=== PATIENT | male | born 1970 | race Caucasian/White ===

== ENCOUNTER 2023-01-31 08:29 | Outpatient (RCR) | payer MEDICARE, MEDICAID, SELFPAY | END 2023-02-05 11:39 | disposition home or self-care (01) | LOC: PT 08:29 | PROVIDERS: PCP Family Medicine; Visit Provider Family Medicine | DX: R26.89 Other abnormalities of gait and mobility (principal); I69.359 Hemiplegia and hemiparesis following cerebral infarction affecting unspecified side | CPT/HCPCS: 97110; 97112; 97124 ==

== ENCOUNTER 2023-03-22 07:56 | Outpatient (OUT) | payer MEDICARE, MEDICAID, SELFPAY ==
[2023-03-22 09:55] LABS: Thyroid Stimulating Hormone 0.462 uIU/mL (0.358-3.740)
[2023-03-26 00:06] LABS: Methylmalonic Acid, Serum 119 nmol/L (0-378)
== END 2023-03-22 07:57 | disposition home or self-care (01) ==
LOC: LAB 07:58
PROVIDERS: PCP Family Medicine
DX: R41.3 Other amnesia (principal)
CPT/HCPCS: 36415; 82607; 83921; 84443

== ENCOUNTER 2023-07-12 08:38 | Outpatient (OUT) | payer MEDICARE, MEDICAID, SELFPAY ==
[2023-07-12 09:43] LABS: Theophylline 18.2 ug/mL (10.0-20.0)
== END 2023-07-12 08:39 | disposition home or self-care (01) ==
PROVIDERS: PCP Family Medicine; Visit Provider Internal Medicine
DX: Z51.81 Encounter for therapeutic drug level monitoring (principal); Z79.899 Other long term (current) drug therapy; J44.9 Chronic obstructive pulmonary disease, unspecified
CPT/HCPCS: 36415; 80198

== ENCOUNTER 2023-07-18 08:14 | Outpatient (OUT) | payer MEDICARE, MEDICAID, SELFPAY ==
--- NOTE | 2023-07-18 08:18 | CT_ITS ---
[address] [address] Patient Name: MK ROSALES MRN: [id number] date: 1970 Sex: M Assigned Patient Location: CT Current Patient Location: Accession/Order Number: [id number] Exam Date: 07/18/2023 08:20 Report Date: 07/19/2023 00:29 At the request of: TREVOR LEONG Procedure: CT lung screening low-dose EXAMINATION: CT lung screening low-dose HISTORY: Screening For Malignant Neoplasm Of Respiratory Organs Z12.2 COMPARISON: CT LUNG CANCER SCREENING 07/13/2022 TECHNIQUE: Axial, Coronal, and Sagittal images were created without the administration of IV contrast material. Dose reduction techniques were achieved by using automated exposure control and/or adjustment of mA and/or kV according to patient size and/or use of iterative reconstruction technique. FINDINGS: LUNGS: Scattered calcified granulomas. No suspicious nodules or infiltrates. PLEURA: No mass, effusion, or pneumothorax. VASCULATURE: No abnormality. ULYSSES: Calcified lymph nodes compatible with chronic granulomatous disease. MEDIASTINUM: No mass or pathologic adenopathy. CARDIAC: Atherosclerotic coronary artery disease. No pericardial effusion. AORTA: No aneurysm or dissection. CHEST WALL: No mass or axillary adenopathy BONES: No bone lesion or fracture. LIMITED ABDOMEN: No suspicious findings. Limited images of the upper abdomen. OTHER: Negative. CT/CT lung screening low-dose IMPRESSION: 1. Lung-RADS 2- Benign Appearance or Behavior. Nodules with a very low likelihood of becoming a clinically active cancer due to size or lack of growth. Follow-up CT Chest in 1 year. Electronically authenticated by: ALEXUS MCCLAIN Date: 07/19/2023 00:29
== END 2023-07-18 08:15 | disposition home or self-care (01) ==
LOC: CT 08:14
PROVIDERS: PCP Family Medicine; Visit Provider Internal Medicine
DX: Z87.891 Personal history of nicotine dependence (principal); Z12.2 Encounter for screening for malignant neoplasm of respiratory organs
CPT/HCPCS: 71271

== ENCOUNTER 2023-10-12 08:47 | Outpatient (OUT) | payer MEDICARE, SELFPAY ==
--- OUTSIDE RECORDS SUMMARY | 2023-10-12 08:53 | XMS_ITS | CCD ---
Author Name Unknown Address [address] [place] [address] Organization [employer] Care Team Providers Care Roller Hand Name Role Phone SHANEL FERNANDEZ Referring Unavailable MK MIN Admitting Unavailable MK MIN Attending Unavailable MK MIN Surgeon Unavailable [place] Procedure Practitioner Unavailab le HOY, SHANEL Primary Care Unavailable PITRODCUBA MillerJAYSON Surgeon Unavailable [place] Procedure Practitioner Unavailab le Blades, Berenice Unavailable HOY, SHANEL Primary Care Unavailable Patricio Lutz Consulting Unavailable JI ., MR VAZQUEZ Attending Unavailable JI ., MR GEORGE Admitting Unavailable JI ., MR GEORGE Consulting Unavailable HOY, SHANEL Primary Care Unavailable STEPANIC, DR RUBI Consulting Unavailable STEPANIC, DR RUBI Attending Unavailable STEPANIC, DR RUBI Admitting Unavailable DR MK KOWALSKI V Consulting Unavailable FERMIN, HAL Attending Unavailable FERMIN, HAL Admitting Unavailable HOY, SHANEL Primary Care Unavailable FERMIN, HAL Consulting Unavailable HOY, SHANEL Consulting Unavailable HOY, SHANEL Attending Unavailable HOY, SHANEL Primary Care Unavailable HOY, SHANEL Admitting Unavailable BLADES, BERENICE Attending Unavailable BLADES, BERENICE Admitting Unavailable DR MK KOWALSKI V Consulting Unavailable HOY, SHANEL Primary Care Unavailable MK SÁNCHEZ Unavailable BLADES, BERENICE Consulting Unavailable SAMSA ., TREVOR Attending Unavailable SAMSA ., TREVOR Admitting Unavailable HOY, SHANEL Primary Care Unavailable HOY, SHANEL Consulting Unavailable HOY, SHANEL Attending Unavailable HOY, SHANEL Admitting Unavailable HOY, SHANEL Primary Care Unavailable HOY, SHANEL Admitting Unavailable HOY, SHANEL Consulting Unavailable HOY, SHANEL Primary Care Unavailable HOY, SHANEL Attending Unavailable Patricio Lutz Consulting Unavailable SAMSA ., TREVOR Attending Unavailable SAMSA ., TREVOR Admitting Unavailable SAMSA ., TREVOR Consulting Unavailable HOY, SHANEL Primary Care Unavailable SAMSA ., TREVOR Attending Unavailable SAMSA ., TREVOR Admitting Unavailable HOY, SHANEL Primary Care Unavailable SAMSA ., TREVOR Consulting Unavailable SAMSA ., TREVOR Attending Unavailable SAMSA ., TREVOR Admitting Unavailable HOY, SHANEL Primary Care Unavailable Patricio Lutz Consulting Unavailable SAMSA ., TREVOR Consulting Unavailable HOY, SHANEL Consulting Unavailable HOY, SHANEL Attending Unavailable HOY, SHANEL Admitting Unavailable HOY, SHANEL Primary Care Unavailable HOY, SHANEL Primary Care Unavailable AMARJIT, DR BABATUNDE Leigh Attending Unavailable DR BABATUNDE OCASIO Admitting Unavailable DR BABATUNDE OCASIO Consulting Unavailable BLU GASPAR Consulting Unavailable HOY, SHANEL Attending Unavailable HOY, SHANEL Primary Care Unavailable HOY, SHANEL Admitting Unavailable HOY, SHANEL Primary Care Unavailable HOY, SHANEL Attending Unavailable HOY, SHANEL Admitting Unavailable SAMSA ., TREVOR Admitting Unavailable HOY, SHANEL Primary Care Unavailable SAMSA ., TREVOR Attending Unavailable HOY, SHANEL Consulting Unavailable HOY, SHANEL Attending Unavailable HOY, SHANEL Primary Care Unavailable HOY, SHANEL Admitting Unavailable HAL CHRISTENSEN Attending Unavailable Allergies Allergy Classification Reported Allergen(s) Allergy Type Date of Onset Reaction(s) Facility (1 source) 88856,00; 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: [47756,00] Propensity to adverse reactions (disorder) 9 [facility] Medications Current Medications Medication Drug Class(es) Dates Sig (Normalized) Sig (Original) albuterol 0.83 mg/ml inhalation solution (2 sources) beta2-Adrenergic Agonist Start: 06-16-2020 take 2.5 mg by inhalation four times daily Albuterol Sulfate Active 2.5 MG INHALATION Four times daily June 16, 2020 10:12am Albuterol Sulfate (2.5 MG/ 3 ML) 2.5 MG/3ML 0.083% Nebulization Solution (2 sources) Aspir-81 (2 sources) Aspir-81 Active aspirin 81 mg delayed release oral tablet (2 sources) Platelet Aggregation Inhibitor, Nonsteroidal Anti-inflammatory Drug Start: 01-12-2019 take 81 mg by mouth once daily Aspirin Active 81 MG PO Daily January 12, 2019 9:32am atorvastatin 80 mg oral tablet (6 sources) HMG-CoA Reductase Inhibitor Start: 01-12-2019 take 80 mg by mouth once daily Atorvastatin Active 80 MG PO Daily January 12, 2019 9:27am cholecalciferol 0.05 mg oral tablet (2 sources) Vitamin D take 1 tablet by mouth every twenty-four hours Vitamin D 50 MCG (2000 UT) 1 tablet Orally Once a day Active clopidogrel 75 mg oral tablet (4 sources) P2Y12 Platelet Inhibitor Start: 01-12-2019 take 75 mg by mouth once daily Clopidogrel Active 75 MG PO Daily January 12, 2019 9:32am 24 hr desvenlafaxine 100 mg extended release oral tablet (4 sources) Serotonin and Norepinephrine Reuptake Inhibitor Start: 06-16-2020 take 100 mg by mouth once daily Desvenlafaxine Active 100 MG PO Daily June 16, 2020 10:12am diclofenac sodium 75 mg delayed release oral tablet (4 sources) Nonsteroidal Anti-inflammatory Drug Start: 06-16-2020 take 75 mg by mouth twice daily Diclofenac Sodium Active 75 MG PO Twice daily June 16, 2020 10:12am gabapentin 300 mg oral capsule (2 sources) Anti-epileptic Agent Gabapentin 300 MG 1 capsule Orally take 1 capsule twice daily for 15 days then 1 cap daily for 15 days then stop for 30 day(s) G89.29 Chronic Pain Active levETIRAcetam 500 mg oral tablet (8 sources) Start: 09-05-2020 take 1000 mg by mouth twice daily Levetiracetam Active 1000 MG PO Twice daily September 05, 2020 5:06pm Start: 01-14-2019 End: 09-05-2020 take 500 mg by mouth twice daily Levetiracetam Discontinued 500 MG PO Twice daily 60 January 14, 2019 9:06am September 05, 2020 5:06pm Start: 01-12-2019 End: 01-14-2019 take 500 mg by mouth once daily Levetiracetam Discontinued 500 MG PO Daily January 12, 2019 9:32am January 14, 2019 9:06am take 1 tablet by kathleen th every twelve hours Keppra 1000 MG 1 tablet Orally Twice a day Active lisinopril 2.5 mg oral tablet (4 sources) Angiotensin Converting Enzyme Inhibitor Start: 01-12-2019 take 2.5 mg by mouth once daily Lisinopril Active 2.5 MG PO Daily January 12, 2019 9:32am metFORMIN hydrochloride 500 mg oral tablet (4 sources) Biguanide Start: 01-12-2019 take 500 mg by mouth once daily Metformin Active 500 MG PO Daily January 12, 2019 9:32am metoprolol tartrate 25 mg oral tablet (4 sources) beta-Adrenergic Mariela Start: 01-12-2019 take 25 mg by mouth twice daily Metoprolol Tartrate Active 25 MG PO Twice daily January 12, 2019 9:32am Iktwkoky-Qer-Dfkuhvv Fumarate (Multi Vitamin) 9 mg iron/15 mL Liquid (2 sources) Start: 01-12-2019 take 1 tablet by mouth once daily Qstkeygg-Jqo-Etngg us Fumarate (Multi Vitamin) 9 mg iron/15 mL Liquid Active 1 TAB PO Daily January 12, 2019 9:32am nitroglycerin 0.4 mg sublingual tablet (2 sources) Nitrate Vasodilator Start: 01-12-2019 Nitroglycerin Active 0.4 MG SUBLINGUAL every 5 to 15 minutes January 12, 2019 9:44am Ozempic (2 sources) Ozempic Active SZSTANDARD1-Topical Cream Baclofen 2%, Cyclobenzaprine HCL 2%, Diclofenac Na 3%, Gabapentin 6%, Lidocaine HCL 2% Cream (2 sources) Start: 03-16-2020 tamsulosin hydrochloride 0.4 mg oral capsule (4 sources) alpha-Adrenergic Mariela Start: 01-12-2019 take 0.4 mg by mouth once daily Tamsulosin Active 0.4 MG PO Daily January 12, 2019 9:32am theophylline 400 mg extended release oral tablet (4 sources) Methylxanthine Start: 01-12-2019 take 1 tablet by mouth twice daily Theophylline Active 1 TAB PO Twice daily January 12, 2019 9:27am Theophylline Act renny Trelegy Ellipta 100-62.5-25 MCG/INH (2 sources) take 1 puff(s) by inhalation once daily Trelegy Ellipta 100-62.5-25 MCG/INH 1 puff Inhalation Once a day Active Completed/Discontinued Medications Medication Drug Class(es) Dates Sig (Normalized) Sig (Original) cyclobenzaprine hydrochloride 10 mg oral tablet (2 sources) Muscle Relaxant Start: 01-12-2019 End: 08-03-2020 take 10 mg by mouth three times daily Cyclobenzaprine Discontinued 10 MG PO Three times daily January 12, 2019 9:32am August 03, 2020 8:30am Fluticasone-Umeclidin -Vilanter (4 sources) Anticholinergic , Corticosteroid, beta2-Adrenergi c Agonist Start: 08-02-2020 End: 09-05-2020 Fluticasone-Umeclidi n-Vilanter (Trelegy Ellipta) 100-62.5-25 mcg blister with device Discontinued 2 INH INHALATION Twice daily August 02, 2020 9:56am September 05, 2020 5:06pm Start: 01-12-2019 take 1 puff(s) by inhalation once daily Dbahbmnuskt-Mpgvzjrbh-Kfflolgw Active 1 PUFF INHALATION Daily January 12, 2019 9:32am traZODone hydrochloride 50 mg oral tablet (2 sources) Serotonin Reuptake Inhibitor Start: 01-12-2019 End: 08-03-2020 take 50 mg by mouth once daily Trazodone Discontinued 50 MG PO Daily January 12, 2019 9:32am August 03, 2020 8:32am Problems Active Problems Problem Classification Problem Date Documented Date Episodic/Chronic Acute cerebrovascular disease (7 sources) Cerebral infarction; 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: [Cerebral infarction, unspecified] Onset: 12-19-2022 Chronic Chronic obstructive pulmonary disease and bronchiectasis (7 sources) Pulmonary emphysema; 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: [Emphysema, unspecified] Onset: 07-14-2022 01-12-2019 Chronic Congestive heart failure; nonhypertensive (1 source) Unspecified diastolic (congestive) heart failure; 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: [UNSPECIFIED DIASTOLIC HEART FAILURE] Onset: 10-22-2022 Chronic Coronary atherosclerosis and other heart disease (9 sources) 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; 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: [Atherosclerotic heart disease of [place] coronary artery without angina pectoris] Onset: 04-05-2022 01-12-2019 Chronic Deficiency and other anemia (1 source) Anemia, unspecified; 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: [ANEMIA UNSPECIFIED] Onset: 10-22-2022 Episodic Diabetes mellitus with complications (2 sources) Neuropathy due to type 2 diabetes mellitus; 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: [Type 2 diabetes mellitus with diabetic neuropathy, unspecified] 01-12-2019 Chronic Diabetes mellitus without complication (1 source) Other abnormal glucose; 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: [OTHER ABNORMAL GLUCOSE] Onset: 10-22-2022 Episodic Disorders of lipid metabolism (3 sources) Hyperlipidemia; 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: [Hyperlipidemia, unspecified] Onset: 10-22-2022 01-12-2019 Chronic Epilepsy; convulsions (2 sources) Seizure; 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: [Unspecified convulsions] 01-12-2019 Episodic Essential hypertension (3 sources) Hypertensive disorder; 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: [Essential (primary) hypertension] Onset: 03-26-2022 01-12-2019 Chronic Hypertension with complications and secondary hypertension (1 source) Hypertensive heart disease with heart failure; 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: [HTN HEART DISEASE W/HEART FAIL] Onset: 10-22-2022 Chronic Intracranial injury (2 sources) History of traumatic brain injury; 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: [Personal history of traumatic brain injury] 01-12-2019 Episodic Joint disorders and dislocations; trauma-related (6 sources) Internal derangement of left knee; 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: [Unspecified internal derangement of left knee] Onset: 05-30-2022 Chronic Malaise and fatigue (1 source) Weakness; 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: [WEAKNESS] Onset: 12-12-2022 Episodic Nutritional deficiencies (1 source) Vitamin D deficiency, unspecified; 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: [VITAMIN D DEFICIENCY UNSPECIFIED] Onset: 10-22-2022 Chronic Occlusion or stenosis of precerebral arteries (1 source) Occlusion and stenosis of bilateral carotid arteries; 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: [OCCLUSION AND STENOS JANIYA CAROTID ART] Onset: 11-05-2022 Chronic Osteoarthritis (2 sources) Osteoarthritis of left knee joint; 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: [Unilateral primary osteoarthritis, left knee] Chronic Other aftercare (4 sources) Encounter for therapeutic drug level monitoring; 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: [ENC THERAPEUTC DRUG LEVL MONITORING] Onset: 01-01-2023 Episodic Other circulatory disease (4 sources) Personal history of transient ischemic attack (TIA), and cerebral infarction without residual deficits; 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: [PERS HX TIA AND CI NO RESID DEFICIT] Onset: 12-12-2022 Episodic Other connective tissue disease (1 source) Pain in left leg Episodic Other connective tissue disease (1 source) Neuralgia and neuritis, unspecified; 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: [NEURALGIA AND NEURITIS UNSPECIFIED] Onset: 10-22-2022 Episodic Other lower respiratory disease (1 source) Dyspnea, unspecified; 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: [DYSPNEA UNSPECIFIED] Onset: 10-22-2022 Episodic Other nervous system disorders (4 sources) Chronic pain; 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: [Other chronic pain] Chronic Other nervous system disorders (2 sources) Encephalomalacia; 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: [Other specified disorders of brain] Chronic Other nervous system disorders (2 sources) Other specified disorders of brain; 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: [OTHER SPECIFIED DISORDERS OF BRAIN] Onset: 11-05-2022 Chronic Other nervous system disorders (1 source) Cognitive communication deficit; 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: [COGNITIVE COMMUNICATION DEFICIT] Onset: 01-09-2023 Chronic Other nutritional; endocrine; and metabolic disorders (2 sources) Morbid obesity; 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: [Morbid (severe) obesity due to excess calories] Chronic Other screening for suspected conditions (not mental disorders or infectious disease) (3 sources) Encounter for screening for malignant neoplasm of prostate; 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: [Encounter for screening for malignant neoplasm of rectum] Onset: 08-19-2022 Episodic Residual codes; unclassified (1 source) Other amnesia; 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: [OTHER AMNESIA] Onset: 01-09-2023 Episodic Residual codes; unclassified (4 sources) Edema, unspecified; 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: [EDEMA UNSPECIFIED] Onset: 10-17-2022 Episodic Residual codes; unclassified (2 sources) Tobacco use; 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: [Tobacco use] Onset: 02-26-2023 Episodic Spondylosis; intervertebral disc disorders; other back problems (8 sources) Solitary sacroiliitis; 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: [Sacroiliitis, not elsewhere classified] Chronic Substance-related disorders (1 source) Nicotine dependence, cigarettes, uncomplicated; 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: [NICOTINE DEPEND CIGARETTES UNCOMP] Onset: 03-26-2022 Chronic Past or Other Problems Problem Classification Problem Date Documented Da te Episodic/Chronic Abdominal pain (3 sources) Unspecified abdominal pain; 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: [UNSPECIFIED ABDOMINAL PAIN] Onset: 03-22-2022 Episodic E Codes: Natural/environment (1 source) Exposure to other specified factors, initial encounter; 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: [EXPOSURE OTHER SPEC FACTORS INITIAL] Onset: 03-26-2022 Episodic Nonspecific chest pain (4 sources) Chest pain, unspecified; 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: [CHEST PAIN UNSPECIFIED] Onset: 08-14-2022 Episodic Other aftercare (1 source) terminal press operator (current) use of aspirin; 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: [PENITENTIARY CURRENT USE OF ASPIRIN] Onset: 03-26-2022 Episodic Other aftercare (1 source) Other lobsterman (current) drug therapy; 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: [OTH MANAGER COMBINATION CURRENT DRUG THERAPY] Onset: 03-26-2022 Episodic Residual codes; unclassified (4 sources) Localized edema; 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: [LOCALIZED EDEMA] Onset: 01-23-2022 Episodic Screening and history of mental health and substance abuse codes (4 sources) Personal history of nicotine dependence; 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: [PERSONAL HISTORY OF NICOTINE DEPEND] Onset: 07-13-2022 Episodic Spondylosis; intervertebral disc disorders; other back problems (7 sources) Lumbar radiculopathy; 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: [Radiculopathy, lumbar region] Onset: 01-25-2022 Episodic Sprains and strains (1 source) Strain of muscle, fascia and tendon of lower back, initial encounter; 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: [STRAIN MUSC FASC TENDON LW BACK INT] Onset: 03-26-2022 Episodic Substance-related disorders (1 source) Cannabis use, unspecified, uncomplicated; 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: [CANNABIS USE UNS UNCOMPLICATED] Onset: 03-26-2022 Episodic Results Test Name Value Interpretation Reference Range Facility Office Visiton 02-26-2023 Follow-up visit [id number] Ankush Rosales 1970 M Date Provider Department Center 02/26/2023 HAL HOPK[facility] Family History Problem Relation Age of Onset Coronary artery disease Father Heart attack Father Family Status - Relation Status Age at Father Level of Service:[address] [place] OFFICE/OUTPATIENT ESTABLISHED LOW MDM 20-29 MIN Normal [facility] THEOPHYLLINEon 01-01-2023 THEOPHYLLINE 17.6 ug/mL Normal 10.0-20.0 [facility] Comment on above: Performed By: #### V ITAD, PSASC, IRON #### [facility] [address] [address] [address] Smitha Petersen MRI BRAIN WO CONon 3 MRI BRAIN WO CON EXAM: MRI BRAIN WO C ON HISTORY: Cerebral infarction chronic left-sided weakness and pain. COMPARISON: None. TECHNIQUE: Multiplanar multisequence MR imaging of the head was performed without intravenous contrast. FINDINGS: There is a large area of cystic encephalomalacia and gliosis within the right parietal lobe. There is a small area of cystic encephalomalacia and gliosis within the inferior paramedian left frontal lobe. There is encephalomalacia and gliosis within the anterior and left lateral temporal lobe and inferolateral left frontal region. There is mild diffuse cerebral atrophy with concordant prominence of the ventricles. Expected flow voids are noted within the intracranial internal carotid, vertebral and basilar arteries. Cerebellopontine angles and internal auditory canals are unremarkable. The pituitary gland and midline structures are unremarkable. Bone marrow signal is within normal limits. Orbits and globes are unremarkable. Expected signal voids are seen within the paranasal sinuses and mastoid air cells. IMPRESSION: 1. Areas of encephalomalacia and gliosis within the right parietal lobe, inferior left frontal lobe and left frontotemporal region, compatible with chronic infarcts. 2. Mild diffuse cerebral atrophy with concordant presence of ventricles. 3. No acute infarct, mass effect or hemorrhage. Electronically authenticated by: MK SÁNCHEZ Date: 2022-11-01 16:53 Normal [facility] US CAROTID ART BILon 023 US CAROTID ART JANIYA EXAMINATION: US CAROTID ART JANIYA HISTORY: Cerebral infarction COMPARISON: No relevant comparison available. TECHNIQUE: Duplex Doppler ultrasound analysis of carotid and vertebral arteries. . Bilateral carotid arterial duplex examination was performed using B-mode, color flow and spectral analysis. Carotid stenosis is reported according to validated velocity parameters, similar to NASCET criteria. FINDINGS: RIGHT CAROTID ARTERY Mild atherosclerotic plaque Subclavian: PSV: 126.0 cm/s cm/s EDV: 0.0 cm/s cm/s CCA: Prox: PSV: 129.8 cm/s cm/s EDV: 31.3 cm/s cm/s Mid: PSV: 80.5 cm/s cm/s EDV: 23.4 cm/s cm/s Distal: PSV: 78.5 cm/s cm/s EDV: 25.4 cm/s cm/s BULB: PSV: 70.7 cm/s cm/s EDV: 19.5 cm/s cm/s ICA: Prox: PSV: 48.3 cm/s cm/s EDV: 19.7 cm/s cm/s Mid: PSV: 69.1 cm/s cm/s EDV: 34.0 cm/s cm/s Distal: PSV: 68.0 cm/s cm/s EDV: 26.3 cm/s cm/s ECA: PSV: 66.9 cm/s cm/s EDV: 19.7 cm/s cm/s VERTEBRAL: PSV: 22.4 cm/s cm/s EDV: 8.7 cm/s cm/s ICA/CCA ratio: PSV: 0.5 EDV: 0.6 LEFT CAROTID ARTERY Mild atherosclerotic plaque Subclavian: PSV: 79.0 cm/s cm/s EDV: 3.1 cm/s CCA: Prox: PSV: 131.9 cm/s cm/s EDV: 21.5 cm/s Mid: PSV: 98.3 cm/s cm/s EDV: 25.4 cm/s Distal: PSV: 74.6 cm/s cm/s EDV: 25.4 cm/s BULB: PSV: 49.0 cm/s cm/s EDV: 15.5 cm/s ICA: Prox: PSV: 63.3 cm/s cm/s EDV: 23.2 cm/s Mid: PSV: 76.2 cm/s cm/s EDV: 34.8 cm/s Distal: PSV: 69.8 cm/s cm/s EDV: 24.5 cm/s ECA: PSV: 72.3 cm/s cm/s EDV: 18.0 cm/s VERTEBRAL: PSV: 36.2 cm/s cm/s EDV: 17.0 cm/s ICA/CCA ratio: PSV: 0.6 EDV: 1.6 IMPRESSION: 0-49% flow stenosis bilateral internal carotid arteries Spectral Doppler US Thresholds (Reference: Po EG, et al. Radiology 2000; 214:247-252) Stenosis (%) PSV (cm/sec) VICA/VCCA 0-49 <150 <2.5 50-69 150-225 2.5-4.0 >70 >225 >4.0 Electronically authenticated by: MK KOWALSKI Date: 2022-11-01 16:16 Normal [facility] BNPon 10-17-2022 Natriuretic peptide B (Bld) [Mass/Vol] 32.0 pg/mL Normal <=900.0 [facility] Comment on above: Performed By: #### C MP, BNP, TSH, URIC, T7, LIPID #### [facility] [address] [place] [address] Dr. Smitha Petersen CBC AUTO DIFFon 10-17-2022 BASO # 0.0 103/ul Normal 0.0-0.1 [facility] Comment on above: Performed By: #### V ITAD, PSASC, IRON #### [facility] [address] [address] [address] Smitha Petersen Basophils/100 WBC (Bld) 0.4 % Normal 0.2-2.0 [facility] Comment on above: Performed By: #### V ITAD, PSASC, IRON #### [facility] [address] [place] [address] Dr. Smitha Petersen EO # 0.2 103/ul Normal 0.0-0.7 [facility] Comment on above: Performed By: #### V ITAD, PSASC, IRON #### [facility] [address] [place] [address] Dr. Smitha Petersen Eosinophils/100 WBC (Bld) 2.4 % Normal 0.9-7.0 [facility] Comment on above: Performed By: #### V ITAD, PSASC, IRON #### [facility] [address] [place] [address] Dr. Smitha Petersen Erythrocyte distribution width (RBC) [Ratio] 13.8 % Normal 11.0-15.0 [facility] Comment on above: Performed By: #### V ITAD, PSASC, IRON #### [facility] [address] [place] [address] Dr. Smitha Petersen Hematocrit (Bld) [Volume fraction] 46.8 % Normal 42.0-54.0 [facility] Comment on above: Performed By: #### V ITAD, PSASC, IRON #### [facility] [address] [place] [address] Dr. Smitha Petersen Hemoglobin (Bld) [Mass/Vol] 15.7 g/dL Normal 14.0-18.0 [facility] Comment on above: Performed By: #### V ITAD, PSASC, IRON #### [facility] [address] [place] [address] Dr. Smitha Petersen IG # 0.04 10e3/ul Critically high 0.00-0.03 [facility] Comment on above: Performed By: #### V ITAD, PSASC, IRON #### [facility] [address] [address] [address] Smitha Petersen IG % 0.5 % Normal 0.0-0.5 [facility] Comment on above: Performed By: #### V ITAD, PSASC, IRON #### [facility] [address] [address] [address] Smitha Petersen LYMPH # 1.7 103/ul Normal 1.2-3.8 [facility] Comment on above: Performed By: #### V ITAD, PSASC, IRON #### [facility] [address] [address] [address] Smitha Petersen Lymphocytes/100 WBC (Bld) 20.1 % Critically low 20.5-60.0 [facility] Comment on above: Performed By: #### V ITAD, PSASC, IRON #### [facility] [address] [place] [address] Dr. Smitha Petersen MANUAL DIFF REQ NO Normal [facility] Comment on above: Performed By: #### V ITAD, PSASC, IRON #### [facility] [address] [place] [address] Dr. Smitha Petersen MCH (RBC) [Entitic mass] 29.7 pg Normal 25.9-34.0 [facility] Comment on above: Performed By: #### V ITAD, PSASC, IRON #### [facility] [address] [place] [address] Dr. Smitha Petersen MCHC (RBC) [Mass/Vol] 33.5 g/dL Normal 29.9-35.2 [facility] Comment on above: Performed By: #### V ITAD, PSASC, IRON #### [facility] [address] [address] [address] Smitha Petersen MCV (RBC) [Entitic vol] 88.5 fL Normal 80.0-94.0 [facility] Comment on above: Performed By: #### V ITAD, PSASC, IRON #### [facility] [address] [address] [address] Smitha Petersen MONO # 0.6 103/ul Normal 0.3-0.8 [facility] Comment on above: Performed By: #### V ITAD, PSASC, IRON #### [facility] [address] [place] [address] Dr. Smitha Petersen Monocytes/100 WBC (Bld) 6.8 % Normal 1.7-12.0 [facility] Comment on above: Performed By: #### V ITAD, PSASC, IRON #### [facility] [address] [place] [address] Dr. Smitha Petersen NEUT # 6.0 103/ul Normal 1.4-6.5 [facility] Comment on above: Performed By: #### V ITAD, PSASC, IRON #### [facility] [address] [place] [address] Dr. Smitha Petersen Neutrophils/100 WBC (Bld) 69.8 % Normal 43.0-75.0 [facility] Comment on above: Performed By: #### V ITAD, PSASC, IRON #### [facility] [address] [place] [address] Dr. Smitha Petersen Platelet mean volume (Bld) [Entitic vol] 8.7 fL Critically low 9.5-13.5 [facility] Comment on above: Performed By: #### V ITAD, PSASC, IRON #### [facility] [address] [place] [address] Dr. Smitha Petresen PLT 222 103/ul Normal 150-450 [facility] Comment on above: Performed By: #### V ITAD, PSASC, IRON #### [facility] [address] [place] [address] Dr. Smitha Petersen RBC 5.29 106/ul Normal 4.70-6.10 [facility] Comment on above: Performed By: #### V ITAD, PSASC, IRON #### [facility] [address] [place] [address] Dr. Smitha Petersen WBC 8.5 103/ul Normal 4.0-11.0 [facility] Comment on above: Performed By: #### V ITAD, PSASC, IRON #### [facility] [address] [address] [address] Smitha Petersen FREE THYROXINE INDEX T7on FTI 2.54 Normal 1.30-4.50 [facility] Comment on above: Performed By: #### C MP, BNP, TSH, URIC, T7, LIPID #### [facility] [address] [place] [address] Dr. Smitha Petersen T3U 33.0 % Normal 33.0-40.0 [facility] Comment on above: Performed By: #### C MP, BNP, TSH, URIC, T7, LIPID #### [facility] [address] [place] [address] Dr. Smitha Petersen T4 [Mass/Vol] 7.70 ug/dL Normal 4.50-12.10 [facility] Comment on above: Performed By: #### C MP, BNP, TSH, URIC, T7, LIPID #### [facility] [address] [place] [address] Dr. Smitha Petersen GLYCOHEMOGLOBIN A1Con 2022 ADA RECOMMENDATION SEE BELOW Normal [facility] Comment on above: Result Comment: ADA RECOMMENDED LIMIT 4.0 - 6.0 ADA THERAPEUTIC TARGET < 7.0 ACTION SUGGESTED > 7.0 Performed By: #### V ITCHAD PSASC, IRON #### [facility] [address] [address] [address] Smitha Petersen Glucose [Mass/Vol] 120 mg/dL Normal [facility] Comment on above: Performed By: #### V ITCHAD, PSASC, IRON #### [facility] [address] [place] [address] Dr. Smitha Petersen HbA1c (Bld) [Mass fraction] 5.8 % Normal 4.5-6.2 [facility] Comment on above: Performed By: #### V ITAD, PSASC, IRON #### [facility] [address] [place] [address] Dr. Smitha Petersen IRONon 10-17-2022 Iron [Mass/Vol] 66.0 ug/dL Normal 65.0-175.0 [facility] Comment on above: Performed By: #### V ITAD, PSASC, IRON #### [facility] [address] [address] [address] Smitha Petersen LIPID PROFILEon 10-17-2022 CHOL-HDL RATIO NORM SEE BELOW Normal [facility] Comment on above: Result Comment: 3.3 - 4.4 LOW RISK 4.4 - 7.1 AVERAGE RISK 7.1 - 11.0 MODERATE RISK >11.0 HIGH RISK Performed By: #### C MP, BNP, TSH, URIC, T7, LIPID #### [facility] [address] [address] [address] Smitha Petersen Cholesterol [Mass/Vol] 102 mg/dL Normal <=200 [facility] Comment on above: Performed By: #### C MP, BNP, TSH, URIC, T7, LIPID #### [facility] [address] [address] [address] Smitha Petersen Cholesterol in HDL [Mass/Vol] 45 mg/dL Normal 40-60 [facility] Comment on above: Performed By: #### C MP, BNP, TSH, URIC, T7, LIPID #### [facility] [address] [address] [address] Smitha Petersen Cholesterol in LDL [Mass/Vol] 35.2 mg/dL Normal [facility] Comment on above: Performed By: #### C MP, BNP, TSH, URIC, T7, LIPID #### [facility] [address] [address] [address] Smitha Petersen Cholesterol.total/Ch olesterol in HDL [Mass ratio] 2.3 {ratio} Normal [facility] Comment on above: Performed By: #### C MP, BNP, TSH, URIC, T7, LIPID #### [facility] [address] [address] [address] Smitha Petersen HDL NORMAL > or = 60 mg/dl - LO W CARDIOVASCULAR RISK <40 mg/dl - HIGH CARDIOVASCULAR RISK Normal [facility] Comment on above: Performed By: #### C MP, BNP, TSH, URIC, T7, LIPID #### [facility] [address] [address] [address] Smitha Petersen LDL CALC NORMAL SEE BELOW Normal [facility] Comment on above: Result Comment: <100 mg/dl OPTIMAL 100 - 129 mg/dl NEAR OR ABOVE OPTIMAL 130 - 159 mg/dl BORDERLINE HIGH 160 - 189 mg/dl HIGH >190 mg/dl VERY HIGH Performed By: #### C MP, BNP, TSH, URIC, T7, LIPID #### [facility] [address] [address] [address] Smitha Petersen Triglyceride [Mass/Vol] 109 mg/dL Normal <=150 [facility] Comment on above: Performed By: #### C MP, BNP, TSH, URIC, T7, LIPID #### [facility] [address] [address] [address] Smitha Petersen VLDL CALC 21.8 mg/dL Normal [facility] Comment on above: Performed By: #### C MP, BNP, TSH, URIC, T7, LIPID #### [facility] [address] [place] [address] Dr. Smitha Petersen PROF 14(COMP METB)on 023 Albumin [Mass/Vol] 3.8 g/dL Normal 3.4-5.0 [facility] Comment on above: Performed By: #### C MP, BNP, TSH, URIC, T7, LIPID #### [facility] [address] [place] [address] Dr. Smitha Petersen Albumin/Globulin [Mass ratio] 1.2 {ratio} Normal [facility] Comment on above: Performed By: #### C MP, BNP, TSH, URIC, T7, LIPID #### [facility] [address] [place] [address] Dr. Smitha Petersen ALP [Catalytic activity/Vol] 113 U/L Normal 46-116 [facility] Comment on above: Performed By: #### C MP, BNP, TSH, URIC, T7, LIPID #### [facility] [address] [place] [address] Dr. Smitha Petersen ALT [Catalytic activity/Vol] 66 U/L Critically high 16-63 [facility] Comment on above: Performed By: #### C MP, BNP, TSH, URIC, T7, LIPID #### [facility] [address] [place] [address] Dr. Smitha Petersen Anion gap [Moles/Vol] 13.4 mmol/L Normal [facility] Comment on above: Performed By: #### C MP, BNP, TSH, URIC, T7, LIPID #### [facility] [address] [place] [address] Dr. Smitha Petersen AST [Catalytic activity/Vol] 29 U/L Normal 15-37 [facility] Comment on above: Performed By: #### C MP, BNP, TSH, URIC, T7, LIPID #### [facility] [address] [place] [address] Dr. Smitha Petersen Bilirubin [Mass/Vol] 0.3 mg/dL Normal 0.2-1.0 [facility] Comment on above: Performed By: #### C MP, BNP, TSH, URIC, T7, LIPID #### [facility] [address] [place] [address] Dr. Smitha Petersen Calcium [Mass/Vol] 8.9 mg/dL Normal 8.5-10.1 [facility] Comment on above: Performed By: #### C MP, BNP, TSH, URIC, T7, LIPID #### [facility] [address] [place] [address] Dr. Smitha Petersen Chloride [Moles/Vol] 101 mmol/L Normal 98-107 [facility] Comment on above: Performed By: #### C MP, BNP, TSH, URIC, T7, LIPID #### [facility] [address] [place] [address] Dr. Smitha Petersen CO2 [Moles/Vol] 28.8 mmol/L Normal 21.0-32.0 [facility] Comment on above: Performed By: #### C MP, BNP, TSH, URIC, T7, LIPID #### [facility] [address] [place] [address] Dr. Smitha Petersen Creatinine [Mass/Vol] 0.82 mg/dL Normal 0.70-1.30 [facility] Comment on above: Performed By: #### C MP, BNP, TSH, URIC, T7, LIPID #### [facility] [address] [address] [address] Smitha Petersen EGFR-AF SAO TOMEAN >60 Normal >=60 [facility] Comment on above: Performed By: #### C MP, BNP, TSH, URIC, T7, LIPID #### [facility] [address] [address] [address] Smitha Petersen EGFR-NON AF SAO TOMEAN >60 Normal >=60 [facility] Comment on above: Performed By: #### C MP, BNP, TSH, URIC, T7, LIPID #### [facility] [address] [address] [address] Smitha Petersen Globulin (S) [Mass/Vol] 3.3 g/dL Normal [facility] Comment on above: Performed By: #### C MP, BNP, TSH, URIC, T7, LIPID #### [facility] [address] [place] [address] Dr. Smitha Petersen Glucose [Mass/Vol] 100 mg/dL Normal 74-106 [facility] Comment on above: Performed By: #### C MP, BNP, TSH, URIC, T7, LIPID #### [facility] [address] [address] [address] Smitha Petersen Potassium [Moles/Vol] 4.2 mmol/L Normal 3.5-5.1 [facility] Comment on above: Performed By: #### C MP, BNP, TSH, URIC, T7, LIPID #### [facility] [address] [address] [address] Smitha Petersen Protein [Mass/Vol] 7.1 g/dL Normal 6.4-8.2 [facility] Comment on above: Performed By: #### C MP, BNP, TSH, URIC, T7, LIPID #### [facility] [address] [place] [address] Dr. Smitha Petersen Sodium [Moles/Vol] 139 mmol/L Normal 136-145 [facility] Comment on above: Performed By: #### C MP, BNP, TSH, URIC, T7, LIPID #### [facility] [address] [place] [address] Dr. Smitha Petersen Urea nitrogen [Mass/Vol] 14.0 mg/dL Normal 7.0-18.0 [facility] Comment on above: Performed By: #### C MP, BNP, TSH, URIC, T7, LIPID #### [facility] [address] [place] [address] Dr. Smitha Petersen Urea nitrogen/Creatinine [Mass ratio] 17.1 mg/mg Normal [facility] Comment on above: Performed By: #### C MP, BNP, TSH, URIC, T7, LIPID #### [facility] [address] [place] [address] Dr. Smitha Petersen TSHon 10-17-2022 TSH 0.796 uIU/mL Normal 0.358-3.740 [facility] Comment on above: Performed By: #### C MP, BNP, TSH, URIC, T7, LIPID #### [facility] [address] [place] [address] Dr. Smitha Petersen URIC ACID SERUMon 10-17-2022 Urate [Mass/Vol] 6.4 mg/dL Normal 3.5-7.2 [facility] Comment on above: Performed By: #### C MP, BNP, TSH, URIC, T7, LIPID #### [facility] [address] [place] [address] Dr. Smitha Petersen VITAMIN D 25 OHon 10-17-2022 VIT D 25-OH 17.5 ng/mL Normal [facility] Comment on above: Performed By: #### V ITAD, PSASC, IRON #### [facility] [address] [place] [address] Dr. Smitha Petersen VIT D RANGES SEE BELOW Normal [facility] Comment on above: Result Comment: <20 ng/mL Vit D deficient 20 - <30 ng/mL Vit D insufficient 30 - 100 ng/mL Vit D sufficient >100 ng/mL Potential Toxicity Performed By: #### V ITAD, PSASC, IRON #### [facility] [address] [place] [address] Dr. Smitha Petersen ECHOCARDIO M/2D COMPLETEon 1 10-15-2021 ECHOCARDIO M/2D COMPLETE Patient: MK ROSALES Exam Date: 08/14/2022 : 1970 Gender:M Ordering : DR SHANEL FERNANDEZ . Admission #: [id number] Family : Order #: [id number] CLICK HERE TO VIEW EXAM ECHOCARDIOGRAM REPORT PROCEDURE: CARDIO PULMONARY ECHOCARDIO M/2D COMP INDICATIONS: Chest pain, Low ejection fraction on stress test COMPARISON: None. DESCRIPTION: COMPLETE ECHOCARDIOGRAM Real-time transthoracic echocardiography with 2D, M-mode, spectral and color flow Doppler performed. QUALITY: Technical quality was good. LEFT VENTRICLE: Normal chamber size. Thickened septal wall. Left ventricular systolic function is at the lower limits of normal. LV EF: Calculated left ventricular ejection fraction is 50%. DIASTOLIC: Normal diastolic function. ATRIAL SEPTUM: LEFT ATRIUM: Normal chamber size. RIGHT ATRIUM: Normal chamber size. RIGHT VENTRICLE: Normal chamber size. Normal right ventricular systolic function. TRICUSPID VALVE: Normal mobility and thickness. No stenosis with trivial regurgitation. Unable to assess right-sided pressures due to lack of measurable tricuspid regurgitation. MITRAL VALVE: Normal mobility and thickness. No mitral valve prolapse. No evidence of mitral valve stenosis. There is no mitral annular calcification. Trivial mitral regurgitation. AORTIC VALVE: Normal trileaflet appearance. No visible sclerosis. Normal leaflet mobility. No evidence of aortic valve stenosis. DVI 0.74. No aortic regurgitation. AORTIC ROOT: Normal diameter and appearance. PULMONIC VALVE: Normal thickness and mobility. No stenosis. Trivial regurgitation. PERICARDIUM: No evidence of pericardial effusion. IVC: Collapses with inspirations. Normal size. PLEURA: CONCLUSION: 1. Left ventricular systolic function is at the lower limits of normal. LVEF is 50%. 2. Normal right ventricular size and systolic function. 3. No significant valvular dysfunction. 4. No pericardial effusion. Adult Echocardiography Procedure Report Left Ventricle LVEDD (3.7 - 5.6 cm): 5.30 cm LVESD (2.2 - 4.0 cm): 3.93 cm LVIVS thickness (0.6 - 1.2 cm): 1.38 cm LVPW thickness (0.5 - 1.0 cm): 0.82 cm e': 0.11 m/s E - e': 5.03 LVOT Max Gradient: 2.33 mm[Hg] Peak Velocity (LVOT): 0.76 m/s Mean Velocity (LVOT): 0.56 m/s LVOT Diameter 2.50 cm Left Ventricular Ejection Fraction: 50% Left Atrium LA Volume Index (2D A2C): 57.47 ml, 57.47 ml Left Atrium Systolic Dimension: 3.84 cm Mitral Valve MV E to A Ratio: 1.08, 1.10 Mitral Valve A-Wave Peak Velocity: 0.49 m/s, 0.51 m/s Mitral Valve E-Wave Peak Velocity: 0.53 m/s, 0.56 m/s Right Ventricle RV Internal Diastolic Dimension: 3.70 cm Aorta AO Root Diam: 3.39 cm Ascending Ao Diam: 2.97 cm Aortic Valve AoV Area (Peak Reji): 3.63 cm2, 3.63 cm2 AoV Area (VTI): 3.78 cm2, 3.78 cm2 Peak Velocity(Antegrade Flow): 1.03 m/s Peak Gradient(Antegrade Flow): 4.26 mm[Hg] Mean Velocity(Antegrade Flow): 0.66 m/s Mean Gradient(Antegrade Flow): 2.03 mm[Hg] Velocity Time Integral: 20.40 cm Tricuspid Valve Peak Velocity (Regurgitant Flow): 1.71 m/s, 1.95 m/s, 1.76 m/s Peak Velocity: 0.55 m/s Pulmonic Valve Mean Gradient: 1.75 mm[Hg], 1.70 mm[Hg] Mean Velocity: 0.60 m/s, 0.60 m/s Peak Velocity: 0.94 m/s, 0.91 m/s Peak Gradient: 3.56 mm[Hg], 3.32 mm[Hg] Right Atrium Right Atrium Systolic Pressure: 47.60 ml, 47.60 ml Dictated by: Zachary Matta M.D. on 08/14/2022 at 18:31 Approved by: Zachary Matta M.D. on 08/14/2022 at 18:35 Normal [facility] NM STRESS/REST MULTIon 07-23 NM STRESS/REST MULTI Patient: KATINA ROSALES Exam Date: 07/23/2022 : 1970 Gender:M Ordering : DR SHANEL FERNANDEZ . Admission #: [id number] Family : Order #: [id number] CLICK HERE TO VIEW EXAM RADIOLOGY REPORT PROCEDURE: RADIONUCLIDE IMAGING STRESS/REST MULTI COMPARISON: NM STRESS/REST MULTI, 12/15/2018. INDICATIONS: Chest pain TECHNIQUE: Exam Description: Stress/Rest two day protocol gated SPECT Rest Imagin.6 mCi Tc-99m Cardiolite IV on 07/23/2022 Stress Imaging 26.5 mCi Tc-99m Cardiolite IV on 08/06/2022 Exercise Protocol: 0.4 mg Lexiscan given IV Heart Rate (bpm): Rest: 65 Max: 79 PMHR: 46 Blood Pressure: Rest: 124/80 Max: 138/88 Symptoms: Rest and peak stress ECG findings were normal and the exercise portion of the study was normal per attending physician Dr. Charles . For more details please see separate cardiac stress test report. FINDINGS: QUALITY OF STUDY: PERFUSION DEFECT: LOCATION: Mid-inferior. Apical inferior. SIZE: Small (1-2 segments). SEVERITY: Moderate. TYPE: Persistent. WALL MOTION: Mild hypokinesis: LV SIZE: Enlarged; EDV 150 mL. TID / TCD: None; 1.0 LVEF: Abnormal. Calculated EF 48%. SUMMARY: Myocardial perfusion imaging study has ABNORMAL findings. CONCLUSION: 1. Fixed defect inferior wall. No reversible ischemia 2. Dilated left ventricle, EDV 150 milliliters 3. Low left ventricular fraction 48% 4. Normal exercise test Dictated by: Mk Kowalski MD on 08/06/2022 at 12:43 Approved by: Mk Kowalski MD on 08/06/2022 at 12:45 Normal [facility] CT LUNG CANCER SCREENINGon 1 09-12-2021 CT LUNG CANCER SCREENING EXAMINATION: CT LUNG CANCER SCREENING HISTORY: Nicotine dependence COMPARISON: CT chest 01/09/2019 TECHNIQUE: Axial, Coronal, and Sagittal images were created without the administration of IV contrast material. Dose reduction techniques were achieved by using automated exposure control and/or adjustment of mA and/or kV according to patient size and/or use of iterative reconstruction technique. FINDINGS: LUNGS: Several small calcified granulomas. No suspicious nodules, significant chronic interstitial changes, or acute infiltrates. PLEURA: No mass, effusion, or pneumothorax. VASCULATURE: No abnormality. ULYSSES: Calcified lymph nodes compatible with chronic granulomatous disease. MEDIASTINUM: No mass or pathologic adenopathy. CARDIAC: Marked atherosclerotic coronary artery disease. No pericardial effusion. AORTA: No aneurysm or dissection. CHEST WALL: No mass or axillary adenopathy BONES: No bone lesion or fracture. LIMITED ABDOMEN: No suspicious findings. Limited images of the upper abdomen. OTHER: Negative. IMPRESSION: 1. Lung-RADS Category 1 Negative. No nodules and definitely benign nodules. Continue annual screening with LDCT in 12 months. 2. Marked atherosclerotic disease of coronary arteries. Electronically authenticated by: PATRICIO LUTZ Date: 2022-07-13 08:59 Normal [facility] THEOPHYLLINEon 07-10-2022 THEOPHYLLINE 16.4 ug/mL Normal 10.0-20.0 [facility] Comment on above: Performed By: #### V ITAD, PSASC, IRON #### [facility] [address] [address] [address] Smitha Petersen MRI LSPINE WO CONon 06-21-20 22 MRI LSPINE WO CON EXAMINATION: MRI LSPINE WO CON HISTORY: Lumbar radiculopathy , lumbar pain, bilateral leg tingling and numbness COMPARISON: 08/08/2018 TECHNIQUE: A variety of imaging planes and parameters were utilized for visualization of suspected pathology. FINDINGS: For the purposes of numbering, sagittal T2 image # 8 extends from the T11 vertebral body superiorly to the S3 level inferiorly. PARASPINAL AREA: Normal with no visible mass. BONES: Normal alignment with no acute fracture or spondylolisthesis CORD/CAUDA EQUINA: Normal caliber, contour, and signal intensity. DISC LEVELS: 12-L1: Moderate degenerative disc disease is present without visible neural impingement. L1-L2: Early degenerative disc disease is present without focal protrusion or neural impingement. L2-L3: Early degenerative disc disease is present without focal protrusion or neural impingement. L3-L4: No significant disc/facet abnormality, spinal stenosis, or foraminal stenosis. L4-L5: Right foraminal disc herniation of the protrusion photo tube assembler extending posteriorly up to 5.2 mm best seen on sagittal image 11 axial image 28 this results in moderate right foraminal stenosis. No central canal or left foraminal stenosis L5-S1: Moderate disc space narrowing and disc desiccation. Broad-based posterior disc herniation of the protrusion type extending posteriorly up to 4.1 mm. No central canal or right foraminal stenosis. Mild narrowing of the left neural foramen IMPRESSION: Progression of degenerative changes most significant at L4-L5 where moderate narrowing of the right neural foramen is observed Electronically authenticated by: MK KOWALSKI Date: 2022-06-21 07:23 Normal [facility] MRI KNEE LT WO CONon 05-30-2 022 MRI KNEE LT WO CON EXAMINATION: MRI KNE E LT WO CON HISTORY: Derangement of left knee ; chronic pain medial left knee COMPARISON: MRI knee left 11/22/2020 TECHNIQUE: A complete multi-planar MRI was performed. FINDINGS: MEDIAL COMPARTMENT MEDIAL MENISCUS: Oblique undersurface tear involving the posterior horn extending through the superior surface as it approaches its attachment. Very thin body and anterior horn without appreciable tear. CARTILAGE: No visible defect. BONES: Periarticular osteophytes. No fracture or marrow edema. MCL AND MEDIAL CAPSULE: Grade I sprain of the medial collateral ligament. LATERAL COMPARTMENT LATERAL MENISCUS: No visible tear or significant degeneration. CARTILAGE: No visible defect. BONES: Periarticular osteophytes. No fracture or marrow edema. LCL/POSTEROLAT COMPLEX: Normal lateral collateral ligament, fascicles, lateral capsule and ligaments. ANTERIOR COMPARTMENT PATELLA: Subchondral cysts deep to the lateral facet. CARTILAGE: Marked thinning of the cartilage visible appreciable focal defect. TENDONS: Normal. EFFUSION: Large joint effusion. ACL: Intact. PCL: Intact. MENISCOFEMORAL: Normal meniscofemoral ligaments. OTHER: Silva's cyst. IMPRESSION: 1. New tear of the medial meniscus posterior horn. 2. Large joint effusion. 3. Cartilage thinning, most notable involving the patella; slightly progressed. 4. 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 Electronically authenticated by: PATRICIO LUTZ Date: 2022-05-30 11:22 Normal [facility] LIPID PROFILEon 04-05-2022 CHOL-HDL RATIO NORM SEE BELOW Normal [facility] Comment on above: Result Comment: 3.3 - 4.4 LOW RISK 4.4 - 7.1 AVERAGE RISK 7.1 - 11.0 MODERATE RISK >11.0 HIGH RISK Performed By: #### V YEN LIMON IRON #### [facility] [address] [place], [place] [address] Dr. Smitha Petersen Cholesterol [Mass/Vol] 129 mg/dL Normal <=200 [facility] Comment on above: Performed By: #### V YEN LIMON IRON #### [facility] [address] [address] [address] Smitha Petersen Cholesterol in HDL [Mass/Vol] 40 mg/dL Normal 40-60 [facility] Comment on above: Performed By: #### V ITAD, PSASC, IRON #### [facility] [address] [address] [address] Smitha Petersen Cholesterol in LDL [Mass/Vol] 57.2 mg/dL Normal [facility] Comment on above: Performed By: #### V ITAD, PSASC, IRON #### [facility] [address] [address] [address] Smitha Petersen Cholesterol.total/Ch olesterol in HDL [Mass ratio] 3.2 {ratio} Normal [facility] Comment on above: Performed By: #### V ITAD, PSASC, IRON #### [facility] [address] [address] [address] Smitha Petersen HDL NORMAL > or = 60 mg/dl - LO W CARDIOVASCULAR RISK <40 mg/dl - HIGH CARDIOVASCULAR RISK Normal [facility] Comment on above: Performed By: #### V ITAD, PSASC, IRON #### [facility] [address] [address] [address] Smitha Petersen LDL CALC NORMAL SEE BELOW Normal [facility] Comment on above: Result Comment: <100 mg/dl OPTIMAL 100 - 129 mg/dl NEAR OR ABOVE OPTIMAL 130 - 159 mg/dl BORDERLINE HIGH 160 - 189 mg/dl HIGH >190 mg/dl VERY HIGH Performed By: #### V ITAD, PSASC, IRON #### [facility] [address] [address] [address] Smitha Petersen Triglyceride [Mass/Vol] 159 mg/dL Critically high <=150 [facility] Comment on above: Performed By: #### V ITAD, PSASC, IRON #### [facility] [address] [address] [address] Smitha Petersen VLDL CALC 31.8 mg/dL Normal [facility] Comment on above: Performed By: #### V ITAD, PSASC, IRON #### [facility] [address] [address] [address] Smitha Petersen CBC AUTO DIFFon 03-22-2022 BASO # 0.1 103/ul Normal 0.0-0.1 [facility] Comment on above: Performed By: #### V ITAD, PSASC, IRON #### [facility] [address] [address] [address] Smitha Petersen Basophils/100 WBC (Bld) 0.5 % Normal 0.2-2.0 [facility] Comment on above: Performed By: #### V ITAD, PSASC, IRON #### [facility] [address] [address] [address] Smitha Petersen EO # 0.4 103/ul Normal 0.0-0.7 [facility] Comment on above: Performed By: #### V ITAD, PSASC, IRON #### [facility] [address] [place] [address] Dr. Smitha Petersen Eosinophils/100 WBC (Bld) 3.5 % Normal 0.9-7.0 [facility] Comment on above: Performed By: #### V ITAD, PSASC, IRON #### [facility] [address] [place] [address] Dr. Smitha Petersen Erythrocyte distribution width (RBC) [Ratio] 15.1 % Critically high 11.0-15.0 [facility] Comment on above: Performed By: #### V ITAD, PSASC, IRON #### [facility] [address] [place] [address] Dr. Smitha Petersen Hematocrit (Bld) [Volume fraction] 46.8 % Normal 42.0-54.0 [facility] Comment on above: Performed By: #### V ITAD, PSASC, IRON #### [facility] [address] [place] [address] Dr. Smitha Petersen Hemoglobin (Bld) [Mass/Vol] 15.5 g/dL Normal 14.0-18.0 [facility] Comment on above: Performed By: #### V ITAD, PSASC, IRON #### [facility] [address] [place] [address] Dr. Smitha Petersen IG # 0.03 10e3/ul Normal 0.00-0.03 [facility] Comment on above: Performed By: #### V ITAD, PSASC, IRON #### [facility] [address] [place] [address] Dr. Smitha Petersen IG % 0.3 % Normal 0.0-0.5 [facility] Comment on above: Performed By: #### V ITAD, PSASC, IRON #### [facility] [address] [place] [address] Dr. Smitha Petersen LYMPH # 2.6 103/ul Normal 1.2-3.8 [facility] [facility] Comment on above: Performed By: #### V ITAD, PSASC, IRON #### [facility] [address] [place] [address] Dr. Simtha Petersen Lymphocytes/100 WBC (Bld) 25.0 % Normal 20.5-60.0 [facility] Comment on above: Performed By: #### V ITAD, PSASC, IRON #### [facility] [address] [place] [address] Dr. Smitha Petersen MANUAL DIFF REQ NO Normal [facility] Comment on above: Performed By: #### V ITAD, PSASC, IRON #### [facility] [address] [place] [address] Dr. Smitha Petersen MCH (RBC) [Entitic mass] 29.6 pg Normal 25.9-34.0 [facility] Comment on above: Performed By: #### V ITAD, PSASC, IRON #### [facility] [address] [place] [address] Dr. Smitha Petersen MCHC (RBC) [Mass/Vol] 33.1 g/dL Normal 29.9-35.2 [facility] Comment on above: Performed By: #### V ITAD, PSASC, IRON #### [facility] [address] [place] [address] Dr. Smitha Petersen MCV (RBC) [Entitic vol] 89.5 fL Normal 80.0-94.0 [facility] Comment on above: Performed By: #### V ITAD, PSASC, IRON #### [facility] [address] [place] [address] Dr. Smitha Petersen MONO # 0.7 103/ul Normal 0.3-0.8 [facility] Comment on above: Performed By: #### V ITAD, PSASC, IRON #### [facility] [address] [place] [address] Dr. Smitha Petersen Monocytes/100 WBC (Bld) 7.0 % Normal 1.7-12.0 [facility] Comment on above: Performed By: #### V ITAD, PSASC, IRON #### [facility] [address] [place] [address] Dr. Smitha Petersen NEUT # 6.7 103/ul Critically high 1.4-6.5 [facility] Comment on above: Performed By: #### V ITAD, PSASC, IRON #### [facility] [address] [place] [address] Dr. Smitha Petersen Neutrophils/100 WBC (Bld) 63.7 % Normal 43.0-75.0 [facility] Comment on above: Performed By: #### V ITAD, PSASC, IRON #### [facility] [address] [place] [address] Dr. Smitha Petersen Platelet mean volume (Bld) [Entitic vol] 8.9 fL Critically low 9.5-13.5 [facility] Comment on above: Performed By: #### V ITAD, PSASC, IRON #### [facility] [address] [place] [address] Dr. Smitha Petersen PLT 245 103/ul Normal 150-450 [facility] Comment on above: Performed By: #### V ITAD, PSASC, IRON #### [facility] [address] [place] [address] Dr. Smitha Petersen RBC 5.23 106/ul Normal 4.70-6.10 [facility] Comment on above: Performed By: #### V ITAD, PSASC, IRON #### [facility] [address] [place] [address] Dr. Smitha Petersen WBC 10.5 103/ul Normal 4.0-11.0 [facility] Comment on above: Performed By: #### V ITAD, PSASC, IRON #### [facility] [address] ABD/PELVIS WO CONon 03-22 CT ABD/PELVIS WO CON EXAM: CT ABD/PELVIS WO CON REASON FOR EXAM: Male, 51 years, CALCULUS OF KIDNEY. TECHNIQUE: Computed tomography of the abdomen and pelvis is performed in the axial projection from the lung bases to the pubic symphysis. Sagittal and coronal reconstructed images are performed. Dose reduction techniques were achieved by using automated exposure control and/or adjustment of mA and/or KVP according to patient size and/or use of iterative reconstruction technique. Study was performed without IV contrast. Study was performed without oral contrast. COMPARISON: None. FINDINGS: Lung bases: The lung bases are clear. There is no pleural effusion. Coronary artery calcifications are seen. The lack of intravenous contrast slightly limits evaluation of the solid abdominal organs. Liver: The liver is normal. Gallbladder: The gallbladder is normal. Spleen: The spleen is normal. There are calcified splenic granulomas. Pancreas: The pancreas is normal. Adrenal glands: There is a small low-attenuation nodule within the left adrenal gland suggesting an adenoma. Right kidney: The kidney is normal in size. There are renovascular calcifications. There is no renal calculus or hydronephrosis. Left kidney: The kidney is normal in size. There are renovascular calcifications. There is no renal calculus or hydronephrosis. Stomach: The stomach is normal. Small bowel: The small bowel is normal. Large bowel: The colon is normal. Appendix: The appendix is not visualized. No right lower quadrant inflammatory changes are seen to suggest acute appendicitis. Aorta: There are diffuse atherosclerotic calcifications of the abdominal aorta. IVC: The IVC is normal. Retroperitoneum: Normal retroperitoneum. Bladder: The bladder is normal. Pelvic organs: Normal prostate gland. Abdominal wall: There is a small fat-containing umbilical hernia. Osseous structures: Degenerative changes are seen in the visualized spine. IMPRESSION: No bowel obstruction or acute renal pathology. Additional nonacute findings, as detailed above. Electronically authenticated by: BLU GASPAR Date: 2022-03-22 21:12 Normal [facility] CULTURE URINEon 03-22-2022 CULTURE URINE Culture Observations : NO GROWTH. Normal [facility] Comment on above: Performed By: #### V ITAD, PSASC, IRON #### [facility] [address] [place] [address] Dr. Smitha Petersen ER URINE PROFILEon 2 Bilirubin Ql (U) Negative Normal NEGATIVE [facility] Comment on above: Performed By: #### V ITAD, PSASC, IRON #### [facility] [address] [place] [address] Dr. Smitha Petersen Clarity (U) CLEAR Normal CLEAR [facility] Comment on above: Performed By: #### V ITAD, PSASC, IRON #### [facility] [address] [place] [address] Dr. Smitha Petersen Color (U) LT. YELLOW Normal YELLOW [facility] Comment on above: Performed By: #### V ITAD, PSASC, IRON #### [facility] [address] [place] [address] Dr. Smitha Petersen ERUAHD A micrscopic examination will be performed if indicated. Normal [facility] Comment on above: Performed By: #### V ITAD, PSASC, IRON #### [facility] [address] [place] [address] Dr. Smitha Petersen Glucose Ql (U) Negative Normal NEGATIVE [facility] Comment on above: Performed By: #### V ITAD, PSASC, IRON #### [facility] [address] [place] [address] Dr. Smitha Petersen Hemoglobin Ql (U) TRACE-INTACT Abnormal NEGATIVE [facility] Comment on above: Performed By: #### V ITAD, PSASC, IRON #### [facility] [address] [place] [address] Dr. Smitha Petersen Ketones Ql (U) Negative Normal NEGATIVE [facility] Comment on above: Performed By: #### V ITAD, PSASC, IRON #### [facility] [address] [place] [address] Dr. Smitha Petersen LEUKOCYTES TRACE Abnormal NEGATIVE [facility] Comment on above: Performed By: #### V ITAD, PSASC, IRON #### [facility] [address] [place] [address] Dr. Smitha Petersen Nitrite Ql (U) Negative Normal NEGATIVE [facility] Comment on above: Performed By: #### V ITAD, PSASC, IRON #### [facility] [address] [address] [address] Smitha Petersen pH (U) 5.5 [pH] Normal 5-9 [facility] Comment on above: Performed By: #### V ITAD, PSASC, IRON #### [facility] [address] [address] [address] Smitha Petersen SPEC GRAVITY 1.010 Normal 1.005-<=1.025 [facility] Comment on above: Performed By: #### V ITAD, PSASC, IRON #### [facility] [address] [place] [address] Dr. Smitha Petersen UA PROTEIN Negative Normal NEGATIVE/ TRACE [facility] Comment on above: Performed By: #### V ITAD, PSASC, IRON #### [facility] [address] [place] [address] Dr. Smitha Petersen UR MICRO IND INDICATED Normal [facility] Comment on above: Performed By: #### V ITAD, PSASC, IRON #### [facility] [address] [place] [address] Dr. Smitha Petersen Urobilinogen Qn (U) 0.2 {Zach'U}/dL Normal 0.2 - 1. 0 [facility] Comment on above: Performed By: #### V ITAD, PSASC, IRON #### [facility] [address] [place] [address] Dr. Smitha Petersen PROF 14(COMP METB)on 022 Albumin [Mass/Vol] 4.0 g/dL Normal 3.4-5.0 [facility] Comment on above: Performed By: #### V ITAD, PSASC, IRON #### [facility] [address] [place] [address] Dr. Smitha Petersen Albumin/Globulin [Mass ratio] 1.2 {ratio} Normal [facility] Comment on above: Performed By: #### V ITAD, PSASC, IRON #### [facility] [address] [place] [address] Dr. Smitha Petersen ALP [Catalytic activity/Vol] 113 U/L Normal 46-116 [facility] Comment on above: Performed By: #### V ITAD, PSASC, IRON #### [facility] [address] [place] [address] Dr. Smitha Petersen ALT [Catalytic activity/Vol] 53 U/L Normal 16-63 [facility] Comment on above: Performed By: #### V ITAD, PSASC, IRON #### [facility] [address] [place] [address] Dr. Smitha Petersen Anion gap [Moles/Vol] 15.3 mmol/L Normal [facility] Comment on above: Performed By: #### V ITAD, PSASC, IRON #### [facility] [address] [place] [address] Dr. Smitha Petersen AST [Catalytic activity/Vol] 18 U/L Normal 15-37 [facility] Comment on above: Performed By: #### V ITAD, PSASC, IRON #### [facility] [address] [place] [address] Dr. Smitha Petersen Bilirubin [Mass/Vol] 0.4 mg/dL Normal 0.2-1.0 [facility] Comment on above: Performed By: #### V ITAD, PSASC, IRON #### [facility] [address] [place] [address] Dr. Smitha Petersen Calcium [Mass/Vol] 9.2 mg/dL Normal 8.5-10.1 [facility] Comment on above: Performed By: #### V ITAD, PSASC, IRON #### [facility] [address] [place] [address] Dr. Smitha Petersen Chloride [Moles/Vol] 101 mmol/L Normal 98-107 [facility] Comment on above: Performed By: #### V ITAD, PSASC, IRON #### [facility] [address] [place], [place] [id number] Dr. Smitha Petersen CO2 [Moles/Vol] 24.8 mmol/L Normal 21.0-32.0 [facility] Comment on above: Performed By: #### V ITAD, PSASC, IRON #### [facility] [address] [address] [address] Smitha Petersen Creatinine [Mass/Vol] 0.96 mg/dL Normal 0.70-1.30 [facility] Comment on above: Performed By: #### V ITAD, PSASC, IRON #### [facility] [address] [address] [address] Smitha Petersen EGFR-AF SAO TOMEAN >60 Normal >=60 [facility] Comment on above: Performed By: #### V ITAD, PSASC, IRON #### [facility] [address] [address] [address] Smitha Petersen EGFR-NON AF SAO TOMEAN >60 Normal >=60 [facility] Comment on above: Performed By: #### V ITAD, PSASC, IRON #### [facility] [address] [address] [address] Smitha Petersen Globulin (S) [Mass/Vol] 3.4 g/dL Normal [facility] Comment on above: Performed By: #### V ITAD, PSASC, IRON #### [facility] [address] [address] [address] Smitha Petersen Glucose [Mass/Vol] 146 mg/dL Critically high 74-106 [facility] Comment on above: Performed By: #### V ITAD, PSASC, IRON #### [facility] [address] [address] [address] Smitha Petersen Potassium [Moles/Vol] 4.1 mmol/L Normal 3.5-5.1 [facility] Comment on above: Performed By: #### V ITAD, PSASC, IRON #### [facility] [address] [address] [address] Smitha Petersen Protein [Mass/Vol] 7.4 g/dL Normal 6.4-8.2 [facility] Comment on above: Performed By: #### V ITAD, PSASC, IRON #### [facility] [address] [place] [address] Dr. Smitha Petersen Sodium [Moles/Vol] 137 mmol/L Normal 136-145 [facility] Comment on above: Performed By: #### V ITAD, PSASC, IRON #### [facility] [address] [place] [address] Dr. Smitha Petersen Urea nitrogen [Mass/Vol] 22.0 mg/dL Critically high 7.0-18.0 [facility] Comment on above: Performed By: #### V ITAD, PSASC, IRON #### [facility] [address] [place] [address] Dr. Smitha Petersen Urea nitrogen/Creatinine [Mass ratio] 22.9 mg/mg Normal [facility] Comment on above: Performed By: #### V ITAD, PSASC, IRON #### [facility] [address] [place] [address] Dr. Smitha Petersen URINE MICROSCOPIC ONLYon BACTERIA TRACE Abnormal NONE SEEN [facility] Comment on above: Performed By: #### V ITAD, PSASC, IRON #### [facility] [address] [place] [address] Dr. Smitha Petersen Bacteria identified Cx Nom (U) INDICATED Normal [facility] Comment on above: Performed By: #### V ITAD, PSASC, IRON #### [facility] [address] [place] [address] Dr. Smitha Petersen CAST NONE SEEN Normal NONE SEEN [facility] Comment on above: Performed By: #### V ITAD, PSASC, IRON #### [facility] [address] [place] [address] Dr. Smitha Petersen Crystals LM Nom (Urine sed) NONE SEEN Normal NONE SEEN [facility] Comment on above: Performed By: #### V ITAD, PSASC, IRON #### [facility] [address] [place] [address] Dr. Smitha Petersen Epithelial cells LM Ql (Urine sed) NONE SEEN Normal NONE SEEN /RARE [facility] Comment on above: Performed By: #### V ITAD, PSASC, IRON #### [facility] [address] [address] [address] Smitha Petersen MUCOUS NONE SEEN Normal NONE SEEN [facility] Comment on above: Performed By: #### V ITAD, PSASC, IRON #### [facility] [address] [address] [address] Smitha Petersen RBC NONE SEEN Abnormal 0-2 [facility] Comment on above: Performed By: #### V ITAD, PSASC, IRON #### [facility] [address] [address] [address] Smitha Petersen WBC 5-10 Abnormal NONE SEEN [facility] Comment on above: Performed By: #### V ITAD, PSASC, IRON #### [facility] [address] [address] [address] Smitha Petersen US TRAV DOP LEG BILon 022 US TRAV DOP LEG JANIYA EXAMINATION: US TRAV DOP LEG JANIYA HISTORY: Edema of lower extremity (finding) COMPARISON: No relevant comparison available. FINDINGS: REGION: Bilateral lower extremities THROMBI: None. COMPRESSIBILITY: Normal compressibility. FLOW: Normal waveform and antegrade flow between 5 and 20 cm/s. OTHER: None. IMPRESSION: 1. No deep vein thrombus within the right or left lower extremity. Electronically authenticated by: PATRICIO LUTZ Date: 2022-01-23 11:39 Normal [facility] Operative Reporton Operative Report MR#: [id number] S [facility] Pt. Name: Mk Rosales Room #: 0C Discharge Date: Birthdate: 1970 OPERATIVE REPORT DATE OF SURGERY: 09/15/2020 SURGEON: Mk Min M.D. PREOPERATIVE DIAGNOSIS: Left knee medial meniscus tear, unstable. POSTOPERATIVE DIAGNOSIS: 1. Left knee medial meniscus tear, unstable. 2. Left knee chondral tear patella. SURGEON: Mk Min M.D. SALESPERSON FASHION ACCESSORIES: Nelson Leos MD ANESTHESIA: General. PROCEDURE PERFORMED: Left knee arthroscopy, partial medial meniscectomy, left knee chondroplasty patella. INDICATIONS: The patient is a 50-year-old man, who has seizure disorder. During one of the seizure, he sustained an unstable tear of the medial meniscus. He is now having locking, catching, and popping. An MRI demonstrated an unstable tear of the posterior horn of the medial meniscus. I offered to him a left knee arthroscopy with partial medial meniscectomy and any other indicated procedures. This is an older MRI as he needed to first have a seizure disorder control before he could have surgery. We therefore discussed performing any other indicated procedures to address lesions, which may have occurred since the MRI. Risks and benefits were discussed preoperatively. Informed consent was obtained in the clinic, and he was scheduled for the procedure on September 15, 2020. PROCEDURE IN DETAIL: After confirmation and marking of the correct surgical extremity in the preoperative holding area, the patient was brought back to the operating suite and placed in the supine position. All pressure points were adequately padded. General endotracheal anesthesia was smoothly induced. Preoperative antibiotics were administered. The left lower extremity was prepped and draped in a sterile fashion. After observation of a surgical time-out procedure using 2 separate patient identifiers, we began with the case. We first started with infiltration of the knee itself and the proposed incisions with 20 mL of 1% lidocaine with epinephrine. We then created standard arthroscopy portals and began with a diagnostic arthroscopy. We first inspected the medial compartment. There was some generalized chondral wear, but no unstable chondral lesions. There was however, a large displaced tear of the medial meniscus. This was a paired beak tear that had flipped up into the medial gutter. Upon probing, it easily flipped back and forth into the joint and was likely the source of the locking symptoms. It measured approximately 2 cm. I first introduced the biter and truncated the lesion and then removed it and trimmed the remnant stump back to the level of stable tissue. The ACL and PCL were intact. The lateral compartment demonstrated no chondral or meniscal lesions. The patellofemoral compartment did demonstrate chondral thinning with an associated unstable chondral flap tear, so I debrided this back to a level of stable tissue using the arthroscopic shaver. At this point, all instruments were removed and the knee was drained of fluid. The portal incisions were closed using simple Steri-Strips. A sterile compressive wrap was applied. The patient was then awakened, extubated, and brought back to the PACU in stable condition. I was present, scrubbed, and actively participating for all franco portions of the surgery. ESTIMATED BLOOD LOSS: Minimal. COMPLICATIONS: None. DISPOSITION: To the PACU in stable condition. POSTOPERATIVE PLAN: I will see the patient back in 10-14 days' time for suture removal and initiation of physical therapy. Electronically Signed by: Mk Min M.D. 09/16/2020 01:03 P Mk Min M.D. Date Dict: 09/15/2020/09:07 A/Mk Min M.D. Date Trans: 09/15/2020 09:36 A/zoey [id number] cc: Shanel Fernandez M.D. [address] [id number] Normal [facility] POC GLUCOSE LABon 09-15-2020 Glucose [Mass/Vol] 101 mg/dL High 70-100 [facility] Comment on above: Performed By: #### [id number] #### [facility] [address] Vital Signs Date Time Vital Sign Value Performing Clinician Facility 11-05-2022 09:00-0500 Body height Berenice Blades Other [facility] Other 11-05-2022 09:00-0500 Body mass index (BMI) [Ratio] 38.24 kg/m2 Berenice Blades Other [facility] Other 11-05-2022 09:00-0500 Body weight 117.48 kg Berenice Blades Other [facility] Other 11-05-2022 09:00-0500 Diastolic blood pressure 94 mm[Hg] Berenice Blades Other [facility] Other 11-05-2022 09:00-0500 Systolic blood pressure 156 mm[Hg] Berenice Blades Other [facility] Other 10-26-2022 08:00-0500 Body height Berenice Blades Other [facility] Other 10-26-2022 08:00-0500 Body mass index (BMI) [Ratio] 38.24 kg/m2 Berenice Blades Other [facility] Other 10-26-2022 08:00-0500 Body weight 117.48 kg Berenice Blades Other [facility] Other 10-26-2022 08:00-0500 Diastolic blood pressure 89 mm[Hg] Berenice Blades Other [facility] Other 10-26-2022 08:00-0500 Systolic blood pressure 130 mm[Hg] Berenice Blades Other [facility] Other Encounters Encounter Date Encounter Type Care Provider Facility Start: 02-26-2023 End: [facility] Start: 01-01-2023 End: 01-02-2023 ambulatory TREVOR LEONG . Facility:[facility] Start: 12-19-2022 ambulatory SHANEL HOY Facility:[facility] Start: 12-12-2022 ambulatory SHANEL HOY Facility:[facility] Start: 11-05-2022 End: 11-05-2022 ambulatory Berenice Blades Other [facility] Other Start: 11-05-2022 Office outpatient vi sit 15 minutes Berenice Blades [facility] Start: 11-01-2022 End: 11-02-2022 ambulatory BERENICE BLADES Facility:[facility] Start: 10-26-2022 End: 10-26-2022 ambulatory Berenice Blades Other [facility] [employer] Other Start: 10-26-2022 Office outpatient ne w 45 minutes Berenice Blades [facility] Start: 10-17-2022 End: 10-18-2022 ambulatory SHANEL HOY Facility:[facility] Start: 08-14-2022 End: 08-15-2022 ambulatory SHANEL HOY Facility:[facility] Start: 08-06-2022 End: 08-07-2022 ambulatory SHANEL HOY Facility:[facility] Start: 07-23-2022 End: 07-24-2022 ambulatory SHANEL HOY Facility:[facility] Start: 07-13-2022 End: 07-14-2022 ambulatory TREVORMARY ANN LEONG . Facility:[facility] Start: 07-10-2022 End: 07-11-2022 ambulatory TREVORMARY ANN LEONG . Facility:[facility] Start: 06-20-2022 End: 06-21-2022 ambulatory SHANEL HOY Facility:[facility] Start: 05-30-2022 End: 05-31-2022 ambulatory SHANEL HOY Facility:[facility] Start: 04-05-2022 End: 04-06-2022 ambulatory HAL COLLINSS Facility:[facility] Start: 03-22-2022 End: 03-22-2022 ambulatory SHANEL HOY Facility:[facility] Start: 01-23-2022 End: 01-24-2022 ambulatory SHANEL HOY Facility:[facility] Start: 09-15-2020 End: 09-16-2020 ambulatory SHANEL HOY Facility:[facility] Procedures Date Procedure Procedure Detail Performing Clinician Start: 10-17-2022 PSA screening SHANEL H OY Comment on above: Performed By: #### V ITAD, PSASC, IRON #### [facility] [address] [place] [address] Dr. Smitha Petersen Start: 09-15-2020 ANESTH KNEE JOINT SURGERY JAYSON CHEN Start: 09-15-2020 KNEE ARTHROSCOPY/SURGERY MK MIN Plan of Treatment Date Care Activity Detail Author Start: 01-23-2023 ambulatory Ambulatory Facility:[facility] Payers Date Payer Category Payer Unknown [id number] [id number] 1970 Unknown [id number] 2.16.84 [id number] 1970 Unknown [id number] 2.16.84 [id number] 1971 Unknown [id number] 2.16.84 0.1.831922.3.579.2.593 1971 Unknown [id number] 2.16.84 0.1.194325.3.579.2.593 1971 Unknown [id number] 2.16.84 0.1.656621.3.579.2.593 1971 Unknown [id number] 2.16.84 0.1.853120.3.579.2.593 1971 Unknown [id number] 2.16.84 0.1.774654.3.579.2.593 1971 Unknown [id number] 2.16.84 0.1.035562.3.579.2.593 1971 Unknown [id number] 2.16.84 0.1.720616.3.579.2.593 1971 Unknown [id number] 2.16.84 0.1.256396.3.579.2.593 1971 Unknown [id number] 2.16.84 0.1.464462.3.579.2.593 1971 Unknown [id number] 2.16.84 0.1.602232.3.579.2.593 1971 Unknown [id number] 2.16.84 0.1.460776.3.579.2.593 1971 Unknown [id number] 2.16.84 0.1.028120.3.579.2.593 1971 Unknown [id number] 2.16.84 0.1.432544.3.579.2.593 1971 Unknown [id number] 2.16.84 0.1.503386.3.579.2.593 1971 Unknown [id number] 2.16.84 0.1.974299.3.579.2.593 1958 Medicare [id number] 2.1 [id number] 1958 Self-pay [id number] 1958 Unknown [id number] Self-pay Self Pay [id number] Unknown Self Pay [id number] 94 [id number] Social History Date Type Detail Facility Tobacco smoking status IDIS Unknown if ever smoked [facility] Work Phone: Start: 1970 Sex Assigned At Male F [facility] Sex Assigned At Sex Assigned At Bir [facility] [employer] Other Progress note 02-26-2023 Note Date & Type Note Facility 02-26-2023 Note 10 min discussion ab out importance of smoking cessation- pt reports he does not smoke cigarrettes daily- only when stressed and buys a pack abouit every 1-2 weeks. He is not willing to completely quit smoking. [facility] Progress note 02-26-2023 Note Date & Type Note Facility 02-26-2023 Note Coronary artery dise ase is stable without any concerning cardiac symptoms Continue GDMT- ASA, lipitor, lopressor, plavix, metoprolol continue risk factor modifications- heart healthy diet, regular exercise as tolerated and continue all medications. [facility] Progress note 02-26-2023 Note Date & Type Note Facility 02-26-2023 Note Patient here for 1 y ear follow up CAD and hypertension. He had carotid us and routine labs a few months ago. Denies chest pain but has POSEY (COPD) and sees Dr. Leong. He was told by a neurosurgeon in [place] a few months ago that he had a minor stroke s/p MRI head. Review of Systems Cardiovascular: Positive for dyspnea on exertion. Musculoskeletal: Positive for arthritis, back pain and muscle weakness. All other systems reviewed and are negative. [facility] Progress note 02-26-2023 Note Date & Type Note Facility 02-26-2023 Note [facility] ESS NOTE HPI: Mk Rosales is a 52 y.o. male here for Patient here for 1 year follow up CAD and hypertension. He had carotid us and routine labs a few months ago. Denies chest pain but has POSEY (COPD) and sees Dr. Leong. He was told by a neurosurgeon in [place] a few months ago that he had a minor stroke s/p MRI head. Currently denied chest pain, shortness of breath, orthopnea, or palpitations/fast heart rates. Admits activity limiting factor is his lt sided weakness and leg pain. B/P at PCP office 2 weeks ago was 122/82. Review of Systems Cardiovascular: Positive for dyspnea on exertion. Musculoskeletal: Positive for arthritis, back pain and muscle weakness. All other systems reviewed and are negative. Visit Vitals BP 142/87 (BP Location: Left arm, Patient Position: Sitting) Pulse 88 Ht 1.702 m (5' 7 ) Wt 113 kg (249 lb) SpO2 97% BMI 39.00 kg/m??? Smoking Status Every Day BSA 2.31 m??? No Known Allergies Medications: Current Outpatient Medications on File Prior to Visit Medication Sig Dispense Refill albuterol 90 mcg/actuation inhaler INHALE 2 PUFFS BY MOUTH EVERY 4 HOURS NEEDED FOR SHORTNESS OF BREATH amitriptyline (Elavil) 150 mg tablet Take 150 mg by mouth at bedtime. aspirin 81 mg EC tablet in the morning. atorvastatin (Lipitor) 80 mg tablet Take 80 mg by mouth at bedtime. [id number]-eyofrheq-rgbabntvxp 160-9-4.8 mcg/actuation HFA aerosol inhaler Breztri Aerosphere 160 mcg-9mcg-4.8mcg/actuation HFA aerosol inhaler clopidogrel (Plavix) 75 mg tablet Take 75 mg by mouth in the morning. diclofenac (Voltaren) 75 mg EC tablet diclofenac sodium 75 mg tablet,delayed release TAKE 1 TABLET BY MOUTH TWICE DAILY gabapentin (Neurontin) 600 mg tablet gabapentin 600 mg tablet TAKE 1 TABLET BY MOUTH THREE TIMES DAILY levETIRAcetam (Keppra) 500 mg tablet levetiracetam 500 mg tablet TAKE 3 TABLETS BY MOUTH IN THE MORNING AND 2 IN THE EVENING 12 HOURS APART lisinopril 2.5 mg tablet Take 2.5 mg by mouth in the morning. metFORMIN (Glucophage) 500 mg tablet metformin 500 mg tablet TAKE 1 TABLET BY MOUTH TWICE DAILY metoprolol tartrate (Lopressor) 25 mg tablet Take 25 mg by mouth with breakfast and with evening meal. nitroglycerin (Nitrostat) 0.4 mg SL tablet nitroglycerin 0.4 mg sublingual tablet Ozempic 2 mg/dose (8 mg/3 mL) pen injector INJECT 2 MG SUBCUTANEOUSLY ONCE A WEEK theophylline ER (Uniphyl) 400 mg 24 hr tablet theophylline ER 400 mg tablet,extended release 24 hr TAKE 3 TABLETS BY MOUTH TWICE DAILY tiZANidine (Zanaflex) 4 mg tablet TAKE 2 TABLETS BY MOUTH AT BEDTIME FOR 30 DAYS No current facility-administered medications on file prior to visit. Physical Exam: Constitutional: Appearance: Normal appearance. Without apparent distress, obese, chronically ill HENT: Head: Normocephalic and atraumatic. Nose: Nose normal. Mouth/Throat: Mouth: Mucous membranes are moist. Eyes: Extraocular Movements: Extraocular movements intact. Conjunctiva/sclera: Conjunctivae normal. Neck: Vascular: No JVD. Cardiovascular: Rate and Rhythm: Normal rate and regular rhythm. Pulses: Posterior tibial pulses are 3 on the right side and 3 on the left side. Heart sounds: Normal heart sounds, S1 normal and S2 normal. Pulmonary: Effort: Pulmonary effort is normal. Breath sounds: Normal breath sounds. Abdominal: General: Bowel sounds are normal. Palpations: Abdomen is soft. Musculoskeletal: General: Normal range of motion. Cervical back: Normal range of motion. Right lower leg: No edema. Left lower leg: No edema. Skin: General: Skin is warm and dry. Capillary Refill: Capillary refill takes less than 2 seconds. Neurological: General: No focal deficit present. Mental Status: alert and oriented to person, place, and time. Psychiatric: Mood and Affect: Mood normal. Behavior: Behavior normal. Thought Content: Thought content normal. Judgment: Judgment normal. Labs: 10/17/22 CBC normal Renal function and liver function normal Chol 102, HDL 45, Trig- 109, LDL 35.2 Pro BNP 32- Normal TSH normal Last lab values have been reviewed CV Testin08/14/2022 Echo 11/01/22 Carotid US No echocardiogram results found for the past 12 months Assessment/Plan: Coronary arteriosclerosis Coronary artery disease is stable without any concerning cardiac symptoms Continue GDMT- ASA, lipitor, lopressor, plavix, metoprolol continue risk factor modifications- heart healthy diet, regular exercise as tolerated and continue all medications. Tobacco user 10 min discussion about importance of smoking cessation- pt reports he does not smoke cigarrettes daily- only when stressed and buys a pack abouit every 1-2 weeks. He is not willing to completely quit smoking. [facility] Evaluation note 11-05-2022 Note Date & Type Note Facility 11-05-2022 Evaluation note Encounter Date Diagnosis Assessment Notes Oct, Left leg pain (ICD-10 - M79.605) [facility] Other Evaluation note 10-26-2022 Note Date & Type Note Facility 10-26-2022 Evaluation note Encounter Date Diagnosis Assessment Notes Oct, Cerebral infarct (ICD-10 - I63.9) Oct, Encephalomalacia (ICD-10 - G93.89) [facility] Other Clinical Note 08-06-2022 Note Date & Type Note Facility 08-06-2022 Note CARDIAC STRESS TEST Requesting Physician: Procedure Date:08/06/2022 INDICATION: Chest pain, coronary artery disease. METHODS: After risks, benefits, and alternatives were explained, written informed consent was obtained. The patient was brought to the stress lab in a resting and fasting state. He was connected to the appropriate hemodynamic and electrocardiographic monitoring. Lexiscan 0.4 mg was infused intravenously. He was monitored for the standard duration and discharged in a stable state. FINDINGS: Hemodynamics: Resting heart rate was 65 beats per minute, increasing to a maximum of 79 beats per minute. Resting blood pressure was 124/80. Electrocardiography: Rest EKG: Sinus rhythm, non-specific ST changes inferiorly. Otherwise normal EKG. During infusion and recovery, premature atrial contractions are noted. No significant ST-T waves changes are seen. FINAL IMPRESSIONS: 1. No ischemic EKG changes seen on Lexiscan Cardiolite stress test. 2. Nuclear images are to be read, interpreted, and reported in a separate dictation. [facility] Evaluation note Note Date & Type Note Facility Evaluation note No assessment information availa [facility] Work Phone: History general Narrative - Reported Note Date & Type Note Facility History general Narrative - Reported Type Medical History DM Medical History HTN Medical History COPD Medical History Anxiety Medical History Heart disease Medical History Seizure disorder Medical History 8 stents Medical History appendectomy Medical History Arthritis Medical History epilepsy Medical History heart disease Medical History high cholesterol Medical History migraine headaches Medical History obesity Medical History anxiety Medical History stent Surgical History 8 heart stents Surgical History Procedure:Angioplasty;Disease: x7 Surgical History appendectomy Surgical History Procedure:Appendectomy;Disease: 2008 Surgical History 8 stents Surgical History angioplasty Hospitalization History see above [facility] Other Summary Purpose Family History No Family History Records Found Relationship Condition Age at Onset Recorded Date/T chet father Myocardial infarction Unknown Heart disease Unknown Hypertension Unknown Cerebrovascular accident (CVA) Unknown Advance Directives No Advanced Directives Records FoundNo Advanced Directives Records FoundNo Advanced Directives Records Found Additional Source Comments (unrecognized sect ion and content) No Status Records FoundNo Status Records FoundNo Status Records Found INFORMATION SOURCE (unrecogn ized section and content) DATE CREATED AUTHOR 08/18/2021 [facility] DATE CREATED AUTHOR AUTHOR'S ORGANIZ ATION 01/10/2023 [facility] DATE CREATED AUTHOR AUTHOR'S ORGANIZ ATION 02/27/2023 [facility] Goals (unrecognized section and content) Goals may be documented in a n alternate sectionGoals may be documented in an alternate sectionNo InformationNo Information REASON FOR VISIT (unrecogniz ed section and content) Ref Dr Mallory, Left sided weakness; left leg painMRI, ultrasound results test done 11/01/22 @[facility] [place] FOR RECORDS PERTAINING TO PATIENTS WHO ARE OR HAVE BEEN ENROLLED IN A CHEMICAL DEPENDENCY/SUBSTANCEABUSE PROGRAM, SOME INFORMATION MAY BE OMITTED. This clinical summary was aggregated from multiple sources. Caution should be exercised in using it in the provision of clinical care. This summary normalizes information from multiple sources, and as a consequence, information in this document may materially change the coding, format and clinical context of patient data. In addition, data may be omitted in some cases. CLINICAL DECISIONS SHOULD BE BASED ON THE PRIMARY CLINICAL RECORDS. Auth0 [facility]. provides no warranty or guarantee of the accuracy or completeness of information in this document.
[2023-10-12 09:16] LABS: Basophils Percent Auto 0.5 % (0.2-2.0); Eosinophils Absolute Auto 0.3 10^3/uL (0.0-0.7); Eosinophils Percent Auto 2.9 % (0.9-7.0); Hematocrit 48.5 % (42.0-54.0); Hemoglobin 15.3 g/dL (14.0-18.0); Immature Granulocytes Abs Auto 0.03 10^3/uL (0.00-0.03); Immature Granulocytes Pct Auto 0.3 % (0.0-0.5); Lymphocytes Absolute Auto 1.6 10^3/uL (1.2-3.8); Lymphocytes Percent Auto 18.3 % (20.5-60.0); Mean Corpuscular HGB Conc 31.5 g/dL (29.9-35.2); Mean Corpuscular Hemoglobin 28.9 pg (25.9-34.0); Mean Corpuscular Volume 91.7 fL (80.0-94.0); Mean Platelet Volume 9.5 fL (9.5-13.5); Monocytes Absolute Auto 0.6 10^3/uL (0.3-0.8); Monocytes Percent Auto 6.8 % (1.7-12.0); Neutrophils Absolute Auto 6.3 10^3/uL (1.4-6.5); Neutrophils Percent Auto 71.2 % (43.0-75.0); Platelet Count 189 10^3/uL (150-450); Red Blood Count 5.29 10^6/uL (4.70-6.10); Red Cell Distribution Width 15.7 % (11.0-15.0); White Blood Count 8.8 10^3/uL (4.0-11.0)
[2023-10-12 09:23] LABS: Estimated Average Glucose 111 mg/dL; Glycohemoglobin A1C 5.5 % (4.5-6.2)
[2023-10-12 09:38] LABS: Alanine Aminotransferase 35 U/L (16-63); Albumin Globulin Ratio 1.1; Albumin Level 3.8 g/dL (3.4-5.0); Alkaline Phosphatase 99 U/L (46-116); Anion Gap 13.6; Aspartate Amino Transferase 16 U/L (15-37); BUN Creatinine Ratio 12.5; Bilirubin Total 0.4 mg/dL (0.2-1.0); Calcium 9.1 mg/dL (8.5-10.1); Carbon Dioxide 27.5 mmol/L (21.0-32.0); Chloride 104 mmol/L (98-107); Chol HDL Ratio 1.8; Cholesterol 112 mg/dL (<=200); Estimated GFR (African America >60 (>=60); Estimated GFR (Non-African Ame >60 (>=60); Free T3 1.95 pg/mL (2.18-3.98); Globulin 3.5 g/dL; Glucose 102 mg/dL (74-106); HDL Cholesterol 64 mg/dL (40-60); Potassium 4.1 mmol/L (3.5-5.1); Sodium 141 mmol/L (136-145); Thyroid Stimulating Hormone 0.346 uIU/mL (0.358-3.740); Total Protein 7.3 g/dL (6.4-8.2); Triglycerides 72 mg/dL (<=150); Uric Acid 7.3 mg/dL (3.5-7.2); VLDL CHOLESTEROL 14.4 mg/dL
[2023-10-12 11:16] LABS: Prostate Specific Antigen Scrn 0.55 ng/mL (<=4.00)
== END 2023-10-12 08:48 | disposition home or self-care (01) ==
LOC: LAB 08:51
PROVIDERS: PCP Family Medicine; Visit Provider Family Medicine
DX: M54.17 Radiculopathy, lumbosacral region (principal); I10 Essential (primary) hypertension; E66.9 Obesity, unspecified; M79.7 Fibromyalgia; E78.5 Hyperlipidemia, unspecified; I25.10 Atherosclerotic heart disease of native coronary artery without angina pectoris
CPT/HCPCS: 36415; 80053; 80061; 83036; 83880; 84436; 84443; 84481; 84550; 85025; G0103

== ENCOUNTER 2023-12-12 07:59 | Outpatient (OUT) | payer MEDICARE, SELFPAY ==
--- NOTE | 2023-12-12 08:07 | XR_ITS ---
The [address] [address] Patient Name: MK ROSALES MRN: [id number] date: 1970 Sex: M Assigned Patient Location: [facility] Current Patient Location: Accession/Order Number: [id number] Exam Date: 12/12/2023 08:10 Report Date: 12/13/2023 06:29 At the request of: SHANEL CAR Procedure: XR knee JANIYA 3V PROCEDURE: XR knee JANIYA 3V HISTORY: Knee Osteoarthritis M17.9 ; bilateral knee pain since falling 2 weeks ago COMPARISON: None. FINDINGS: BONES:Narrowing of the medial compartment joint space bilaterally with moderate size periarticular degenerative osteophytes. Small degenerative osteophytes along the articular margins of the patella bilaterally. No fracture, dislocation, bone lesion. SOFT TISSUES:No visible soft tissue swelling. EFFUSION:None visible. OTHER: Negative. XR/XR knee JANIYA 3V IMPRESSION: 1. No appreciable acute bone abnormality. 2. Moderate degenerative joint disease bilaterally. Electronically authenticated by: ALEXUS MCCLAIN Date: 12/13/2023 06:29
--- OUTSIDE RECORDS SUMMARY | 2023-12-12 08:09 | XMS_ITS | CCD ---
Author Organization [facility] Care Team Providers Care Special Order Jeweler Name Role Phone SHANEL FERNANDEZ Referring Unavailable MK MIN H Admitting Unavailable MK MIN Attending Unavailable MK MIN H Surgeon Unavailable ME Procedure Practitioner Unavailab le HOY, SHANEL Primary Care Unavailable PITRODPaul JAYSON Surgeon Unavailable ME Procedure Practitioner Unavailab le Blades, Berenice Unavailable HOY, SHANEL Primary Care Unavailable Patricio Lutz Consulting Unavailable JI ., MR VAZQUEZ Attending Unavailable JI ., MR GEORGE Admitting Unavailable JI ., MR GEORGE Consulting Unavailable HOY, SHANEL Primary Care Unavailable STEPANIC, DR RUBI Consulting Unavailable STEPANIC, DR RUBI Attending Unavailable STEPANIC, DR RUBI Admitting Unavailable WEST, DR MK Brantley Consulting Unavailable FERMIN, HAL Attending Unavailable FERMIN, HAL Admitting Unavailable HOY, SHANEL Primary Care Unavailable FERMIN, HAL Consulting Unavailable HOY, SHANEL Consulting Unavailable HOY, SHANEL Attending Unavailable HOY, SHANEL Primary Care Unavailable HOY, SHANEL Admitting Unavailable BLADES, BERENICE Attending Unavailable BLADES, BERENICE Admitting Unavailable DEX, DR MK Brantley Consulting Unavailable HOY, SHANEL Primary Care Unavailable [...] Care Unavailable HOY, SHANEL Primary Care Unavailable DR BABATUNDE OCASIO Attending Unavailable DR BABATUNDE OCASIO Admitting Unavailable [...] Date of Onset Reaction(s) Facility (1 source) 05136,00; 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: [90020,00] Propensity to adverse reactions (disorder) 9 [facility] Repository Medications Current Medications Medication Drug Class(es) [...] every twenty-four hours Vitamin D 50 MCG (1999 UT) 1 tablet Orally Once a day [...] PO Twice daily January 12, 2019 9:32am Vsuwdspi-Ahi-Lmvszmd Fumarate (Multi Vitamin) 9 mg iron/15 mL Liquid (2 sources) Start: 01-12-2019 take 1 tablet by mouth once daily Sewcqkws-Ehx-Bsocz us Fumarate (Multi Vitamin) 9 mg iron/15 [...] take 1 puff(s) by inhalation once daily Osdhppakctk-Vqexltevi-Hyvadluy Active 1 PUFF INHALATION Daily January 12, [...] coronary angioplasty; 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: [Atherosclerotic heart disease of [place] coronary artery without angina pectoris] Onset: 04-05-2022 [...] Onset: 08-14-2022 Episodic Other aftercare (1 source) 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; 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: [HUMAN RESOURCES TEMP CURRENT USE OF ASPIRIN] Onset: 03-26-2022 Episodic Other aftercare (1 source) Other intermediate (current) drug therapy; 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: [OTH HUMAN RESOURCES TEMP CURRENT DRUG THERAPY] Onset: 03-26-2022 Episodic Residual [...] Range Facility Office Visiton 02-26-2023 Follow-up visit [id number] Ankush Rosales 1970 M Date Provider Department Center 02/26/2023 Benjamin-HAL CHRISTENSEN [facility] Family History Problem Relation Age of Onset Coronary artery disease Father Heart attack Father Family Status - Relation Status Age at Father Level of Service:65326 ME OFFICE/OUTPATIENT ESTABLISHED LOW MDM 20-29 MIN Normal [facility] THEOPHYLLINEon 01-01-2023 THEOPHYLLINE 17.6 ug/mL Normal 10.0-20.0 [facility] Comment on above: Performed By: #### V ITAD, PSASC, IRON #### [facility] [address] [place] [address] Dr. Smitha Petersen MRI BRAIN WO CONon [...] by: MK SÁNCHEZ Date: 2022-11-01 16:53 Normal [facility] US CAROTID ART BILon 023 US [...] MK KOWALSKI Date: 2022-11-01 16:16 Normal [facility] BNPon 10-17-2022 Natriuretic peptide B (Bld) [Mass/Vol] 32.0 pg/mL Normal <=900.0 [facility] Comment on above: Performed By: #### C MP, BNP, TSH, URIC, T7, LIPID #### [facility] [address] [place] [address] Dr. Smitha Petersen CBC AUTO DIFFon 10-17-2022 BASO # 0.0 103/ul Normal 0.0-0.1 [facility] Comment on above: Performed By: #### V ITAD, PSASC, IRON #### [facility] [address] [place] [address] Dr. Smitha Petersen Basophils/100 WBC (Bld) 0.4 % Normal 0.2-2.0 [facility] Comment on above: Performed By: #### V ITAD, PSASC, IRON #### [facility] [address] [place] [address] Dr. Smitha Petersen EO # 0.2 103/ul Normal 0.0-0.7 [facility] Comment on above: Performed By: #### V ITAD, PSASC, IRON #### [facility] [address] [place] [address] Dr. Smitha Petersen Eosinophils/100 WBC (Bld) 2.4 % Normal 0.9-7.0 [facility] Comment on above: Performed By: #### V ITAD, PSASC, IRON #### [facility] [address] [place] [address] Dr. Smitha Petersen Erythrocyte distribution width (RBC) [Ratio] 13.8 % Normal 11.0-15.0 [facility] Comment on above: Performed By: #### V ITAD, PSASC, IRON #### [facility] [address] [place] [address] Dr. Smitha Petersen Hematocrit (Bld) [Volume fraction] 46.8 % Normal 42.0-54.0 [facility] Comment on above: Performed By: #### V ITAD, PSASC, IRON #### [facility] [address] [place] [address] Dr. Smitha Petersen Hemoglobin (Bld) [Mass/Vol] 15.7 g/dL Normal 14.0-18.0 [facility] Comment on above: Performed By: #### V ITAD, PSASC, IRON #### [facility] [address] [place] [address] Dr. Smitha Petersen IG # 0.04 10e3/ul Critically high 0.00-0.03 [facility] Comment on above: Performed By: #### V ITAD, PSASC, IRON #### [facility] [address] [place] [address] Dr. Smitha Petersen IG % 0.5 % Normal 0.0-0.5 [facility] Comment on above: Performed By: #### V ITAD, PSASC, IRON #### [facility] [address] [place] [address] Dr. Smitha Petersen LYMPH # 1.7 103/ul Normal 1.2-3.8 [facility] Comment on above: Performed By: #### V ITAD, PSASC, IRON #### [facility] [address] [place] [address] Dr. Smitha Petersen Lymphocytes/100 WBC (Bld) 20.1 % Critically low 20.5-60.0 [facility] Comment on above: Performed By: #### V ITAD, PSASC, IRON #### [facility] [address] [place] [address] Dr. Smitha Petersen MANUAL DIFF REQ NO Normal [facility] Comment on above: Performed By: #### V ITAD, PSASC, IRON #### [facility] [address] [place] [address] Dr. Smitha Petersen MCH (RBC) [Entitic mass] 29.7 pg Normal 25.9-34.0 [facility] Comment on above: Performed By: #### V ITAD, PSASC, IRON #### [facility] [address] [place] [address] Dr. Smitha Petersen MCHC (RBC) [Mass/Vol] 33.5 g/dL Normal 29.9-35.2 [facility] Comment on above: Performed By: #### V ITAD, PSASC, IRON #### [facility] [address] [place] [address] Dr. Smitha Petersen MCV (RBC) [Entitic vol] 88.5 fL Normal 80.0-94.0 [facility] Comment on above: Performed By: #### V ITAD, PSASC, IRON #### [facility] [address] [place] [address] Dr. Smitha Petersen MONO # 0.6 103/ul Normal 0.3-0.8 [facility] Comment on above: Performed By: #### V ITAD, PSASC, IRON #### [facility] [address] [address] [address] Smitha Petersen Monocytes/100 WBC (Bld) 6.8 % Normal 1.7-12.0 [facility] Comment on above: Performed By: #### V ITAD, PSASC, IRON #### [facility] [address] [place] [address] Dr. Smitha Petersen NEUT # 6.0 103/ul Normal 1.4-6.5 [facility] Comment on above: Performed By: #### V ITAD, PSASC, IRON #### [facility] [address] [place] [address] Dr. Smitha Petersen Neutrophils/100 WBC (Bld) 69.8 % Normal 43.0-75.0 [facility] Comment on above: Performed By: #### V ITAD, PSASC, IRON #### [facility] [address] [place] [address] Dr. Smitha Petersen Platelet mean volume (Bld) [Entitic vol] 8.7 fL Critically low 9.5-13.5 [facility] Comment on above: Performed By: #### V ITAD, PSASC, IRON #### [facility] [address] [place] [address] Dr. Smitha Petersen PLT 222 103/ul Normal 150-450 [facility] Comment on above: Performed By: #### V ITAD, PSASC, IRON #### [facility] [address] [place] [address] Dr. Smitha Petersen RBC 5.29 106/ul Normal 4.70-6.10 [facility] Comment on above: Performed By: #### V ITAD, PSASC, IRON #### [facility] [address] [place] [address] Dr. Smitha Petersen WBC 8.5 103/ul Normal 4.0-11.0 [facility] Comment on above: Performed By: #### V ITAD, PSASC, IRON #### [facility] [address] [place] [address] Dr. Smitha Petersen FREE THYROXINE INDEX T7on FTI 2.54 Normal 1.30-4.50 [facility] Comment on above: Performed By: #### C MP, BNP, TSH, URIC, T7, LIPID #### [facility] [address] [address] [address] Smitha Petersen T3U 33.0 % Normal 33.0-40.0 [facility] Comment on above: Performed By: #### C MP, BNP, TSH, URIC, T7, LIPID #### [facility] [address] [address] [address] Smitha Petersen T4 [Mass/Vol] 7.70 ug/dL Normal 4.50-12.10 [facility] Comment on above: Performed By: #### C MP, BNP, TSH, URIC, T7, LIPID #### [facility] [address] [place] [address] Dr. Smitha Petersen GLYCOHEMOGLOBIN A1Con 2022 ADA RECOMMENDATION SEE BELOW Normal [facility] Comment on above: Result Comment: ADA RECOMMENDED LIMIT 4.0 - 6.0 ADA THERAPEUTIC TARGET < 7.0 ACTION SUGGESTED > 7.0 Performed By: #### V ITAD, PSASC, IRON #### [facility] [address] [place] [address] Dr. Smitha Petersen Glucose [Mass/Vol] 120 mg/dL Normal [facility] Comment on above: Performed By: #### V ITAD, PSASC, IRON #### [facility] [address] [place] [address] Dr. Smitha Petersen HbA1c (Bld) [Mass fraction] 5.8 % Normal 4.5-6.2 [facility] Comment on above: Performed By: #### V ITAD, PSASC, IRON #### [facility] [address] [place] [address] Dr. Smitha Petersen IRONon 10-17-2022 Iron [Mass/Vol] 66.0 ug/dL Normal 65.0-175.0 [facility] Comment on above: Performed By: #### V ITAD, PSASC, IRON #### [facility] [address] [address] [address] Smitha Petersen LIPID PROFILEon 10-17-2022 CHOL-HDL RATIO NORM SEE BELOW Normal [facility] Comment on above: Result Comment: 3.3 - 4.4 LOW RISK 4.4 - 7.1 AVERAGE RISK 7.1 - 11.0 MODERATE RISK >11.0 HIGH RISK Performed By: #### C MP, BNP, TSH, URIC, T7, LIPID #### [facility] [address] [address] [address] Smitha Petersen Cholesterol [Mass/Vol] 102 mg/dL Normal <=200 [facility] Comment on above: Performed By: #### C MP, BNP, TSH, URIC, T7, LIPID #### [facility] [address] [address] [address] Smitha Petersen Cholesterol in HDL [Mass/Vol] 45 mg/dL Normal 40-60 [facility] Comment on above: Performed By: #### C MP, BNP, TSH, URIC, T7, LIPID #### [facility] [address] [address] [address] Smitha Petersen Cholesterol in LDL [Mass/Vol] 35.2 mg/dL Normal [facility] Comment on above: Performed By: #### C MP, BNP, TSH, URIC, T7, LIPID #### [facility] [address] [address] [address] Smitha Petersen Cholesterol.total/Ch olesterol in HDL [Mass ratio] 2.3 {ratio} Normal [facility] Comment on above: Performed By: #### C MP, BNP, TSH, URIC, T7, LIPID #### [facility] [address] [address] [address] Smitha Petersen HDL NORMAL > or = 60 mg/dl - LO W CARDIOVASCULAR RISK <40 mg/dl - HIGH CARDIOVASCULAR RISK Normal [facility] Comment on above: Performed By: #### C MP, BNP, TSH, URIC, T7, LIPID #### [facility] [address] [address] [address] Smitha Petersen LDL CALC NORMAL SEE BELOW Normal [facility] Comment on above: Result Comment: <100 mg/dl OPTIMAL 100 - 129 mg/dl NEAR OR ABOVE OPTIMAL 130 - 159 mg/dl BORDERLINE HIGH 160 - 189 mg/dl HIGH >190 mg/dl VERY HIGH Performed By: #### C MP, BNP, TSH, URIC, T7, LIPID #### [facility] [address] [place] [address] Dr. Smitha Petersen Triglyceride [Mass/Vol] 109 mg/dL Normal <=150 [facility] Comment on above: Performed By: #### C MP, BNP, TSH, URIC, T7, LIPID #### [facility] [address] [place] [address] Dr. Smitha Petersen VLDL CALC 21.8 mg/dL Normal [facility] Comment on above: Performed By: #### C MP, BNP, TSH, URIC, T7, LIPID #### [facility] [address] [place] [address] Dr. Smitha Petersen PROF 14(COMP METB)on 023 Albumin [Mass/Vol] 3.8 g/dL Normal 3.4-5.0 [facility] Comment on above: Performed By: #### C MP, BNP, TSH, URIC, T7, LIPID #### [facility] [address] [place] [address] Dr. Smitha Petersen Albumin/Globulin [Mass ratio] 1.2 {ratio} Normal [facility] Comment on above: Performed By: #### C MP, BNP, TSH, URIC, T7, LIPID #### [facility] [address] [place] [address] Dr. Smitha Petersen ALP [Catalytic activity/Vol] 113 U/L Normal 46-116 [facility] Comment on above: Performed By: #### C MP, BNP, TSH, URIC, T7, LIPID #### [facility] [address] [place] [address] Dr. Smitha Petersen ALT [Catalytic activity/Vol] 66 U/L Critically high 16-63 [facility] Comment on above: Performed By: #### C MP, BNP, TSH, URIC, T7, LIPID #### [facility] [address] [place] [address] Dr. Smitha Petersen Anion gap [Moles/Vol] 13.4 mmol/L Normal [facility] Comment on above: Performed By: #### C MP, BNP, TSH, URIC, T7, LIPID #### [facility] [address] [place] [address] Dr. Smitha Petersen AST [Catalytic activity/Vol] 29 U/L Normal 15-37 [facility] Comment on above: Performed By: #### C MP, BNP, TSH, URIC, T7, LIPID #### [facility] [address] [place] [address] Dr. Smitha Petersen Bilirubin [Mass/Vol] 0.3 mg/dL Normal 0.2-1.0 [facility] Comment on above: Performed By: #### C MP, BNP, TSH, URIC, T7, LIPID #### [facility] [address] [place] [address] Dr. Smitha Petersen Calcium [Mass/Vol] 8.9 mg/dL Normal 8.5-10.1 [facility] Comment on above: Performed By: #### C MP, BNP, TSH, URIC, T7, LIPID #### [facility] [address] [place] [address] Dr. Smitha Petersen Chloride [Moles/Vol] 101 mmol/L Normal 98-107 [facility] Comment on above: Performed By: #### C MP, BNP, TSH, URIC, T7, LIPID #### [facility] [address] [place] [address] Dr. Smitha Petersen CO2 [Moles/Vol] 28.8 mmol/L Normal 21.0-32.0 [facility] Comment on above: Performed By: #### C MP, BNP, TSH, URIC, T7, LIPID #### [facility] [address] [place] [address] Dr. Smitha Petersen Creatinine [Mass/Vol] 0.82 mg/dL Normal 0.70-1.30 [facility] Comment on above: Performed By: #### C MP, BNP, TSH, URIC, T7, LIPID #### [facility] [address] [place] [address] Dr. Smitha Petersen EGFR-AF CYMRO >60 Normal >=60 [facility] Comment on above: Performed By: #### C MP, BNP, TSH, URIC, T7, LIPID #### [facility] [address] [place] [address] Dr. Smitha Petersen EGFR-NON AF CYMRO >60 Normal >=60 [facility] Comment on above: Performed By: #### C MP, BNP, TSH, URIC, T7, LIPID #### [facility] [address] [place] [address] Dr. Smitha Petersen Globulin (S) [Mass/Vol] 3.3 g/dL Normal [facility] Comment on above: Performed By: #### C MP, BNP, TSH, URIC, T7, LIPID #### [facility] [address] [place] [address] Dr. Smitha Petersen Glucose [Mass/Vol] 100 mg/dL Normal 74-106 [facility] Comment on above: Performed By: #### C MP, BNP, TSH, URIC, T7, LIPID #### [facility] [address] [place] [address] Dr. Smitha Petersen Potassium [Moles/Vol] 4.2 mmol/L Normal 3.5-5.1 [facility] Comment on above: Performed By: #### C MP, BNP, TSH, URIC, T7, LIPID #### [facility] [address] [place] [address] Dr. Smitha Petersen Protein [Mass/Vol] 7.1 g/dL Normal 6.4-8.2 [facility] Comment on above: Performed By: #### C MP, BNP, TSH, URIC, T7, LIPID #### [facility] [address] [place] [address] Dr. Smitha Petersen Sodium [Moles/Vol] 139 mmol/L Normal 136-145 [facility] Comment on above: Performed By: #### C MP, BNP, TSH, URIC, T7, LIPID #### [facility] [address] [place] [address] Dr. Smitha Petersen Urea nitrogen [Mass/Vol] 14.0 mg/dL Normal 7.0-18.0 [facility] Comment on above: Performed By: #### C MP, BNP, TSH, URIC, T7, LIPID #### [facility] [address] [place] [address] Dr. Smitha Petersen Urea nitrogen/Creatinine [Mass ratio] 17.1 mg/mg Normal [facility] Comment on above: Performed By: #### C MP, BNP, TSH, URIC, T7, LIPID #### [facility] [address] [place] [address] Dr. Smitha Petersen TSHon 10-17-2022 TSH 0.796 uIU/mL Normal 0.358-3.740 [facility] Comment on above: Performed By: #### C MP, BNP, TSH, URIC, T7, LIPID #### [facility] [address] [place] [address] Dr. Smitha Petersen URIC ACID SERUMon 10-17-2022 Urate [Mass/Vol] 6.4 mg/dL Normal 3.5-7.2 [facility] Comment on above: Performed By: #### C MP, BNP, TSH, URIC, T7, LIPID #### [facility] [address] [place] [address] Dr. Smitha Petersen VITAMIN D 25 OHon 10-17-2022 VIT D 25-OH 17.5 ng/mL Normal [facility] Comment on above: Performed By: #### V ITAD, PSASC, IRON #### [facility] [address] [place] [address] Dr. Smitha Petersen VIT D RANGES SEE BELOW Normal [facility] Comment on above: Result Comment: <20 ng/mL Vit D deficient 20 - <30 ng/mL Vit D insufficient 30 - 100 ng/mL Vit D sufficient >100 ng/mL Potential Toxicity Performed By: #### V ITAD, PSASC, IRON #### [facility] [address] [place] [address] Dr. Smitha Petersen ECHOCARDIO M/2D COMPLETEon 1 10-15-2021 ECHOCARDIO M/2D COMPLETE Patient: MK ROSALES Exam Date: 08/14/2022 : 1970 Gender:M Ordering : DR SHANEL FERNANDEZ . Admission #: [id number] Family : Order #: [id number] CLICK HERE TO VIEW EXAM ECHOCARDIOGRAM REPORT [...] Matta M.D. on 08/14/2022 at 18:35 Normal [facility] STRESS/REST MULTIon 07-23 NM STRESS/REST MULTI Patient: KATINA ROSALES Exam Date: 07/23/2022 : 1970 Gender:M Ordering : DR SHANEL FERNANDEZ . Admission #: [id number] Family : Order #: [id number] CLICK HERE TO VIEW EXAM RADIOLOGY REPORT [...] Kowalski MD on 08/06/2022 at 12:45 [address] [facility] [address] LUNG CANCER SCREENINGon 1 09-12-2021 [...] by: PATRICIO LUTZ Date: 2022-07-13 08:59 Normal [facility] THEOPHYLLINEon 07-10-2022 THEOPHYLLINE 16.4 ug/mL Normal 10.0-20.0 [facility] Comment on above: Performed By: #### V ITAD, PSASC, IRON #### [facility] [address] [place] [address] Dr. 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 Smitha Petersen Cholesterol [Mass/Vol] 129 mg/dL Normal <=200 [facility] Comment on above: Performed By: #### V ITAD, PSASC, IRON #### [facility] [address] [place], [place] [address] Dr. Smitha Petersen Cholesterol in HDL [Mass/Vol] 40 mg/dL Normal 40-60 [facility] Comment on above: Performed By: #### V ITAD, PSASC, IRON #### [facility] [address] [address] [address] Smitha Petersen Cholesterol in LDL [Mass/Vol] 57.2 mg/dL Normal [facility] Comment on above: Performed By: #### V ITAD, PSASC, IRON #### [facility] [address] [address] [address] Smitha Petersen Cholesterol.total/Ch olesterol in HDL [Mass ratio] 3.2 {ratio} Normal [facility] Comment on above: Performed By: #### V ITAD, PSASC, IRON #### [facility] [address] [address] [address] Smitha Petersen HDL NORMAL > or = 60 mg/dl - LO W CARDIOVASCULAR RISK <40 mg/dl - HIGH CARDIOVASCULAR RISK Normal [facility] Comment on above: Performed By: #### V ITAD, PSASC, IRON #### [facility] [address] [address] [address] Smitha Petersen LDL CALC NORMAL SEE BELOW Normal [facility] Comment on above: Result Comment: <100 mg/dl OPTIMAL 100 - 129 mg/dl NEAR OR ABOVE OPTIMAL 130 - 159 mg/dl BORDERLINE HIGH 160 - 189 mg/dl HIGH >190 mg/dl VERY HIGH Performed By: #### V ITAD, PSASC, IRON #### [facility] [address] [address] [address] Smitha Petersen Triglyceride [Mass/Vol] 159 mg/dL Critically high <=150 [facility] Comment on above: Performed By: #### V ITAD, PSASC, IRON #### [facility] [address] [address] [address] Smitha Petersen VLDL CALC 31.8 mg/dL Normal [facility] Comment on above: Performed By: #### V ITAD, PSASC, IRON #### [facility] [address] [address] [address] Smitha Petersen CBC AUTO DIFFon 03-22-2022 BASO # 0.1 103/ul Normal 0.0-0.1 [facility] Comment on above: Performed By: #### V ITAD, PSASC, IRON #### [facility] [address] [place] [address] Dr. Smitha Petersen Basophils/100 WBC (Bld) 0.5 % Normal 0.2-2.0 [facility] Comment on above: Performed By: #### V ITAD, PSASC, IRON #### [facility] [address] [place] [address] Dr. Smitha Petersen EO # 0.4 103/ul Normal 0.0-0.7 [facility] Comment on above: Performed By: #### V ITAD, PSASC, IRON #### [facility] [address] [place] [address] Dr. Smitha Petersen Eosinophils/100 WBC (Bld) 3.5 % Normal 0.9-7.0 [facility] Comment on above: Performed By: #### V ITAD, PSASC, IRON #### [facility] [address] [place] [address] Dr. Smitha Petersen Erythrocyte distribution width (RBC) [Ratio] 15.1 % Critically high 11.0-15.0 [facility] Comment on above: Performed By: #### V ITAD, PSASC, IRON #### [facility] [address] [place] [address] Dr. Smitha Petersen Hematocrit (Bld) [Volume fraction] 46.8 % Normal 42.0-54.0 [facility] Comment on above: Performed By: #### V ITAD, PSASC, IRON #### [facility] [address] [place] [address] Dr. Smitha Petersen Hemoglobin (Bld) [Mass/Vol] 15.5 g/dL Normal 14.0-18.0 [facility] Comment on above: Performed By: #### V ITAD, PSASC, IRON #### [facility] [address] [place] [address] Dr. Smitha Petersen IG # 0.03 10e3/ul Normal 0.00-0.03 [facility] Comment on above: Performed By: #### V ITAD, PSASC, IRON #### [facility] [address] [place] [address] Dr. Smitha Petersen IG % 0.3 % Normal 0.0-0.5 [facility] Comment on above: Performed By: #### V ITAD, PSASC, IRON #### [facility] [address] [place] [address] Dr. Smitha Petersen LYMPH # 2.6 103/ul Normal 1.2-3.8 [facility] Comment on above: Performed By: #### V ITAD, PSASC, IRON #### [facility] [address] [place] [address] Dr. Smitha Petersen Lymphocytes/100 WBC (Bld) 25.0 % Normal 20.5-60.0 [facility] Comment on above: Performed By: #### V ITAD, PSASC, IRON #### [facility] [address] [place] [address] Dr. Smitha Petersen MANUAL DIFF REQ NO Normal [facility] Comment on above: Performed By: #### V ITAD, PSASC, IRON #### [facility] [address] [place] [address] Dr. Smitha Petersen MCH (RBC) [Entitic mass] 29.6 pg Normal 25.9-34.0 [facility] Comment on above: Performed By: #### V ITAD, PSASC, IRON #### [facility] [address] [place] [address] Dr. Smitha Petersen MCHC (RBC) [Mass/Vol] 33.1 g/dL Normal 29.9-35.2 [facility] Comment on above: Performed By: #### V ITAD, PSASC, IRON #### [facility] [address] [place] [address] Dr. Smitha Petersen MCV (RBC) [Entitic vol] 89.5 fL Normal 80.0-94.0 [facility] Comment on above: Performed By: #### V ITAD, PSASC, IRON #### [facility] [address] [place] [address] Dr. Smitha Petersen MONO # 0.7 103/ul Normal 0.3-0.8 [facility] Comment on above: Performed By: #### V ITAD, PSASC, IRON #### [facility] [address] [address] [address] Smitha Petersen Monocytes/100 WBC (Bld) 7.0 % Normal 1.7-12.0 [facility] Comment on above: Performed By: #### V ITAD, PSASC, IRON #### [facility] [address] [place] [address] Dr. Smitha Petersen NEUT # 6.7 103/ul Critically high 1.4-6.5 [facility] Comment on above: Performed By: #### V ITAD, PSASC, IRON #### [facility] [address] [place] [address] Dr. Smitha Petersen Neutrophils/100 WBC (Bld) 63.7 % Normal 43.0-75.0 [facility] Comment on above: Performed By: #### V ITAD, PSASC, IRON #### [facility] [address] [place] [address] Dr. Smitha Petersen Platelet mean volume (Bld) [Entitic vol] 8.9 fL Critically low 9.5-13.5 [facility] Comment on above: Performed By: #### V ITAD, PSASC, IRON #### [facility] [address] [place] [address] Dr. Smitha Petersen PLT 245 103/ul Normal 150-450 [facility] Comment on above: Performed By: #### V ITAD, PSASC, IRON #### [facility] [address] [place] [address] Dr. Smitha Petersen RBC 5.23 106/ul Normal 4.70-6.10 [facility] Comment on above: Performed By: #### V ITAD, PSASC, IRON #### [facility] [address] [place] [address] Dr. Smitha Petersen WBC 10.5 103/ul Normal 4.0-11.0 [facility] Comment on above: Performed By: #### V ITAD, PSASC, IRON #### [facility] [address] [address] ABD/PELVIS WO CONon [...] BLU GASPAR Date: 2022-03-22 21:12 Normal [facility] CULTURE URINEon 03-22-2022 CULTURE URINE Culture Observations : NO GROWTH. Normal [facility] Comment on above: Performed By: #### V ITAD, PSASC, IRON #### [facility] [address] [place] [address] Dr. Smitha Petersen ER URINE PROFILEon 2 Bilirubin Ql (U) Negative Normal NEGATIVE [facility] Comment on above: Performed By: #### V ITAD, PSASC, IRON #### [facility] [address] [place] [address] Dr. Smitha Petersen Clarity (U) CLEAR Normal CLEAR [facility] Comment on above: Performed By: #### V ITAD, PSASC, IRON #### [facility] [address] [place] [address] Dr. Smitha Petersen Color (U) LT. YELLOW Normal YELLOW [facility] Comment on above: Performed By: #### V ITAD, PSASC, IRON #### [facility] [address] [place] [address] Dr. Smitha Petersen ERUFrankie A micrscopic examination will be performed if indicated. Normal [facility] Comment on above: Performed By: #### V ITAD, PSASC, IRON #### [facility] [address] [place] [address] Dr. Smitha Petersen Glucose Ql (U) Negative Normal NEGATIVE [facility] Comment on above: Performed By: #### V ITAD, PSASC, IRON #### [facility] [address] [place] [address] Dr. Smitha Petersen Hemoglobin Ql (U) TRACE-INTACT Abnormal NEGATIVE [facility] Comment on above: Performed By: #### V ITAD, PSASC, IRON #### [facility] [address] [place] [address] Dr. Smitha Petersen Ketones Ql (U) Negative Normal NEGATIVE [facility] Comment on above: Performed By: #### V ITAD, PSASC, IRON #### [facility] [address] [place] [address] Dr. Smitha Petersen LEUKOCYTES TRACE Abnormal NEGATIVE [facility] Comment on above: Performed By: #### V ITAD, PSASC, IRON #### [facility] [address] [place] [address] Dr. Smitha Petersen Nitrite Ql (U) Negative Normal NEGATIVE [facility] Comment on above: Performed By: #### V ITAD, PSASC, IRON #### [facility] [address] [place] [address] Dr. Smitha Petersen pH (U) 5.5 [pH] Normal 5-9 [facility] Comment on above: Performed By: #### V ITAD, PSASC, IRON #### [facility] [address] [address] [address] Smitha Petersen SPEC GRAVITY 1.010 Normal 1.005-<=1.025 [facility] Comment on above: Performed By: #### V ITAD, PSASC, IRON #### [facility] [address] [place] [address] Dr. Smitha Petersen UA PROTEIN Negative Normal NEGATIVE/ TRACE [facility] Comment on above: Performed By: #### V ITAD, PSASC, IRON #### [facility] [address] [place] [address] Dr. Smitha Petersen UR MICRO IND INDICATED Normal [facility] Comment on above: Performed By: #### V ITAD, PSASC, IRON #### [facility] [address] [place] [address] Dr. Smitha Petersen Urobilinogen Qn (U) 0.2 {Zach'U}/dL Normal 0.2 - 1. 0 [facility] Comment on above: Performed By: #### V ITAD, PSASC, IRON #### [facility] [address] [place] [address] Dr. Smitha Petersen PROF 14(COMP METB)on 022 Albumin [Mass/Vol] 4.0 g/dL Normal 3.4-5.0 [facility] Comment on above: Performed By: #### V ITAD, PSASC, IRON #### [facility] [address] [place] [address] Dr. Smitha Petersen Albumin/Globulin [Mass ratio] 1.2 {ratio} Normal [facility] Comment on above: Performed By: #### V ITAD, PSASC, IRON #### [facility] [address] [address] [address] Smitha Petersen ALP [Catalytic activity/Vol] 113 U/L Normal 46-116 [facility] Comment on above: Performed By: #### V ITAD, PSASC, IRON #### [facility] [address] [address] [address] Smitha Petersen ALT [Catalytic activity/Vol] 53 U/L Normal 16-63 [facility] Comment on above: Performed By: #### V ITAD, PSASC, IRON #### [facility] [address] [address] [address] Smitha Petersen Anion gap [Moles/Vol] 15.3 mmol/L Normal [facility] Comment on above: Performed By: #### V ITAD, PSASC, IRON #### [facility] [address] [place] [address] Dr. Smitha Petersen AST [Catalytic activity/Vol] 18 U/L Normal 15-37 [facility] Comment on above: Performed By: #### V ITAD, PSASC, IRON #### [facility] [address] [address] [address] Smitha Petersen Bilirubin [Mass/Vol] 0.4 mg/dL Normal 0.2-1.0 [facility] Comment on above: Performed By: #### V ITAD, PSASC, IRON #### [facility] [address] [address] [address] Smitha Petersen Calcium [Mass/Vol] 9.2 mg/dL Normal 8.5-10.1 [facility] Comment on above: Performed By: #### V ITAD, PSASC, IRON #### [facility] [address] [address] [address] Smitha Petersen Chloride [Moles/Vol] 101 mmol/L Normal 98-107 [facility] Comment on above: Performed By: #### V ITAD, PSASC, IRON #### [facility] [address] [address] [address] Smitha Petersen CO2 [Moles/Vol] 24.8 mmol/L Normal 21.0-32.0 [facility] Comment on above: Performed By: #### V ITAD, PSASC, IRON #### [facility] [address] [address] [address] Smitha Petersen Creatinine [Mass/Vol] 0.96 mg/dL Normal 0.70-1.30 [facility] Comment on above: Performed By: #### V ITAD, PSASC, IRON #### [facility] [address] [address] [address] Smitha Petersen EGFR-AF CYMRO >60 Normal >=60 [facility] Comment on above: Performed By: #### V ITAD, PSASC, IRON #### [facility] [address] [place] [address] Dr. Smitha Petersen EGFR-NON AF CYMRO >60 Normal >=60 [facility] Comment on above: Performed By: #### V ITAD, PSASC, IRON #### [facility] [address] [place] [address] Dr. Smitha Petersen Globulin (S) [Mass/Vol] 3.4 g/dL Normal [facility] Comment on above: Performed By: #### V ITAD, PSASC, IRON #### [facility] [address] [place] [address] Dr. Smitha Petersen Glucose [Mass/Vol] 146 mg/dL Critically high 74-106 [facility] Comment on above: Performed By: #### V ITAD, PSASC, IRON #### [facility] [address] [place] [address] Dr. Smitha Petersen Potassium [Moles/Vol] 4.1 mmol/L Normal 3.5-5.1 [facility] Comment on above: Performed By: #### V ITAD, PSASC, IRON #### [facility] [address] [place] [address] Dr. Smitha Petersen Protein [Mass/Vol] 7.4 g/dL Normal 6.4-8.2 [facility] Comment on above: Performed By: #### V ITAD, PSASC, IRON #### [facility] [address] [address] [address] Smitha Petersen Sodium [Moles/Vol] 137 mmol/L Normal 136-145 [facility] Comment on above: Performed By: #### V ITAD, PSASC, IRON #### [facility] [address] [place] [address] Dr. Smitha Petersen Urea nitrogen [Mass/Vol] 22.0 mg/dL Critically high 7.0-18.0 [facility] Comment on above: Performed By: #### V ITAD, PSASC, IRON #### [facility] [address] [place] [address] Dr. Smitha Petersen Urea nitrogen/Creatinine [Mass ratio] 22.9 mg/mg Normal [facility] Comment on above: Performed By: #### V ITAD, PSASC, IRON #### [facility] [address] [place] [address] Dr. Smitha Petersen URINE MICROSCOPIC ONLYon BACTERIA TRACE Abnormal NONE SEEN [facility] Comment on above: Performed By: #### V ITAD, PSASC, IRON #### [facility] [address] [place] [address] Dr. Smitha Petersen Bacteria identified Cx Nom (U) INDICATED Normal [facility] Comment on above: Performed By: #### V ITAD, PSASC, IRON #### [facility] [address] [place] [address] Dr. Smitha Petersen CAST NONE SEEN Normal NONE SEEN [facility] Comment on above: Performed By: #### V ITAD, PSASC, IRON #### [facility] [address] [place] [address] Dr. Smitha Petersen Crystals LM Nom (Urine sed) NONE SEEN Normal NONE SEEN [facility] Comment on above: Performed By: #### V ITAD, PSASC, IRON #### [facility] [address] [place] [address] Dr. Smitha Petersen Epithelial cells LM Ql (Urine sed) NONE SEEN Normal NONE SEEN /RARE [facility] Comment on above: Performed By: #### V ITAD, PSASC, IRON #### [facility] [address] [address] [address] Smitha Petersen MUCOUS NONE SEEN Normal NONE SEEN [facility] Comment on above: Performed By: #### V ITAD, PSASC, IRON #### [facility] [address] [address] [address] Smitha Petersen RBC NONE SEEN Abnormal 0-2 [facility] Comment on above: Performed By: #### V ITAD, PSASC, IRON #### [facility] [address] [address] [address] Smitha Petersen WBC 5-10 Abnormal NONE SEEN [facility] Comment on above: Performed By: #### V ITAD, PSASC, IRON #### [facility] [address] [address] [address] Smitha Petersen US TRAV DOP LEG [...] left lower extremity. Electronically authenticated by: PATRICIO ULTZ Date: 2022-01-23 11:39 Normal [facility] Operative Reporton Operative Report MR#: [id number] [facility] Pt. Name: Mk Rosales Room #: 0C Discharge Date: Birthdate: 1970 OPERATIVE REPORT DATE OF SURGERY: 09/15/2020 SURGEON: Mk Min M.D. PREOPERATIVE DIAGNOSIS: Left knee medial meniscus tear, unstable. POSTOPERATIVE DIAGNOSIS: 1. Left knee medial meniscus tear, unstable. 2. Left knee chondral tear patella. SURGEON: Mk Min M.D. VOCATIONAL GUIDANCE COUNSELOR: Nelson Leos MD ANESTHESIA: General. PROCEDURE PERFORMED: [...] initiation of physical therapy. Electronically Signed by: kM Min M.D. 09/16/2020 01:03 P Mk Min M.D. Date Dict: 09/15/2020/09:07 A/Mk Min M.D. Date Trans: 09/15/2020 09:36 A/zoey [id number] cc: Shanel Fernandez M.D. [address], [facility] [address] Normal [facility] POC GLUCOSE LABon 09-15-2020 Glucose [Mass/Vol] 101 mg/dL High 70-100 [facility] Comment on above: Performed By: #### 8 [address]99 #### [address] Vital Signs Date Time Vital Sign Value Performing Clinician Facility 11-05-2022 09:00-0500 Body height Berenice Blades Other [facility] Other 11-05-2022 09:00-0500 Body mass index (BMI) [Ratio] 38.24 kg/m2 Berenice Blades Other [facility] Other 11-05-2022 09:00-0500 Body weight 117.48 kg Berenice Blades Other [facility] Other 11-05-2022 09:00-0500 Diastolic blood pressure 94 mm[Hg] Berenice Blades Other [facility] Other 11-05-2022 09:00-0500 Systolic blood pressure 156 mm[Hg] Berenice Blades Other [facility] Other 10-26-2022 08:00-0500 Body height Berenice Blades Other [facility] Other 10-26-2022 08:00-0500 Body mass index (BMI) [Ratio] 38.24 kg/m2 Berenice Blades Other [facility] Other 10-26-2022 08:00-0500 Body weight 117.48 kg Berenice Blades Other [facility] Other 10-26-2022 08:00-0500 Diastolic blood pressure 89 mm[Hg] Berenice Blades Other [facility] Other 10-26-2022 08:00-0500 Systolic blood pressure 130 mm[Hg] Berenice Blades Other [facility] Other Encounters Encounter Date Encounter Type Care Provider Facility Start: 02-26-2023 End: 02-26-2023 ambulatory HAL FERMIN [facility] Start: 01-01-2023 End: 01-02-2023 ambulatory TREVOR LEONG . Facility:[facility] Start: 12-19-2022 ambulatory SHANEL HOY Facility:[facility] 1 Start: 12-12-2022 ambulatory SHANEL HOY Facility:[facility] Start: 11-05-2022 End: 11-05-2022 ambulatory Berenice Blades Other [facility] Other Start: 11-05-2022 Office outpatient vi sit 15 minutes Berenice Blades [facility] Start: 11-01-2022 End: 11-02-2022 ambulatory BERENICE BLADES Facility:[facility] Start: 10-26-2022 End: 10-26-2022 ambulatory Berenice Blades Other [facility] Other Start: 10-26-2022 Office outpatient ne w 45 minutes Berenice Motley [facility] Start: 10-17-2022 End: 10-18-2022 ambulatory SHANEL HOY Facility:[facility] Start: 08-14-2022 End: 08-15-2022 ambulatory SHANEL HOY Facility:[facility] Start: 08-06-2022 End: 08-07-2022 ambulatory SHANEL HOY Facility:[facility] Start: 07-23-2022 End: 07-24-2022 ambulatory SHANEL HOY Facility:[facility] Start: 07-13-2022 End: 07-14-2022 ambulatory TREVORMARY ANN LEONG . Facility:[facility] Start: 07-10-2022 End: 07-11-2022 ambulatory TREVORMARY ANN ESTRADASA . Facility:[facility] Start: 06-20-2022 End: 06-21-2022 ambulatory SHANEL HOY Facility:[facility] Start: 05-30-2022 End: 05-31-2022 ambulatory SHANEL HOY Facility:[facility] Start: 04-05-2022 End: 04-06-2022 ambulatory HAL COLLINSS Facility:[facility] Start: 03-22-2022 End: 03-22-2022 ambulatory SHANEL HOY Facility:[facility] Start: 01-23-2022 End: 01-24-2022 ambulatory SHANEL HOY Facility:[facility] Start: 09-15-2020 End: 09-16-2020 ambulatory SHANEL HOY Facility:[facility] Procedures Date Procedure Procedure Detail Performing Clinician Start: 10-17-2022 PSA screening SHANEL H OY Comment on above: Performed By: #### V ITAD, PSASC, IRON #### [facility] [address] [place] [address] Dr. Smitha Petersen Start: 09-15-2020 ANESTH KNEE JOINT SURGERY JAYSON CHEN Start: 09-15-2020 KNEE ARTHROSCOPY/SURGERY MK MIN Plan of Treatment Date Care Activity Detail Author Start: 01-23-2023 ambulatory Ambulatory Facility:[facility] 1 Payers Date Payer Category Payer Unknown [id number] 2.16.8 [id number] 1970 Unknown [id number] 2.16.84 [id number] 1970 Unknown [id number] 2.16.84 [id number] 1970 Unknown [id number] 2.16.84 [id number] 1971 Unknown [id number] 2.16.84 0.1.597857.3.579.2.593 1971 Unknown [id number] 2.16.84 0.1.803645.3.579.2.593 1971 Unknown [id number] 2.16.84 0.1.978298.3.579.2.593 1971 Unknown [id number] 2.16.84 0.1.112124.3.579.2.593 1971 Unknown [id number] 2.16.84 0.1.173690.3.579.2.593 1971 Unknown [id number] 2.16.84 0.1.474721.3.579.2.593 1971 Unknown [id number] 2.16.84 0.1.599047.3.579.2.593 1971 Unknown [id number] 2.16.84 0.1.203042.3.579.2.593 1971 Unknown [id number] 2.16.84 0.1.493177.3.579.2.593 1971 Unknown [id number] 2.16.84 0.1.524176.3.579.2.593 1971 Unknown [id number] 2.16.84 0.1.552637.3.579.2.593 1971 Unknown [id number] 2.16.84 0.1.532953.3.579.2.593 1971 Unknown [id number] 2.16.84 0.1.891929.3.579.2.593 1970 Unknown [id number] 2.16.84 0.1.320406.3.579.2.593 1958 Medicare [id number] 2.1 [id number] 1958 Self-pay [id number] 1958 Unknown [id number] Self-pay Self Pay [id number] Unknown Self Pay [id number] Social History Date Type Detail Facility Tobacco smoking status PAIS Unknown if ever smoked [facility] Work Phone: Start: 1970 Sex Assigned At Male F [facility] Sex Assigned At Sex Assigned At Bir th [facility] [employer] Other Progress note 02-26-2023 Note Date & Type Note Facility 02-26-2023 Note 10 min discussion ab out importance of smoking cessation- pt reports he does not smoke cigarrettes daily- only when stressed and buys a pack abouit every 1-2 weeks. He is not willing to completely quit smoking. [facility] Progress note 02-26-2023 Note Date & Type Note Facility 02-26-2023 Note Coronary artery dise ase is stable without any concerning cardiac symptoms Continue GDMT- ASA, lipitor, lopressor, plavix, metoprolol continue risk factor modifications- heart healthy diet, regular exercise as tolerated and continue all medications. [facility] Progress note 02-26-2023 Note Date & Type Note Facility 02-26-2023 Note Patient here for 1 y ear follow up CAD and hypertension. He had carotid us and routine labs a few months ago. Denies chest pain but has POSEY (COPD) and sees Dr. Leong. He was told by a neurosurgeon in [place] a few months ago that he had a minor stroke s/p MRI head. Review of Systems Cardiovascular: Positive for dyspnea on exertion. Musculoskeletal: Positive for arthritis, back pain and muscle weakness. All other systems reviewed and are negative. [facility] Progress note 02-26-2023 Note Date & Type [...] He was told by a neurosurgeon in [place] a few months ago that he had [...] Take 80 mg by mouth at bedtime. [id number]-[id number] 160-9-4.8 mcg/actuation HFA aerosol inhaler [employer] [...] is not willing to completely quit smoking. [facility] Evaluation note 11-05-2022 Note Date & Type Note Facility 11-05-2022 Evaluation note Encounter Date Diagnosis Assessment Notes Oct, Left leg pain (ICD-10 - M79.605) [facility] Other Evaluation note 10-26-2022 Note Date & Type Note Facility 10-26-2022 Evaluation note Encounter Date Diagnosis Assessment Notes Oct, Cerebral infarct (ICD-10 - I63.9) Oct, Encephalomalacia (ICD-10 - G93.89) [facility] Other Clinical Note 08-06-2022 Note Date & [...] and reported in a separate dictation. [facility] Evaluation note Note Date & Type Note Facility Evaluation note [facility] History general Narrative - Reported [...] Surgical History angioplasty Hospitalization History see above [employer] [facility] [employer] Other Summary Purpose Family History No Family [...] and content) DATE CREATED AUTHOR 08/18/2021 [facility] DATE CREATED AUTHOR AUTHOR'S ORGANIZ ATION 01/10/2023 [facility] DATE CREATED AUTHOR AUTHOR'S ORGANIZ ATION 02/27/2023 [facility] Goals (unrecognized section and content) Goals may be documented in a n alternate sectionGoals may be documented in an alternate sectionNo InformationNo Information REASON FOR VISIT (unrecogniz ed section and content) Ref Dr Mallory, Left sided weakness; left leg painMRI, ultrasound results test done 11/01/22 @[facility] FOR RECORDS PERTAINING TO PATIENTS WHO ARE [...] BE BASED ON THE PRIMARY CLINICAL RECORDS. [facility]. provides no warranty or guarantee of the accuracy or completeness of information in this document.
== END 2023-12-12 08:00 | disposition home or self-care (01) ==
LOC: RAD 08:02
PROVIDERS: PCP Family Medicine; Visit Provider Family Medicine
DX: M17.9 Osteoarthritis of knee, unspecified (principal)
CPT/HCPCS: 73562

== ENCOUNTER 2024-01-14 09:10 | Outpatient (OUT) | payer MEDICARE, SELFPAY ==
--- OUTSIDE RECORDS SUMMARY | 2024-01-14 09:36 | XMS_ITS | CCD ---
Author Organization [facility] Care Team Providers Care Bottle Caser Name Role Phone SHANEL FERNANDEZ Referring Unavailable MK MIN Admitting Unavailable MK MIN Attending Unavailable MK MIN Surgeon Unavailable [place] Procedure Practitioner Unavailab le HOY, SHANEL Primary Care Unavailable PITCUBA LEVINEKESH Surgeon Unavailable AK Procedure Practitioner Unavailab le Blades, Berenice Unavailable HOY, SHANEL Primary Care Unavailable Patricio Luzt Consulting Unavailable JI ., MR GEORGE Attending Unavailable JI ., MR GEORGE Admitting Unavailable JI ., MR GEORGE Consulting Unavailable HOY, SHANEL Primary Care Unavailable STEPANNALEE, DR RUBI Consulting Unavailable STEPANIC, DR RUBI [...] Unavailable Patricio Lutz Consulting Unavailable SAMSA ., TREOVR Attending Unavailable SAMSA ., TREVOR Admitting Unavailable [...] Date of Onset Reaction(s) Facility (1 source) 12559,00; 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: [26547,00] Propensity to adverse reactions (disorder) 9 [facility] Medications Current Medications Medication Drug Class(es) [...] PO Twice daily January 12, 2019 9:32am Crzkazuc-Hwb-Lebcpip Fumarate (Multi Vitamin) 9 mg iron/15 mL Liquid (2 sources) Start: 01-12-2019 take 1 tablet by mouth once daily Qepzviib-Jpi-Yeijr us Fumarate (Multi Vitamin) 9 mg iron/15 [...] take 1 puff(s) by inhalation once daily Dkhviqxjdor-Aalaemxkg-Mmwmlhtk Active 1 PUFF INHALATION Daily January 12, [...] coronary angioplasty; 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: [Atherosclerotic heart disease of habematolel coronary artery without angina pectoris] Onset: 04-05-2022 [...] Onset: 08-14-2022 Episodic Other aftercare (1 source) [facility] (current) use of aspirin; 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: [USP CURRENT USE OF ASPIRIN] Onset: 03-26-2022 Episodic Other aftercare (1 source) Other residential (current) drug therapy; 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: [OTH USP CURRENT DRUG THERAPY] Onset: 03-26-2022 Episodic Residual [...] Range Facility Office Visiton 02-26-2023 Follow-up visit [id number] Ankush Rosales 1970 M Date Provider Department Center 02/26/2023 Benjamin[facility]HAL [facility] Family History Problem Relation Age of Onset Coronary artery disease Father Heart attack Father Family Status - Relation Status Age at Father Level of Service:88838 [place] OFFICE/OUTPATIENT ESTABLISHED LOW MDM 20-29 MIN Normal [facility] THEOPHYLLINEon 01-01-2023 THEOPHYLLINE 17.6 ug/mL Normal 10.0-20.[address] [facility] Comment on above: Performed By: #### V ITCHAD PSARAMOS, SARMAD #### [facility] [address] [place] [address] Dr. Smitha Petersen MRI BRAIN WO CONon [...] by: MK SÁNCHEZ Date: 2022-11-01 16:53 Normal [facility] US CAROTID ART BILon 023 US [...] MK KOWALSKI Date: 2022-11-01 16:16 Normal [facility] BNPon 10-17-2022 Natriuretic peptide B (Bld) [Mass/Vol] 32.0 pg/mL Normal <=900.[address] [facility] Comment on above: Performed By: #### C MP, BNP, TSH, URIC, T7, LIPID #### [facility] [address] [place] [address] Dr. Smitha Petersen CBC AUTO DIFFon 10-17-2022 BASO # 0.0 103/ul Normal 0.0-0.1 [facility] Comment on above: Performed By: #### V ITAD, PSASC, IRON #### [facility] [address] [place] [address] Dr. Smitha Petersen Basophils/100 WBC (Bld) 0.4 % Normal 0.2-2.0 [facility] Comment on above: Performed By: #### V ITAD, PSASC, IRON #### [facility] [address] [place] [address] Dr. Smitha Petersen EO # 0.2 103/ul Normal 0.0-0.[address] [facility] Comment on above: Performed By: #### V ITAD, PSASC, IRON #### [facility] [address] [place] [address] Dr. Smitha Petersen Eosinophils/100 WBC (Bld) 2.4 % Normal 0.9-7.0 [facility] Comment on above: Performed By: #### V ITAD, PSASC, IRON #### [facility] [address] [place] [address] Dr. Smitha Petersen Erythrocyte distribution width (RBC) [Ratio] 13.8 % Normal 11.0-15.0 [facility] Comment on above: Performed By: #### V ITAD, PSASC, IRON #### [facility] [address] [place] [address] Dr. Smitha Petersen Hematocrit (Bld) [Volume fraction] 46.8 % Normal 42.0-54.0 [facility] Comment on above: Performed By: #### V ITAD, PSASC, IRON #### [facility] [address] [place] [address] Dr. Smitha Petersen Hemoglobin (Bld) [Mass/Vol] 15.7 g/dL Normal 14.0-18.0 [facility] Comment on above: Performed By: #### V ITAD, PSASC, IRON #### [facility] [address] [place] [address] Dr. Smitha Petersen IG # 0.04 10e3/ul Critically high 0.00-0.03 [facility] Comment on above: Performed By: #### V ITAD, PSASC, IRON #### [facility] [address] [place] [address] Dr. Smitha Petersen IG % 0.5 % Normal 0.0-0.5 [facility] Comment on above: Performed By: #### V ITAD, PSASC, IRON #### [facility] [address] [place] [address] Dr. Smitha Petersen LYMPH # 1.7 103/ul Normal 1.2-3.[address] [facility] Comment on above: Performed By: #### V ITAD, PSASC, IRON #### [facility] [address] [place] [address] Dr. Smitha Petersen Lymphocytes/100 WBC (Bld) 20.1 % Critically low 20.5-60.[address] [facility] Comment on above: Performed By: #### V ITAD, PSASC, IRON #### [facility] [address] [place] [address] Dr. Smitha Petersen MANUAL DIFF REQ NO Normal [facility] Comment on above: Performed By: #### V ITAD, PSASC, IRON #### [facility] [address] [place] [address] Dr. Smitha Petersen MCH (RBC) [Entitic mass] 29.7 pg Normal 25.9-34.[address] [facility] Comment on above: Performed By: #### V ITAD, PSASC, IRON #### [facility] [address] [place] [address] Dr. Smitha Petersen MCHC (RBC) [Mass/Vol] 33.5 g/dL Normal 29.9-35.[address] [facility] Comment on above: Performed By: #### V ITAD, PSASC, IRON #### [facility] [address] [place] [address] Dr. Smitha Petersen MCV (RBC) [Entitic vol] 88.5 fL Normal 80.0-94.[address] [facility] Comment on above: Performed By: #### V ITAD, PSASC, IRON #### [facility] [address] [place] [address] Dr. Smitha Petersen MONO # 0.6 103/ul Normal 0.3-0.[address] [facility] Comment on above: Performed By: #### V ITAD, PSASC, IRON #### [facility] [address] [address] [address] Smitha Petersen Monocytes/100 WBC (Bld) 6.8 % Normal 1.7-12.0 [facility] Comment on above: Performed By: #### V ITAD, PSASC, IRON #### [facility] [address] [place] [address] Dr. Smitha Petersen NEUT # 6.0 103/ul Normal 1.4-6.[address] [facility] Comment on above: Performed By: #### V ITAD, PSASC, IRON #### [facility] [address] [place] [address] Dr. Smitha Petersen Neutrophils/100 WBC (Bld) 69.8 % Normal 43.0-75.0 [facility] Comment on above: Performed By: #### V ITAD, PSASC, IRON #### [facility] [address] [place] [address] Dr. Smitha Petersen Platelet mean volume (Bld) [Entitic vol] 8.7 fL Critically low 9.5-13.5 [facility] Comment on above: Performed By: #### V ITAD, PSASC, IRON #### [facility] [address] [place] [address] Dr. Smitha Petersen PLT 222 103/ul Normal 150-[address] [facility] Comment on above: Performed By: #### V ITAD, PSASC, IRON #### [facility] [address] [place] [address] Dr. Smitha Petersen RBC 5.29 106/ul Normal 4.70-6.[address] [facility] Comment on above: Performed By: #### V ITAD, PSASC, IRON #### [facility] [address] [place] [address] Dr. Smitha Petersen WBC 8.5 103/ul Normal 4.0-11.[address] [facility] Comment on above: Performed By: #### V ITAD, PSASC, IRON #### [facility] [address] [place] [address] Dr. Smitha Petersen FREE THYROXINE INDEX T7on FTI 2.54 Normal 1.30-4.50 [facility] Comment on above: Performed By: #### C MP, BNP, TSH, URIC, T7, LIPID #### [facility] [address] [place] [address] Dr. Smitha Petersen T3U 33.0 % Normal 33.0-40.0 [facility] Comment on above: Performed By: #### C MP, BNP, TSH, URIC, T7, LIPID #### [facility] [address] [place] [address] Dr. Smitha Petersen T4 [Mass/Vol] 7.70 ug/dL Normal 4.50-12.10 [facility] Comment on above: Performed By: #### C MP, BNP, TSH, URIC, T7, LIPID #### [facility] [address] [place] [address] Dr. Smitha Petersen GLYCOHEMOGLOBIN A1Con 2022 ADA RECOMMENDATION SEE BELOW Normal [facility] Comment on above: Result Comment: ADA RECOMMENDED LIMIT 4.0 - 6.0 ADA THERAPEUTIC TARGET < 7.0 ACTION SUGGESTED > 7.0 Performed By: #### V ITAD, PSASC, IRON #### [facility] [address] [place] [address] Dr. Smitha Petersen Glucose [Mass/Vol] 120 mg/dL Normal [facility] Comment on above: Performed By: #### V ITAD, PSASC, IRON #### [facility] [address] [place] [address] Dr. Smitha Petersen HbA1c (Bld) [Mass fraction] 5.8 % Normal 4.5-6.2 [facility] Comment on above: Performed By: #### V ITAD, PSASC, IRON #### [facility] [address] [place] [address] Dr. Smitha Petersne IRONon 10-17-2022 Iron [Mass/Vol] 66.0 ug/dL Normal 65.0-175.0 [facility] Comment on above: Performed By: #### V ITAD, PSASC, IRON #### [facility] [address] [address] [address] Smitha Petersen LIPID PROFILEon 10-17-2022 CHOL-HDL RATIO NORM SEE BELOW Normal [facility] Comment on above: Result Comment: 3.3 - 4.4 LOW RISK 4.4 - 7.1 AVERAGE RISK 7.1 - 11.0 MODERATE RISK >11.0 HIGH RISK Performed By: #### C MP, BNP, TSH, URIC, T7, LIPID #### [facility] [address] [address] [address] Smitha Petersen Cholesterol [Mass/Vol] 102 mg/dL Normal <=200 [facility] Comment on above: Performed By: #### C MP, BNP, TSH, URIC, T7, LIPID #### [facility] [address] [address] [address] Smitha Petersen Cholesterol in HDL [Mass/Vol] 45 mg/dL Normal 40-60 [facility] Comment on above: Performed By: #### C MP, BNP, TSH, URIC, T7, LIPID #### [facility] [address] [address] [address] Smitha Petersen Cholesterol in LDL [Mass/Vol] 35.2 mg/dL Normal [facility] Comment on above: Performed By: #### C MP, BNP, TSH, URIC, T7, LIPID #### [facility] [address] [address] [address] Smitha Petersen Cholesterol.total/Ch olesterol in HDL [Mass ratio] 2.3 {ratio} Normal [facility] Comment on above: Performed By: #### C MP, BNP, TSH, URIC, T7, LIPID #### [facility] [address] [address] [address] Smitha Petersen HDL NORMAL > or = 60 mg/dl - LO W CARDIOVASCULAR RISK <40 mg/dl - HIGH CARDIOVASCULAR RISK Normal [facility] Comment on above: Performed By: #### C MP, BNP, TSH, URIC, T7, LIPID #### [facility] [address] [address] [address] Smitha Petersen LDL CALC NORMAL SEE BELOW Normal [facility] Comment on above: Result Comment: <100 mg/dl OPTIMAL 100 - 129 mg/dl NEAR OR ABOVE OPTIMAL 130 - 159 mg/dl BORDERLINE HIGH 160 - 189 mg/dl HIGH >190 mg/dl VERY HIGH Performed By: #### C MP, BNP, TSH, URIC, T7, LIPID #### [facility] [address] [place] [address] Dr. Smitha Petersen Triglyceride [Mass/Vol] 109 mg/dL Normal <=150 [facility] Comment on above: Performed By: #### C MP, BNP, TSH, URIC, T7, LIPID #### [facility] [address] [place] [address] Dr. Smitha Petersen VLDL CALC 21.8 mg/dL Normal [facility] Comment on above: Performed By: #### C MP, BNP, TSH, URIC, T7, LIPID #### [facility] [address] [place] [address] Dr. Smitha Petersen PROF 14(COMP METB)on 023 Albumin [Mass/Vol] 3.8 g/dL Normal 3.4-5.0 [facility] Comment on above: Performed By: #### C MP, BNP, TSH, URIC, T7, LIPID #### [facility] [address] [place] [address] Dr. Smitha Petersen Albumin/Globulin [Mass ratio] 1.2 {ratio} Normal [facility] Comment on above: Performed By: #### C MP, BNP, TSH, URIC, T7, LIPID #### [facility] [address] [place] [address] Dr. Simtha Petersen ALP [Catalytic activity/Vol] 113 U/L Normal 46-116 [facility] Comment on above: Performed By: #### C MP, BNP, TSH, URIC, T7, LIPID #### [facility] [address] [place] [address] Dr. Smitha Petersen ALT [Catalytic activity/Vol] 66 U/L Critically high 16-63 [facility] Comment on above: Performed By: #### C MP, BNP, TSH, URIC, T7, LIPID #### [facility] [address] [place] [address] Dr. Smitha Petersen Anion gap [Moles/Vol] 13.4 mmol/L Normal [facility] Comment on above: Performed By: #### C MP, BNP, TSH, URIC, T7, LIPID #### [facility] [address] [address] [address] Smitha Petersen AST [Catalytic activity/Vol] 29 U/L Normal 15-37 [facility] Comment on above: Performed By: #### C MP, BNP, TSH, URIC, T7, LIPID #### [facility] [address] [place] [address] Dr. Smitha Petersen Bilirubin [Mass/Vol] 0.3 mg/dL Normal 0.2-1.0 [facility] Comment on above: Performed By: #### C MP, BNP, TSH, URIC, T7, LIPID #### [facility] [address] [place] [address] Dr. Smitha Petersen Calcium [Mass/Vol] 8.9 mg/dL Normal 8.5-10.1 [facility] Comment on above: Performed By: #### C MP, BNP, TSH, URIC, T7, LIPID #### [facility] [address] [place] [address] Dr. Smitha Petersen Chloride [Moles/Vol] 101 mmol/L Normal 98-[address] [facility] Comment on above: Performed By: #### C MP, BNP, TSH, URIC, T7, LIPID #### [facility] [address] [place] [address] Dr. Smitha Petersen CO2 [Moles/Vol] 28.8 mmol/L Normal 21.0-32.0 [facility] Comment on above: Performed By: #### C MP, BNP, TSH, URIC, T7, LIPID #### [facility] [address] [place] [address] Dr. Smitha Petersen Creatinine [Mass/Vol] 0.82 mg/dL Normal 0.70-1.30 [facility] Comment on above: Performed By: #### C MP, BNP, TSH, URIC, T7, LIPID #### [facility] [address] [place] [address] Dr. Smitha Petersen EGFR-AF KAZAKH >60 Normal >=60 [facility] Comment on above: Performed By: #### C MP, BNP, TSH, URIC, T7, LIPID #### [facility] [address] [place] [address] Dr. Smitha Petersen EGFR-NON AF KAZAKH >60 Normal >=[address] [facility] Comment on above: Performed By: #### C MP, BNP, TSH, URIC, T7, LIPID #### [facility] [address] [place] [address] Dr. Smitha Petersen Globulin (S) [Mass/Vol] 3.3 g/dL Normal [facility] Comment on above: Performed By: #### C MP, BNP, TSH, URIC, T7, LIPID #### [facility] [address] [place] [address] Dr. Smitha Petersen Glucose [Mass/Vol] 100 mg/dL Normal 74-106 [facility] Comment on above: Performed By: #### C MP, BNP, TSH, URIC, T7, LIPID #### [facility] [address] [place] [address] Dr. Smitha Petersen Potassium [Moles/Vol] 4.2 mmol/L Normal 3.5-5.[address] [facility] Comment on above: Performed By: #### C MP, BNP, TSH, URIC, T7, LIPID #### [facility] [address] [place] [address] Dr. Smitha Petersen Protein [Mass/Vol] 7.1 g/dL Normal 6.4-8.2 [facility] Comment on above: Performed By: #### C MP, BNP, TSH, URIC, T7, LIPID #### [facility] [address] [place] [address] Dr. Smitha Petersen Sodium [Moles/Vol] 139 mmol/L Normal 136-145 [facility] Comment on above: Performed By: #### C MP, BNP, TSH, URIC, T7, LIPID #### [facility] [address] [place] [address] Dr. Smitha Petersen Urea nitrogen [Mass/Vol] 14.0 mg/dL Normal 7.0-18.0 [facility] Comment on above: Performed By: #### C MP, BNP, TSH, URIC, T7, LIPID #### [facility] [address] [place] [address] Dr. Smitha Petersen Urea nitrogen/Creatinine [Mass ratio] 17.1 mg/mg Normal [facility] Comment on above: Performed By: #### C MP, BNP, TSH, URIC, T7, LIPID #### [facility] [address] [place] [address] Dr. Smitha Petersen TSHon 10-17-2022 TSH 0.796 uIU/mL Normal 0.358-3.740 [facility] Comment on above: Performed By: #### C MP, BNP, TSH, URIC, T7, LIPID #### [facility] [address] [place] [address] Dr. Smitha Petersen URIC ACID SERUMon 10-17-2022 Urate [Mass/Vol] 6.4 mg/dL Normal 3.5-7.2 [facility] Comment on above: Performed By: #### C MP, BNP, TSH, URIC, T7, LIPID #### [facility] [address] [place] [address] Dr. Smitha Petersen VITAMIN D 25 OHon 10-17-2022 VIT D 25-OH 17.5 ng/mL Normal [facility] Comment on above: Performed By: #### V ITAD, PSASC, IRON #### [facility] [address] [place] [address] Dr. Smitha Petersen VIT D RANGES SEE BELOW Normal [facility] Comment on above: Result Comment: <20 ng/mL Vit D deficient 20 - <30 ng/mL Vit D insufficient 30 - 100 ng/mL Vit D sufficient >100 ng/mL Potential Toxicity Performed By: #### V ITAD, PSASC, IRON #### [facility] [address] [place] [address] Dr. Smitha Petersen ECHOCARDIO M/2D COMPLETEon 1 10-15-2021 ECHOCARDIO M/2D COMPLETE Patient: MK ROSALES Exam Date: 08/14/2022 : 1970 Gender:M Ordering : DR SHANEL FERNANDEZ . Admission #: [id number] Family : Order #: [id number] CLICK HERE TO VIEW EXAM ECHOCARDIOGRAM REPORT [...] Matta M.D. on 08/14/2022 at 18:35 Normal [facility] STRESS/REST MULTIon 07-23 NM STRESS/REST MULTI Patient: KATINA ROSALES Exam Date: 07/23/2022 : 1970 Gender:M Ordering : DR SHANEL FERNANDEZ . Admission #: [id number] Family : Order #: [id number] CLICK HERE TO VIEW EXAM RADIOLOGY REPORT [...] Kowalski MD on 08/06/2022 at 12:[address] [facility] [address] LUNG CANCER SCREENINGon 1 09-12-2021 [...] by: PATRICIO LUTZ Date: 2022-07-13 08:59 Normal [facility] THEOPHYLLINEon 07-10-2022 THEOPHYLLINE 16.4 ug/mL Normal 10.0-20.0 [facility] Comment on above: Performed By: #### V ITAD, PSASC, IRON #### [facility] [address] [address] [address] 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 [address] [place], [place] [address] Dr. Smitha Petersen Cholesterol [Mass/Vol] 129 mg/dL Normal <=200 [facility] Comment on above: Performed By: #### V ITAD, PSASC, IRON #### [facility] [address] [place], [place] [address] Dr. Smitha Petersen Cholesterol in HDL [Mass/Vol] 40 mg/dL Normal 40-60 [facility] Comment on above: Performed By: #### V ITAD, PSASC, IRON #### [facility] [address] [address] [address] Smitha Petersen Cholesterol in LDL [Mass/Vol] 57.2 mg/dL Normal [facility] Comment on above: Performed By: #### V ITAD, PSASC, IRON #### [facility] [address] [address] [address] Smitha Petersen Cholesterol.total/Ch olesterol in HDL [Mass ratio] 3.2 {ratio} Normal [facility] Comment on above: Performed By: #### V ITAD, PSASC, IRON #### [facility] [address] [address] [address] Smitha Petersen HDL NORMAL > or = 60 mg/dl - LO W CARDIOVASCULAR RISK <40 mg/dl - HIGH CARDIOVASCULAR RISK Normal [facility] Comment on above: Performed By: #### V ITAD, PSASC, IRON #### [facility] [address] [address] [address] Smitha Petersen LDL CALC NORMAL SEE BELOW Normal [facility] Comment on above: Result Comment: <100 mg/dl OPTIMAL 100 - 129 mg/dl NEAR OR ABOVE OPTIMAL 130 - 159 mg/dl BORDERLINE HIGH 160 - 189 mg/dl HIGH >190 mg/dl VERY HIGH Performed By: #### V ITAD, PSASC, IRON #### [facility] [address] [address] [address] Smitha Petersen Triglyceride [Mass/Vol] 159 mg/dL Critically high <=[address] [facility] Comment on above: Performed By: #### V ITAD, PSASC, IRON #### [facility] [address] [address] [address] Smitha Petersen VLDL CALC 31.8 mg/dL Normal [facility] Comment on above: Performed By: #### V ITAD, PSASC, IRON #### [facility] [address] [address] [address] Smitha Petersen CBC AUTO DIFFon 03-22-2022 BASO # 0.1 103/ul Normal 0.0-0.1 [facility] Comment on above: Performed By: #### V ITAD, PSASC, IRON #### [facility] [address] [place] [address] Dr. Smitha Petersen Basophils/100 WBC (Bld) 0.5 % Normal 0.2-2.0 [facility] Comment on above: Performed By: #### V ITAD, PSASC, IRON #### [facility] [address] [place] [address] Dr. Smitha Petersen EO # 0.4 103/ul Normal 0.0-0.[address] [facility] Comment on above: Performed By: #### V ITAD, PSASC, IRON #### [facility] [address] [place] [address] Dr. Smitha Petersen Eosinophils/100 WBC (Bld) 3.5 % Normal 0.9-7.0 [facility] Comment on above: Performed By: #### V ITAD, PSASC, IRON #### [facility] [address] [place] [address] Dr. Smitha Petersen Erythrocyte distribution width (RBC) [Ratio] 15.1 % Critically high 11.0-15.[address] [facility] Comment on above: Performed By: #### V ITAD, PSASC, IRON #### [facility] [address] [place] [address] Dr. Smitha Petersen Hematocrit (Bld) [Volume fraction] 46.8 % Normal 42.0-54.[address] [facility] Comment on above: Performed By: #### V ITAD, PSASC, IRON #### [facility] [address] [place] [address] Dr. Smitha Petersen Hemoglobin (Bld) [Mass/Vol] 15.5 g/dL Normal 14.0-18.[address] [facility] Comment on above: Performed By: #### V ITAD, PSASC, IRON #### [facility] [address] [place] [address] Dr. Smitha Petersen IG # 0.03 10e3/ul Normal 0.00-0.[address] [facility] Comment on above: Performed By: #### V ITAD, PSASC, IRON #### [facility] [address] [place] [address] Dr. Smitha Petersen IG % 0.3 % Normal 0.0-0.5 [facility] Comment on above: Performed By: #### V ITAD, PSASC, IRON #### [facility] [address] [place] [address] Dr. Smitha Petersen LYMPH # 2.6 103/ul Normal 1.2-3.8 [facility] Comment on above: Performed By: #### V ITAD, PSASC, IRON #### [facility] [address] [place] [address] Dr. Smitha Petersen Lymphocytes/100 WBC (Bld) 25.0 % Normal 20.5-60.0 [facility] Comment on above: Performed By: #### V ITAD, PSASC, IRON #### [facility] [address] [place] [address] Dr. Smitha Petersen MANUAL DIFF REQ NO Normal [facility] Comment on above: Performed By: #### V ITAD, PSASC, IRON #### [facility] [address] [place] [address] Dr. Smitha Petersen MCH (RBC) [Entitic mass] 29.6 pg Normal 25.9-34.0 [facility] Comment on above: Performed By: #### V ITAD, PSASC, IRON #### [facility] [address] [place] [address] Dr. Smitha Petersen MCHC (RBC) [Mass/Vol] 33.1 g/dL Normal 29.9-35.2 [facility] Comment on above: Performed By: #### V ITAD, PSASC, IRON #### [facility] [address] [place] [address] Dr. Smitha Petersen MCV (RBC) [Entitic vol] 89.5 fL Normal 80.0-94.0 [facility] Comment on above: Performed By: #### V ITAD, PSASC, IRON #### [facility] [address] [place] [address] Dr. Smitha Petersen MONO # 0.7 103/ul Normal 0.3-0.[address] [facility] Comment on above: Performed By: #### V ITAD, PSASC, IRON #### [facility] [address] [address] [address] Smitha Petersen Monocytes/100 WBC (Bld) 7.0 % Normal 1.7-12.[address] [facility] Comment on above: Performed By: #### V ITAD, PSASC, IRON #### [facility] [address] [place] [address] Dr. Smitha Petersen NEUT # 6.7 103/ul Critically high 1.4-6.5 [facility] Comment on above: Performed By: #### V ITAD, PSASC, IRON #### [facility] [address] [place] [address] Dr. Smitha Petersen Neutrophils/100 WBC (Bld) 63.7 % Normal 43.0-75.[address] [facility] Comment on above: Performed By: #### V ITAD, PSASC, IRON #### [facility] [address] [place] [address] Dr. Smitha Petersen Platelet mean volume (Bld) [Entitic vol] 8.9 fL Critically low 9.5-13.5 [facility] Comment on above: Performed By: #### V ITAD, PSASC, IRON #### [facility] [address] [place] [address] Dr. Smitha Petersen PLT 245 103/ul Normal 150-[address] [facility] Comment on above: Performed By: #### V ITAD, PSASC, IRON #### [facility] [address] [place] [address] Dr. Smitha Petersen RBC 5.23 106/ul Normal 4.70-6.[address] [facility] Comment on above: Performed By: #### V ITAD, PSASC, IRON #### [facility] [address] [place] [address] Dr. Smitha Petersen WBC 10.5 103/ul Normal 4.0-11.[address] [facility] Comment on above: Performed By: #### V ITAD, PSASC, IRON #### [facility] [address] [address] ABD/PELVIS WO CONon [...] BLU GASPAR Date: 2022-03-22 21:12 Normal [address] [facility] CULTURE URINEon 03-22-2022 CULTURE URINE Culture Observations : NO GROWTH. Normal [facility] Comment on above: Performed By: #### V ITAD, PSASC, IRON #### [facility] [address] [place] [address] Dr. Smitha Petersen ER URINE PROFILEon 2 Bilirubin Ql (U) Negative Normal NEGATIVE [facility] Comment on above: Performed By: #### V ITAD, PSASC, IRON #### [facility] [address] [place] [address] Dr. Smitha Petersen Clarity (U) CLEAR Normal CLEAR [facility] Comment on above: Performed By: #### V ITAD, PSASC, IRON #### [facility] [address] [place] [address] Dr. Smitha Petersen Color (U) LT. YELLOW Normal YELLOW [facility] Comment on above: Performed By: #### V ITAD, PSASC, IRON #### [facility] [address] [place] [address] Dr. Smitha HERNANDEZ A micrscopic examination will be performed if indicated. Normal [facility] Comment on above: Performed By: #### V ITAD, PSASC, IRON #### [facility] [address] [place] [address] Dr. Smitha Petersen Glucose Ql (U) Negative Normal NEGATIVE [facility] Comment on above: Performed By: #### V ITAD, PSASC, IRON #### [facility] [address] [place] [address] Dr. Smitha Petersen Hemoglobin Ql (U) TRACE-INTACT Abnormal NEGATIVE [facility] Comment on above: Performed By: #### V ITAD, PSASC, IRON #### [facility] [address] [place] [address] Dr. Smitha Petersen Ketones Ql (U) Negative Normal NEGATIVE [facility] Comment on above: Performed By: #### V ITAD, PSASC, IRON #### [facility] [address] [place] [address] Dr. Smitha Petersen LEUKOCYTES TRACE Abnormal NEGATIVE [facility] Comment on above: Performed By: #### V ITAD, PSASC, IRON #### [facility] [address] [place] [address] Dr. Smitha Petersen Nitrite Ql (U) Negative Normal NEGATIVE [facility] Comment on above: Performed By: #### V ITAD, PSASC, IRON #### [facility] [address] [place] [address] Dr. Smitha Petersen pH (U) 5.5 [pH] Normal 5-9 [facility] Comment on above: Performed By: #### V ITAD, PSASC, IRON #### [facility] [address] [address] [address] Smitha Petersen SPEC GRAVITY 1.010 Normal 1.005-<=1.025 [facility] Comment on above: Performed By: #### V ITAD, PSASC, IRON #### [facility] [address] [place] [address] Dr. Smitha Petersen UA PROTEIN Negative Normal NEGATIVE/ TRACE [facility] Comment on above: Performed By: #### V ITAD, PSASC, IRON #### [facility] [address] [place] [address] Dr. Smitha Petersen UR MICRO IND INDICATED Normal [facility] Comment on above: Performed By: #### V ITAD, PSASC, IRON #### [facility] [address] [place] [address] Dr. Smitha Petersen Urobilinogen Qn (U) 0.2 {Zach'U}/dL Normal 0.2 - 1. 0 [facility] Comment on above: Performed By: #### V ITAD, PSASC, IRON #### [facility] [address] [place] [address] Dr. Smitha Petersen PROF 14(COMP METB)on 022 Albumin [Mass/Vol] 4.0 g/dL Normal 3.4-5.0 [facility] Comment on above: Performed By: #### V ITAD, PSASC, IRON #### [facility] [address] [place] [address] Dr. Smitha Petersen Albumin/Globulin [Mass ratio] 1.2 {ratio} Normal [facility] Comment on above: Performed By: #### V ITAD, PSASC, IRON #### [facility] [address] [address] [address] Smitha Petersen ALP [Catalytic activity/Vol] 113 U/L Normal 46-116 [facility] Comment on above: Performed By: #### V ITAD, PSASC, IRON #### [facility] [address] [address] [address] Smitha Petersen ALT [Catalytic activity/Vol] 53 U/L Normal 16-63 [facility] Comment on above: Performed By: #### V ITAD, PSASC, IRON #### [facility] [address] [address] [address] Smitha Petersen Anion gap [Moles/Vol] 15.3 mmol/L Normal [facility] Comment on above: Performed By: #### V ITAD, PSASC, IRON #### [facility] [address] [place] [address] Dr. Smitha Petersen AST [Catalytic activity/Vol] 18 U/L Normal 15-37 [facility] Comment on above: Performed By: #### V ITAD, PSASC, IRON #### [facility] [address] [address] [address] Smitha Petersen Bilirubin [Mass/Vol] 0.4 mg/dL Normal 0.2-1.0 [facility] Comment on above: Performed By: #### V ITAD, PSASC, IRON #### [facility] [address] [address] [address] Smitha Petersen Calcium [Mass/Vol] 9.2 mg/dL Normal 8.5-10.1 [facility] Comment on above: Performed By: #### V ITAD, PSASC, IRON #### [facility] [address] [address] [address] Smitha Petersen Chloride [Moles/Vol] 101 mmol/L Normal 98-107 [facility] Comment on above: Performed By: #### V ITAD, PSASC, IRON #### [facility] [address] [address] [address] Smitha Petersen CO2 [Moles/Vol] 24.8 mmol/L Normal 21.0-32.0 [facility] Comment on above: Performed By: #### V ITAD, PSASC, IRON #### [facility] [address] [address] [address] Smitha Petersen Creatinine [Mass/Vol] 0.96 mg/dL Normal 0.70-1.30 [facility] Comment on above: Performed By: #### V ITAD, PSASC, IRON #### [facility] [address] [address] [address] Smitha Petersen EGFR-AF KAZAKH >60 Normal >=60 [facility] Comment on above: Performed By: #### V ITAD, PSASC, IRON #### [facility] [address] [place] [address] Dr. Smitha Petersen EGFR-NON AF KAZAKH >60 Normal >=60 [facility] Comment on above: Performed By: #### V ITAD, PSASC, IRON #### [facility] [address] [place] [address] Dr. Smitha Petersen Globulin (S) [Mass/Vol] 3.4 g/dL Normal [facility] Comment on above: Performed By: #### V ITAD, PSASC, IRON #### [facility] [address] [place] [address] Dr. Smitha Petersen Glucose [Mass/Vol] 146 mg/dL Critically high 74-106 [facility] Comment on above: Performed By: #### V ITAD, PSASC, IRON #### [facility] [address] [address] [address] Smitha Petersen Potassium [Moles/Vol] 4.1 mmol/L Normal 3.5-5.1 [facility] Comment on above: Performed By: #### V ITAD, PSASC, IRON #### [facility] [address] [place] [address] Dr. Smitha Petersen Protein [Mass/Vol] 7.4 g/dL Normal 6.4-8.2 [facility] Comment on above: Performed By: #### V ITAD, PSASC, IRON #### [facility] [address] [address] [address] Smitha Petersen Sodium [Moles/Vol] 137 mmol/L Normal 136-145 [facility] Comment on above: Performed By: #### V ITAD, PSASC, IRON #### [facility] [address] [place] [address] Dr. Smitha Petersen Urea nitrogen [Mass/Vol] 22.0 mg/dL Critically high 7.0-18.0 [facility] Comment on above: Performed By: #### V ITAD, PSASC, IRON #### [facility] [address] [place] [address] Dr. Smitha Petersen Urea nitrogen/Creatinine [Mass ratio] 22.9 mg/mg Normal [facility] Comment on above: Performed By: #### V ITAD, PSASC, IRON #### [facility] [address] [place] [address] Dr. Smitha Petersen URINE MICROSCOPIC ONLYon BACTERIA TRACE Abnormal NONE SEEN [facility] Comment on above: Performed By: #### V ITAD, PSASC, IRON #### [facility] [address] [place] [address] Dr. Smitha Petersen Bacteria identified Cx Nom (U) INDICATED Normal [facility] Comment on above: Performed By: #### V ITAD, PSASC, IRON #### [facility] [address] [place] [address] Dr. Smitha Petersen CAST NONE SEEN Normal NONE SEEN [facility] Comment on above: Performed By: #### V ITAD, PSASC, IRON #### [facility] [address] [place] [address] Dr. Smitha Petersen Crystals LM Nom (Urine sed) NONE SEEN Normal NONE SEEN [facility] Comment on above: Performed By: #### V ITAD, PSASC, IRON #### [facility] [address] [place] [address] Dr. Smitha Petersen Epithelial cells LM Ql (Urine sed) NONE SEEN Normal NONE SEEN /RARE [facility] Comment on above: Performed By: #### V ITAD, PSASC, IRON #### [facility] [address] [address] [address] Smitha Petersen MUCOUS NONE SEEN Normal NONE SEEN [facility] Comment on above: Performed By: #### V ITAD, PSASC, IRON #### [facility] [address] [address] [address] Smitha Petersen RBC NONE SEEN Abnormal 0-[address] [facility] Comment on above: Performed By: #### V ITAD, PSASC, IRON #### [facility] [address] [address] [address] Smitha Petersen WBC 5-10 Abnormal NONE SEEN [facility] Comment on above: Performed By: #### V ITAD, PSASC, IRON #### [facility] [address] [address] [address] Smitha Petersen US TRAV DOP LEG [...] PATRICIO LUTZ Date: 2022-01-23 11:39 Normal [facility] Operative Reporton Operative Report MR#: [id number] [facility] Pt. Name: Mk Rosales Room #: 0C Discharge Date: Birthdate: 1970 OPERATIVE REPORT DATE OF SURGERY: 09/15/2020 SURGEON: Mk Min M.D. PREOPERATIVE DIAGNOSIS: Left knee medial meniscus tear, unstable. POSTOPERATIVE DIAGNOSIS: 1. Left knee medial meniscus tear, unstable. 2. Left knee chondral tear patella. SURGEON: Mk Min M.D. MEDICAL ASST: Nelson Leos MD ANESTHESIA: General. PROCEDURE PERFORMED: [...] Min M.D. Date Trans: 09/15/2020 09:36 A/zoey [id number] cc: Shanel Fernandez M.D. [address], [facility] [id number] Normal [facility] POC GLUCOSE LABon 09-15-2020 Glucose [Mass/Vol] 101 mg/dL High 70-100 The [facility] Comment on above: Performed By: #### 8 [id number] #### [address] Vital Signs Date Time Vital Sign Value Performing Clinician Facility 11-05-2022 09:00-0500 Body height Berenice Blades Other [facility] Other 11-05-2022 09:00-0500 Body mass index (BMI) [Ratio] 38.24 kg/m2 Berenice Blades Other [facility] Other 11-05-2022 09:00-0500 Body weight 117.48 kg Berenice Blades Other [facility] Other 11-05-2022 09:00-0500 Diastolic blood pressure 94 mm[Hg] Berenice Blades Other [facility] Other 11-05-2022 09:00-0500 Systolic blood pressure 156 mm[Hg] Berenice Blades Other [facility] Other 10-26-2022 08:00-0500 Body height Berenice Blades Other [facility] Other 10-26-2022 08:00-0500 Body mass index (BMI) [Ratio] 38.24 kg/m2 Berenice Blades Other [facility] Other 10-26-2022 08:00-0500 Body weight 117.48 kg Berenice Blades Other [facility] Other 10-26-2022 08:00-0500 Diastolic blood pressure 89 mm[Hg] Berenice Blades Other [facility] Other 10-26-2022 08:00-0500 Systolic blood pressure 130 mm[Hg] Berenice Blades Other [facility] Other Encounters Encounter Date Encounter Type Care Provider Facility Start: 02-26-2023 End: 02-26-2023 ambulatory [facility] Start: 01-01-2023 End: 01-02-2023 ambulatory TREVOR LEONG . Facility:[facility] Start: 12-19-2022 ambulatory SHANEL HOY Facility:[facility] Start: 12-12-2022 ambulatory SHANEL HOY Facility:[facility] 1 Start: 11-05-2022 End: 11-05-2022 ambulatory Berenice Blades Other [facility] Other Start: 11-05-2022 Office outpatient vi sit 15 minutes Berenice Blades [facility] Start: 11-01-2022 End: 11-02-2022 ambulatory BERENICE BLADES Facility:[facility] Start: 10-26-2022 End: 10-26-2022 ambulatory Berenice Blades Other [facility] Other Start: 10-26-2022 Office outpatient ne w 45 minutes Berenice Motley [facility] Start: 10-17-2022 End: 10-18-2022 ambulatory SHANEL HOY Facility:[facility] Start: 08-14-2022 End: 08-15-2022 ambulatory SHANEL HOY Facility:[facility] Start: 08-06-2022 End: 08-07-2022 ambulatory SHANEL HOY Facility:[facility] Start: 07-23-2022 End: 07-24-2022 ambulatory SHANEL HOY Facility:[facility] Start: 07-13-2022 End: 07-14-2022 ambulatory TREVORMARY ANN LEONG . Facility:[facility] Start: 07-10-2022 End: 07-11-2022 ambulatory TREVOR SAMSA . Facility:[facility] Start: 06-20-2022 End: 06-21-2022 ambulatory SHANEL HOY Facility:[facility] Start: 05-30-2022 End: 05-31-2022 ambulatory SHANEL HOY Facility:[facility] Start: 04-05-2022 End: 04-06-2022 ambulatory HAL COLLINSS Facility:[facility] Start: 03-22-2022 End: 03-22-2022 ambulatory SHANEL HOY Facility:[facility] Start: 01-23-2022 End: 01-24-2022 ambulatory SHANEL HOY Facility:[facility] Start: 09-15-2020 End: 09-16-2020 ambulatory SHANEL HOY Facility:[facility] Procedures Date Procedure Procedure Detail Performing Clinician Start: 10-17-2022 PSA screening SHANEL H OY Comment on above: Performed By: #### V ITAD, PSASC, IRON #### [facility] [address] [place] [address] Dr. Smitha Petersen Start: 09-15-2020 ANESTH KNEE JOINT SURGERY JAYSON CHEN Start: 09-15-2020 KNEE ARTHROSCOPY/SURGERY MK MIN Plan of Treatment Date Care Activity Detail Author Start: 01-23-2023 ambulatory Ambulatory Facility:[facility] 1 Payers Date Payer Category Payer Unknown [id number] 2.16.8 [id number] 1970 Unknown [id number] 2.16.84 [id number] 1970 Unknown [id number] 2.16.84 [id number] 1971 Unknown [id number] 2.16.84 [id number] 1971 Unknown [id number] 2.16.84 0.1.457286.3.579.2.593 1970 Unknown [id number] 2.16.84 0.1.582403.3.579.2.593 1971 Unknown [id number] 2.16.84 0.1.896025.3.579.2.593 1971 Unknown [id number] 2.16.84 0.1.326458.3.579.2.593 1971 Unknown [id number] 2.16.84 0.1.403774.3.579.2.593 1971 Unknown [id number] 2.16.84 0.1.670305.3.579.2.593 1971 Unknown [id number] 2.16.84 0.1.213100.3.579.2.593 1971 Unknown [id number] 2.16.84 0.1.523866.3.579.2.593 1971 Unknown [id number] 2.16.84 0.1.140348.3.579.2.593 1971 Unknown [id number] 2.16.84 0.1.683203.3.579.2.593 1971 Unknown [id number] 2.16.84 0.1.747691.3.579.2.593 1971 Unknown [id number] 2.16.84 0.1.138963.3.579.2.593 1970 Unknown [id number] 2.16.84 0.1.051347.3.579.2.593 1971 Unknown [id number] 2.16.84 0.1.055829.3.579.2.593 1958 Medicare [id number] 2.1 [id number] 1958 Self-pay [id number] 1958 Unknown [id number] Self-pay Self Pay [id number] Unknown Self Pay [id number] Social History Date Type Detail Facility Tobacco smoking status OHIS Unknown if ever smoked [facility] Work Phone: Start: 1970 Sex Assigned At Male F [facility] Sex Assigned At Sex Assigned At Bir th [facility] Other Progress note 02-26-2023 Note Date & Type Note Facility 02-26-2023 Note 10 min discussion ab out importance of smoking cessation- pt reports he does not smoke cigarrettes daily- only when stressed and buys a pack abouit every 1-2 weeks. He is not willing to completely quit smoking. [facility] Progress note 02-26-2023 Note Date & Type Note Facility 02-26-2023 Note Coronary artery dise ase is stable without any concerning cardiac symptoms Continue GDMT- ASA, lipitor, lopressor, plavix, metoprolol continue risk factor modifications- heart healthy diet, regular exercise as tolerated and continue all medications. [facility] Progress note 02-26-2023 Note Date & Type Note Facility 02-26-2023 Note Patient here for 1 y ear follow up CAD and hypertension. He had carotid us and routine labs a few months ago. Denies chest pain but has POSEY (COPD) and sees Dr. Leong. He was told by a neurosurgeon in [place] a few months ago that he had a minor stroke s/p MRI head. Review of Systems Cardiovascular: Positive for dyspnea on exertion. Musculoskeletal: Positive for arthritis, back pain and muscle weakness. All other systems reviewed and are negative. [facility] Progress note 02-26-2023 Note Date & Type [...] He was told by a neurosurgeon in [place] a few months ago that he had [...] Take 80 mg by mouth at bedtime. [id number] 160-9-4.8 mcg/actuation HFA aerosol inhaler [employer]tri [employer] [...] not willing to completely quit smoking. [facility] Evaluation note 11-05-2022 Note Date & Type Note Facility 11-05-2022 Evaluation note Encounter Date Diagnosis Assessment Notes Oct, Left leg pain (ICD-10 - M79.605) [facility] Other Evaluation note 10-26-2022 Note Date & Type Note Facility 10-26-2022 Evaluation note Encounter Date Diagnosis Assessment Notes Oct, Cerebral infarct (ICD-10 - I63.9) Oct, Encephalomalacia (ICD-10 - G93.89) [facility] Other Clinical Note 08-06-2022 Note Date & [...] and reported in a separate dictation. [facility] Evaluation note Note Date & Type Note Facility Evaluation note [facility] History general Narrative - [...] Surgical History angioplasty Hospitalization History see above [facility] Other Summary Purpose Family History No Family [...] and content) DATE CREATED AUTHOR 08/18/2021 [facility] DATE CREATED AUTHOR AUTHOR'S ORGANIZ ATION 01/10/2023 [facility] DATE CREATED AUTHOR AUTHOR'S ORGANIZ ATION 02/27/2023 [facility] Goals (unrecognized section and content) Goals may be documented in a n alternate sectionGoals may be documented in an alternate sectionNo InformationNo Information REASON FOR VISIT (unrecogniz ed section and content) Ref Dr Mallory, Left sided weakness; left leg painMRI, ultrasound results test [facility] 11[facility]01/22 [facility] TO PATIENTS WHO ARE [...] BE BASED ON THE PRIMARY CLINICAL RECORDS. [facility]. provides no warranty or guarantee of the accuracy or completeness of information in this document.
[2024-01-14 09:44] LABS: Theophylline 11.8 ug/mL (10.0-20.0)
== END 2024-01-14 09:11 | disposition home or self-care (01) ==
LOC: LAB 09:12
PROVIDERS: PCP Family Medicine; Visit Provider Internal Medicine
DX: J44.9 Chronic obstructive pulmonary disease, unspecified (principal); Z51.81 Encounter for therapeutic drug level monitoring
CPT/HCPCS: 36415; 80198

== ENCOUNTER 2024-02-24 13:34 | Outpatient (OUT) | payer MEDICARE, SELFPAY ==
--- NOTE | 2024-02-24 14:00 | CA_ITS ---
Patient Name: MK ROSALES MR#: [id number] : 1970 Exam Date: 02/24/2024 Ordering Doctor: DR CONNOR CARRERA M.D. ECHOCARDIOGRAM REPORT PROCEDURE: CA ECHO DOPPLER COMPLETE INDICATIONS: Dyspnea on exertion, cardiac stents, TN, hypertension, diabetes, smoker COMPARISON: None. DESCRIPTION: COMPLETE ECHOCARDIOGRAM Real-time transthoracic echocardiography with 2D, M-mode, spectral and color flow Doppler performed. QUALITY: Technical quality was good. LEFT VENTRICLE: Normal chamber size. Borderline concentric left ventricular hypertrophy. Normal systolic function. LV EF: Normal left ventricular ejection fraction, (55%). DIASTOLIC: Normal diastolic function. ATRIAL SEPTUM: Visually appears intact. LEFT ATRIUM: Normal chamber size. RIGHT ATRIUM: Normal chamber size. RIGHT VENTRICLE: Normal chamber size. Normal right ventricular systolic function. TRICUSPID VALVE: Normal mobility and thickness. No stenosis with no regurgitation. Unable to assess right-sided pressures due to lack of measurable tricuspid regurgitation. MITRAL VALVE: Normal mobility and thickness. No evidence of mitral valve stenosis. There is no mitral annular calcification. No mitral regurgitation. AORTIC VALVE: Normal trileaflet appearance. No visible sclerosis. Normal leaflet mobility. No evidence of aortic valve stenosis. No aortic regurgitation. AORTIC ROOT: Normal diameter and appearance. PULMONIC VALVE: Normal thickness and mobility. No stenosis. No regurgitation. PERICARDIUM: No evidence of pericardial effusion. IVC: Collapses with inspirations. PLEURA: CONCLUSION: 1. Normal ventricular size and systolic function. LVEF is 55%. 2. Normal diastolic function. 3. No significant valvular dysfunction. 4. Unable to assess right-sided pressures due to lack of measurable tricuspid regurgitation. Adult Echocardiography Procedure Report Left Ventricle LVEDD (3.7 - 5.6 cm): 4.85 cm LVESD (2.2 - 4.0 cm): 3.89 cm LVIVS thickness (0.6 - 1.2 cm): 1.11 cm LVPW thickness (0.5 - 1.0 cm): 1.15 cm e': 0.11 m/s E - e': 4.82 LVOT Max Gradient: 3.12 mm[Hg], 3.32 mm[Hg] LVOT Area (cm2): 0.90 m/s Peak Velocity (LVOT): 0.88 m/s, 0.91 m/s Mean Velocity (LVOT): 0.54 m/s LVOT Diameter 2.64 cm Left Atrium LA Volume Index (2D A2C): 21.89 ml/m2 Left Atrium Systolic Dimension: 3.68 cm Mitral Valve MV E to A Ratio: 0.97 Mitral Valve A-Wave Peak Velocity: 0.53 m/s Mitral Valve E-Wave Peak Velocity: 0.51 m/s Right Ventricle Aorta AO Root Diam: 3.83 cm Aortic Valve AoV Area (Peak Reji): 4.75 cm2, 4.68 cm2, 4.82 cm2 AoV Area (VTI): 4.83 cm2, 4.54 cm2, 5.13 cm2 Peak Velocity(Antegrade Flow): 1.03 m/s, 1.03 m/s Peak Gradient(Antegrade Flow): 4.25 mm[Hg], 4.25 mm[Hg] Mean Velocity(Antegrade Flow): 0.73 m/s, 0.71 m/s Mean Gradient(Antegrade Flow): 2.44 mm[Hg], 2.32 mm[Hg] Velocity Time Integral: 18.17 cm, 17.53 cm Tricuspid Valve Pulmonic Valve Mean Gradient: 2.38 mm[Hg] Mean Velocity: 0.72 m/s Peak Velocity: 1.08 m/s, 1.05 m/s Peak Gradient: 4.45 mm[Hg], 4.67 mm[Hg] Right Atrium Right Atrium Systolic Pressure: 27.14 ml, 27.14 ml Dictated by: Zachary Matta M.D. on 02/24/2024 at 19:32 Approved by: Zachary Matta M.D. on 02/24/2024 at 19:36
== END 2024-02-24 13:35 | disposition home or self-care (01) ==
PROVIDERS: PCP Family Medicine; Visit Provider Internal Medicine Interventional Cardiology
DX: R06.09 Other forms of dyspnea (principal)
CPT/HCPCS: 93306

== ENCOUNTER 2024-03-11 08:36 | Outpatient (RCR) | payer MEDICARE, SELFPAY | END 2024-03-12 15:47 | disposition home or self-care (01) | LOC: PT 08:36 | PROVIDERS: PCP Family Medicine; Visit Provider Family Medicine | DX: S83.242D Other tear of medial meniscus, current injury, left knee, subsequent encounter (principal) | CPT/HCPCS: 97110; 97163 ==

== ENCOUNTER 2024-04-15 07:56 | Outpatient (OUT) | payer MEDICARE, SELFPAY ==
--- OUTSIDE RECORDS SUMMARY | 2024-04-15 08:02 | XMS_ITS | CCD ---
Author Organization [facility]iniSy[facility] Care Team Providers Care Visiting Nurse Name Role Phone SHANEL FERNANDEZ Referring Unavailable MK MIN H Admitting Unavailable MK MIN Attending Unavailable MK MIN Surgeon Unavailable MO Procedure Practitioner Unavailab le HOY, SHANEL Primary Care Unavailable CUBA CHENKESH Surgeon Unavailable MO Procedure Practitioner Unavailab le Blades, Berenice Unavailable [...] HOY, SHANEL Primary Care Unavailable MK SÁNCHEZ Consulting Unavailable BLADES, BERENICE Consulting Unavailable SAMSA ., [...] Care Unavailable DR BABATUNDE OCASIO Attending Unavailable AMARJIT, DR BABATUNDE Leigh Admitting Unavailable DR BABATUNDE OCASIO Consulting Unavailable [...] Primary Care Unavailable HOY, SHANEL Admitting Unavailable CONNOR CHARLES Attending Unavailable HAL CHRISTENSEN Attending Unavailable ARLINE VALDES Attending Unavailable Allergies Allergy Classification Reported Allergen(s) Allergy Type Date of Onset Reaction(s) Facility (1 source) 38466,00; 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: [02860,00] Propensity to adverse reactions (disorder) [address] [facility] Repository Medications Current Medications Medication Drug Class(es) [...] PO Twice daily January 12, 2019 9:32am Zkekajxo-Yny-Sbslasc Fumarate (Multi Vitamin) 9 mg iron/15 mL Liquid (2 sources) Start: 01-12-2019 take 1 tablet by mouth once daily Eufdawvf-Dae-Wvkyz us Fumarate (Multi Vitamin) 9 mg iron/15 [...] take 1 puff(s) by inhalation once daily Mwwqssfumoq-Fkzociuuv-Zrfuqanz Active 1 PUFF INHALATION Daily January 12, [...] coronary angioplasty; 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: [Atherosclerotic heart disease of [place] coronary artery without angina pectoris] Onset: 04-05-2022 [...] Chronic Hypertension with complications and secondary hypertension (3 sources) Hypertensive heart disease with heart failure; 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: [Hypertensive heart disease without heart failure] Onset: 10-22-2022 Chronic Intracranial injury (2 sources) [...] unspecified; 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: [EDEMA UNSPECIFIED] Onset: 10-17-2022 Episodic Spondylosis; intervertebral disc disorders; other back [...] Onset: 08-14-2022 Episodic Other aftercare (1 source) correction (current) use of aspirin; 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: [LONG-TERM CURRENT USE OF ASPIRIN] Onset: 03-26-2022 Episodic Other aftercare (1 source) Other residential (current) drug therapy; 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: [OTH 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 AND 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 CURRENT DRUG THERAPY] Onset: 03-26-2022 Episodic Residual codes; unclassified (4 sources) Localized edema; 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: [LOCALIZED EDEMA] Onset: 01-23-2022 Episodic Residual codes; unclassified (2 sources) Tobacco use; 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: [Tobacco use] Onset: 02-26-2023 Episodic Screening and history of mental health [...] Value Interpretation Reference Range Facility Office Visiton 02-03-2024 Follow-up visit [id number] Ankush Rosales F 1970 M Date Provider Department Center 02/03/2024 Kristy-CON[facility] CHARLES [facility] Cindy [facility] Family History Problem Relation Age of Onset Coronary artery disease Father Heart attack Father Family Status - Relation Status Age at Father Level of Service:09139 MO OFFICE/OUTPATIENT ESTABLISHED MOD MDM 30 MIN Normal [facility] Office Visiton 02-26-2023 Follow-up visit [id number] Ankush Rosales F 1970 M Date Provider Department Center 02/26/2023 Benjamin-HAL CHRISTENSEN [facility] Family History Problem Relation Age of Onset Coronary artery disease Father Heart attack Father Family Status - Relation Status Age at Father Level of Service:61546 MO OFFICE/OUTPATIENT ESTABLISHED LOW MDM 20-29 MIN Normal [facility] THEOPHYLLINEon 01-01-2023 THEOPHYLLINE 17.6 ug/mL Normal 10.0-20.0 [facility] Comment on above: Performed By: #### V ITCHAD, PSASC, IRON #### [facility] [address] [place] [address] Dr. Smitha Petersen MRI BRAIN WO CONon [...] by: MK SÁNCHEZ Date: 2022-11-01 16:53 Normal [facility] US CAROTID ART BILon 023 US CAROTID [...] by: MK KOWALSKI Date: 2022-11-01 16:16 Normal [facility] BNPon 10-17-2022 Natriuretic peptide B (Bld) [Mass/Vol] 32.0 pg/mL Normal <=900.0 [facility] Comment on above: Performed By: #### C MP, BNP, TSH, URIC, T7, LIPID #### [facility] [address] [place] [address] Dr. Smitha Petersen CBC AUTO DIFFon 10-17-2022 BASO # 0.0 103/ul Normal 0.0-0.1 [facility] Comment on above: Performed By: #### V ITAD, PSASC, IRON #### [facility] [address] [place] [address] Dr. Smitha Petersen Basophils/100 WBC (Bld) 0.4 % Normal 0.2-2.0 [facility] Comment on above: Performed By: #### V ITAD, PSASC, IRON #### [facility] [address] [place] [address] Dr. Smitha Petersen EO # 0.2 103/ul Normal 0.0-0.7 [facility] Comment on above: Performed By: #### V ITAD, PSASC, IRON #### [facility] [address] [place] [address] Dr. Smitha Petersen Eosinophils/100 WBC (Bld) 2.4 % Normal 0.9-7.0 [facility] Comment on above: Performed By: #### V ITAD, PSASC, IRON #### [facility] [address] [place] [address] Dr. Smitha Petersen Erythrocyte distribution width (RBC) [Ratio] 13.8 % Normal 11.0-15.0 [facility] Comment on above: Performed By: #### V ITAD, PSASC, IRON #### [facility] [address] [place] [address] Dr. Smitha Petersen Hematocrit (Bld) [Volume fraction] 46.8 % Normal 42.0-54.0 [facility] Comment on above: Performed By: #### V ITAD, PSASC, IRON #### [facility] [address] [place] [address] Dr. Smitha Petersen Hemoglobin (Bld) [Mass/Vol] 15.7 g/dL Normal 14.0-18.0 [facility] Comment on above: Performed By: #### V ITAD, PSASC, IRON #### [facility] [address] [place] [address] Dr. Smitha Petersen IG # 0.04 10e3/ul Critically high 0.00-0.03 [facility] Comment on above: Performed By: #### V ITAD, PSASC, IRON #### [facility] [address] [place] [address] Dr. Smitha Petersen IG % 0.5 % Normal 0.0-0.5 [facility] Comment on above: Performed By: #### V ITAD, PSASC, IRON #### [facility] [address] [place] [address] Dr. Smitha Petersen LYMPH # 1.7 103/ul Normal 1.2-3.8 [facility] Comment on above: Performed By: #### V ITAD, PSASC, IRON #### [facility] [address] [place] [address] Dr. Smitha Petersen Lymphocytes/100 WBC (Bld) 20.1 % Critically low 20.5-60.0 [facility] Comment on above: Performed By: #### V ITAD, PSASC, IRON #### [facility] [address] [place] [address] Dr. Smitha Petersen MANUAL DIFF REQ NO Normal [facility] Comment on above: Performed By: #### V ITAD, PSASC, IRON #### [facility] [address] [place] [address] Dr. Smitha Petersen MCH (RBC) [Entitic mass] 29.7 pg Normal 25.9-34.0 [facility] Comment on above: Performed By: #### V ITAD, PSASC, IRON #### [facility] [address] [place] [address] Dr. Smitha Petersen MCHC (RBC) [Mass/Vol] 33.5 g/dL Normal 29.9-35.2 [facility] Comment on above: Performed By: #### V ITAD, PSASC, IRON #### [facility] [address] [place] [address] Dr. Smitha Petersen MCV (RBC) [Entitic vol] 88.5 fL Normal 80.0-94.0 [facility] Comment on above: Performed By: #### V ITAD, PSASC, IRON #### [facility] [address] [place] [address] Dr. Smitha Petersen MONO # 0.6 103/ul Normal 0.3-0.8 [facility] Comment on above: Performed By: #### V ITAD, PSASC, IRON #### [facility] [address] [place] [address] Dr. Smitha Petersen Monocytes/100 WBC (Bld) 6.8 % Normal 1.7-12.0 [facility] Comment on above: Performed By: #### V ITAD, PSASC, IRON #### [facility] [address] [place] [address] Dr. Smitha Petersen NEUT # 6.0 103/ul Normal 1.4-6.5 [facility] Comment on above: Performed By: #### V ITAD, PSASC, IRON #### [facility] [address] [place] [address] Dr. Smitha Petersen Neutrophils/100 WBC (Bld) 69.8 % Normal 43.0-75.0 [facility] Comment on above: Performed By: #### V ITAD, PSASC, IRON #### [facility] [address] [place] [address] Dr. Smitha Petersen Platelet mean volume (Bld) [Entitic vol] 8.7 fL Critically low 9.5-13.5 [facility] Comment on above: Performed By: #### V ITAD, PSASC, IRON #### [facility] [address] [place] [address] Dr. Smitha Petersen PLT 222 103/ul Normal 150-450 [facility] Comment on above: Performed By: #### V ITAD, PSASC, IRON #### [facility] [address] [place] [address] Dr. Smitha Petersen RBC 5.29 106/ul Normal 4.70-6.10 [facility] Comment on above: Performed By: #### V ITAD, PSASC, IRON #### [facility] [address] [place] [address] Dr. Smitha Petersen WBC 8.5 103/ul Normal 4.0-11.0 [facility] Comment on above: Performed By: #### V ITAD, PSASC, IRON #### [facility] [address] [place] [address] Dr. Smitha Petersen FREE THYROXINE INDEX T7on FTI 2.54 Normal 1.30-4.50 [facility] Comment on above: Performed By: #### C MP, BNP, TSH, URIC, T7, LIPID #### [facility] [address] [place] [address] Dr. Smitha Petersen T3U 33.0 % Normal 33.0-40.0 [facility] Comment on above: Performed By: #### C MP, BNP, TSH, URIC, T7, LIPID #### [facility] [address] [place] [address] Dr. Smitha Petersen T4 [Mass/Vol] 7.70 ug/dL Normal 4.50-12.10 [facility] Comment on above: Performed By: #### C MP, BNP, TSH, URIC, T7, LIPID #### [facility] [address] [place] [address] Dr. Smitha Petersen GLYCOHEMOGLOBIN A1Con 2022 ADA RECOMMENDATION SEE BELOW Normal [facility] Comment on above: Result Comment: ADA RECOMMENDED LIMIT 4.0 - 6.0 ADA THERAPEUTIC TARGET < 7.0 ACTION SUGGESTED > 7.0 Performed By: #### V ITAD, PSASC, IRON #### [facility] [address] [place] [address] Dr. Smitha Petersen Glucose [Mass/Vol] 120 mg/dL Normal [facility] Comment on above: Performed By: #### V ITAD, PSASC, IRON #### [facility] [address] [place] [address] Dr. Smitha Petersen HbA1c (Bld) [Mass fraction] 5.8 % Normal 4.5-6.2 [facility] Comment on above: Performed By: #### V ITCHAD PSASC, IRON #### [facility] [address] [place] [address] Dr. Smitha Petersen IRONon 10-17-2022 Iron [Mass/Vol] 66.0 ug/dL Normal 65.0-175.0 [facility] Comment on above: Performed By: #### V BRAXTON PSASC, IRON #### [facility] [address] [place] [address] Dr. Smitha Petersen LIPID PROFILEon 10-17-2022 CHOL-HDL RATIO NORM SEE BELOW Normal [facility] Comment on above: Result Comment: 3.3 - 4.4 LOW RISK 4.4 - 7.1 AVERAGE RISK 7.1 - 11.0 MODERATE RISK >11.0 HIGH RISK Performed By: #### C MP, BNP, TSH, URIC, T7, LIPID #### [facility] [address] [place] [address] Dr. Smitha Petersen Cholesterol [Mass/Vol] 102 mg/dL Normal <=200 [facility] Comment on above: Performed By: #### C MP, BNP, TSH, URIC, T7, LIPID #### [facility] [address] [place] [address] Dr. Smitha Petersen Cholesterol in HDL [Mass/Vol] 45 mg/dL Normal 40-60 [facility] Comment on above: Performed By: #### C MP, BNP, TSH, URIC, T7, LIPID #### [facility] [address] [place] [address] Dr. Smitha Petersen Cholesterol in LDL [Mass/Vol] 35.2 mg/dL Normal [facility] Comment on above: Performed By: #### C MP, BNP, TSH, URIC, T7, LIPID #### [facility] [address] [place] [address] Dr. Smitha Petersen Cholesterol.total/Ch olesterol in HDL [Mass ratio] 2.3 {ratio} Normal [facility] Comment on above: Performed By: #### C MP, BNP, TSH, URIC, T7, LIPID #### [facility] [address] [address] [address] Smitha Petersen HDL NORMAL > or = 60 mg/dl - LO W CARDIOVASCULAR RISK <40 mg/dl - HIGH CARDIOVASCULAR RISK Normal [facility] Comment on above: Performed By: #### C MP, BNP, TSH, URIC, T7, LIPID #### [facility] [address] [address] [address] Smitha Petersen LDL CALC NORMAL SEE BELOW Normal [facility] Comment on above: Result Comment: <100 mg/dl OPTIMAL 100 - 129 mg/dl NEAR OR ABOVE OPTIMAL 130 - 159 mg/dl BORDERLINE HIGH 160 - 189 mg/dl HIGH >190 mg/dl VERY HIGH Performed By: #### C MP, BNP, TSH, URIC, T7, LIPID #### [facility] [address] [address] [address] Smitha Petersen Triglyceride [Mass/Vol] 109 mg/dL Normal <=150 [facility] Comment on above: Performed By: #### C MP, BNP, TSH, URIC, T7, LIPID #### [facility] [address] [address] [address] Smitha Petersen VLDL CALC 21.8 mg/dL Normal [facility] Comment on above: Performed By: #### C MP, BNP, TSH, URIC, T7, LIPID #### [facility] [address] [address] [address] Smitha Petersen PROF 14(COMP METB)on 023 Albumin [Mass/Vol] 3.8 g/dL Normal 3.4-5.0 [facility] Comment on above: Performed By: #### C MP, BNP, TSH, URIC, T7, LIPID #### [facility] [address] [address] [address] Smitha Petersen Albumin/Globulin [Mass ratio] 1.2 {ratio} Normal [facility] Comment on above: Performed By: #### C MP, BNP, TSH, URIC, T7, LIPID #### [facility] [address] [address] [address] Smitha Petersen ALP [Catalytic activity/Vol] 113 U/L Normal 46-116 [facility] Comment on above: Performed By: #### C MP, BNP, TSH, URIC, T7, LIPID #### [facility] [address] [place] [address] Dr. Smitha Petersen ALT [Catalytic activity/Vol] 66 U/L Critically high 16-63 [facility] Comment on above: Performed By: #### C MP, BNP, TSH, URIC, T7, LIPID #### [facility] [address] [place] [address] Dr. Smitha Petersen Anion gap [Moles/Vol] 13.4 mmol/L Normal [facility] Comment on above: Performed By: #### C MP, BNP, TSH, URIC, T7, LIPID #### [facility] [address] [place] [address] Dr. Smitha Petersen AST [Catalytic activity/Vol] 29 U/L Normal 15-37 [facility] Comment on above: Performed By: #### C MP, BNP, TSH, URIC, T7, LIPID #### [facility] [address] [place] [address] Dr. Smitha Petersen Bilirubin [Mass/Vol] 0.3 mg/dL Normal 0.2-1.0 [facility] Comment on above: Performed By: #### C MP, BNP, TSH, URIC, T7, LIPID #### [facility] [address] [place] [address] Dr. Smitha Petersen Calcium [Mass/Vol] 8.9 mg/dL Normal 8.5-10.1 [facility] Comment on above: Performed By: #### C MP, BNP, TSH, URIC, T7, LIPID #### [facility] [address] [place] [address] Dr. Smitha Petersen Chloride [Moles/Vol] 101 mmol/L Normal 98-107 [facility] Comment on above: Performed By: #### C MP, BNP, TSH, URIC, T7, LIPID #### [facility] [address] [place] [address] Dr. Smitha Petersen CO2 [Moles/Vol] 28.8 mmol/L Normal 21.0-32.0 [facility] Comment on above: Performed By: #### C MP, BNP, TSH, URIC, T7, LIPID #### [facility] [address] [place] [address] Dr. Smitha Petersen Creatinine [Mass/Vol] 0.82 mg/dL Normal 0.70-1.30 [facility] Comment on above: Performed By: #### C MP, BNP, TSH, URIC, T7, LIPID #### [facility] [address] [place] [address] Dr. Smitha Petersen EGFR-AF LUXEMBOURGER >60 Normal >=60 [facility] Comment on above: Performed By: #### C MP, BNP, TSH, URIC, T7, LIPID #### [facility] [address] [place] [address] Dr. Smitha Petersen EGFR-NON AF LUXEMBOURGER >60 Normal >=60 [facility] Comment on above: Performed By: #### C MP, BNP, TSH, URIC, T7, LIPID #### [facility] [address] [place] [address] Dr. Smitha Petersen Globulin (S) [Mass/Vol] 3.3 g/dL Normal [facility] Comment on above: Performed By: #### C MP, BNP, TSH, URIC, T7, LIPID #### [facility] [address] [place] [address] Dr. Smitha Petersen Glucose [Mass/Vol] 100 mg/dL Normal 74-106 [facility] Comment on above: Performed By: #### C MP, BNP, TSH, URIC, T7, LIPID #### [facility] [address] [place] [address] Dr. Smitha Petersen Potassium [Moles/Vol] 4.2 mmol/L Normal 3.5-5.1 [facility] Comment on above: Performed By: #### C MP, BNP, TSH, URIC, T7, LIPID #### [facility] [address] [place] [address] Dr. Smitha Petersen Protein [Mass/Vol] 7.1 g/dL Normal 6.4-8.2 [facility] Comment on above: Performed By: #### C MP, BNP, TSH, URIC, T7, LIPID #### [facility] [address] [address] [address] Smitha Petersen Sodium [Moles/Vol] 139 mmol/L Normal 136-145 [facility] Comment on above: Performed By: #### C MP, BNP, TSH, URIC, T7, LIPID #### [facility] [address] [place] [address] Dr. Smitha Petersen Urea nitrogen [Mass/Vol] 14.0 mg/dL Normal 7.0-18.0 [facility] Comment on above: Performed By: #### C MP, BNP, TSH, URIC, T7, LIPID #### [facility] [address] [place] [address] Dr. Smitha Petersen Urea nitrogen/Creatinine [Mass ratio] 17.1 mg/mg Normal [facility] Comment on above: Performed By: #### C MP, BNP, TSH, URIC, T7, LIPID #### [facility] [address] [place] [address] Dr. Smitha Petersen TSHon 10-17-2022 TSH 0.796 uIU/mL Normal 0.358-3.740 [facility] Comment on above: Performed By: #### C MP, BNP, TSH, URIC, T7, LIPID #### [facility] [address] [place] [address] Dr. Smitha Petersen URIC ACID SERUMon 10-17-2022 Urate [Mass/Vol] 6.4 mg/dL Normal 3.5-7.2 [facility] Comment on above: Performed By: #### C MP, BNP, TSH, URIC, T7, LIPID #### [facility] [address] [place] [address] Dr. Smitha Petersen VITAMIN D 25 OHon 10-17-2022 VIT D 25-OH 17.5 ng/mL Normal [facility] Comment on above: Performed By: #### V ITAD, PSASC, IRON #### [facility] [address] [place] [address] Dr. Smitha Petersen VIT D RANGES SEE BELOW Normal [facility] Comment on above: Result Comment: <20 ng/mL Vit D deficient 20 - <30 ng/mL Vit D insufficient 30 - 100 ng/mL Vit D sufficient >100 ng/mL Potential Toxicity Performed By: #### V ITAD, PSASC, IRON #### [facility] [address] [place] [address] Dr. Smitha Petersen ECHOCARDIO M/2D COMPLETEon 1 10-15-2021 ECHOCARDIO M/2D COMPLETE Patient: MK ROSALES Exam Date: 08/14/2022 : 1970 Gender:M Ordering : DR SHANEL FERNANDEZ . Admission #: [id number] Family : Order #: [id number] CLICK HERE TO VIEW EXAM ECHOCARDIOGRAM REPORT [...] Matta M.D. on 08/14/2022 at 18:35 Normal [facility] NM STRESS/REST MULTIon 07-23 NM STRESS/REST MULTI Patient: KATINA ROSALES Exam Date: 07/23/2022 : 1970 Gender:M Ordering : DR SHANEL FERNANDEZ . Admission #: [id number] Family : Order #: [id number] CLICK HERE TO VIEW EXAM RADIOLOGY REPORT [...] Kowalski MD on 08/06/2022 at 12:45 Normal [facility] CT LUNG CANCER SCREENINGon 1 09-12-2021 CT [...] by: PATRICIO LUTZ Date: 2022-07-13 08:59 Normal [facility] THEOPHYLLINEon 07-10-2022 THEOPHYLLINE 16.4 ug/mL Normal 10.0-20.0 [facility] Comment on above: Performed By: #### V ITAD, PSASC, IRON #### [facility] [address] [place] [address] Dr. 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 Smitha Petersen Cholesterol [Mass/Vol] 129 mg/dL Normal <=200 [facility] Comment on above: Performed By: #### V ITAD, PSASC, IRON #### [facility] [address] [address] [address] Smitha Petersen Cholesterol in HDL [Mass/Vol] 40 mg/dL Normal 40-60 [facility] Comment on above: Performed By: #### V ITAD, PSASC, IRON #### [facility] [address] [address] [address] Smitha Petersen Cholesterol in LDL [Mass/Vol] 57.2 mg/dL Normal [facility] Comment on above: Performed By: #### V ITAD, PSASC, IRON #### [facility] [address] [address] [address] Smitha Petersen Cholesterol.total/Ch olesterol in HDL [Mass ratio] 3.2 {ratio} Normal [facility] Comment on above: Performed By: #### V ITAD, PSASC, IRON #### [facility] [address] [address] [address] Smitha Petersen HDL NORMAL > or = 60 mg/dl - LO W CARDIOVASCULAR RISK <40 mg/dl - HIGH CARDIOVASCULAR RISK Normal [facility] Comment on above: Performed By: #### V ITAD, PSASC, IRON #### [facility] [address] [address] [address] Smitha Petersen LDL CALC NORMAL SEE BELOW Normal [facility] Comment on above: Result Comment: <100 mg/dl OPTIMAL 100 - 129 mg/dl NEAR OR ABOVE OPTIMAL 130 - 159 mg/dl BORDERLINE HIGH 160 - 189 mg/dl HIGH >190 mg/dl VERY HIGH Performed By: #### V ITAD, PSASC, IRON #### [facility] [address] [address] [address] Smitha Petersen Triglyceride [Mass/Vol] 159 mg/dL Critically high <=150 [facility] Comment on above: Performed By: #### V ITAD, PSASC, IRON #### [facility] [address] [address] [address] Smitha Petersen VLDL CALC 31.8 mg/dL Normal [facility] Comment on above: Performed By: #### V ITAD, PSASC, IRON #### [facility] [address] [place] [address] Dr. Smitha Petersen CBC AUTO DIFFon 03-22-2022 BASO # 0.1 103/ul Normal 0.0-0.1 [facility] Comment on above: Performed By: #### V ITAD, PSASC, IRON #### [facility] [address] [place] [address] Dr. Smitha Petersen Basophils/100 WBC (Bld) 0.5 % Normal 0.2-2.0 [facility] Comment on above: Performed By: #### V ITAD, PSASC, IRON #### [facility] [address] [place] [address] Dr. Smitha Petersen EO # 0.4 103/ul Normal 0.0-0.7 [facility] Comment on above: Performed By: #### V ITAD, PSASC, IRON #### [facility] [address] [place] [address] Dr. Smitha Petersen Eosinophils/100 WBC (Bld) 3.5 % Normal 0.9-7.0 [facility] Comment on above: Performed By: #### V ITAD, PSASC, IRON #### [facility] [address] [place] [address] Dr. Smitha Petersen Erythrocyte distribution width (RBC) [Ratio] 15.1 % Critically high 11.0-15.0 [facility] Comment on above: Performed By: #### V ITAD, PSASC, IRON #### [facility] [address] [place] [address] Dr. Smitha Petersen Hematocrit (Bld) [Volume fraction] 46.8 % Normal 42.0-54.0 [facility] Comment on above: Performed By: #### V ITAD, PSASC, IRON #### [facility] [address] [address] [address] Smitha Petersen Hemoglobin (Bld) [Mass/Vol] 15.5 g/dL Normal 14.0-18.0 [facility] Comment on above: Performed By: #### V ITAD, PSASC, IRON #### [facility] [address] [address] [address] Smitha Petersen IG # 0.03 10e3/ul Normal 0.00-0.03 [facility] Comment on above: Performed By: #### V ITAD, PSASC, IRON #### [facility] [address] [place] [address] Dr. Smitha Petersen IG % 0.3 % Normal 0.0-0.5 [facility] Comment on above: Performed By: #### V ITAD, PSASC, IRON #### [facility] [address] [place] [address] Dr. Smitha Petersen LYMPH # 2.6 103/ul Normal 1.2-3.8 [facility] Comment on above: Performed By: #### V ITAD, PSASC, IRON #### [facility] [address] [address] [address] Smitha Petersen Lymphocytes/100 WBC (Bld) 25.0 % Normal 20.5-60.0 [facility] Comment on above: Performed By: #### V ITAD, PSASC, IRON #### [facility] [address] [place] [address] Dr. Smitha Petersen MANUAL DIFF REQ NO Normal [facility] Comment on above: Performed By: #### V ITAD, PSASC, IRON #### [facility] [address] [place] [address] Dr. Smitha Petersen MCH (RBC) [Entitic mass] 29.6 pg Normal 25.9-34.0 [facility] Comment on above: Performed By: #### V ITAD, PSASC, IRON #### [facility] [address] [place] [address] Dr. Smitha Petersen MCHC (RBC) [Mass/Vol] 33.1 g/dL Normal 29.9-35.2 [facility] Comment on above: Performed By: #### V ITAD, PSASC, IRON #### [facility] [address] [place] [address] Dr. Smitha Petersen MCV (RBC) [Entitic vol] 89.5 fL Normal 80.0-94.0 [facility] Comment on above: Performed By: #### V ITAD, PSASC, IRON #### [facility] [address] [place] [address] Dr. Smitha Petersen MONO # 0.7 103/ul Normal 0.3-0.8 [facility] Comment on above: Performed By: #### V ITAD, PSASC, IRON #### [facility] [address] [place] [address] Dr. Smitha Petersen Monocytes/100 WBC (Bld) 7.0 % Normal 1.7-12.0 [facility] Comment on above: Performed By: #### V ITAD, PSASC, IRON #### [facility] [address] [place] [address] Dr. Smitha Petersen NEUT # 6.7 103/ul Critically high 1.4-6.5 [facility] Comment on above: Performed By: #### V ITAD, PSASC, IRON #### [facility] [address] [place] [address] Dr. Smitha Petersen Neutrophils/100 WBC (Bld) 63.7 % Normal 43.0-75.0 [facility] Comment on above: Performed By: #### V ITAD, PSASC, IRON #### [facility] [address] [place] [address] Dr. Smitha Petersen Platelet mean volume (Bld) [Entitic vol] 8.9 fL Critically low 9.5-13.5 [facility] Comment on above: Performed By: #### V ITAD, PSASC, IRON #### [facility] [address] [place] [address] Dr. Smitha Petersen PLT 245 103/ul Normal 150-450 [facility] Comment on above: Performed By: #### V ITAD, PSASC, IRON #### [facility] [address] [place], [place] [address] Dr. Smitha Petersen RBC 5.23 106/ul Normal 4.70-6.10 [facility] Comment on above: Performed By: #### V ITAD, PSASC, IRON #### [facility] [address] [place], [place] [address] Dr. Smitha Peteresn WBC 10.5 103/ul Normal 4.0-11.0 [facility] Comment on above: Performed By: #### V ITAD, PSASC, IRON #### [facility] [address] [place], [place] [address] ABD/PELVIS WO CONon [...] BLU GASPAR Date: 2022-03-22 21:12 Normal [facility] CULTURE URINEon 03-22-2022 CULTURE URINE Culture Observations : NO GROWTH. Normal [facility] Comment on above: Performed By: #### V ITAD, PSASC, IRON #### [facility] [address] [address] [address] Smitha Petersen ER URINE PROFILEon 2 Bilirubin Ql (U) Negative Normal NEGATIVE [facility] Comment on above: Performed By: #### V ITAD, PSASC, IRON #### [facility] [address] [place] [address] Dr. Smitha Petersen Clarity (U) CLEAR Normal CLEAR [facility] Comment on above: Performed By: #### V ITAD, PSASC, IRON #### [facility] [address] [place] [address] Dr. Smitha Petersen Color (U) LT. YELLOW Normal YELLOW [facility] Comment on above: Performed By: #### V ITAD, PSASC, IRON #### [facility] [address] [place] [address] Dr. Smitha Petersen ERUD A micrscopic examination will be performed if indicated. Normal [facility] Comment on above: Performed By: #### V ITAD, PSASC, IRON #### [facility] [address] [address] [address] Smitha Petersen Glucose Ql (U) Negative Normal NEGATIVE [facility] Comment on above: Performed By: #### V ITAD, PSASC, IRON #### [facility] [address] [place] [address] Dr. Smitha Petersen Hemoglobin Ql (U) TRACE-INTACT Abnormal NEGATIVE [facility] Comment on above: Performed By: #### V ITAD, PSASC, IRON #### [facility] [address] [place] [address] Dr. Smitha Petersen Ketones Ql (U) Negative Normal NEGATIVE [facility] Comment on above: Performed By: #### V ITAD, PSASC, IRON #### [facility] [address] [place] [address] Dr. Smitha Petersen LEUKOCYTES TRACE Abnormal NEGATIVE [facility] Comment on above: Performed By: #### V ITAD, PSASC, IRON #### [facility] [address] [address] [address] Smitha Petersen Nitrite Ql (U) Negative Normal NEGATIVE [facility] Comment on above: Performed By: #### V ITAD, PSASC, IRON #### [facility] [address] [place] [address] Dr. Smitha Petersen pH (U) 5.5 [pH] Normal 5-9 [facility] Comment on above: Performed By: #### V ITAD, PSASC, IRON #### [facility] [address] [place] [address] Dr. Smitha Petersen SPEC GRAVITY 1.010 Normal 1.005-<=1.025 [facility] Comment on above: Performed By: #### V ITAD, PSASC, IRON #### [facility] [address] [place] [address] Dr. Smitha Petersen UA PROTEIN Negative Normal NEGATIVE/ TRACE [facility] Comment on above: Performed By: #### V ITAD, PSASC, IRON #### [facility] [address] [place] [address] Dr. Smitha Petersen UR MICRO IND INDICATED Normal [facility] Comment on above: Performed By: #### V ITAD, PSASC, IRON #### [facility] [address] [place] [address] Dr. Smitha Petersen Urobilinogen Qn (U) 0.2 {Zach'U}/dL Normal 0.2 - 1. 0 [facility] Comment on above: Performed By: #### V ITAD, PSASC, IRON #### [facility] [address] [place] [address] Dr. Smitha Petersen PROF 14(COMP METB)on 022 Albumin [Mass/Vol] 4.0 g/dL Normal 3.4-5.0 [facility] Comment on above: Performed By: #### V ITAD, PSASC, IRON #### [facility] [address] [address] [address] Smitha Petersen Albumin/Globulin [Mass ratio] 1.2 {ratio} Normal [facility] Comment on above: Performed By: #### V ITAD, PSASC, IRON #### [facility] [address] [place] [address] Dr. Smitha Petersen ALP [Catalytic activity/Vol] 113 U/L Normal 46-116 [facility] Comment on above: Performed By: #### V ITAD, PSASC, IRON #### [facility] [address] [place] [address] Dr. Smitha Petersen ALT [Catalytic activity/Vol] 53 U/L Normal 16-63 [facility] Comment on above: Performed By: #### V ITAD, PSASC, IRON #### [facility] [address] [address] [address] Smitha Petersen Anion gap [Moles/Vol] 15.3 mmol/L Normal [facility] Comment on above: Performed By: #### V ITAD, PSASC, IRON #### [facility] [address] [place] [address] Dr. Smitha Petersen AST [Catalytic activity/Vol] 18 U/L Normal 15-37 [facility] Comment on above: Performed By: #### V ITAD, PSASC, IRON #### [facility] [address] [address] [address] Smitha Petersen Bilirubin [Mass/Vol] 0.4 mg/dL Normal 0.2-1.0 [facility] Comment on above: Performed By: #### V ITAD, PSASC, IRON #### [facility] [address] [place] [address] Dr. Smitha Petersen Calcium [Mass/Vol] 9.2 mg/dL Normal 8.5-10.1 [facility] Comment on above: Performed By: #### V ITAD, PSASC, IRON #### [facility] [address] [address] [address] Smitha Petersen Chloride [Moles/Vol] 101 mmol/L Normal 98-107 [facility] Comment on above: Performed By: #### V ITAD, PSASC, IRON #### [facility] [address] [place] [address] Dr. Smitha Petersen CO2 [Moles/Vol] 24.8 mmol/L Normal 21.0-32.0 [facility] Comment on above: Performed By: #### V ITAD, PSASC, IRON #### [facility] [address] [place] [address] Dr. Smitha Petersen Creatinine [Mass/Vol] 0.96 mg/dL Normal 0.70-1.30 [facility] Comment on above: Performed By: #### V ITAD, PSASC, IRON #### [facility] [address] [place] [address] Dr. Smitha Petersen EGFR-AF LUXEMBOURGER >60 Normal >=60 [facility] Comment on above: Performed By: #### V ITAD, PSASC, IRON #### [facility] [address] [place] [address] Dr. Smitha Petersen EGFR-NON AF LUXEMBOURGER >60 Normal >=60 [facility] Comment on above: Performed By: #### V ITAD, PSASC, IRON #### [facility] [address] [place] [address] Dr. Smitha Petersen Globulin (S) [Mass/Vol] 3.4 g/dL Normal [facility] Comment on above: Performed By: #### V ITAD, PSASC, IRON #### [facility] [address] [place] [address] Dr. Smitha Petersen Glucose [Mass/Vol] 146 mg/dL Critically high 74-106 [facility] Comment on above: Performed By: #### V ITAD, PSASC, IRON #### [facility] [address] [place] [address] Dr. Smitha Petersen Potassium [Moles/Vol] 4.1 mmol/L Normal 3.5-5.1 [facility] Comment on above: Performed By: #### V ITAD, PSASC, IRON #### [facility] [address] [address] [address] Smitha Petersen Protein [Mass/Vol] 7.4 g/dL Normal 6.4-8.2 [facility] Comment on above: Performed By: #### V ITAD, PSASC, IRON #### [facility] [address] [place] [address] Dr. Smitha Petersen Sodium [Moles/Vol] 137 mmol/L Normal 136-145 [facility] Comment on above: Performed By: #### V ITAD, PSASC, IRON #### [facility] [address] [place] [address] Dr. Smitha Petersen Urea nitrogen [Mass/Vol] 22.0 mg/dL Critically high 7.0-18.0 [facility] Comment on above: Performed By: #### V ITAD, PSASC, IRON #### [facility] [address] [place] [address] Dr. Smitha Petersen Urea nitrogen/Creatinine [Mass ratio] 22.9 mg/mg Normal [facility] Comment on above: Performed By: #### V ITAD, PSASC, IRON #### [facility] [address] [place] [address] Dr. Smitha Petersen URINE MICROSCOPIC ONLYon BACTERIA TRACE Abnormal NONE SEEN [facility] Comment on above: Performed By: #### V ITAD, PSASC, IRON #### [facility] [address] [place] [address] Dr. Smitha Petersen Bacteria identified Cx Nom (U) INDICATED Normal [facility] Comment on above: Performed By: #### V ITAD, PSASC, IRON #### [facility] [address] [place] [address] Dr. Smitha Petersen CAST NONE SEEN Normal NONE SEEN [facility] Comment on above: Performed By: #### V ITAD, PSASC, IRON #### [facility] [address] [address] [address] Smitha Petersen Crystals LM Nom (Urine sed) NONE SEEN Normal NONE SEEN [facility] Comment on above: Performed By: #### V ITAD, PSASC, IRON #### [facility] [address] [place] [address] Dr. Smitha Petersen Epithelial cells LM Ql (Urine sed) NONE SEEN Normal NONE SEEN /RARE [facility] Comment on above: Performed By: #### V ITAD, PSASC, IRON #### [facility] [address] [place] [address] Dr. Smitha Petersen MUCOUS NONE SEEN Normal NONE SEEN [facility] Comment on above: Performed By: #### V ITAD, PSASC, IRON #### [facility] [address] [place] [address] Dr. Smitha Petersen RBC NONE SEEN Abnormal 0-2 [facility] Comment on above: Performed By: #### V ITAD, PSASC, IRON #### [facility] [address] [place] [address] Dr. Smitha Petersen WBC 5-10 Abnormal NONE SEEN [facility] Comment on above: Performed By: #### V ITAD, PSASC, IRON #### [facility] [address] [place] [address] Dr. Smitha Petersen US TRAV DOP LEG [...] PATRICIO LUTZ Date: 2022-01-23 11:39 Normal [facility] Operative Reporton Operative Report MR#: [id number] [facility] Pt. Name: Mk Rosales Room #: 0C Discharge Date: Birthdate: 1970 OPERATIVE REPORT DATE OF SURGERY: 09/15/2020 SURGEON: Mk Min M.D. PREOPERATIVE DIAGNOSIS: Left knee medial meniscus tear, unstable. POSTOPERATIVE DIAGNOSIS: 1. Left knee medial meniscus tear, unstable. 2. Left knee chondral tear patella. SURGEON: Mk Min M.D. OCCUPATIONAL PSYCHOLOGIST: Nelson Leos MD ANESTHESIA: General. PROCEDURE PERFORMED: [...] Min M.D. Date Trans: 09/15/2020 09:36 A/zoey [id number] cc: Shanel Fernandez M.D. [address] [id number] Normal [address] [facility] POC GLUCOSE LABon 09-15-2020 Glucose [Mass/Vol] 101 mg/dL High 70-100 [facility] Comment on above: Performed By: #### [id number] #### [address] Vital Signs Date Time Vital Sign Value Performing Clinician Facility 11-05-2022 09:00-0500 Body height Berenice Blades Other [facility] Other 11-05-2022 09:00-0500 Body mass index (BMI) [Ratio] 38.24 kg/m2 [email or web address] Other 11-05-2022 09:00-0500 Body weight 117.48 kg Berenice Blades Other [facility] Other 11-05-2022 09:00-0500 Diastolic blood pressure 94 mm[Hg] Berenice Blades Other [facility] Other 11-05-2022 09:00-0500 Systolic blood pressure 156 mm[Hg] Berenice Blades Other [facility] Other 10-26-2022 08:00-0500 Body height Berenice Blades Other [facility] Other 10-26-2022 08:00-0500 Body mass index (BMI) [Ratio] 38.24 kg/m2 Berenice Blades Other [facility] Other 10-26-2022 08:00-0500 Body weight 117.48 kg Berenice Blades Other [facility] Other 10-26-2022 08:00-0500 Diastolic blood pressure 89 mm[Hg] Berenice Blades Other [facility] Other 10-26-2022 08:00-0500 Systolic blood pressure 130 mm[Hg] Berenice Blades Other [facility] Other Encounters Encounter Date Encounter Type Care Provider Facility Start: 02-18-2024 End: 02-18-2024 ambulatory ARLINE VALDES Not Available Start: 02-03-2024 End: 02-03[facility] Start: 02-26-2023 End: 02-26-2023 ambulatory HAL CHRISTENSEN [facility] Start: 01-01-2023 End: 01-02-2023 ambulatory TREVORMARY ANN LEONG . Facility:[facility] Start: 12-19-2022 ambulatory SHANEL HOY Facility:[facility] Start: 12-12-2022 ambulatory SHANEL HOY Facility:[facility] Start: 11-05-2022 End: 11-05-2022 ambulatory Berenice Blades Other [facility] Other Start: 11-05-2022 Office outpatient vi sit 15 minutes Berenice Blades [facility] Start: 11-01-2022 End: 11-02-2022 ambulatory BERENICE BLADES Facility:[facility] Start: 10-26-2022 End: 10-26-2022 ambulatory Berenice Blades Other [facility] Other Start: 10-26-2022 Office outpatient ne w 45 minutes Berenice Blades [facility] Start: 10-17-2022 End: 10-18-2022 ambulatory SHANEL HOY Facility:[facility] Start: 08-14-2022 End: 08-15-2022 ambulatory SHANEL HOY Facility:[facility] Start: 08-06-2022 End: 08-07-2022 ambulatory SHANEL HOY Facility:[facility] Start: 07-23-2022 End: 07-24-2022 ambulatory SHANEL HOY Facility:[facility] Start: 07-13-2022 End: 07-14-2022 ambulatory TREVOR SAM . Facility:[facility] Start: 07-10-2022 End: 07-11-2022 ambulatory TREVORMARY ANN LEONG . Facility:[facility] Start: 06-20-2022 End: 06-21-2022 ambulatory SHANEL HOY Facility:[facility] Start: 05-30-2022 End: 05-31-2022 ambulatory SHANEL HOY Facility:[facility] Start: 04-05-2022 End: 04-06-2022 ambulatory HAL FERMIN Facility:[facility] Start: 03-22-2022 End: 03-22-2022 ambulatory SHANEL HOY Facility:[facility] Start: 01-23-2022 End: 01-24-2022 ambulatory SHANEL HOY Facility:[facility] Start: 09-15-2020 End: 09-16-2020 ambulatory SHANEL HOY Facility:[facility] Procedures Date Procedure Procedure Detail Performing Clinician Start: 10-17-2022 PSA screening SHANEL SIFUENTES Comment on above: Performed By: #### V ITAD, PSASC, IRON #### [facility] [address] [place] [address] Dr. Smitha Petersen Start: 09-15-2020 ANESTH KNEE JOINT SURGERY JAYSON CHEN Start: 09-15-2020 KNEE ARTHROSCOPY/SURGERY MK MIN Plan of Treatment Date Care Activity Detail Author Start: 01-23-2023 ambulatory Ambulatory Facility: 1 Payers Date Payer Category Payer Medicare [id number] 1970 Unknown [id number] 2.16.8 [id number] 1970 Unknown [id number] 2.16.84 [id number] 1970 Unknown [id number] 2.16.84 0.1.037252.3.579.2.593 1970 Unknown [id number] 2.16.84 0.1.540918.3.579.2.593 1970 Unknown [id number] 2.16.84 0.1.871826.3.579.2.593 1970 Unknown [id number] 2.16.84 0.1.340562.3.579.2.593 1970 Unknown [id number] 2.16.84 0.1.964271.3.579.2.593 1970 Unknown [id number] 2.16.84 0.1.113294.3.579.2.593 1971 Unknown [id number] 2.16.84 0.1.301586.3.579.2.593 1971 Unknown [id number] 2.16.84 0.1.518798.3.579.2.593 1971 Unknown [id number] 2.16.84 0.1.734663.3.579.2.593 1971 Unknown [id number] 2.16.84 0.1.347998.3.579.2.593 1971 Unknown [id number] 2.16.84 0.1.483995.3.579.2.593 1971 Unknown [id number] 2.16.84 0.1.779649.3.579.2.593 1971 Unknown [id number] 2.16.84 0.1.753080.3.579.2.593 1971 Unknown [id number] 2.16.84 0.1.911109.3.579.2.593 1971 Unknown [id number] 2.16.84 0.1.661047.3.579.2.593 1970 Unknown [id number] 2.16.84 0.1.264378.3.579.2.593 1970 Unknown [id number] 2.16.84 0.1.979598.3.579.2.1259 1958 Medicare [id number] 2.1 [id number] 1958 Self-pay [id number] 1958 Unknown [id number] Self-pay Self Pay [id number] Unknown Self Pay [id number] Social History Date Type Detail Facility Tobacco smoking status [facility] Unknown if ever smoked [facility] Work Phone: Start: 1970 Sex Assigned At Male F [facility] Sex Assigned At Sex Assigned At Bir th [facility] [employer] Other Progress note 02-03-2024 Note Date & Type Note Facility 02-03-2024 Note [facility] Cardiology Clinic Note Chief Complaint: Patient here for 1 year follow up CAD and hypertension. He had routine labs w/ lipid profile in Oct 2023. He hasn't taken his meds yet today. He denies chest pain. POSEY remains unchanged from last year. HPI: Cardiology ROS: Review of Systems Cardiovascular: Positive for dyspnea on exertion. Respiratory: Positive for wheezing. Musculoskeletal: Positive for arthritis, back pain, joint pain and muscle weakness. Neurological: Positive for weakness. All other systems reviewed and are negative. Past Medical History He has a past medical history of COPD (chronic obstructive pulmonary disease) ([facility]), Coronary artery disease, Diabetes mellitus ([facility]), Hypertension, Seizures ([facility]), and Sleep apnea. Surgical History He has a past surgical history that includes Cardiac catheterization; Coronary stent placement; Appendectomy; and Knee surgery. Social History He reports that he has been smoking cigarettes. He has never used smokeless tobacco. He reports current alcohol use. No history on file for drug use. Family History Family History Problem Relation Name Age of Onset Coronary artery disease Father Heart attack Father Allergies Patient has no known allergies. Medications Current Outpatient Medications: albuterol 90 mcg/actuation inhaler, INHALE 2 PUFFS BY MOUTH EVERY 4 HOURS NEEDED FOR SHORTNESS OF BREATH, Disp: , Rfl: amitriptyline (Elavil) 150 mg tablet, Take 150 mg by mouth at bedtime., Disp: , Rfl: aspirin 81 mg EC tablet, in the morning., Disp: , Rfl: atorvastatin (Lipitor) 80 mg tablet, Take 80 mg by mouth at bedtime., Disp: , Rfl: oucvrxfelo-gfqylbqr-cnugywrjki 160-9-4.8 mcg/actuation HFA aerosol inhaler, Breztri Aerosphere 160 mcg-9mcg-4.8mcg/actuation HFA aerosol inhaler, Disp: , Rfl: clopidogrel (Plavix) 75 mg tablet, Take 75 mg by mouth in the morning., Disp: , Rfl: diclofenac (Voltaren) 75 mg EC tablet, diclofenac sodium 75 mg tablet,delayed release TAKE 1 TABLET BY MOUTH TWICE DAILY, Disp: , Rfl: gabapentin (Neurontin) 600 mg tablet, gabapentin 600 mg tablet TAKE 1 TABLET BY MOUTH THREE TIMES DAILY, Disp: , Rfl: levETIRAcetam (Keppra) 500 mg tablet, levetiracetam 500 mg tablet TAKE 3 TABLETS BY MOUTH IN THE MORNING AND 2 IN THE EVENING 12 HOURS APART, Disp: , Rfl: lisinopril 2.5 mg tablet, Take 2.5 mg by mouth in the morning., Disp: , Rfl: metFORMIN (Glucophage) 500 mg tablet, metformin 500 mg tablet TAKE 1 TABLET BY MOUTH TWICE DAILY, Disp: , Rfl: metoprolol tartrate (Lopressor) 25 mg tablet, Take 25 mg by mouth with breakfast and with evening meal., Disp: , Rfl: nitroglycerin (Nitrostat) 0.4 mg SL tablet, nitroglycerin 0.4 mg sublingual tablet, Disp: , Rfl: Ozempic 2 mg/dose (8 mg/3 mL) pen injector, INJECT 2 MG SUBCUTANEOUSLY ONCE A WEEK, Disp: , Rfl: theophylline ER (Uniphyl) 400 mg 24 hr tablet, theophylline ER 400 mg tablet,extended release 24 hr TAKE 3 TABLETS BY MOUTH TWICE DAILY, Disp: , Rfl: tiZANidine (Zanaflex) 4 mg tablet, TAKE 2 TABLETS BY MOUTH AT BEDTIME FOR 30 DAYS, Disp: , Rfl: Last Recorded Vitals BP (!) 158/98 (BP Location: Right arm, Patient Position: Sitting) Pulse 76 Ht 1.702 m (5' 7 ) Wt 118 kg (261 lb) SpO2 98% BMI 40.88 kg/m??? Physical Examination: GENERAL: alert and oriented x3, well developed, in no acute distress. HEAD: atraumatic, normocephalic. EYES: MARY JO, EOMI. NECK: trachea midline, no JVD present, no carotid bruits present. CARDIAC: S1, S2 present. RRR. No murmur, rubs, or gallops. RESPIRATORY: CTAB, no increased effort of breathing, no rales, rhonchi, or wheezing. ABDOMEN: soft, nontender, nondistended. EXTREMITIES: no lower extremity edema, peripheral pulses are 2+ bilaterally. No rash/skin discoloration present. NEURO: strength/sensation equal and symmetric in bilateral upper and lower extremities. PSYCH: appropriate mood, affect, and judgement. INVESTIGATIONS: Labs 10/12/2023: Serum creatinine 1.04 HbA1c 5.5 Uric acid elevated 7.3 Liver function tests are normal Triglycerides 72, O2 cholesterol 112, LDL 34, HDL 64 Echo 01/14/18 Global left ventricular systolic function is normal (Visually estimated EF 60%). Left ventricular wall thickness is mildly increased. Concentric left ventricular hypertrophy. No regional wall motion abnormality. Unable to assess right sided pressures due to lack of measurable tricuspid regurgitation. 12/24/18 CVL report IMPRESSION: 1. Diffuse moderate CAD. 2. The LAD has previously placed stents from the ostium through the mid segment. There is 40% in-stent restenosis in the proximal LAD. 3. The mid RCA has previously placed stents as well. There is 40% in-stent restenosis in the mid RCA and 40-50% stenosis in the distal RCA also. 4. The circumflex is patent with only 30% stenosis of the OM1. 5. Right heart catheterization is normal. Echocardiogram 08/14/2022 Con (more content not included)... [facility] Progress note 02-26-2023 Note Date & Type Note Facility 02-26-2023 Note 10 min discussion ab out importance of smoking cessation- pt reports he does not smoke cigarrettes daily- only when stressed and buys a pack abouit every 1-2 weeks. He is not willing to completely quit smoking. [facility] Progress note 02-26-2023 Note Date & Type Note Facility 02-26-2023 Note Coronary artery dise ase is stable without any concerning cardiac symptoms Continue GDMT- ASA, lipitor, lopressor, plavix, metoprolol continue risk factor modifications- heart healthy diet, regular exercise as tolerated and continue all medications. [facility] Progress note 02-26-2023 Note Date & Type Note Facility 02-26-2023 Note Patient here for 1 y ear follow up CAD and hypertension. He had carotid us and routine labs a few months ago. Denies chest pain but has POSEY (COPD) and sees Dr. Leong. He was told by a neurosurgeon in [place] a few months ago that he had a minor stroke s/p MRI head. Review of Systems Cardiovascular: Positive for dyspnea on exertion. Musculoskeletal: Positive for arthritis, back pain and muscle weakness. All other systems reviewed and are negative. [facility] Progress note 02-26-2023 Note Date & Type [...] He was told by a neurosurgeon in [place] a few months ago that he had [...] Take 80 mg by mouth at bedtime. rthqbyipvy-cyvyzpie-isxvdeksem 160-9-4.8 mcg/actuation HFA aerosol inhaler [employer] [...] is not willing to completely quit smoking. [facility] Evaluation note 11-05-2022 Note Date & Type Note Facility 11-05-2022 Evaluation note Encounter Date Diagnosis Assessment Notes Oct, Left leg pain (ICD-10 - M79.605) [employer] Other Evaluation note 10-26-2022 Note Date & Type Note Facility 10-26-2022 Evaluation note Encounter Date Diagnosis Assessment Notes Oct, Cerebral infarct (ICD-10 - I63.9) Oct, Encephalomalacia (ICD-10 - G93.89) [facility] [employer] Other Clinical Note 08-06-2022 Note Date & [...] and reported in a separate dictation. [facility] Evaluation note Note Date & Type Note Facility Evaluation note No assessment information [facility] Work Phone: History general Narrative - Reported [...] Surgical History angioplasty Hospitalization History see above [employer] Other Summary Purpose Family History No Family [...] Records FoundNo Status Records FoundNo Status Records FoundNo Status Records Found INFORMATION SOURCE (unrecogn ized section and content) DATE CREATED AUTHOR 08/18/2021 [facility] DATE CREATED AUTHOR AUTHOR'S ORGANIZ ATION 01/10/2023 [facility] DATE CREATED AUTHOR AUTHOR'S ORGANIZ ATION 02/03/2024 [facility] DATE CREATED AUTHOR AUTHOR'S ORGANIZ ATION 02/19/2024 [facility] EPIC Goals (unrecognized section and content) Goals may be documented in a n alternate sectionGoals may be documented in an alternate sectionNo InformationNo Information REASON FOR VISIT (unrecogniz ed section and content) Ref Dr Mallory, Left sided weakness; left leg painMRI, ultrasound results test done 11/01/22 @[facility] FOR RECORDS PERTAINING TO PATIENTS WHO ARE [...] BE BASED ON THE PRIMARY CLINICAL RECORDS. [employer] provides no warranty or guarantee of the accuracy or completeness of information in this document.
--- NOTE | 2024-04-15 08:06 | MR_ITS ---
[address] [address] Patient Name: MK ROSALES MRN: [id number] date: 1970 Sex: M Assigned Patient Location: MRI Current Patient Location: Accession/Order Number: [id number] Exam Date: 04/15/2024 08:45 Report Date: 04/16/2024 08:51 At the request of: SHANEL CAR Procedure: MR lumbar spine wo con MR lumbar spine wo con, 04/15/2024 8:45 AM EDT INDICATION: Lumbosacral Radiculopathy COMPARISON: Prior MRI of lumbar spine dated 06/20/2022 TECHNIQUE: Multiplanar, multisequential MRI images of lumbar spine were obtained without contrast. FINDINGS: For dictation purposes, the lowest complete disc space in the lumbar spine considered as L5-S1. There is normal physiologic lumbar lordosis. The vertebral height is unchanged. The conus medullaris is at the level of L1. No signal abnormality within the visualized spinal cord is noted. At the level of T11-T12, there is right lateral disc protrusion with mild bilateral neuroforaminal narrowing and no canal stenosis. At the level of T12-L1, there are disc bulge with mild right neuroforaminal narrowing and no canal stenosis. At the level of L1-L2, there are disc bulge with mild left neuroforaminal narrowing and mild canal stenosis. At the level of L2-L3, there are disc bulge with mild right and moderate left neuroforaminal narrowing and mild canal stenosis.There are significant Modic type I endplate changes at the level of L2-3. At the level of L3-4, there are disc bulge with no neuroforaminal narrowing and no canal stenosis. At the level of L4-5, there are disc bulge with moderate bilateral neuroforaminal narrowing and mild canal stenosis. Mild Modic type I changes at this level. At the level of L5-S1, there are disc bulge with superimposed left neuroforaminal disc protrusion with moderate bilateral neuroforaminal narrowing and mild canal stenosis. The left S1 nerve root is in close contact with the disc bulge in the lateral recess. The paraspinal muscles are unremarkable. MR/MR lumbar spine wo con IMPRESSION: Moderate degenerative changes of lumbar spine in particular at L2-L3, L4-L5 and L5-S1. Electronically authenticated by: TAY CHONG Date: 04/16/2024 08:51
== END 2024-04-15 07:57 | disposition home or self-care (01) ==
LOC: MRI 07:56
PROVIDERS: PCP Family Medicine; Visit Provider Family Medicine
DX: M54.17 Radiculopathy, lumbosacral region (principal); M51.36 Other intervertebral disc degeneration, lumbar region
CPT/HCPCS: 72148

== ENCOUNTER 2024-06-05 08:52 | Outpatient (OUT) | payer MEDICARE, SELFPAY ==
--- NOTE | 2024-06-05 | XR_ITS ---
The [address] [address] Patient Name: MK ROSALES MRN: [id number] date: 1970 Sex: M Assigned Patient Location: Current Patient Location: Accession/Order Number: [id number] Exam Date: 06/05/2024 08:59 Report Date: 06/07/2024 06:48 At the request of: MELVINA PÉREZ Procedure: XR lumbar spine min 4V EXAMINATION: XR lumbar spine min 4V HISTORY: LUMBAR SPINE PAIN COMPARISON: No relevant comparison available. FINDINGS: BONES: Mild right convex curvature of the thoracolumbar spine. No fracture or spondylolisthesis. No change in alignment during flexion and extension. Multilevel mild degenerative facet arthropathy and mild bone encroachment neural foramen. DISC SPACES: Moderate narrowing at all lumbar levels. PARASPINOUS: Negative. No paraspinous abnormality is seen. OTHER: Negative. XR/XR lumbar spine min 4V IMPRESSION: 1. Multilevel moderate or slightly greater degenerative disc disease and mild degenerative facet arthropathy. 2. No change in alignment during flexion and extension. Electronically authenticated by: ALEXUS MCCLAIN Date: 06/07/2024 06:48
--- OUTSIDE RECORDS SUMMARY | 2024-06-05 09:10 | XMS_ITS | CCD ---
Author Organization [facility] CliniSyil Care Team Providers Care Java Websphere Developer Name Role Phone SHANEL FERNANDEZ Referring Unavailable MK MIN H Admitting Unavailable MK MIN Attending Unavailable MK IMN Surgeon Unavailable [place] Procedure Practitioner Unavailab le HOY, SHANEL Primary Care Unavailable CUBA CHENKESH Surgeon Unavailable [place] Procedure Practitioner Unavailab le Blades, Berenice Unavailable [...] Date of Onset Reaction(s) Facility (1 source) 60195,00; 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: [76044,00] Propensity to adverse reactions (disorder) 9 [facility] Repository Medications Current Medications Medication Drug [...] PO Twice daily January 12, 2019 9:32am Lfugsqbm-Sbz-Vdxyjcg Fumarate (Multi Vitamin) 9 mg iron/15 mL Liquid (2 sources) Start: 01-12-2019 take 1 tablet by mouth once daily Nlrpvmvq-Cwe-Vztts us Fumarate (Multi Vitamin) 9 mg iron/15 [...] take 1 puff(s) by inhalation once daily Qvlpkvvmapz-Hfleuudls-Ymzrdarp Active 1 PUFF INHALATION Daily January 12, [...] coronary angioplasty; 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: [Atherosclerotic heart disease of [place] coronary artery without angina pectoris] Onset: 04-05-2022 [...] Onset: 08-14-2022 Episodic Other aftercare (1 source) residential (current) use of aspirin; 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: [[facility] CURRENT USE OF ASPIRIN] Onset: 03-26-2022 Episodic Other aftercare (1 source) Other assisted (current) drug therapy; 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 Cindy [facility] Family History Problem Relation Age of Onset Coronary artery disease Father Heart attack Father Family Status - Relation Status Age at Father Level of Service:80479 [place] OFFICE/OUTPATIENT ESTABLISHED MOD MDM 30 MIN Normal [facility] Office Visiton 02-26-2023 Follow-up visit [id number] Ankush Rosales F 1970 M Date Provider Department Center 02/26/2023 Benjamin-HAL [facility] Family History Problem Relation Age of Onset Coronary artery disease Father Heart attack Father Family Status - Relation Status Age at Father Level of Service:55330 [place] OFFICE/OUTPATIENT ESTABLISHED LOW MDM 20-29 MIN Normal [facility] THEOPHYLLINEon 01-01-2023 THEOPHYLLINE 17.6 ug/mL Normal 10.0-20.0 [facility] Comment on above: Performed By: #### V ITCHAD, PSASC, IRON #### [facility] [address] [place] [address] Dr. Smitha Petersen MRI BRAIN WO CONon [...] by: MK SÁNCHEZ Date: 2022-11-01 16:53 Normal [facility] US CAROTID ART BILon 023 [...] by: MK KOWALSKI Date: 2022-11-01 16:16 Normal [facility] BNPon 10-17-2022 Natriuretic peptide B (Bld) [Mass/Vol] 32.0 pg/mL Normal <=900.0 [facility] Comment on above: Performed By: #### C MP, BNP, TSH, URIC, T7, LIPID #### [facility] [address] [place] [address] Dr. Smitha Petersen CBC AUTO DIFFon 10-17-2022 BASO # 0.0 103/ul Normal 0.0-0.1 [facility] Comment on above: Performed By: #### V ITAD, PSASC, IRON #### [facility] [address] [place] [address] Dr. Smitha Petersen Basophils/100 WBC (Bld) 0.4 % Normal 0.2-2.0 [facility] Comment on above: Performed By: #### V ITAD, PSASC, IRON #### [facility] [address] [place] [address] Dr. Smitha Petersen EO # 0.2 103/ul Normal 0.0-0.7 [facility] Comment on above: Performed By: #### V ITAD, PSASC, IRON #### [facility] [address] [place] [address] Dr. Smitha Petersen Eosinophils/100 WBC (Bld) 2.4 % Normal 0.9-7.0 [facility] Comment on above: Performed By: #### V ITAD, PSASC, IRON #### [facility] [address] [place] [address] Dr. Smitha Petersen Erythrocyte distribution width (RBC) [Ratio] 13.8 % Normal 11.0-15.0 [facility] Comment on above: Performed By: #### V ITAD, PSASC, IRON #### [facility] [address] [place] [address] Dr. Smitha Petersen Hematocrit (Bld) [Volume fraction] 46.8 % Normal 42.0-54.0 [facility] Comment on above: Performed By: #### V ITAD, PSASC, IRON #### [facility] [address] [place] [address] Dr. Smitha Petersen Hemoglobin (Bld) [Mass/Vol] 15.7 g/dL Normal 14.0-18.0 [facility] Comment on above: Performed By: #### V ITAD, PSASC, IRON #### [facility] [address] [place] [address] Dr. Smitha Petersen IG # 0.04 10e3/ul Critically high 0.00-0.03 [facility] Comment on above: Performed By: #### V ITAD, PSASC, IRON #### [facility] [address] [place] [address] Dr. Smitha Petersen IG % 0.5 % Normal 0.0-0.5 [facility] Comment on above: Performed By: #### V ITAD, PSASC, IRON #### [facility] [address] [place] [address] Dr. Smitha Petersen LYMPH # 1.7 103/ul Normal 1.2-3.8 [facility] Comment on above: Performed By: #### V ITAD, PSASC, IRON #### [facility] [address] [place] [address] Dr. Smitha Petersen Lymphocytes/100 WBC (Bld) 20.1 % Critically low 20.5-60.0 [facility] Comment on above: Performed By: #### V ITAD, PSASC, IRON #### [facility] [address] [place] [address] Dr. Smitha Petersen MANUAL DIFF REQ NO Normal [facility] Comment on above: Performed By: #### V ITAD, PSASC, IRON #### [facility] [address] [place] [address] Dr. Smitha Petersen MCH (RBC) [Entitic mass] 29.7 pg Normal 25.9-34.0 [facility] Comment on above: Performed By: #### V ITAD, PSASC, IRON #### [facility] [address] [place] [address] Dr. Smitha Petersen MCHC (RBC) [Mass/Vol] 33.5 g/dL Normal 29.9-35.2 [facility] Comment on above: Performed By: #### V ITAD, PSASC, IRON #### [facility] [address] [place] [address] Dr. Smitha Petersen MCV (RBC) [Entitic vol] 88.5 fL Normal 80.0-94.0 [facility] Comment on above: Performed By: #### V ITAD, PSASC, IRON #### [facility] [address] [place] [address] Dr. Smitha Petersen MONO # 0.6 103/ul Normal 0.3-0.8 [facility] Comment on above: Performed By: #### V ITAD, PSASC, IRON #### [facility] [address] [place] [address] Dr. Smitha Petersen Monocytes/100 WBC (Bld) 6.8 % Normal 1.7-12.0 [facility] Comment on above: Performed By: #### V ITAD, PSASC, IRON #### [facility] [address] [place] [address] Dr. Smitha Petersen NEUT # 6.0 103/ul Normal 1.4-6.5 [facility] Comment on above: Performed By: #### V ITAD, PSASC, IRON #### [facility] [address] [place] [address] Dr. Smitha Petersen Neutrophils/100 WBC (Bld) 69.8 % Normal 43.0-75.0 [facility] Comment on above: Performed By: #### V ITAD, PSASC, IRON #### [facility] [address] [place] [address] Dr. Smitha Petersen Platelet mean volume (Bld) [Entitic vol] 8.7 fL Critically low 9.5-13.5 [facility] Comment on above: Performed By: #### V ITAD, PSASC, IRON #### [facility] [address] [place] [address] Dr. Smitha Petersen PLT 222 103/ul Normal 150-450 [facility] Comment on above: Performed By: #### V ITAD, PSASC, IRON #### [facility] [address] [place] [address] Dr. Smitha Petersen RBC 5.29 106/ul Normal 4.70-6.10 [facility] Comment on above: Performed By: #### V ITAD, PSASC, IRON #### [facility] [address] [place] [address] Dr. Smitha Petersen WBC 8.5 103/ul Normal 4.0-11.0 [facility] Comment on above: Performed By: #### V ITAD, PSASC, IRON #### [facility] [address] [place] [address] Dr. Smitha Petersen FREE THYROXINE INDEX T7on FTI 2.54 Normal 1.30-4.50 [facility] Comment on above: Performed By: #### C MP, BNP, TSH, URIC, T7, LIPID #### [facility] [address] [place] [address] Dr. Smitha Petersen T3U 33.0 % Normal 33.0-40.0 [facility] Comment on above: Performed By: #### C MP, BNP, TSH, URIC, T7, LIPID #### [facility] [address] [place] [address] Dr. Smitha Petersen T4 [Mass/Vol] 7.70 ug/dL Normal 4.50-12.[address] [facility] Comment on above: Performed By: #### C MP, BNP, TSH, URIC, T7, LIPID #### [facility] [address] [place] [address] Dr. Smitha Petersen GLYCOHEMOGLOBIN A1Con 2022 ADA RECOMMENDATION SEE BELOW Normal [facility] Comment on above: Result Comment: ADA RECOMMENDED LIMIT 4.0 - 6.0 ADA THERAPEUTIC TARGET < 7.0 ACTION SUGGESTED > 7.0 Performed By: #### V ITAD, PSASC, IRON #### [facility] [address] [place] [address] Dr. Smitha Petersen Glucose [Mass/Vol] 120 mg/dL Normal [facility] Comment on above: Performed By: #### V ITAD, PSASC, IRON #### [facility] [address] [place] [address] Dr. Smitha Petersen HbA1c (Bld) [Mass fraction] 5.8 % Normal 4.5-6.2 [facility] Comment on above: Performed By: #### V ITCHAD PSASC, IRON #### [facility] [address] [place] [address] Dr. Smitha Petersen IRONon 10-17-2022 Iron [Mass/Vol] 66.0 ug/dL Normal 65.0-175.0 [facility] Comment on above: Performed By: #### V BRAXTON PSASC, IRON #### [facility] [address] [place] [address] Dr. Smitha Petersen LIPID PROFILEon 10-17-2022 CHOL-HDL RATIO NORM SEE BELOW Normal [facility] Comment on above: Result Comment: 3.3 - 4.4 LOW RISK 4.4 - 7.1 AVERAGE RISK 7.1 - 11.0 MODERATE RISK >11.0 HIGH RISK Performed By: #### C MP, BNP, TSH, URIC, T7, LIPID #### [facility] [address] [place] [address] Dr. Smitha Petersen Cholesterol [Mass/Vol] 102 mg/dL Normal <=200 [facility] Comment on above: Performed By: #### C MP, BNP, TSH, URIC, T7, LIPID #### [facility] [address] [place] [address] Dr. Smitha Petersen Cholesterol in HDL [Mass/Vol] 45 mg/dL Normal 40-60 [facility] Comment on above: Performed By: #### C MP, BNP, TSH, URIC, T7, LIPID #### [facility] [address] [place] [address] Dr. Smitha Petersen Cholesterol in LDL [Mass/Vol] 35.2 mg/dL Normal [facility] Comment on above: Performed By: #### C MP, BNP, TSH, URIC, T7, LIPID #### [facility] [address] [place] [address] Dr. Smitha Petersen Cholesterol.total/Ch olesterol in HDL [Mass ratio] 2.3 {ratio} Normal [facility] Comment on above: Performed By: #### C MP, BNP, TSH, URIC, T7, LIPID #### [facility] [address] [address] [address] Smitha Petersen HDL NORMAL > or = 60 mg/dl - LO W CARDIOVASCULAR RISK <40 mg/dl - HIGH CARDIOVASCULAR RISK Normal [facility] Comment on above: Performed By: #### C MP, BNP, TSH, URIC, T7, LIPID #### [facility] [address] [address] [address] Smitha Petersen LDL CALC NORMAL SEE BELOW Normal [facility] Comment on above: Result Comment: <100 mg/dl OPTIMAL 100 - 129 mg/dl NEAR OR ABOVE OPTIMAL 130 - 159 mg/dl BORDERLINE HIGH 160 - 189 mg/dl HIGH >190 mg/dl VERY HIGH Performed By: #### C MP, BNP, TSH, URIC, T7, LIPID #### [facility] [address] [address] [address] Smitha Petersen Triglyceride [Mass/Vol] 109 mg/dL Normal <=150 [facility] Comment on above: Performed By: #### C MP, BNP, TSH, URIC, T7, LIPID #### [facility] [address] [address] [address] Smitha Petersen VLDL CALC 21.8 mg/dL Normal [facility] Comment on above: Performed By: #### C MP, BNP, TSH, URIC, T7, LIPID #### [facility] [address] [address] [address] Smitha Petersen PROF 14(COMP METB)on 023 Albumin [Mass/Vol] 3.8 g/dL Normal 3.4-5.0 [facility] Comment on above: Performed By: #### C MP, BNP, TSH, URIC, T7, LIPID #### [facility] [address] [address] [address] Smitha Petersen Albumin/Globulin [Mass ratio] 1.2 {ratio} Normal [facility] Comment on above: Performed By: #### C MP, BNP, TSH, URIC, T7, LIPID #### [facility] [address] [address] [address] Smitha Petersen ALP [Catalytic activity/Vol] 113 U/L Normal 46-116 [facility] Comment on above: Performed By: #### C MP, BNP, TSH, URIC, T7, LIPID #### [facility] [address] [place] [address] Dr. Smitha Petersen ALT [Catalytic activity/Vol] 66 U/L Critically high 16-63 [facility] Comment on above: Performed By: #### C MP, BNP, TSH, URIC, T7, LIPID #### [facility] [address] [place] [address] Dr. Smitha Petersen Anion gap [Moles/Vol] 13.4 mmol/L Normal [facility] Comment on above: Performed By: #### C MP, BNP, TSH, URIC, T7, LIPID #### [facility] [address] [place] [address] Dr. Smitha Petersen AST [Catalytic activity/Vol] 29 U/L Normal 15-37 [facility] Comment on above: Performed By: #### C MP, BNP, TSH, URIC, T7, LIPID #### [facility] [address] [place] [address] Dr. Smitha Petersen Bilirubin [Mass/Vol] 0.3 mg/dL Normal 0.2-1.0 [facility] Comment on above: Performed By: #### C MP, BNP, TSH, URIC, T7, LIPID #### [facility] [address] [place] [address] Dr. Smitha Petersen Calcium [Mass/Vol] 8.9 mg/dL Normal 8.5-10.1 [facility] Comment on above: Performed By: #### C MP, BNP, TSH, URIC, T7, LIPID #### [facility] [address] [place] [address] Dr. Smitha Petersen Chloride [Moles/Vol] 101 mmol/L Normal 98-107 [facility] Comment on above: Performed By: #### C MP, BNP, TSH, URIC, T7, LIPID #### [facility] [address] [place] [address] Dr. Smitha Petersen CO2 [Moles/Vol] 28.8 mmol/L Normal 21.0-32.0 [facility] Comment on above: Performed By: #### C MP, BNP, TSH, URIC, T7, LIPID #### [facility] [address] [place] [address] Dr. Smitha Petersen Creatinine [Mass/Vol] 0.82 mg/dL Normal 0.70-1.30 [facility] Comment on above: Performed By: #### C MP, BNP, TSH, URIC, T7, LIPID #### [facility] [address] [place] [address] Dr. Smitha Petersen EGFR-AF MARTINIQUAIS >60 Normal >=60 [facility] Comment on above: Performed By: #### C MP, BNP, TSH, URIC, T7, LIPID #### [facility] [address] [place] [address] Dr. Smitha Petersen EGFR-NON AF MARTINIQUAIS >60 Normal >=60 [facility] Comment on above: Performed By: #### C MP, BNP, TSH, URIC, T7, LIPID #### [facility] [address] [place] [address] Dr. Smitha Petersen Globulin (S) [Mass/Vol] 3.3 g/dL Normal [facility] Comment on above: Performed By: #### C MP, BNP, TSH, URIC, T7, LIPID #### [facility] [address] [place] [address] Dr. Smitha Petersen Glucose [Mass/Vol] 100 mg/dL Normal 74-106 [facility] Comment on above: Performed By: #### C MP, BNP, TSH, URIC, T7, LIPID #### [facility] [address] [place] [address] Dr. Smitha Petersen Potassium [Moles/Vol] 4.2 mmol/L Normal 3.5-5.1 [facility] Comment on above: Performed By: #### C MP, BNP, TSH, URIC, T7, LIPID #### [facility] [address] [place] [address] Dr. Smitha Petersen Protein [Mass/Vol] 7.1 g/dL Normal 6.4-8.2 [facility] Comment on above: Performed By: #### C MP, BNP, TSH, URIC, T7, LIPID #### [facility] [address] [address] [address] Smitha Petersen Sodium [Moles/Vol] 139 mmol/L Normal 136-145 [facility] Comment on above: Performed By: #### C MP, BNP, TSH, URIC, T7, LIPID #### [facility] [address] [place] [address] Dr. Smitha Petersen Urea nitrogen [Mass/Vol] 14.0 mg/dL Normal 7.0-18.0 [facility] Comment on above: Performed By: #### C MP, BNP, TSH, URIC, T7, LIPID #### [facility] [address] [place] [address] Dr. Smitha Petersen Urea nitrogen/Creatinine [Mass ratio] 17.1 mg/mg Normal [facility] Comment on above: Performed By: #### C MP, BNP, TSH, URIC, T7, LIPID #### [facility] [address] [place] [address] Dr. Smitha Petersen TSHon 10-17-2022 TSH 0.796 uIU/mL Normal 0.358-3.740 [facility] Comment on above: Performed By: #### C MP, BNP, TSH, URIC, T7, LIPID #### [facility] [address] [place] [address] Dr. Smitha Petersen URIC ACID SERUMon 10-17-2022 Urate [Mass/Vol] 6.4 mg/dL Normal 3.5-7.2 [facility] Comment on above: Performed By: #### C MP, BNP, TSH, URIC, T7, LIPID #### [facility] [address] [place] [address] Dr. Smitha Petersen VITAMIN D 25 OHon 10-17-2022 VIT D 25-OH 17.5 ng/mL Normal [facility] Comment on above: Performed By: #### V ITAD, PSASC, IRON #### [facility] [address] [place] [address] Dr. Smitha Petersen VIT D RANGES SEE BELOW Normal [facility] Comment on above: Result Comment: <20 ng/mL Vit D deficient 20 - <30 ng/mL Vit D insufficient 30 - 100 ng/mL Vit D sufficient >100 ng/mL Potential Toxicity Performed By: #### V ITAD, PSASC, IRON #### [facility] [address] [place] [address] Dr. Smitha Petersen ECHOCARDIO M/2D COMPLETEon 1 10-15-2021 ECHOCARDIO M/2D COMPLETE Patient: MK ROSALES Exam Date: 08/14/2022 : 1970 Gender:M Ordering : DR SHANEL FERNANDEZ . Admission #: [id number] Family : Order #: [id number] CLICK HERE TO VIEW EXAM ECHOCARDIOGRAM REPORT [...] Matta M.D. on 08/14/2022 at 18:35 Normal [facility] NM STRESS/REST MULTIon 07-23 NM STRESS/REST MULTI Patient: KATINA ROSALES Exam Date: 07/23/2022 : 1970 Gender:M Ordering : DR SHANEL FERNANDEZ . Admission #: [id number] Family : Order #: [id number] CLICK HERE TO VIEW EXAM RADIOLOGY REPORT [...] Kowalski MD on 08/06/2022 at 12:45 Normal [facility] CT LUNG CANCER SCREENINGon 1 [...] by: PATRICIO LUTZ Date: 2022-07-13 08:59 Normal [facility] THEOPHYLLINEon 07-10-2022 THEOPHYLLINE 16.4 ug/mL Normal 10.0-20.0 [facility] Comment on above: Performed By: #### V ITAD, PSASC, IRON #### [facility] [address] [place] [address] Dr. 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 Smitha Petersen Cholesterol [Mass/Vol] 129 mg/dL Normal <=200 [facility] Comment on above: Performed By: #### V ITAD, PSASC, IRON #### [facility] [address] [address] [address] Smitha Petersen Cholesterol in HDL [Mass/Vol] 40 mg/dL Normal 40-60 [facility] Comment on above: Performed By: #### V ITAD, PSASC, IRON #### [facility] [address] [address] [address] Smitha Petersen Cholesterol in LDL [Mass/Vol] 57.2 mg/dL Normal [facility] Comment on above: Performed By: #### V ITAD, PSASC, IRON #### [facility] [address] [address] [address] Smitha Petersen Cholesterol.total/Ch olesterol in HDL [Mass ratio] 3.2 {ratio} Normal [facility] Comment on above: Performed By: #### V ITAD, PSASC, IRON #### [facility] [address] [address] [address] Smitha Petersen HDL NORMAL > or = 60 mg/dl - LO W CARDIOVASCULAR RISK <40 mg/dl - HIGH CARDIOVASCULAR RISK Normal [facility] Comment on above: Performed By: #### V ITAD, PSASC, IRON #### [facility] [address] [address] [address] Smitha Petersen LDL CALC NORMAL SEE BELOW Normal [facility] Comment on above: Result Comment: <100 mg/dl OPTIMAL 100 - 129 mg/dl NEAR OR ABOVE OPTIMAL 130 - 159 mg/dl BORDERLINE HIGH 160 - 189 mg/dl HIGH >190 mg/dl VERY HIGH Performed By: #### V ITAD, PSASC, IRON #### [facility] [address] [address] [address] Smitha Petersen Triglyceride [Mass/Vol] 159 mg/dL Critically high <=150 [facility] Comment on above: Performed By: #### V ITAD, PSASC, IRON #### [facility] [address] [address] [address] Smitha Petersen VLDL CALC 31.8 mg/dL Normal [facility] Comment on above: Performed By: #### V ITAD, PSASC, IRON #### [facility] [address] [place] [address] Dr. Smitha Petersen CBC AUTO DIFFon 03-22-2022 BASO # 0.1 103/ul Normal 0.0-0.1 [facility] Comment on above: Performed By: #### V ITAD, PSASC, IRON #### [facility] [address] [place] [address] Dr. Smitha Petersen Basophils/100 WBC (Bld) 0.5 % Normal 0.2-2.0 [facility] Comment on above: Performed By: #### V ITAD, PSASC, IRON #### [facility] [address] [place] [address] Dr. Smitha Petersen EO # 0.4 103/ul Normal 0.0-0.7 [facility] Comment on above: Performed By: #### V ITAD, PSASC, IRON #### [facility] [address] [place] [address] Dr. Smitha Petersen Eosinophils/100 WBC (Bld) 3.5 % Normal 0.9-7.0 [facility] Comment on above: Performed By: #### V ITAD, PSASC, IRON #### [facility] [address] [place] [address] Dr. Smitha Petersen Erythrocyte distribution width (RBC) [Ratio] 15.1 % Critically high 11.0-15.0 [facility] Comment on above: Performed By: #### V ITAD, PSASC, IRON #### [facility] [address] [place] [address] Dr. Smitha Petersen Hematocrit (Bld) [Volume fraction] 46.8 % Normal 42.0-54.0 [facility] Comment on above: Performed By: #### V ITAD, PSASC, IRON #### [facility] [address] [address] [address] Smitha Petersen Hemoglobin (Bld) [Mass/Vol] 15.5 g/dL Normal 14.0-18.0 [facility] Comment on above: Performed By: #### V ITAD, PSASC, IRON #### [facility] [address] [address] [address] Smitha Petersen IG # 0.03 10e3/ul Normal 0.00-0.03 [facility] Comment on above: Performed By: #### V ITAD, PSASC, IRON #### [facility] [address] [place] [address] Dr. Smitha Petersen IG % 0.3 % Normal 0.0-0.5 [facility] Comment on above: Performed By: #### V ITAD, PSASC, IRON #### [facility] [address] [place] [address] Dr. Smitha Petersen LYMPH # 2.6 103/ul Normal 1.2-3.8 [facility] Comment on above: Performed By: #### V ITAD, PSASC, IRON #### [facility] [address] [address] [address] Smitha Petersen Lymphocytes/100 WBC (Bld) 25.0 % Normal 20.5-60.0 [facility] Comment on above: Performed By: #### V ITAD, PSASC, IRON #### [facility] [address] [place] [address] Dr. Smitha Petersen MANUAL DIFF REQ NO Normal [facility] Comment on above: Performed By: #### V ITAD, PSASC, IRON #### [facility] [address] [place] [address] Dr. Smitha Petersen MCH (RBC) [Entitic mass] 29.6 pg Normal 25.9-34.0 [facility] Comment on above: Performed By: #### V ITAD, PSASC, IRON #### [facility] [address] [place] [address] Dr. Smitha Petersen MCHC (RBC) [Mass/Vol] 33.1 g/dL Normal 29.9-35.2 [facility] Comment on above: Performed By: #### V ITAD, PSASC, IRON #### [facility] [address] [place] [address] Dr. Smitha Petersen MCV (RBC) [Entitic vol] 89.5 fL Normal 80.0-94.0 [facility] [facility] Comment on above: Performed By: #### V ITAD, PSASC, IRON #### [facility] [address] [place] [address] Dr. Smitha Petersen MONO # 0.7 103/ul Normal 0.3-0.8 [facility] Comment on above: Performed By: #### V ITAD, PSASC, IRON #### [facility] [address] [place] [address] Dr. Smitha Petersen Monocytes/100 WBC (Bld) 7.0 % Normal 1.7-12.0 [facility] Comment on above: Performed By: #### V ITAD, PSASC, IRON #### [facility] [address] [place] [address] Dr. Smitha Petersen NEUT # 6.7 103/ul Critically high 1.4-6.5 The [facility] Comment on above: Performed By: #### V ITAD, PSASC, IRON #### [facility] [address] [place] [address] Dr. Smitha Petersen Neutrophils/100 WBC (Bld) 63.7 % Normal 43.0-75.0 [facility] Comment on above: Performed By: #### V ITAD, PSASC, IRON #### [facility] [address] [place] [address] Dr. Smitha Petersen Platelet mean volume (Bld) [Entitic vol] 8.9 fL Critically low 9.5-13.5 [facility] Comment on above: Performed By: #### V ITAD, PSASC, IRON #### [facility] [address] [place] [address] Dr. Smitha Petersen PLT 245 103/ul Normal 150-450 [facility] Comment on above: Performed By: #### V ITAD, PSASC, IRON #### [facility] [address] [place], [place] [address] Dr. Smitha Petersen RBC 5.23 106/ul Normal 4.70-6.10 [facility] Comment on above: Performed By: #### V ITAD, PSASC, IRON #### [facility] [address] [place], [place] [address] Dr. Smitha Petersen WBC 10.5 103/ul Normal 4.0-11.0 [facility] Comment on above: Performed By: #### V ITAD, PSASC, IRON #### [facility] [address] [place], [place] [address] ABD/PELVIS WO CONon [...] URINE Culture Observations : NO GROWTH. Normal [facility] Comment on above: Performed By: #### V ITAD, PSASC, IRON #### [facility] [address] [place] [address] [address] Smitha Petersen ER URINE PROFILEon 2 Bilirubin Ql (U) Negative Normal NEGATIVE [facility] Comment on above: Performed By: #### V ITAD, PSASC, IRON #### [facility] [address] [place] [address] Dr. Smitha Petersen Clarity (U) CLEAR Normal CLEAR [facility] Comment on above: Performed By: #### V ITAD, PSASC, IRON #### [facility] [address] [place] [address] Dr. Smitha Petersen Color (U) LT. YELLOW Normal YELLOW [facility] Comment on above: Performed By: #### V ITAD, PSASC, IRON #### [facility] [address] [place] [address] Dr. Smitha Petersen ERUD A micrscopic examination will be performed if indicated. Normal [facility] Comment on above: Performed By: #### V ITAD, PSASC, IRON #### [facility] [address] [place] [address] [address] Smitha Petersen Glucose Ql (U) Negative Normal NEGATIVE [facility] Comment on above: Performed By: #### V ITAD, PSASC, IRON #### [facility] [address] [place] [address] Dr. Smitha Petersen Hemoglobin Ql (U) TRACE-INTACT Abnormal NEGATIVE [facility] Comment on above: Performed By: #### V ITAD, PSASC, IRON #### [facility] [address] [place] [address] Dr. Smitha Petersen Ketones Ql (U) Negative Normal NEGATIVE [facility] Comment on above: Performed By: #### V ITAD, PSASC, IRON #### [facility] [address] [place] [address] Dr. Smitha Petersen LEUKOCYTES TRACE Abnormal NEGATIVE [facility] Comment on above: Performed By: #### V ITAD, PSASC, IRON #### [facility] [address] [place] [address] [address] Smitha Petersen Nitrite Ql (U) Negative Normal NEGATIVE [facility] Comment on above: Performed By: #### V ITAD, PSASC, IRON #### [facility] [address] [place] [address] Dr. Smitha Petersen pH (U) 5.5 [pH] Normal 5-9 [facility] Comment on above: Performed By: #### V ITAD, PSASC, IRON #### [facility] [address] [place] [address] Dr. Smitha Petersen SPEC GRAVITY 1.010 Normal 1.005-<=1.025 [facility] Comment on above: Performed By: #### V ITAD, PSASC, IRON #### [facility] [address] [place] [address] Dr. Smitha Petersen UA PROTEIN Negative Normal NEGATIVE/ TRACE [facility] Comment on above: Performed By: #### V ITAD, PSASC, IRON #### [facility] [address] [place] [address] Dr. Smitha Petersen UR MICRO IND INDICATED Normal [facility] Comment on above: Performed By: #### V ITAD, PSASC, IRON #### [facility] [address] [place] [address] Dr. Smitha Petersen Urobilinogen Qn (U) 0.2 {Zach'U}/dL Normal 0.2 - 1. 0 [facility] Comment on above: Performed By: #### V ITAD, PSASC, IRON #### [facility] [address] [place] [address] Dr. Smitha Petersen PROF 14(COMP METB)on 022 Albumin [Mass/Vol] 4.0 g/dL Normal 3.4-5.0 [facility] Comment on above: Performed By: #### V ITAD, PSASC, IRON #### [facility] [address] [address] [address] Smitha Petersen Albumin/Globulin [Mass ratio] 1.2 {ratio} Normal [facility] Comment on above: Performed By: #### V ITAD, PSASC, IRON #### [facility] [address] [place] [address] Dr. Smitha Petersen ALP [Catalytic activity/Vol] 113 U/L Normal 46-116 [facility] Comment on above: Performed By: #### V ITAD, PSASC, IRON #### [facility] [address] [place] [address] Dr. Smitha Petersen ALT [Catalytic activity/Vol] 53 U/L Normal 16-63 [facility] Comment on above: Performed By: #### V ITAD, PSASC, IRON #### [facility] [address] [place] [address] [address] Smitha Petersen Anion gap [Moles/Vol] 15.3 mmol/L Normal [facility] Comment on above: Performed By: #### V ITAD, PSASC, IRON #### [facility] [address] [place] [address] Dr. Smitha Pteersen AST [Catalytic activity/Vol] 18 U/L Normal 15-37 [facility] Comment on above: Performed By: #### V ITAD, PSASC, IRON #### [facility] [address] [place] [address] [address] Smitha Petersen Bilirubin [Mass/Vol] 0.4 mg/dL Normal 0.2-1.0 [facility] Comment on above: Performed By: #### V ITAD, PSASC, IRON #### [facility] [address] [place] [address] Dr. Smitha Petersen Calcium [Mass/Vol] 9.2 mg/dL Normal 8.5-10.1 [facility] Comment on above: Performed By: #### V ITAD, PSASC, IRON #### [facility] [address] [address] [address] Smitha Petersen Chloride [Moles/Vol] 101 mmol/L Normal 98-107 [facility] Comment on above: Performed By: #### V ITAD, PSASC, IRON #### [facility] [address] [place] [address] Dr. Smitha Petersen CO2 [Moles/Vol] 24.8 mmol/L Normal 21.0-32.0 [facility] Comment on above: Performed By: #### V ITAD, PSASC, IRON #### [facility] [address] [place] [address] Dr. Smitha Petersen Creatinine [Mass/Vol] 0.96 mg/dL Normal 0.70-1.30 [facility] Comment on above: Performed By: #### V ITAD, PSASC, IRON #### [facility] [address] [place] [address] Dr. Smitha Petersen EGFR-AF MARTINIQUAIS >60 Normal >=60 [facility] Comment on above: Performed By: #### V ITAD, PSASC, IRON #### [facility] [address] [place] [address] Dr. Smitha Petersen EGFR-NON AF MARTINIQUAIS >60 Normal >=60 [facility] Comment on above: Performed By: #### V ITAD, PSASC, IRON #### [facility] [address] [place] [address] Dr. Smitha Petersen Globulin (S) [Mass/Vol] 3.4 g/dL Normal [facility] Comment on above: Performed By: #### V ITAD, PSASC, IRON #### [facility] [address] [place] [address] Dr. Smitha Petersen Glucose [Mass/Vol] 146 mg/dL Critically high 74-106 [facility] Comment on above: Performed By: #### V ITAD, PSASC, IRON #### [facility] [address] [place] [address] Dr. Smitha Petersen Potassium [Moles/Vol] 4.1 mmol/L Normal 3.5-5.1 [facility] Comment on above: Performed By: #### V ITAD, PSASC, IRON #### [facility] [address] [address] [address] Smitha Petersen Protein [Mass/Vol] 7.4 g/dL Normal 6.4-8.2 [facility] Comment on above: Performed By: #### V ITAD, PSASC, IRON #### [facility] [address] [place] [address] Dr. Smitha Petersen Sodium [Moles/Vol] 137 mmol/L Normal 136-145 [facility] Comment on above: Performed By: #### V ITAD, PSASC, IRON #### [facility] [address] [place] [address] Dr. Smitha Petersen Urea nitrogen [Mass/Vol] 22.0 mg/dL Critically high 7.0-18.0 [facility] Comment on above: Performed By: #### V ITAD, PSASC, IRON #### [facility] [address] [place] [address] Dr. Smitha Petersen Urea nitrogen/Creatinine [Mass ratio] 22.9 mg/mg Normal [facility] Comment on above: Performed By: #### V ITAD, PSASC, IRON #### [facility] [address] [place] [address] Dr. Smitha Petersen URINE MICROSCOPIC ONLYon BACTERIA TRACE Abnormal NONE SEEN [facility] Comment on above: Performed By: #### V ITAD, PSASC, IRON #### [facility] [address] [place] [address] Dr. Smitha Petersen Bacteria identified Cx Nom (U) INDICATED Normal [facility] Comment on above: Performed By: #### V ITAD, PSASC, IRON #### [facility] [address] [place] [address] Dr. Smitha Petersen CAST NONE SEEN Normal NONE SEEN [facility] Comment on above: Performed By: #### V ITAD, PSASC, IRON #### [facility] [address] [address] [address] Smitha Petersen Crystals LM Nom (Urine sed) NONE SEEN Normal NONE SEEN [facility] Comment on above: Performed By: #### V ITAD, PSASC, IRON #### [facility] [address] [place] [address] Dr. Smitha Petersen Epithelial cells LM Ql (Urine sed) NONE SEEN Normal NONE SEEN /RARE [facility] Comment on above: Performed By: #### V ITAD, PSASC, IRON #### [facility] [address] [place] [address] Dr. Smitha Petersen MUCOUS NONE SEEN Normal NONE SEEN [facility] Comment on above: Performed By: #### V ITAD, PSASC, IRON #### [facility] [address] [place] [address] Dr. Smitha Petersen RBC NONE SEEN Abnormal 0-2 [facility] Comment on above: Performed By: #### V ITAD, PSASC, IRON #### [facility] [address] [place] [address] Dr. Smitha Petersen WBC 5-10 Abnormal NONE SEEN [facility] Comment on above: Performed By: #### V ITAD, PSASC, IRON #### [facility] [address] [place] [address] Dr. Smitha Petersen US TRAV DOP LEG [...] Operative Reporton Operative Report MR#: [id number] S [facility] Pt. Name: Mk Rosales Room #: 0C Discharge Date: Birthdate: 1970 OPERATIVE REPORT DATE OF SURGERY: 09/15/2020 SURGEON: Mk Min M.D. PREOPERATIVE DIAGNOSIS: Left knee medial meniscus tear, unstable. POSTOPERATIVE DIAGNOSIS: 1. Left knee medial meniscus tear, unstable. 2. Left knee chondral tear patella. SURGEON: Mk Min M.D. ENVIRONMENTAL SERVICES DIRECTOR: Nelson Leos MD ANESTHESIA: General. PROCEDURE PERFORMED: [...] Min M.D. Date Trans: 09/15/2020 09:36 A/zoey [id number] cc: Shanel Fernandez M.D. [address] [address] Normal [facility] POC GLUCOSE LABon 09-15-2020 Glucose [Mass/Vol] 101 mg/dL High 70-100 [facility] Comment on above: Performed By: #### 8 [id number] #### [address] Vital Signs Date Time Vital Sign Value Performing Clinician Facility 11-05-2022 09:00-0500 Body height Berenice Blades Other [facility] Other 11-05-2022 09:00-0500 Body mass index (BMI) [Ratio] 38.24 kg/m2 BereniceSmappos Other [facility] Other 11-05-2022 09:00-0500 Body weight 117.48 kg Berenice Blades Other [facility] Other 11-05-2022 09:00-0500 Diastolic blood pressure 94 mm[Hg] Berenice Blades Other [facility] Other 11-05-2022 09:00-0500 Systolic blood pressure 156 mm[Hg] Berenice Blades Other [facility] Other 10-26-2022 08:00-0500 Body height Berenice Blades Other [facility] Other 10-26-2022 08:00-0500 Body mass index (BMI) [Ratio] 38.24 kg/m2 Berenice Blades Other [facility] Other 10-26-2022 08:00-0500 Body weight 117.48 kg Berenice Blades Other [facility] Other 10-26-2022 08:00-0500 Diastolic blood pressure 89 mm[Hg] Berenice Blades Other [facility] Other 10-26-2022 08:00-0500 Systolic blood pressure 130 mm[Hg] Berenice Blades Other [facility] Other Encounters Encounter Date Encounter Type Care Provider Facility Start: 02-18-2024 End: 02-18-2024 ambulatory ARLINE VALDES Not Available Start: 02-03-2024 End: 02-03-20[facility] Start: 02-26-2023 End: 02-26-2023 ambulatory HAL CHRISTENSEN [facility] Start: 01-01-2023 End: 01-02-2023 ambulatory TREVORMARY ANN LEONG . Facility:[facility] Start: 12-19-2022 ambulatory SHANEL HOY Facility:[facility] Start: 12-12-2022 ambulatory SHANEL HOY Facility:[facility] Start: 11-05-2022 End: 11-05-2022 ambulatory Berenice Blades Other [facility] Other Start: 11-05-2022 Office outpatient vi sit 15 minutes Berenice Blades [facility] Start: 11-01-2022 End: 11-02-2022 ambulatory BERENICE BLADES Facility:[facility] Start: 10-26-2022 End: 10-26-2022 ambulatory Berenice Blades Other [facility] Other Start: 10-26-2022 Office outpatient ne w 45 minutes Berenice Blades [facility] Start: 10-17-2022 End: 10-18-2022 ambulatory [...] Start: 09-15-2020 End: 09-16-2020 ambulatory SHANEL HOY Facility[facility] Procedures Date Procedure Procedure Detail Performing Clinician Start: 10-17-2022 PSA screening SHANEL SIFUENTES Comment on above: Performed By: #### V ITAD, PSASC, IRON #### [facility] [address] [place] [address] Dr. Smitha Petersen Start: 09-15-2020 ANESTH KNEE JOINT SURGERY JAYSON CHEN Start: 09-15-2020 KNEE ARTHROSCOPY/SURGERY MK MIN Plan of Treatment Date Care Activity Detail Author Start: 01-23-2023 ambulatory Ambulatory Facility: 1 Payers Date Payer Category Payer Medicare [id number] 1970 Unknown [id number] 2.16.8 [id number] 1970 Unknown [id number] 2.16.84 0.1.338158.3.579.2.593 1970 Unknown [id number] 2.16.84 0.1.313491.3.579.2.593 1970 Unknown [id number] 2.16.84 0.1.522743.3.579.2.593 1970 Unknown [id number] 2.16.84 0.1.127625.3.579.2.593 1971 Unknown [id number] 2.16.84 0.1.945800.3.579.2.593 1971 Unknown [id number] 2.16.84 0.1.318538.3.579.2.593 1970 Unknown [id number] 2.16.84 0.1.279332.3.579.2.593 1971 Unknown [id number] 2.16.84 0.1.764736.3.579.2.593 1971 Unknown [id number] 2.16.84 0.1.603599.3.579.2.593 1971 Unknown [id number] 2.16.84 0.1.579460.3.579.2.593 1971 Unknown [id number] 2.16.84 0.1.285684.3.579.2.593 1971 Unknown [id number] 2.16.84 0.1.383006.3.579.2.593 1971 Unknown [id number] 2.16.84 0.1.236288.3.579.2.593 1971 Unknown [id number] 2.16.84 0.1.662813.3.579.2.593 1971 Unknown [id number] 2.16.84 0.1.793646.3.579.2.593 1971 Unknown [id number] 2.16.84 0.1.319437.3.579.2.593 1971 Unknown [id number] 2.16.84 0.1.243875.3.579.2.593 1971 Unknown [id number] 2.16.84 0.1.184403.3.579.2.1259 1958 Medicare [id number] 2.1 [id number] 1958 Self-pay [id number] 1958 Unknown [id number] Self-pay Self Pay [id number] Self Pay [id number] Social History Date Type Detail Facility Tobacco smoking status [facility] Unknown if ever smoked [facility] Work Phone: Start: 1970 Sex Assigned At Male F [facility] Sex Assigned At Sex Assigned At Bir th [facility] [employer] Other Progress note 02-03-2024 Note Date & Type Note Facility 02-03-2024 Note [facility] Note Chief Complaint: Patient here [...] history of COPD (chronic obstructive pulmonary disease) ([facility]), Coronary artery disease, Diabetes mellitus ([facility]), Hypertension, Seizures ([facility]), and Sleep apnea. Surgical History He has [...] by mouth at bedtime., Disp: , Rfl: [id number] 160-9-4.8 mcg/actuation HFA aerosol inhaler, Breztri Aerosphere [...] Echocardiogram 08/14/2022 Con (more content not included)... [facility] Progress note 02-26-2023 Note Date & Type Note Facility 02-26-2023 Note 10 min discussion ab out importance of smoking cessation- pt reports he does not smoke cigarrettes daily- only when stressed and buys a pack abouit every 1-2 weeks. He is not willing to completely quit smoking. [facility] Progress note 02-26-2023 Note Date & Type Note Facility 02-26-2023 Note Coronary artery dise ase is stable without any concerning cardiac symptoms Continue GDMT- ASA, lipitor, lopressor, plavix, metoprolol continue risk factor modifications- heart healthy diet, regular exercise as tolerated and continue all medications. [facility] Progress note 02-26-2023 Note Date & Type Note Facility 02-26-2023 Note Patient here for 1 y ear follow up CAD and hypertension. He had carotid us and routine labs a few months ago. Denies chest pain but has POSEY (COPD) and sees Dr. Leong. He was told by a neurosurgeon in [place] a few months ago that he had a minor stroke s/p MRI head. Review of Systems Cardiovascular: Positive for dyspnea on exertion. Musculoskeletal: Positive for arthritis, back pain and muscle weakness. All other systems reviewed and are negative. [facility] Progress note 02-26-2023 Note Date & [...] He was told by a neurosurgeon in [place] a few months ago that he had [...] Take 80 mg by mouth at bedtime. [id number]-[id number]-mheugmwcvd 160-9-4.8 mcg/actuation HFA aerosol inhaler Breztri Aerosphere [...] is not willing to completely quit smoking. [facility] Evaluation note 11-05-2022 Note Date & Type Note Facility 11-05-2022 Evaluation note Encounter Date Diagnosis Assessment Notes Oct, Left leg pain (ICD-10 - M79.605) [facility] Other Evaluation note 10-26-2022 Note Date & Type Note Facility 10-26-2022 Evaluation note Encounter Date Diagnosis Assessment Notes Oct, Cerebral infarct (ICD-10 - I63.9) Oct, Encephalomalacia (ICD-10 - G93.89) [facility] [employer] Other Clinical Note 08-06-2022 Note Date & [...] Note Facility Evaluation note No assessment information [facility] Work Phone: History general Narrative [...] Surgical History angioplasty Hospitalization History see above [facility] Other Summary Purpose Family History No Family [...] and content) DATE CREATED AUTHOR 08/18/2021 [facility] DATE CREATED AUTHOR AUTHOR'S ORGANIZ ATION 01/10/2023 [facility] DATE CREATED AUTHOR AUTHOR'S ORGANIZ ATION 02/03/2024 [facility] DATE CREATED AUTHOR AUTHOR'S ORGANIZ ATION 02/19/2024 [facility] EPIC Goals (unrecognized section and content) Goals may be documented in a n alternate sectionGoals may be documented in an alternate sectionNo InformationNo Information REASON FOR VISIT (unrecogniz ed section and content) Ref Dr Mallory, Left sided weakness; left leg painMRI, ultrasound results test done 11[facility]01/22 [facility] FOR RECORDS PERTAINING TO PATIENTS WHO [...] BE BASED ON THE PRIMARY CLINICAL RECORDS. [email or web address] provides no warranty or guarantee of the accuracy or completeness of information in this document.
== END 2024-06-05 08:53 | disposition home or self-care (01) ==
LOC: EC 08:52
PROVIDERS: PCP Family Medicine; Visit Provider Orthopaedic Surgery Orthopaedic Surgery of the Spine
DX: M54.50 Low back pain, unspecified (principal); M51.369 Other intervertebral disc degeneration, lumbar region without mention of lumbar back pain or lower extremity pain
CPT/HCPCS: 72110

== ENCOUNTER 2024-06-12 08:19 | Outpatient (OUT) | payer MEDICARE, SELFPAY ==
--- NOTE | 2024-06-12 08:00 | NM_ITS ---
Patient Name: ANGEL ROSALES MR#: [id number] : 1970 Exam Date: 06/12/2024 Ordering Doctor: DR Koko Fernandez . RADIOLOGY REPORT PROCEDURE: NM CONG PERF SPECT REST STR COMPARISON: None. INDICATIONS: CORONARY ARTERY DISEASE TECHNIQUE: Exam Description: Rest/Stress two day protocol gated SPECT Rest Imagin.2 mCi Tc-99m Cardiolite IV on 06/12/2024 Stress Imaging 26.0 mCi Tc-99m Cardiolite IV on 06/16/2024 Exercise Protocol: 0.4 mg Lexiscan given IV Heart Rate (bpm): Rest: 70 Max: 96 PMHR: 57 Blood Pressure: Rest: 140/96 Max: 140/96 Symptoms: Rest and peak stress ECG findings were normal and the exercise portion of the study was normal per attending physician Dr. Dhillon . For more details please see separate cardiac stress test report. FINDINGS: QUALITY OF STUDY: Good. PERFUSION DEFECT: LOCATION: Basal anterior. Mid-anterior. Apical anterior. [place]. SIZE: Medium (3-4 segments). SEVERITY: Moderate. TYPE: Mixed. WALL MOTION: Mild hypokinesis: LV SIZE: Enlarged; EDV 160 mL. TID / TCD: None; 1.1 LVEF: Abnormal. Calculated EF 50%. SUMMARY: Myocardial perfusion imaging study has ABNORMAL findings. CONCLUSION: 1. Area of perfusion abnormality on stress images partial redistribution on rest images. Consideration should be given to an area of reversible ischemia 2. Dilated left ventricle with end-diastolic volume 160 milliliters 3. Low left ventricular ejection fraction of 50% 4. Normal exercise test Dictated by: Angel Nesbitt MD on 06/18/2024 at 14:06 Approved by: Angel Nesbitt MD on 06/18/2024 at 14:09
--- OUTSIDE RECORDS SUMMARY | 2024-06-12 08:26 | XMS_ITS | CCD ---
Author Organization [facility] CliniSyfl Care Team Providers Care Pediatric Physiatrist Name Role Phone SHANEL FERNANDEZ Referring Unavailable MK MIN H Admitting Unavailable MK MIN Attending Unavailable MK MIN Surgeon Unavailable [place] Procedure Practitioner Unavailab le HOY, SHANEL Primary Care Unavailable RADHA CHENH Surgeon Unavailable [place] Procedure Practitioner Unavailab le Blades, Berenice Unavailable [...] Attending Unavailable HOY, SHANEL Admitting Unavailable HOY, SHAENL Primary Care Unavailable HOY, SHANEL Primary Care [...] Date of Onset Reaction(s) Facility (1 source) 58126,00; 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: [81382,00] Propensity to adverse reactions (disorder) 9 [facility] Repository Medications Current Medications Medication [...] PO Twice daily January 12, 2019 9:32am Aivzelay-Vjv-Sssryxv Fumarate (Multi Vitamin) 9 mg iron/15 mL Liquid (2 sources) Start: 01-12-2019 take 1 tablet by mouth once daily Nldtptig-Cao-Kbmxq us Fumarate (Multi Vitamin) 9 mg iron/15 [...] take 1 puff(s) by inhalation once daily Nlivhnliwuv-Sxtutljhz-Asnkhobr Active 1 PUFF INHALATION Daily January 12, [...] coronary angioplasty; 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: [Atherosclerotic heart disease of [place] coronary artery without angina pectoris] Onset: 04-05-2022 [...] 08-14-2022 Episodic Other aftercare (1 source) 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; 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: [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] Onset: 03-26-2022 Episodic Other aftercare (1 source) Other shelter (current) drug therapy; 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: [OTH NURSING HOME CURRENT DRUG THERAPY] Onset: 03-26-2022 Episodic Residual [...] Range Facility Office Visiton 02-03-2024 Follow-up visit [id number] Ankush Rosales F 1970 M Date Provider Department Center 02/03/2024 Kristy[facility] Cindy [place] [facility] Family History Problem Relation Age of Onset Coronary artery disease Father Heart attack Father Family Status - Relation Status Age at Father Level of Service:75069 [place] OFFICE/OUTPATIENT ESTABLISHED MOD MDM 30 MIN Normal [facility] Office Visiton 02-26-2023 Follow-up visit [id number] Ankush Rosales F 1970 M Date Provider Department Center 02/26/2023 Benjamin-HAL [facility] Family History Problem Relation Age of Onset Coronary artery disease Father Heart attack Father Family Status - Relation Status Age at Father Level of Service:57742 [place] OFFICE/OUTPATIENT ESTABLISHED LOW MDM 20-29 MIN Normal [facility] THEOPHYLLINEon 01-01-2023 THEOPHYLLINE 17.6 ug/mL Normal 10.0-20.0 [facility] Comment on above: Performed By: #### V ITCHAD, PSASC, IRON #### [facility] [address] [place] [address] Dr. Smitha Petersen MRI BRAIN WO CONon [...] by: MK SÁNCHEZ Date: 2022-11-01 16:[address] [facility] US CAROTID ART BILon 023 US [...] by: MK KOWALSKI Date: 2022-11-01 16:[address] [facility] BNPon 10-17-2022 Natriuretic peptide B (Bld) [Mass/Vol] 32.0 pg/mL Normal <=900.0 [facility] Comment on above: Performed By: #### C MP, BNP, TSH, URIC, T7, LIPID #### [facility] [address] [place] [address] Dr. Smitha Petersen CBC AUTO DIFFon 10-17-2022 BASO # 0.0 103/ul Normal 0.0-0.1 [facility] Comment on above: Performed By: #### V ITAD, PSASC, IRON #### [facility] [address] [place] [address] Dr. Smitha Petersen Basophils/100 WBC (Bld) 0.4 % Normal 0.2-2.0 [facility] Comment on above: Performed By: #### V ITAD, PSASC, IRON #### [facility] [address] [place] [address] Dr. Smitha Petersen EO # 0.2 103/ul Normal 0.0-0.7 [facility] Comment on above: Performed By: #### V ITAD, PSASC, IRON #### [facility] [address] [place] [address] Dr. Smitha Petersen Eosinophils/100 WBC (Bld) 2.4 % Normal 0.9-7.0 [facility] Comment on above: Performed By: #### V ITAD, PSASC, IRON #### [facility] [address] [place] [address] Dr. Smitha Petersen Erythrocyte distribution width (RBC) [Ratio] 13.8 % Normal 11.0-15.0 [facility] Comment on above: Performed By: #### V ITAD, PSASC, IRON #### [facility] [address] [place] [address] Dr. Smitha Petersen Hematocrit (Bld) [Volume fraction] 46.8 % Normal 42.0-54.0 [facility] Comment on above: Performed By: #### V ITAD, PSASC, IRON #### [facility] [address] [place] [address] Dr. Smitha Petersen Hemoglobin (Bld) [Mass/Vol] 15.7 g/dL Normal 14.0-18.0 [facility] Comment on above: Performed By: #### V ITAD, PSASC, IRON #### [facility] [address] [place] [address] Dr. Smitha Petersen IG # 0.04 10e3/ul Critically high 0.00-0.03 [facility] Comment on above: Performed By: #### V ITAD, PSASC, IRON #### [facility] [address] [place] [address] Dr. Smitha Petersen IG % 0.5 % Normal 0.0-0.5 [facility] Comment on above: Performed By: #### V ITAD, PSASC, IRON #### [facility] [address] [place] [address] Dr. Smitha Petersen LYMPH # 1.7 103/ul Normal 1.2-3.8 [facility] Comment on above: Performed By: #### V ITAD, PSASC, IRON #### [facility] [address] [place] [address] Dr. Smitha Petersen Lymphocytes/100 WBC (Bld) 20.1 % Critically low 20.5-60.0 [facility] Comment on above: Performed By: #### V ITAD, PSASC, IRON #### [facility] [address] [place] [address] Dr. Smitha Petersen MANUAL DIFF REQ NO Normal [facility] Comment on above: Performed By: #### V ITAD, PSASC, IRON #### [facility] [address] [place] [address] Dr. Smitha Petersen MCH (RBC) [Entitic mass] 29.7 pg Normal 25.9-34.0 [facility] Comment on above: Performed By: #### V ITAD, PSASC, IRON #### [facility] [address] [place] [address] Dr. Smitha Petersen MCHC (RBC) [Mass/Vol] 33.5 g/dL Normal 29.9-35.2 [facility] Comment on above: Performed By: #### V ITAD, PSASC, IRON #### [facility] [address] [place] [address] Dr. Smitha Petersen MCV (RBC) [Entitic vol] 88.5 fL Normal 80.0-94.0 [facility] Comment on above: Performed By: #### V ITAD, PSASC, IRON #### [facility] [address] [place] [address] Dr. Smitha Petersen MONO # 0.6 103/ul Normal 0.3-0.8 [facility] Comment on above: Performed By: #### V ITAD, PSASC, IRON #### [facility] [address] [place] [address] Dr. Smitha Petersen Monocytes/100 WBC (Bld) 6.8 % Normal 1.7-12.0 [facility] Comment on above: Performed By: #### V ITAD, PSASC, IRON #### [facility] [address] [place] [address] Dr. Smitha Petersen NEUT # 6.0 103/ul Normal 1.4-6.5 [facility] Comment on above: Performed By: #### V ITAD, PSASC, IRON #### [facility] [address] [place] [address] Dr. Smitha Petersen Neutrophils/100 WBC (Bld) 69.8 % Normal 43.0-75.0 [facility] Comment on above: Performed By: #### V ITAD, PSASC, IRON #### [facility] [address] [place] [address] Dr. Smitha Petersen Platelet mean volume (Bld) [Entitic vol] 8.7 fL Critically low 9.5-13.5 [facility] Comment on above: Performed By: #### V ITAD, PSASC, IRON #### [facility] [address] [place] [address] Dr. Smitha Petersen PLT 222 103/ul Normal 150-450 [facility] Comment on above: Performed By: #### V ITAD, PSASC, IRON #### [facility] [address] [place] [address] Dr. Smitha Petersen RBC 5.29 106/ul Normal 4.70-6.10 [facility] Comment on above: Performed By: #### V ITAD, PSASC, IRON #### [facility] [address] [place] [address] Dr. Smitha Petersen WBC 8.5 103/ul Normal 4.0-11.0 [facility] Comment on above: Performed By: #### V ITAD, PSASC, IRON #### [facility] [address] [place] [address] Dr. Smitha Petersen FREE THYROXINE INDEX T7on FTI 2.54 Normal 1.30-4.50 [facility] Comment on above: Performed By: #### C MP, BNP, TSH, URIC, T7, LIPID #### [facility] [address] [place] [address] Dr. Smitha Petersen T3U 33.0 % Normal 33.0-40.0 [facility] Comment on above: Performed By: #### C MP, BNP, TSH, URIC, T7, LIPID #### [facility] [address] [place] [address] Dr. Smitha Petersen T4 [Mass/Vol] 7.70 ug/dL Normal 4.50-12.10 [facility] Comment on above: Performed By: #### C MP, BNP, TSH, URIC, T7, LIPID #### [facility] [address] [place] [address] Dr. Smitha Petersen GLYCOHEMOGLOBIN A1Con 2022 ADA RECOMMENDATION SEE BELOW Normal [facility] Comment on above: Result Comment: ADA RECOMMENDED LIMIT 4.0 - 6.0 ADA THERAPEUTIC TARGET < 7.0 ACTION SUGGESTED > 7.0 Performed By: #### V ITAD, PSASC, IRON #### [facility] [address] [place] [address] Dr. Smitha Petersen Glucose [Mass/Vol] 120 mg/dL Normal [facility] Comment on above: Performed By: #### V ITAD, PSASC, IRON #### [facility] [address] [place] [address] Dr. Smitha Petersen HbA1c (Bld) [Mass fraction] 5.8 % Normal 4.5-6.2 [facility] Comment on above: Performed By: #### V ITCHAD PSASC, IRON #### [facility] [address] [place] [address] Dr. Smitha Petersen IRONon 10-17-2022 Iron [Mass/Vol] 66.0 ug/dL Normal 65.0-175.0 [facility] Comment on above: Performed By: #### V BRAXTON PSASC, IRON #### [facility] [address] [place] [address] Dr. Smitha Petersen LIPID PROFILEon 10-17-2022 CHOL-HDL RATIO NORM SEE BELOW Normal [facility] Comment on above: Result Comment: 3.3 - 4.4 LOW RISK 4.4 - 7.1 AVERAGE RISK 7.1 - 11.0 MODERATE RISK >11.0 HIGH RISK Performed By: #### C MP, BNP, TSH, URIC, T7, LIPID #### [facility] [address] [place] [address] Dr. Smitha Petersen Cholesterol [Mass/Vol] 102 mg/dL Normal <=200 [facility] Comment on above: Performed By: #### C MP, BNP, TSH, URIC, T7, LIPID #### [facility] [address] [place] [address] Dr. Smitha Petersen Cholesterol in HDL [Mass/Vol] 45 mg/dL Normal 40-60 [facility] Comment on above: Performed By: #### C MP, BNP, TSH, URIC, T7, LIPID #### [facility] [address] [place] [address] Dr. Smitha Petersen Cholesterol in LDL [Mass/Vol] 35.2 mg/dL Normal [facility] Comment on above: Performed By: #### C MP, BNP, TSH, URIC, T7, LIPID #### [facility] [address] [place] [address] Dr. Smitha Petersen Cholesterol.total/Ch olesterol in HDL [Mass ratio] 2.3 {ratio} Normal [facility] Comment on above: Performed By: #### C MP, BNP, TSH, URIC, T7, LIPID #### [facility] [address] [address] [address] Smitha Petersen HDL NORMAL > or = 60 mg/dl - LO W CARDIOVASCULAR RISK <40 mg/dl - HIGH CARDIOVASCULAR RISK Normal [facility] Comment on above: Performed By: #### C MP, BNP, TSH, URIC, T7, LIPID #### [facility] [address] [address] [address] Smitha Petersen LDL CALC NORMAL SEE BELOW Normal [facility] Comment on above: Result Comment: <100 mg/dl OPTIMAL 100 - 129 mg/dl NEAR OR ABOVE OPTIMAL 130 - 159 mg/dl BORDERLINE HIGH 160 - 189 mg/dl HIGH >190 mg/dl VERY HIGH Performed By: #### C MP, BNP, TSH, URIC, T7, LIPID #### [facility] [address] [address] [address] Smitha Petersen Triglyceride [Mass/Vol] 109 mg/dL Normal <=150 [facility] Comment on above: Performed By: #### C MP, BNP, TSH, URIC, T7, LIPID #### [facility] [address] [address] [address] Smitha Petersen VLDL CALC 21.8 mg/dL Normal [facility] Comment on above: Performed By: #### C MP, BNP, TSH, URIC, T7, LIPID #### [facility] [address] [address] [address] Smitha Petersen PROF 14(COMP METB)on 023 Albumin [Mass/Vol] 3.8 g/dL Normal 3.4-5.0 [facility] Comment on above: Performed By: #### C MP, BNP, TSH, URIC, T7, LIPID #### [facility] [address] [address] [address] Smitha Petersen Albumin/Globulin [Mass ratio] 1.2 {ratio} Normal [facility] Comment on above: Performed By: #### C MP, BNP, TSH, URIC, T7, LIPID #### [facility] [address] [address] [address] Smitha Petersen ALP [Catalytic activity/Vol] 113 U/L Normal 46-116 [facility] Comment on above: Performed By: #### C MP, BNP, TSH, URIC, T7, LIPID #### [facility] [address] [place] [address] Dr. Smitha Petersen ALT [Catalytic activity/Vol] 66 U/L Critically high 16-63 [facility] Comment on above: Performed By: #### C MP, BNP, TSH, URIC, T7, LIPID #### [facility] [address] [place] [address] Dr. Smitha Petersen Anion gap [Moles/Vol] 13.4 mmol/L Normal [facility] Comment on above: Performed By: #### C MP, BNP, TSH, URIC, T7, LIPID #### [facility] [address] [place] [address] Dr. Smitha Petersen AST [Catalytic activity/Vol] 29 U/L Normal 15-37 [facility] Comment on above: Performed By: #### C MP, BNP, TSH, URIC, T7, LIPID #### [facility] [address] [place] [address] Dr. Smitha Petersen Bilirubin [Mass/Vol] 0.3 mg/dL Normal 0.2-1.0 [facility] Comment on above: Performed By: #### C MP, BNP, TSH, URIC, T7, LIPID #### [facility] [address] [place] [address] Dr. Smitha Petersen Calcium [Mass/Vol] 8.9 mg/dL Normal 8.5-10.1 [facility] Comment on above: Performed By: #### C MP, BNP, TSH, URIC, T7, LIPID #### [facility] [address] [place] [address] Dr. Smitha Petersen Chloride [Moles/Vol] 101 mmol/L Normal 98-107 [facility] Comment on above: Performed By: #### C MP, BNP, TSH, URIC, T7, LIPID #### [facility] [address] [place] [address] Dr. Smitha Petersen CO2 [Moles/Vol] 28.8 mmol/L Normal 21.0-32.0 [facility] Comment on above: Performed By: #### C MP, BNP, TSH, URIC, T7, LIPID #### [facility] [address] [place] [address] Dr. Smitha Petersen Creatinine [Mass/Vol] 0.82 mg/dL Normal 0.70-1.30 [facility] Comment on above: Performed By: #### C MP, BNP, TSH, URIC, T7, LIPID #### [facility] [address] [place] [address] Dr. Smitha Petersen EGFR-AF ARMENIAN >60 Normal >=60 [facility] Comment on above: Performed By: #### C MP, BNP, TSH, URIC, T7, LIPID #### [facility] [address] [place] [address] Dr. Smitha Petersen EGFR-NON AF ARMENIAN >60 Normal >=60 [facility] Comment on above: Performed By: #### C MP, BNP, TSH, URIC, T7, LIPID #### [facility] [address] [place] [address] Dr. Smitha Petersen Globulin (S) [Mass/Vol] 3.3 g/dL Normal [facility] Comment on above: Performed By: #### C MP, BNP, TSH, URIC, T7, LIPID #### [facility] [address] [place] [address] Dr. Smitha Petersen Glucose [Mass/Vol] 100 mg/dL Normal 74-106 [facility] Comment on above: Performed By: #### C MP, BNP, TSH, URIC, T7, LIPID #### [facility] [address] [place] [address] Dr. Smitha Petersen Potassium [Moles/Vol] 4.2 mmol/L Normal 3.5-5.1 [facility] Comment on above: Performed By: #### C MP, BNP, TSH, URIC, T7, LIPID #### [facility] [address] [place] [address] Dr. Smitha Petersen Protein [Mass/Vol] 7.1 g/dL Normal 6.4-8.2 [facility] Comment on above: Performed By: #### C MP, BNP, TSH, URIC, T7, LIPID #### [facility] [address] [address] [address] Smitha Petersen Sodium [Moles/Vol] 139 mmol/L Normal 136-145 [facility] Comment on above: Performed By: #### C MP, BNP, TSH, URIC, T7, LIPID #### [facility] [address] [place] [address] Dr. Smitha Petersen Urea nitrogen [Mass/Vol] 14.0 mg/dL Normal 7.0-18.0 [facility] Comment on above: Performed By: #### C MP, BNP, TSH, URIC, T7, LIPID #### [facility] [address] [place] [address] Dr. Smitha Petersen Urea nitrogen/Creatinine [Mass ratio] 17.1 mg/mg Normal [facility] Comment on above: Performed By: #### C MP, BNP, TSH, URIC, T7, LIPID #### [facility] [address] [place] [address] Dr. Smitha Petersen TSHon 10-17-2022 TSH 0.796 uIU/mL Normal 0.358-3.740 [facility] Comment on above: Performed By: #### C MP, BNP, TSH, URIC, T7, LIPID #### [facility] [address] [place] [address] Dr. Smitha Petersen URIC ACID SERUMon 10-17-2022 Urate [Mass/Vol] 6.4 mg/dL Normal 3.5-7.2 [facility] Comment on above: Performed By: #### C MP, BNP, TSH, URIC, T7, LIPID #### [facility] [address] [place] [address] Dr. Smitha Petersen VITAMIN D 25 OHon 10-17-2022 VIT D 25-OH 17.5 ng/mL Normal [facility] Comment on above: Performed By: #### V ITAD, PSASC, IRON #### [facility] [address] [place] [address] Dr. Smitha Petersen VIT D RANGES SEE BELOW Normal [facility] Comment on above: Result Comment: <20 ng/mL Vit D deficient 20 - <30 ng/mL Vit D insufficient 30 - 100 ng/mL Vit D sufficient >100 ng/mL Potential Toxicity Performed By: #### V ITAD, PSASC, IRON #### [facility] [address] [place] [address] Dr. Smitha Petersen ECHOCARDIO M/2D COMPLETEon 1 10-15-2021 ECHOCARDIO M/2D COMPLETE Patient: MK ROSALES Exam Date: 08/14/2022 : 1970 Gender:M Ordering : DR SHANEL FERNANDEZ . Admission #: [id number] Family : Order #: [id number] CLICK HERE TO VIEW EXAM ECHOCARDIOGRAM REPORT [...] Matta M.D. on 08/14/2022 at 18:[address] [facility] NM STRESS/REST MULTIon 07-23 NM STRESS/REST MULTI Patient: KATINA ROSALES Exam Date: 07/23/2022 : 1970 Gender:M Ordering : DR SHANEL FERNANDEZ . Admission #: [id number] Family : Order #: [id number] CLICK HERE TO VIEW EXAM RADIOLOGY REPORT [...] Kowalski MD on 08/06/2022 at 12:[address] [facility] CT LUNG CANCER SCREENINGon 1 09-12-2021 [...] by: PATRICIO LUTZ Date: 2022-07-13 08:[address] [facility] THEOPHYLLINEon 07-10-2022 THEOPHYLLINE 16.4 ug/mL Normal 10.0-20.0 [facility] Comment on above: Performed By: #### V ITAD, PSASC, IRON #### [facility] [address] [place] [address] Dr. 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 MRI KNEE LT WO CONon 022 MRI [...] by: PATRICIO LUTZ Date: 2022-05-30 11:[address] [facility] LIPID PROFILEon 04-05-2022 CHOL-HDL RATIO NORM SEE BELOW Normal [facility] Comment on above: Result Comment: 3.3 - 4.4 LOW RISK 4.4 - 7.1 AVERAGE RISK 7.1 - 11.0 MODERATE RISK >11.0 HIGH RISK Performed By: #### V ITAD, PSASC, IRON #### [facility] [address] [address] [address] Smitha Petersen Cholesterol [Mass/Vol] 129 mg/dL Normal <=200 [facility] Comment on above: Performed By: #### V ITAD, PSASC, IRON #### [facility] [address] [address] [address] Smitha Petersen Cholesterol in HDL [Mass/Vol] 40 mg/dL Normal 40-60 [facility] Comment on above: Performed By: #### V ITAD, PSASC, IRON #### [facility] [address] [address] [address] Smitha Petersen Cholesterol in LDL [Mass/Vol] 57.2 mg/dL Normal [facility] Comment on above: Performed By: #### V ITAD, PSASC, IRON #### [facility] [address] [address] [address] Smitha Petersen Cholesterol.total/Ch olesterol in HDL [Mass ratio] 3.2 {ratio} Normal [facility] Comment on above: Performed By: #### V ITAD, PSASC, IRON #### [facility] [address] [address] [address] Smitha Petersen HDL NORMAL > or = 60 mg/dl - LO W CARDIOVASCULAR RISK <40 mg/dl - HIGH CARDIOVASCULAR RISK Normal [facility] Comment on above: Performed By: #### V ITAD, PSASC, IRON #### [facility] [address] [address] [address] Smitha Petersen LDL CALC NORMAL SEE BELOW Normal [facility] Comment on above: Result Comment: <100 mg/dl OPTIMAL 100 - 129 mg/dl NEAR OR ABOVE OPTIMAL 130 - 159 mg/dl BORDERLINE HIGH 160 - 189 mg/dl HIGH >190 mg/dl VERY HIGH Performed By: #### V ITAD, PSASC, IRON #### [facility] [address] [address] [address] Smitha Petersen Triglyceride [Mass/Vol] 159 mg/dL Critically high <=150 [facility] Comment on above: Performed By: #### V ITAD, PSASC, IRON #### [facility] [address] [address] [address] Smitha Petersen VLDL CALC 31.8 mg/dL Normal [facility] Comment on above: Performed By: #### V ITAD, PSASC, IRON #### [facility] [address] [place] [address] Dr. Smitha Petersen CBC AUTO DIFFon 03-22-2022 BASO # 0.1 103/ul Normal 0.0-0.1 [facility] Comment on above: Performed By: #### V ITAD, PSASC, IRON #### [facility] [address] [place] [address] Dr. Smitha Petersen Basophils/100 WBC (Bld) 0.5 % Normal 0.2-2.0 [facility] Comment on above: Performed By: #### V ITAD, PSASC, IRON #### [facility] [address] [place] [address] Dr. Smitha Petersen EO # 0.4 103/ul Normal 0.0-0.7 [facility] Comment on above: Performed By: #### V ITAD, PSASC, IRON #### [facility] [address] [place] [address] Dr. Smitha Petersen Eosinophils/100 WBC (Bld) 3.5 % Normal 0.9-7.0 [facility] Comment on above: Performed By: #### V ITAD, PSASC, IRON #### [facility] [address] [place] [address] Dr. Smitha Petersen Erythrocyte distribution width (RBC) [Ratio] 15.1 % Critically high 11.0-15.0 [facility] Comment on above: Performed By: #### V ITAD, PSASC, IRON #### [facility] [address] [place] [address] Dr. Smitha Petersen Hematocrit (Bld) [Volume fraction] 46.8 % Normal 42.0-54.0 [facility] Comment on above: Performed By: #### V ITAD, PSASC, IRON #### [facility] [address] [address] [address] Smitha Petersen Hemoglobin (Bld) [Mass/Vol] 15.5 g/dL Normal 14.0-18.0 [facility] Comment on above: Performed By: #### V ITAD, PSASC, IRON #### [facility] [address] [address] [address] Smitha Petersen IG # 0.03 10e3/ul Normal 0.00-0.03 [facility] Comment on above: Performed By: #### V ITAD, PSASC, IRON #### [facility] [address] [place] [address] Dr. Smitha Petersen IG % 0.3 % Normal 0.0-0.5 [facility] Comment on above: Performed By: #### V ITAD, PSASC, IRON #### [facility] [address] [place] [address] Dr. Smitha Petersen LYMPH # 2.6 103/ul Normal 1.2-3.8 [facility] Comment on above: Performed By: #### V ITAD, PSASC, IRON #### [facility] [address] [address] [address] Smitha Petersen Lymphocytes/100 WBC (Bld) 25.0 % Normal 20.5-60.0 [facility] Comment on above: Performed By: #### V ITAD, PSASC, IRON #### [facility] [address] [place] [address] Dr. Smitah Petersen MANUAL DIFF REQ NO Normal [facility] Comment on above: Performed By: #### V ITAD, PSASC, IRON #### [facility] [address] [place] [address] Dr. Smitha Petersen MCH (RBC) [Entitic mass] 29.6 pg Normal 25.9-34.0 [facility] Comment on above: Performed By: #### V ITAD, PSASC, IRON #### [facility] [address] [place] [address] Dr. Smitha Petersen MCHC (RBC) [Mass/Vol] 33.1 g/dL Normal 29.9-35.2 [facility] [place] [facility] Comment on above: Performed By: #### V ITAD, PSASC, IRON #### [facility] [address] [place] [address] Dr. Smitha Petersen MCV (RBC) [Entitic vol] 89.5 fL Normal 80.0-94.0 [facility] Comment on above: Performed By: #### V ITAD, PSASC, IRON #### [facility] [address] [place] [address] Dr. Smitha Petersen MONO # 0.7 103/ul Normal 0.3-0.8 [facility] Comment on above: Performed By: #### V ITAD, PSASC, IRON #### [facility] [address] [place] [address] Dr. Smitha Petersen Monocytes/100 WBC (Bld) 7.0 % Normal 1.7-12.0 [facility] Comment on above: Performed By: #### V ITAD, PSASC, IRON #### [facility] [address] [place] [address] Dr. Smitha Petersen NEUT # 6.7 103/ul Critically high 1.4-6.5 [facility] Comment on above: Performed By: #### V ITAD, PSASC, IRON #### [facility] [address] [place] [address] Dr. Smitha Petersen Neutrophils/100 WBC (Bld) 63.7 % Normal 43.0-75.0 [facility] Comment on above: Performed By: #### V ITAD, PSASC, IRON #### [facility] [address] [place] [address] Dr. Smitha Petersen Platelet mean volume (Bld) [Entitic vol] 8.9 fL Critically low 9.5-13.5 [facility] Comment on above: Performed By: #### V ITAD, PSASC, IRON #### [facility] [address] [place] [address] Dr. Smitha Petersen PLT 245 103/ul Normal 150-450 [facility] Comment on above: Performed By: #### V ITAD, PSASC, IRON #### [facility] [address] [place], [place] [address] Dr. Smitha Petersen RBC 5.23 106/ul Normal 4.70-6.10 [facility] Comment on above: Performed By: #### V ITAD, PSASC, IRON #### [facility] [address] [place], [place] [address] Dr. Smitha Petersen WBC 10.5 103/ul Normal 4.0-11.0 [facility] Comment on above: Performed By: #### V ITAD, PSASC, IRON #### [facility] [address] [place], [place] [address] ABD/PELVIS WO CONon [...] BLU GASPAR Date: 2022-03-22 21:12 Normal [facility] CULTURE URINEon 03-22-2022 CULTURE URINE Culture Observations : NO GROWTH. Normal [facility] Comment on above: Performed By: #### V ITAD, PSASC, IRON #### [facility] [address] [address] [address] Smitha Petersen ER URINE PROFILEon 2 Bilirubin Ql (U) Negative Normal NEGATIVE [facility] Comment on above: Performed By: #### V ITAD, PSASC, IRON #### [facility] [address] [place] [address] Dr. Smitha Petersen Clarity (U) CLEAR Normal CLEAR [facility] Comment on above: Performed By: #### V ITAD, PSASC, IRON #### [facility] [address] [place] [address] Dr. Smitha Petersen Color (U) LT. YELLOW Normal YELLOW [facility] Comment on above: Performed By: #### V ITAD, PSASC, IRON #### [facility] [address] [place] [address] Dr. Smitha Petersen ERUD A micrscopic examination will be performed if indicated. Normal [facility] Comment on above: Performed By: #### V ITAD, PSASC, IRON #### [facility] [address] [address] [address] Smitha Petersen Glucose Ql (U) Negative Normal NEGATIVE [facility] Comment on above: Performed By: #### V ITAD, PSASC, IRON #### [facility] [address] [place] [address] Dr. Smitha Petersen Hemoglobin Ql (U) TRACE-INTACT Abnormal NEGATIVE [facility] Comment on above: Performed By: #### V ITAD, PSASC, IRON #### [facility] [address] [place] [address] Dr. Smitha Petersen Ketones Ql (U) Negative Normal NEGATIVE [facility] Comment on above: Performed By: #### V ITAD, PSASC, IRON #### [facility] [address] [place] [address] Dr. Smitha Petersen LEUKOCYTES TRACE Abnormal NEGATIVE [facility] Comment on above: Performed By: #### V ITAD, PSASC, IRON #### [facility] [address] [address] [address] Smitha Petersen Nitrite Ql (U) Negative Normal NEGATIVE [facility] Comment on above: Performed By: #### V ITAD, PSASC, IRON #### [facility] [address] [place] [address] Dr. Smitha Petersen pH (U) 5.5 [pH] Normal 5-9 [facility] Comment on above: Performed By: #### V ITAD, PSASC, IRON #### [facility] [address] [place] [address] Dr. Smitha Petersen SPEC GRAVITY 1.010 Normal 1.005-<=1.025 [facility] Comment on above: Performed By: #### V ITAD, PSASC, IRON #### [facility] [address] [place] [address] Dr. Smitha Petersen UA PROTEIN Negative Normal NEGATIVE/ TRACE [facility] [place] [facility] Comment on above: Performed By: #### V ITAD, PSASC, IRON #### [facility] [address] [place] [address] Dr. Smitha Petersen UR MICRO IND INDICATED Normal [facility] [place] [facility] Comment on above: Performed By: #### V ITAD, PSASC, IRON #### [facility] [address] [place] [address] Dr. Smitha Petersen Urobilinogen Qn (U) 0.2 {Zach'U}/dL Normal 0.2 - 1. 0 [facility] Comment on above: Performed By: #### V ITAD, PSASC, IRON #### [facility] [address] [place] [address] Dr. Smitha Petersen PROF 14(COMP METB)on 022 Albumin [Mass/Vol] 4.0 g/dL Normal 3.4-5.0 [facility] Comment on above: Performed By: #### V ITAD, PSASC, IRON #### [facility] [address] [address] [address] Smitha Petersen Albumin/Globulin [Mass ratio] 1.2 {ratio} Normal [facility] Comment on above: Performed By: #### V ITAD, PSASC, IRON #### [facility] [address] [place] [address] Dr. Smitha Petersen ALP [Catalytic activity/Vol] 113 U/L Normal 46-116 [facility] Comment on above: Performed By: #### V ITAD, PSASC, IRON #### [facility] [address] [place] [address] Dr. Smitha Petersen ALT [Catalytic activity/Vol] 53 U/L Normal 16-63 [facility] Comment on above: Performed By: #### V ITAD, PSASC, IRON #### [facility] [address] [address] [address] Smitha Petersen Anion gap [Moles/Vol] 15.3 mmol/L Normal [facility] Comment on above: Performed By: #### V ITAD, PSASC, IRON #### [facility] [address] [place] [address] Dr. Smitha Petersen AST [Catalytic activity/Vol] 18 U/L Normal 15-37 [facility] Comment on above: Performed By: #### V ITAD, PSASC, IRON #### [facility] [address] [address] [address] Smitha Petersen Bilirubin [Mass/Vol] 0.4 mg/dL Normal 0.2-1.0 [facility] Comment on above: Performed By: #### V ITAD, PSASC, IRON #### [facility] [address] [place] [address] Dr. Smitha Petersen Calcium [Mass/Vol] 9.2 mg/dL Normal 8.5-10.1 [facility] Comment on above: Performed By: #### V ITAD, PSASC, IRON #### [facility] [address] [address] [address] Smitha Petersen Chloride [Moles/Vol] 101 mmol/L Normal 98-107 [facility] Comment on above: Performed By: #### V ITAD, PSASC, IRON #### [facility] [address] [place] [address] Dr. Smitha Petersen CO2 [Moles/Vol] 24.8 mmol/L Normal 21.0-32.0 [facility] Comment on above: Performed By: #### V ITAD, PSASC, IRON #### [facility] [address] [place] [address] Dr. Smitha Petersen Creatinine [Mass/Vol] 0.96 mg/dL Normal 0.70-1.30 [facility] Comment on above: Performed By: #### V ITAD, PSASC, IRON #### [facility] [address] [place] [address] Dr. Smitha Petersen EGFR-AF ARMENIAN >60 Normal >=60 [facility] Comment on above: Performed By: #### V ITAD, PSASC, IRON #### [facility] [address] [place] [address] Dr. Smitha Petersen EGFR-NON AF ARMENIAN >60 Normal >=60 [facility] Comment on above: Performed By: #### V ITAD, PSASC, IRON #### [facility] [address] [place] [address] Dr. Smitha Petersen Globulin (S) [Mass/Vol] 3.4 g/dL Normal [facility] Comment on above: Performed By: #### V ITAD, PSASC, IRON #### [facility] [address] [place] [address] Dr. Smitha Petersen Glucose [Mass/Vol] 146 mg/dL Critically high 74-106 [facility] Comment on above: Performed By: #### V ITAD, PSASC, IRON #### [facility] [address] [place] [address] Dr. Smitha Petersen Potassium [Moles/Vol] 4.1 mmol/L Normal 3.5-5.1 [facility] [place] [facility] Comment on above: Performed By: #### V ITAD, PSASC, IRON #### [facility] [address] [address] [address] Smitha Petersen Protein [Mass/Vol] 7.4 g/dL Normal 6.4-8.2 [facility] Comment on above: Performed By: #### V ITAD, PSASC, IRON #### [facility] [address] [place] [address] Dr. Smitha Petersen Sodium [Moles/Vol] 137 mmol/L Normal 136-145 [facility] Comment on above: Performed By: #### V ITAD, PSASC, IRON #### [facility] [address] [place] [address] Dr. Smitha Petersen Urea nitrogen [Mass/Vol] 22.0 mg/dL Critically high 7.0-18.0 [facility] Comment on above: Performed By: #### V ITAD, PSASC, IRON #### [facility] [address] [place] [address] Dr. Smitha Petersen Urea nitrogen/Creatinine [Mass ratio] 22.9 mg/mg Normal [facility] Comment on above: Performed By: #### V ITAD, PSASC, IRON #### [facility] [address] [place] [address] Dr. Smitha Petersen URINE MICROSCOPIC ONLYon BACTERIA TRACE Abnormal NONE SEEN [facility] Comment on above: Performed By: #### V ITAD, PSASC, IRON #### [facility] [address] [place] [address] Dr. Smitha Petersen Bacteria identified Cx Nom (U) INDICATED Normal [facility] Comment on above: Performed By: #### V ITAD, PSASC, IRON #### [facility] [address] [place] [address] Dr. Smitha Petersen CAST NONE SEEN Normal NONE SEEN [facility] Comment on above: Performed By: #### V ITAD, PSASC, IRON #### [facility] [address] [address] [address] Smitha Petersen Crystals LM Nom (Urine sed) NONE SEEN Normal NONE SEEN [facility] Comment on above: Performed By: #### V ITAD, PSASC, IRON #### [facility] [address] [place] [address] Dr. Smitha Petersen Epithelial cells LM Ql (Urine sed) NONE SEEN Normal NONE SEEN /RARE [facility] Comment on above: Performed By: #### V ITAD, PSASC, IRON #### [facility] [address] [place] [address] Dr. Smitha Petersen MUCOUS NONE SEEN Normal NONE SEEN [facility] Comment on above: Performed By: #### V ITAD, PSASC, IRON #### [facility] [address] [place] [address] Dr. Smitha Petersen RBC NONE SEEN Abnormal 0-2 [facility] Comment on above: Performed By: #### V ITAD, PSASC, IRON #### [facility] [address] [place] [address] Dr. Smitha Petersen WBC 5-10 Abnormal NONE SEEN [facility] Comment on above: Performed By: #### V ITAD, PSASC, IRON #### [facility] [address] [place] [address] Dr. Smitha Petersen US TRAV DOP LEG [...] PATRICIO LUTZ Date: 2022-01-23 11:39 Normal [facility] Operative Reporton Operative Report MR#: [id number] [facility] Pt. Name: Mk Rosales Room #: 0C Discharge Date: Birthdate: 1970 OPERATIVE REPORT DATE OF SURGERY: 09/15/2020 SURGEON: Mk Min M.D. PREOPERATIVE DIAGNOSIS: Left knee medial meniscus tear, unstable. POSTOPERATIVE DIAGNOSIS: 1. Left knee medial meniscus tear, unstable. 2. Left knee chondral tear patella. SURGEON: Mk Min M.D. [employer]DER: Nelson Leos MD ANESTHESIA: General. PROCEDURE PERFORMED: [...] Min M.D. Date Trans: 09/15/2020 09:36 A/zoey [id number] cc: Shanel Fernandez M.D. [address] [address] Normal [facility] POC GLUCOSE LABon 09-15-2020 Glucose [Mass/Vol] 101 mg/dL High 70-100 [facility] Comment on above: Performed By: #### 8 5499 #### [address] Vital Signs Date Time Vital Sign Value Performing Clinician Facility 11-05-2022 09:00-0500 Body height Berenice Blades Other [facility] Other 11-05-2022 09:00-0500 Body mass index (BMI) [Ratio] 38.24 kg/m2 [facility] Other 11-05-2022 09:00-0500 Body weight 117.48 kg Berenice Blades Other [facility] Other 11-05-2022 09:00-0500 Diastolic blood pressure 94 mm[Hg] Berenice Blades Other [facility] Other 11-05-2022 09:00-0500 Systolic blood pressure 156 mm[Hg] Berenice Blades Other [facility] Other 10-26-2022 08:00-0500 Body height Berenice Blades Other [facility] Other 10-26-2022 08:00-0500 Body mass index (BMI) [Ratio] 38.24 kg/m2 Berenice Blades Other [facility] Other 10-26-2022 08:00-0500 Body weight 117.48 kg Berenice Blades Other [facility] Other 10-26-2022 08:00-0500 Diastolic blood pressure 89 mm[Hg] Berenice Blades Other [facility] Other 10-26-2022 08:00-0500 Systolic blood pressure 130 mm[Hg] Berenice Blades Other [facility] Other Encounters Encounter Date Encounter Type Care Provider Facility Start: 02-18-2024 End: 02-18-2024 ambulatory ARLINE VALDES Not Available Start: 02-03-2024 End: [facility]: 02-26-2023 End: 02-26-2023 ambulatory HAL CHRISTENSEN [facility] Start: 01-01-2023 End: 01-02-2023 ambulatory TREVORMARY ANN LEONG . Facility:[facility] Start: 12-19-2022 ambulatory SHANEL HOY Facility:[facility] Start: 12-12-2022 ambulatory SHANEL HOY Facility:[facility] Start: 11-05-2022 End: 11-05-2022 ambulatory Berenice Blades Other [facility] Other Start: 11-05-2022 Office outpatient vi sit 15 minutes Berenice Blades [facility] Start: 11-01-2022 End: 11-02-2022 ambulatory BERENICE BLADES Facility:[facility] Start: 10-26-2022 End: 10-26-2022 ambulatory Berenice Blades Other [facility] Other Start: 10-26-2022 Office outpatient ne w 45 minutes Berenice Blades [facility] Start: 10-17-2022 End: 10-18-2022 [...] Start: 09-15-2020 End: 09-16-2020 ambulatory SHANEL HOY Facility:[facility] Procedures Date Procedure Procedure Detail Performing Clinician Start: 10-17-2022 PSA screening SHANEL SIFUENTES Comment on above: Performed By: #### V ITAD, PSASC, IRON #### [facility] [address] [place] [address] Dr. Smitha Petersen Start: 09-15-2020 ANESTH KNEE JOINT SURGERY JAYSON CHEN Start: 09-15-2020 KNEE ARTHROSCOPY/SURGERY MK MIN Plan of Treatment Date Care Activity Detail Author Start: 01-23-2023 ambulatory Ambulatory Facility: 1 Payers Date Payer Category Payer Medicare [id number] 1970 Unknown [id number] 2.16.8 [id number] 1970 Unknown [id number] 2.16.84 0.1.565405.3.579.2.593 1970 Unknown [id number] 2.16.84 0.1.940746.3.579.2.593 1970 Unknown [id number] 2.16.84 0.1.000800.3.579.2.593 1970 Unknown [id number] 2.16.84 0.1.548032.3.579.2.593 1970 Unknown [id number] 2.16.84 0.1.804115.3.579.2.593 1971 Unknown [id number] 2.16.84 0.1.498184.3.579.2.593 1970 Unknown [id number] 2.16.84 0.1.320710.3.579.2.593 1971 Unknown [id number] 2.16.84 0.1.642365.3.579.2.593 1971 Unknown [id number] 2.16.84 0.1.295311.3.579.2.593 1971 Unknown [id number] 2.16.84 0.1.000699.3.579.2.593 1971 Unknown [id number] 2.16.84 0.1.255542.3.579.2.593 1971 Unknown [id number] 2.16.84 0.1.813527.3.579.2.593 1971 Unknown [id number] 2.16.84 0.1.786390.3.579.2.593 1971 Unknown [id number] 2.16.84 0.1.571226.3.579.2.593 1971 Unknown [id number] 2.16.84 0.1.362503.3.579.2.593 1971 Unknown [id number] 2.16.84 0.1.933488.3.579.2.593 1971 Unknown [id number] 2.16.84 0.1.966391.3.579.2.593 1971 Unknown [id number] 2.16.84 0.1.812084.3.579.2.1259 1958 Medicare [id number] 2.1 [id number] 1958 Self-pay [id number] 1958 Unknown [id number] Self-pay Self Pay [id number] Unknown Self Pay [id number] Social History Date Type Detail Facility Tobacco smoking status [facility] Unknown if ever smoked [facility] Work Phone: Start: 1970 Sex Assigned At Male F [facility] Sex Assigned At Sex Assigned At Bir th [facility] [employer] Other Progress note 02-03-2024 Note Date & [...] history of COPD (chronic obstructive pulmonary disease) ([facility]), Coronary artery disease, Diabetes mellitus ([facility]), Hypertension, Seizures ([facility]), and Sleep apnea. Surgical History [...] by mouth at bedtime., Disp: , Rfl: [id number] 160-9-4.8 mcg/actuation HFA aerosol inhaler, Breztri Aerosphere [...] Echocardiogram 08/14/2022 Con (more content not included)... [facility] Progress note 02-26-2023 Note Date & Type Note Facility 02-26-2023 Note 10 min discussion ab out importance of smoking cessation- pt reports he does not smoke cigarrettes daily- only when stressed and buys a pack abouit every 1-2 weeks. He is not willing to completely quit smoking. [facility] Progress note 02-26-2023 Note Date & Type Note Facility 02-26-2023 Note Coronary artery dise ase is stable without any concerning cardiac symptoms Continue GDMT- ASA, lipitor, lopressor, plavix, metoprolol continue risk factor modifications- heart healthy diet, regular exercise as tolerated and continue all medications. [facility] Progress note 02-26-2023 Note Date & Type Note Facility 02-26-2023 Note Patient here for 1 y ear follow up CAD and hypertension. He had carotid us and routine labs a few months ago. Denies chest pain but has POSEY (COPD) and sees Dr. Leong. He was told by a neurosurgeon in [place] a few months ago that he had a minor stroke s/p MRI head. Review of Systems Cardiovascular: Positive for dyspnea on exertion. Musculoskeletal: Positive for arthritis, back pain and muscle weakness. All other systems reviewed and are negative. [facility] Progress note 02-26-2023 Note Date [...] He was told by a neurosurgeon in [place] a few months ago that he had [...] Take 80 mg by mouth at bedtime. [id number]-gvcvlharye 160-9-4.8 mcg/actuation HFA aerosol inhaler Breztri Aerosphere [...] is not willing to completely quit smoking. [facility] Evaluation note 11-05-2022 Note Date & Type Note Facility 11-05-2022 Evaluation note Encounter Date Diagnosis Assessment Notes Oct, Left leg pain (ICD-10 - M79.605) [facility] Other Evaluation note 10-26-2022 Note Date & Type Note Facility 10-26-2022 Evaluation note Encounter Date Diagnosis Assessment Notes Oct, Cerebral infarct (ICD-10 - I63.9) Oct, Encephalomalacia (ICD-10 - G93.89) [facility] [employer] Other Clinical Note 08-06-2022 Note Date & [...] and reported in a separate dictation. [facility] Evaluation note Note Date & Type Note Facility Evaluation note No assessment information [facility] Work Phone: History general Narrative - [...] Surgical History angioplasty Hospitalization History see above [facility] Other Summary Purpose Family History No Family [...] and content) DATE CREATED AUTHOR 08/18/2021 [facility] DATE CREATED AUTHOR AUTHOR'S ORGANIZ ATION 01/10/[address] [facility] DATE CREATED AUTHOR AUTHOR'S ORGANIZ ATION 02/03/2024 [facility] DATE CREATED AUTHOR AUTHOR'S ORGANIZ ATION 02/19/2024 [facility] EPIC Goals (unrecognized section and content) Goals may be documented in a n alternate sectionGoals may be documented in an alternate sectionNo InformationNo Information REASON FOR VISIT (unrecogniz ed section and content) Ref Dr Mallory, Left sided weakness; left leg painMRI, ultrasound results test done 11/01/22 @[facility] FOR RECORDS PERTAINING TO PATIENTS WHO ARE [...] BE BASED ON THE PRIMARY CLINICAL RECORDS. [employer] provides no warranty or guarantee of the accuracy or completeness of information in this document.
== END 2024-06-12 08:20 | disposition home or self-care (01) ==
LOC: NM 08:19
PROVIDERS: PCP Family Medicine; Visit Provider Family Medicine
DX: I25.2 Old myocardial infarction (principal)
CPT/HCPCS: 78452; A9500

== ENCOUNTER 2024-06-16 07:17 | Outpatient (OUT) | payer MEDICARE, SELFPAY ==
--- NOTE | 2024-06-16 | PCN_ITS ---
CARDIAC STRESS TEST Requesting Physician: Procedure Date: 06/16/2024 Lexiscan Stress Test INDICATION: Old myocardial infarction. Patient?s resting heart rate 70 beats per minute, resting blood pressure 140/92 mm/Hg. Peak heart rate 96 beats per minute, which represents 57% of age predicted maximum heart rate. Peak blood pressure 140/96. The patient received 0.4 mg IV Lexiscan injected. Patient did not have any significant symptoms. Resting EKG showed normal sinus rhythm, heart 72 bmp. No significant T or ST changes. EKG did not show significant changes after Lexiscan injection. Rare isolated PVCs were noted. CONCLUSION: 1. Negative Lexiscan EKG stress test for ischemia. 2. The nuclear myocardial perfusion images result will be reported separately by [facility]. Arden Dhillon MD, FACC [facility]
--- OUTSIDE RECORDS SUMMARY | 2024-06-16 07:20 | XMS_ITS | CCD ---
Author Organization [facility] Care Team Providers Care Roll Picker Name Role Phone SHANEL FERNANDEZ Referring Unavailable MK MIN H Admitting Unavailable MK MIN Attending Unavailable MK MIN Surgeon Unavailable [place] Procedure Practitioner Unavailab le HOY, SHANEL Primary Care Unavailable CUBA CHENKESH Surgeon Unavailable [place] Procedure Practitioner Unavailab le Blades, Berenice Unavailable [...] Unavailable SAMSA ., TREVOR Admitting Unavailable HOY, SAHNEL Primary Care Unavailable SAMSA ., TREVRO Attending Unavailable HOY, SHANEL Consulting Unavailable HOY, SHANEL Attending Unavailable HOY, SHANEL Primary Care Unavailable HOY, SHANEL Admitting Unavailable CONNOR CHARLES Attending Unavailable HAL CHRISTENSEN Attending Unavailable ARLINE VALDES Attending Unavailable Allergies Allergy Classification Reported Allergen(s) Allergy Type Date of Onset Reaction(s) Facility (1 source) 67811,00; 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: [43464,00] Propensity to adverse reactions (disorder) 9 [facility] Repository Medications Current Medications Medication Drug [...] PO Twice daily January 12, 2019 9:32am Gltvapel-Bxd-Uqvnmgy Fumarate (Multi Vitamin) 9 mg iron/15 mL Liquid (2 sources) Start: 01-12-2019 take 1 tablet by mouth once daily Gkguslft-Ppn-Jmtpj us Fumarate (Multi Vitamin) 9 mg iron/15 [...] take 1 puff(s) by inhalation once daily Fmloatzrcql-Hsqewsogv-Teaezuyz Active 1 PUFF INHALATION Daily January 12, [...] coronary angioplasty; 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: [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] Onset: 04-05-2022 [...] 08-14-2022 Episodic Other aftercare (1 source) 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; 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: [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] Onset: 03-26-2022 Episodic Other aftercare (1 source) Other half-way (current) drug therapy; 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: [OTH ASSISTED CURRENT DRUG THERAPY] Onset: 03-26-2022 Episodic Residual [...] Range Facility Office Visiton 02-03-2024 Follow-up visit [id number] Ankush Rosales F 1970 M Date Provider Department Center 02/03/2024 Kristy-[facility] Cindy [facility] Family History Problem Relation Age of Onset Coronary artery disease Father Heart attack Father Family Status - Relation Status Age at Father Level of Service:98234 [place] OFFICE/OUTPATIENT ESTABLISHED MOD MDM 30 MIN Normal [facility] Office Visiton 02-26-2023 Follow-up visit [id number] Ankush Rosales F 1970 M Date Provider Department Center 02/26/2023 Benjamin-HAL CHRISTENSEN [facility] Family History Problem Relation Age of Onset Coronary artery disease Father Heart attack Father Family Status - Relation Status Age at Father Level of Service:93910 [place] OFFICE/OUTPATIENT ESTABLISHED LOW MDM 20-29 MIN Normal [facility] THEOPHYLLINEon 01-01-2023 THEOPHYLLINE 17.6 ug/mL Normal 10.0-20.0 [facility] Comment on above: Performed By: #### V ITCHAD, PSASC, IRON #### [facility] [address] [place] [address] Dr. Smitha Petersen MRI BRAIN WO CONon [...] by: MK SÁNCHEZ Date: 2022-11-01 16:53 Normal [facility] US CAROTID ART BILon 023 US CAROTID [...] by: MK KOWALSKI Date: 2022-11-01 16:16 Normal [facility] BNPon 10-17-2022 Natriuretic peptide B (Bld) [Mass/Vol] 32.0 pg/mL Normal <=900.0 [facility] Comment on above: Performed By: #### C MP, BNP, TSH, URIC, T7, LIPID #### [facility] [address] [place] [address] Dr. Smitha Petersen CBC AUTO DIFFon 10-17-2022 BASO # 0.0 103/ul Normal 0.0-0.1 [facility] Comment on above: Performed By: #### V ITAD, PSASC, IRON #### [facility] [address] [place] [address] Dr. Smitha Petersen Basophils/100 WBC (Bld) 0.4 % Normal 0.2-2.0 [facility] Comment on above: Performed By: #### V ITAD, PSASC, IRON #### [facility] [address] [place] [address] Dr. Smitha Petersen EO # 0.2 103/ul Normal 0.0-0.7 [facility] Comment on above: Performed By: #### V ITAD, PSASC, IRON #### [facility] [address] [place] [address] Dr. Smitha Petersen Eosinophils/100 WBC (Bld) 2.4 % Normal 0.9-7.0 [facility] Comment on above: Performed By: #### V ITAD, PSASC, IRON #### [facility] [address] [place] [address] Dr. Smitha Petersen Erythrocyte distribution width (RBC) [Ratio] 13.8 % Normal 11.0-15.0 [facility] Comment on above: Performed By: #### V ITAD, PSASC, IRON #### [facility] [address] [place] [address] Dr. Smitha Petersen Hematocrit (Bld) [Volume fraction] 46.8 % Normal 42.0-54.0 [facility] Comment on above: Performed By: #### V ITAD, PSASC, IRON #### [facility] [address] [place] [address] Dr. Smitha Petersen Hemoglobin (Bld) [Mass/Vol] 15.7 g/dL Normal 14.0-18.0 [facility] Comment on above: Performed By: #### V ITAD, PSASC, IRON #### [facility] [address] [place] [address] Dr. Smitha Petersen IG # 0.04 10e3/ul Critically high 0.00-0.03 [facility] Comment on above: Performed By: #### V ITAD, PSASC, IRON #### [facility] [address] [place] [address] Dr. Smitha Petersen IG % 0.5 % Normal 0.0-0.5 [facility] Comment on above: Performed By: #### V ITAD, PSASC, IRON #### [facility] [address] [place] [address] Dr. Smitha Petersen LYMPH # 1.7 103/ul Normal 1.2-3.8 [facility] Comment on above: Performed By: #### V ITAD, PSASC, IRON #### [facility] [address] [place] [address] Dr. Smitha Petersen Lymphocytes/100 WBC (Bld) 20.1 % Critically low 20.5-60.0 [facility] Comment on above: Performed By: #### V ITAD, PSASC, IRON #### [facility] [address] [place] [address] Dr. Smitha Petersen MANUAL DIFF REQ NO Normal [facility] Comment on above: Performed By: #### V ITAD, PSASC, IRON #### [facility] [address] [place] [address] Dr. Smitha Petersen MCH (RBC) [Entitic mass] 29.7 pg Normal 25.9-34.0 [facility] Comment on above: Performed By: #### V ITAD, PSASC, IRON #### [facility] [address] [place] [address] Dr. Smitha Petersen MCHC (RBC) [Mass/Vol] 33.5 g/dL Normal 29.9-35.2 [facility] Comment on above: Performed By: #### V ITAD, PSASC, IRON #### [facility] [address] [place] [address] Dr. Smitha Petersen MCV (RBC) [Entitic vol] 88.5 fL Normal 80.0-94.0 [facility] Comment on above: Performed By: #### V ITAD, PSASC, IRON #### [facility] [address] [place] [address] Dr. Smitha Petersen MONO # 0.6 103/ul Normal 0.3-0.8 [facility] Comment on above: Performed By: #### V ITAD, PSASC, IRON #### [facility] [address] [place] [address] Dr. Smitha Petersen Monocytes/100 WBC (Bld) 6.8 % Normal 1.7-12.0 [facility] Comment on above: Performed By: #### V ITAD, PSASC, IRON #### [facility] [address] [place] [address] Dr. Smitha Petersen NEUT # 6.0 103/ul Normal 1.4-6.5 [facility] Comment on above: Performed By: #### V ITAD, PSASC, IRON #### [facility] [address] [place] [address] Dr. Smitha Petersen Neutrophils/100 WBC (Bld) 69.8 % Normal 43.0-75.0 [facility] Comment on above: Performed By: #### V ITAD, PSASC, IRON #### [facility] [address] [place] [address] Dr. Smitha Petersen Platelet mean volume (Bld) [Entitic vol] 8.7 fL Critically low 9.5-13.5 [facility] Comment on above: Performed By: #### V ITAD, PSASC, IRON #### [facility] [address] [place] [address] Dr. Smitha Petersen PLT 222 103/ul Normal 150-450 [facility] Comment on above: Performed By: #### V ITAD, PSASC, IRON #### [facility] [address] [place] [address] Dr. Smitha Petersen RBC 5.29 106/ul Normal 4.70-6.10 [facility] Comment on above: Performed By: #### V ITAD, PSASC, IRON #### [facility] [address] [place] [address] Dr. Smitha Petersen WBC 8.5 103/ul Normal 4.0-11.0 [facility] Comment on above: Performed By: #### V ITAD, PSASC, IRON #### [facility] [address] [place] [address] Dr. Smitha Petersen FREE THYROXINE INDEX T7on FTI 2.54 Normal 1.30-4.50 [facility] Comment on above: Performed By: #### C MP, BNP, TSH, URIC, T7, LIPID #### [facility] [address] [place] [address] Dr. Smitha Petersen T3U 33.0 % Normal 33.0-40.0 [facility] Comment on above: Performed By: #### C MP, BNP, TSH, URIC, T7, LIPID #### [facility] [address] [place] [address] Dr. Smitha Petersen T4 [Mass/Vol] 7.70 ug/dL Normal 4.50-12.10 [facility] Comment on above: Performed By: #### C MP, BNP, TSH, URIC, T7, LIPID #### [facility] [address] [place] [address] Dr. Smitha Petersen GLYCOHEMOGLOBIN A1Con 2022 ADA RECOMMENDATION SEE BELOW Normal [facility] Comment on above: Result Comment: ADA RECOMMENDED LIMIT 4.0 - 6.0 ADA THERAPEUTIC TARGET < 7.0 ACTION SUGGESTED > 7.0 Performed By: #### V ITAD, PSASC, IRON #### [facility] [address] [place] [address] Dr. Smitha Petersen Glucose [Mass/Vol] 120 mg/dL Normal [facility] Comment on above: Performed By: #### V ITAD, PSASC, IRON #### [facility] [address] [place] [address] Dr. Smitha Petersen HbA1c (Bld) [Mass fraction] 5.8 % Normal 4.5-6.2 [facility] Comment on above: Performed By: #### V ITCHAD PSASC, IRON #### [facility] [address] [place] [address] Dr. Smitha Petersen IRONon 10-17-2022 Iron [Mass/Vol] 66.0 ug/dL Normal 65.0-175.0 [facility] Comment on above: Performed By: #### V BRAXTON PSASC, IRON #### [facility] [address] [place] [address] Dr. Smitha Petersen LIPID PROFILEon 10-17-2022 CHOL-HDL RATIO NORM SEE BELOW Normal [facility] Comment on above: Result Comment: 3.3 - 4.4 LOW RISK 4.4 - 7.1 AVERAGE RISK 7.1 - 11.0 MODERATE RISK >11.0 HIGH RISK Performed By: #### C MP, BNP, TSH, URIC, T7, LIPID #### [facility] [address] [place] [address] Dr. Smitha Petersen Cholesterol [Mass/Vol] 102 mg/dL Normal <=200 [facility] Comment on above: Performed By: #### C MP, BNP, TSH, URIC, T7, LIPID #### [facility] [address] [place] [address] Dr. Smitha Petersen Cholesterol in HDL [Mass/Vol] 45 mg/dL Normal 40-60 [facility] Comment on above: Performed By: #### C MP, BNP, TSH, URIC, T7, LIPID #### [facility] [address] [place] [address] Dr. Smitha Petersen Cholesterol in LDL [Mass/Vol] 35.2 mg/dL Normal [facility] Comment on above: Performed By: #### C MP, BNP, TSH, URIC, T7, LIPID #### [facility] [address] [place] [address] Dr. Smitha Petersen Cholesterol.total/Ch olesterol in HDL [Mass ratio] 2.3 {ratio} Normal [facility] Comment on above: Performed By: #### C MP, BNP, TSH, URIC, T7, LIPID #### [facility] [address] [address] [address] Smitha Petersen HDL NORMAL > or = 60 mg/dl - LO W CARDIOVASCULAR RISK <40 mg/dl - HIGH CARDIOVASCULAR RISK Normal [facility] Comment on above: Performed By: #### C MP, BNP, TSH, URIC, T7, LIPID #### [facility] [address] [address] [address] Smitha Petersen LDL CALC NORMAL SEE BELOW Normal [facility] Comment on above: Result Comment: <100 mg/dl OPTIMAL 100 - 129 mg/dl NEAR OR ABOVE OPTIMAL 130 - 159 mg/dl BORDERLINE HIGH 160 - 189 mg/dl HIGH >190 mg/dl VERY HIGH Performed By: #### C MP, BNP, TSH, URIC, T7, LIPID #### [facility] [address] [address] [address] Smitha Petersen Triglyceride [Mass/Vol] 109 mg/dL Normal <=150 [facility] Comment on above: Performed By: #### C MP, BNP, TSH, URIC, T7, LIPID #### [facility] [address] [address] [address] Smitha Petersen VLDL CALC 21.8 mg/dL Normal [facility] Comment on above: Performed By: #### C MP, BNP, TSH, URIC, T7, LIPID #### [facility] [address] [address] [address] Smitha Petersen PROF 14(COMP METB)on 023 Albumin [Mass/Vol] 3.8 g/dL Normal 3.4-5.0 [facility] Comment on above: Performed By: #### C MP, BNP, TSH, URIC, T7, LIPID #### [facility] [address] [address] [address] Smitha Petersen Albumin/Globulin [Mass ratio] 1.2 {ratio} Normal [facility] Comment on above: Performed By: #### C MP, BNP, TSH, URIC, T7, LIPID #### [facility] [address] [address] [address] Smitha Petersen ALP [Catalytic activity/Vol] 113 U/L Normal 46-116 [facility] Comment on above: Performed By: #### C MP, BNP, TSH, URIC, T7, LIPID #### [facility] [address] [place] [address] Dr. Smitha Petersen ALT [Catalytic activity/Vol] 66 U/L Critically high 16-63 [facility] Comment on above: Performed By: #### C MP, BNP, TSH, URIC, T7, LIPID #### [facility] [address] [place] [address] Dr. Smitha Petersen Anion gap [Moles/Vol] 13.4 mmol/L Normal [facility] Comment on above: Performed By: #### C MP, BNP, TSH, URIC, T7, LIPID #### [facility] [address] [place] [address] Dr. Smitha Petersen AST [Catalytic activity/Vol] 29 U/L Normal 15-37 [facility] Comment on above: Performed By: #### C MP, BNP, TSH, URIC, T7, LIPID #### [facility] [address] [place] [address] Dr. Smitha Petersen Bilirubin [Mass/Vol] 0.3 mg/dL Normal 0.2-1.0 [facility] Comment on above: Performed By: #### C MP, BNP, TSH, URIC, T7, LIPID #### [facility] [address] [place] [address] Dr. Smitha Petersen Calcium [Mass/Vol] 8.9 mg/dL Normal 8.5-10.1 [facility] Comment on above: Performed By: #### C MP, BNP, TSH, URIC, T7, LIPID #### [facility] [address] [place] [address] Dr. Smitha Petersen Chloride [Moles/Vol] 101 mmol/L Normal 98-107 [facility] Comment on above: Performed By: #### C MP, BNP, TSH, URIC, T7, LIPID #### [facility] [address] [place] [address] Dr. Smitha Petersen CO2 [Moles/Vol] 28.8 mmol/L Normal 21.0-32.0 [facility] Comment on above: Performed By: #### C MP, BNP, TSH, URIC, T7, LIPID #### [facility] [address] [place] [address] Dr. Smitha Petersen Creatinine [Mass/Vol] 0.82 mg/dL Normal 0.70-1.30 [facility] Comment on above: Performed By: #### C MP, BNP, TSH, URIC, T7, LIPID #### [facility] [address] [place] [address] Dr. Smitha Petersen EGFR-AF FINNISH >60 Normal >=60 [facility] Comment on above: Performed By: #### C MP, BNP, TSH, URIC, T7, LIPID #### [facility] [address] [place] [address] Dr. Smitha Petersen EGFR-NON AF FINNISH >60 Normal >=60 [facility] Comment on above: Performed By: #### C MP, BNP, TSH, URIC, T7, LIPID #### [facility] [address] [place] [address] Dr. Smitha Petersen Globulin (S) [Mass/Vol] 3.3 g/dL Normal [facility] Comment on above: Performed By: #### C MP, BNP, TSH, URIC, T7, LIPID #### [facility] [address] [place] [address] Dr. Smitha Petersen Glucose [Mass/Vol] 100 mg/dL Normal 74-106 [facility] Comment on above: Performed By: #### C MP, BNP, TSH, URIC, T7, LIPID #### [facility] [address] [place] [address] Dr. Smitha Petersen Potassium [Moles/Vol] 4.2 mmol/L Normal 3.5-5.1 [facility] Comment on above: Performed By: #### C MP, BNP, TSH, URIC, T7, LIPID #### [facility] [address] [place] [address] Dr. Smitha Petersen Protein [Mass/Vol] 7.1 g/dL Normal 6.4-8.2 [facility] Comment on above: Performed By: #### C MP, BNP, TSH, URIC, T7, LIPID #### [facility] [address] [address] [address] Smitha Petersen Sodium [Moles/Vol] 139 mmol/L Normal 136-145 [facility] Comment on above: Performed By: #### C MP, BNP, TSH, URIC, T7, LIPID #### [facility] [address] [place] [address] Dr. Smitha Petersen Urea nitrogen [Mass/Vol] 14.0 mg/dL Normal 7.0-18.0 [facility] Comment on above: Performed By: #### C MP, BNP, TSH, URIC, T7, LIPID #### [facility] [address] [place] [address] Dr. Smitha Petersen Urea nitrogen/Creatinine [Mass ratio] 17.1 mg/mg Normal [facility] Comment on above: Performed By: #### C MP, BNP, TSH, URIC, T7, LIPID #### [facility] [address] [place] [address] Dr. Smitha Petersen TSHon 10-17-2022 TSH 0.796 uIU/mL Normal 0.358-3.740 [facility] Comment on above: Performed By: #### C MP, BNP, TSH, URIC, T7, LIPID #### [facility] [address] [place] [address] Dr. Smitha Petersen URIC ACID SERUMon 10-17-2022 Urate [Mass/Vol] 6.4 mg/dL Normal 3.5-7.2 [facility] Comment on above: Performed By: #### C MP, BNP, TSH, URIC, T7, LIPID #### [facility] [address] [place] [address] Dr. Smitha Petersen VITAMIN D 25 OHon 10-17-2022 VIT D 25-OH 17.5 ng/mL Normal [facility] Comment on above: Performed By: #### V ITAD, PSASC, IRON #### [facility] [address] [place] [address] Dr. Smitha Petersen VIT D RANGES SEE BELOW Normal [facility] Comment on above: Result Comment: <20 ng/mL Vit D deficient 20 - <30 ng/mL Vit D insufficient 30 - 100 ng/mL Vit D sufficient >100 ng/mL Potential Toxicity Performed By: #### V ITAD, PSASC, IRON #### [facility] [address] [place] [address] Dr. Smitha Petersen ECHOCARDIO M/2D COMPLETEon 1 10-15-2021 ECHOCARDIO M/2D COMPLETE Patient: MK ROSALES Exam Date: 08/14/2022 : 1970 Gender:M Ordering : DR SHANEL FERNANDEZ . Admission #: [id number] Family : Order #: [id number] CLICK HERE TO VIEW EXAM ECHOCARDIOGRAM REPORT [...] Matta M.D. on 08/14/2022 at 18:35 Normal [facility] NM STRESS/REST MULTIon 07-23 NM STRESS/REST MULTI Patient: KATNIA ROSALES Exam Date: 07/23/2022 : 1970 Gender:M Ordering : DR SHANEL FERNANDEZ . Admission #: [id number] Family : Order #: [id number] CLICK HERE TO VIEW EXAM RADIOLOGY REPORT [...] Kowalski MD on 08/06/2022 at 12:45 Normal [facility] CT LUNG CANCER SCREENINGon 1 09-12-2021 CT [...] by: PATRICIO LUTZ Date: 2022-07-13 08:59 Normal [facility] THEOPHYLLINEon 07-10-2022 THEOPHYLLINE 16.4 ug/mL Normal 10.0-20.0 [facility] Comment on above: Performed By: #### V ITAD, PSASC, IRON #### [facility] [address] [place] [address] Dr. 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 Smitha Petersen Cholesterol [Mass/Vol] 129 mg/dL Normal <=200 [facility] Comment on above: Performed By: #### V ITAD, PSASC, IRON #### [facility] [address] [address] [address] Smitha Petersen Cholesterol in HDL [Mass/Vol] 40 mg/dL Normal 40-60 [facility] Comment on above: Performed By: #### V ITAD, PSASC, IRON #### [facility] [address] [address] [address] Smitha Petersen Cholesterol in LDL [Mass/Vol] 57.2 mg/dL Normal [facility] Comment on above: Performed By: #### V ITAD, PSASC, IRON #### [facility] [address] [address] [address] Smitha Petersen Cholesterol.total/Ch olesterol in HDL [Mass ratio] 3.2 {ratio} Normal [facility] Comment on above: Performed By: #### V ITAD, PSASC, IRON #### [facility] [address] [address] [address] Smitha Petersen HDL NORMAL > or = 60 mg/dl - LO W CARDIOVASCULAR RISK <40 mg/dl - HIGH CARDIOVASCULAR RISK Normal [facility] Comment on above: Performed By: #### V ITAD, PSASC, IRON #### [facility] [address] [address] [address] Smitha Petersen LDL CALC NORMAL SEE BELOW Normal [facility] Comment on above: Result Comment: <100 mg/dl OPTIMAL 100 - 129 mg/dl NEAR OR ABOVE OPTIMAL 130 - 159 mg/dl BORDERLINE HIGH 160 - 189 mg/dl HIGH >190 mg/dl VERY HIGH Performed By: #### V ITAD, PSASC, IRON #### [facility] [address] [address] [address] Smitha Petersen Triglyceride [Mass/Vol] 159 mg/dL Critically high <=150 [facility] Comment on above: Performed By: #### V ITAD, PSASC, IRON #### [facility] [address] [address] [address] Smitha Petersen VLDL CALC 31.8 mg/dL Normal [facility] Comment on above: Performed By: #### V ITAD, PSASC, IRON #### [facility] [address] [place] [address] Dr. Smitha Petersen CBC AUTO DIFFon 03-22-2022 BASO # 0.1 103/ul Normal 0.0-0.1 [facility] [place] Comment on above: Performed By: #### V ITAD, PSASC, IRON #### [facility] [address] [place] [address] Dr. Smitha Petersen Basophils/100 WBC (Bld) 0.5 % Normal 0.2-2.0 [facility] [place] Comment on above: Performed By: #### V ITAD, PSASC, IRON #### [facility] [address] [place] [address] Dr. Smitha Petersen EO # 0.4 103/ul Normal 0.0-0.7 [facility] Comment on above: Performed By: #### V ITAD, PSASC, IRON #### [facility] [address] [place] [address] Dr. Smitha Petersen Eosinophils/100 WBC (Bld) 3.5 % Normal 0.9-7.0 [facility] [place] Comment on above: Performed By: #### V ITAD, PSASC, IRON #### [facility] [address] [place] [address] Dr. Smitha Petersen Erythrocyte distribution width (RBC) [Ratio] 15.1 % Critically high 11.0-15.0 [facility] Comment on above: Performed By: #### V ITAD, PSASC, IRON #### [facility] [address] [place] [address] Dr. Smitha Petersen Hematocrit (Bld) [Volume fraction] 46.8 % Normal 42.0-54.0 [facility] [place] Comment on above: Performed By: #### V ITAD, PSASC, IRON #### [facility] [address] [address] [address] Smitha Petersen Hemoglobin (Bld) [Mass/Vol] 15.5 g/dL Normal 14.0-18.0 [facility] [place] Comment on above: Performed By: #### V ITAD, PSASC, IRON #### [facility] [address] [address] [address] Smitha Petersen IG # 0.03 10e3/ul Normal 0.00-0.03 [facility] [place] Comment on above: Performed By: #### V ITAD, PSASC, IRON #### [facility] [address] [place] [address] Dr. Smitha Petersen IG % 0.3 % Normal 0.0-0.5 [facility] [place] Comment on above: Performed By: #### V ITAD, PSASC, IRON #### [facility] [address] [place] [address] Dr. Smitha Petersen LYMPH # 2.6 103/ul Normal 1.2-3.8 [facility] [place] Comment on above: Performed By: #### V ITAD, PSASC, IRON #### [facility] [address] [address] [address] Smitha Petersen Lymphocytes/100 WBC (Bld) 25.0 % Normal 20.5-60.0 [facility] [place] Comment on above: Performed By: #### V ITAD, PSASC, IRON #### [facility] [address] [place] [address] Dr. Smitha Petersen MANUAL DIFF REQ NO Normal [facility] Comment on above: Performed By: #### V ITAD, PSASC, IRON #### [facility] [address] [place] [address] Dr. Smitha Petersen MCH (RBC) [Entitic mass] 29.6 pg Normal 25.9-34.0 [facility] [place] Comment on above: Performed By: #### V ITAD, PSASC, IRON #### [facility] [address] [place] [address] Dr. Smitha Petersen MCHC (RBC) [Mass/Vol] 33.1 g/dL Normal 29.9-35.2 [facility] Comment on above: Performed By: #### V ITAD, PSASC, IRON #### [facility] [address] [place] [address] Dr. Smitha Petersen MCV (RBC) [Entitic vol] 89.5 fL Normal 80.0-94.0 [facility] [place] Comment on above: Performed By: #### V ITAD, PSASC, IRON #### [facility] [address] [place] [address] Dr. mSitha Petersen MONO # 0.7 103/ul Normal 0.3-0.8 [facility] Comment on above: Performed By: #### V ITAD, PSASC, IRON #### [facility] [address] [place] [address] Dr. Smitha Petersen Monocytes/100 WBC (Bld) 7.0 % Normal 1.7-12.0 [facility] Comment on above: Performed By: #### V ITAD, PSASC, IRON #### [facility] [address] [place] [address] Dr. Smitha Petersen NEUT # 6.7 103/ul Critically high 1.4-6.5 [facility] Comment on above: Performed By: #### V ITAD, PSASC, IRON #### [facility] [address] [place] [address] Dr. Smitha Petersen Neutrophils/100 WBC (Bld) 63.7 % Normal 43.0-75.0 [facility] Comment on above: Performed By: #### V ITAD, PSASC, IRON #### [facility] [address] [place] [address] Dr. Smitha Petersen Platelet mean volume (Bld) [Entitic vol] 8.9 fL Critically low 9.5-13.5 [facility] Comment on above: Performed By: #### V ITAD, PSASC, IRON #### [facility] [address] [place] [address] Dr. Smitha Petersen PLT 245 103/ul Normal 150-450 [facility] Comment on above: Performed By: #### V ITAD, PSASC, IRON #### [facility] [address], [place] [address] Dr. Smitha Petersen RBC 5.23 106/ul Normal 4.70-6.10 [facility] [place] Comment on above: Performed By: #### V ITAD, PSASC, IRON #### [facility] [address], [place] [address] Dr. Smitha Petersen WBC 10.5 103/ul Normal 4.0-11.0 [facility] [place] Comment on above: Performed By: #### V ITAD, PSASC, IRON #### [facility] [address], [place] [address] ABD/PELVIS WO CONon [...] BLU GASPAR Date: 2022-03-22 21:12 Normal [facility] CULTURE URINEon 03-22-2022 CULTURE URINE Culture Observations : NO GROWTH. Normal [facility] [place] Comment on above: Performed By: #### V ITAD, PSASC, IRON #### [facility] [address] [address] [address] Smitha Petersen ER URINE PROFILEon 2 Bilirubin Ql (U) Negative Normal NEGATIVE [facility] Comment on above: Performed By: #### V ITAD, PSASC, IRON #### [facility] [address] [place] [address] Dr. Smitha Petersen Clarity (U) CLEAR Normal CLEAR [facility] [place] Comment on above: Performed By: #### V ITAD, PSASC, IRON #### [facility] [address] [place] [address] Dr. Smitha Petersen Color (U) LT. YELLOW Normal YELLOW [facility] [place] Comment on above: Performed By: #### V ITAD, PSASC, IRON #### [facility] [address] [place] [address] Dr. Smitha Petersen ERUD A micrscopic examination will be performed if indicated. Normal [facility] Comment on above: Performed By: #### V ITAD, PSASC, IRON #### [facility] [address] [address] [address] Smitha Petersen Glucose Ql (U) Negative Normal NEGATIVE [facility] Comment on above: Performed By: #### V ITAD, PSASC, IRON #### [facility] [address] [place] [address] Dr. Smitha Petersen Hemoglobin Ql (U) TRACE-INTACT Abnormal NEGATIVE [facility] Comment on above: Performed By: #### V ITAD, PSASC, IRON #### [facility] [address] [place] [address] Dr. Smitha Petersen Ketones Ql (U) Negative Normal NEGATIVE [facility] [place] [facility] Comment on above: Performed By: #### V ITAD, PSASC, IRON #### [facility] [address] [place] [address] Dr. Smitha Petersen LEUKOCYTES TRACE Abnormal NEGATIVE [facility] [place] Comment on above: Performed By: #### V ITAD, PSASC, IRON #### [facility] [address] [address] [address] Smitha Petersen Nitrite Ql (U) Negative Normal NEGATIVE [facility] [place] [facility] Comment on above: Performed By: #### V ITAD, PSASC, IRON #### [facility] [address] [place] [address] Dr. Smitha Petersen pH (U) 5.5 [pH] Normal 5-9 [facility] [place] Comment on above: Performed By: #### V ITAD, PSASC, IRON #### [facility] [address] [place] [address] Dr. Smitha Petersen SPEC GRAVITY 1.010 Normal 1.005-<=1.025 [facility] Comment on above: Performed By: #### V ITAD, PSASC, IRON #### [facility] [address] [place] [address] Dr. Smitha Petersen UA PROTEIN Negative Normal NEGATIVE/ TRACE [facility] Comment on above: Performed By: #### V ITAD, PSASC, IRON #### [facility] [address] [place] [address] Dr. Smitha Petersen UR MICRO IND INDICATED Normal [facility] Comment on above: Performed By: #### V ITAD, PSASC, IRON #### [facility] [address] [place] [address] Dr. Smitha Petersen Urobilinogen Qn (U) 0.2 {Zach'U}/dL Normal 0.2 - 1. 0 [facility] [place] Comment on above: Performed By: #### V ITAD, PSASC, IRON #### [facility] [address] [place] [address] Dr. Smitha Petersen PROF 14(COMP METB)on 022 Albumin [Mass/Vol] 4.0 g/dL Normal 3.4-5.0 [facility] Comment on above: Performed By: #### V ITAD, PSASC, IRON #### [facility] [address] [address] [address] Smitha Petersen Albumin/Globulin [Mass ratio] 1.2 {ratio} Normal [facility] [place] Comment on above: Performed By: #### V ITAD, PSASC, IRON #### [facility] [address] [place] [address] Dr. Smitha Petersen ALP [Catalytic activity/Vol] 113 U/L Normal 46-116 [facility] [place] Comment on above: Performed By: #### V ITAD, PSASC, IRON #### [facility] [address] [place] [address] Dr. Smitha Petersen ALT [Catalytic activity/Vol] 53 U/L Normal 16-63 [facility] [place] Comment on above: Performed By: #### V ITAD, PSASC, IRON #### [facility] [address] [address] [address] Smitha Petersen Anion gap [Moles/Vol] 15.3 mmol/L Normal [facility] [place] Comment on above: Performed By: #### V ITAD, PSASC, IRON #### [facility] [address] [place] [address] Dr. Smitha Petersen AST [Catalytic activity/Vol] 18 U/L Normal 15-37 [facility] [place] Comment on above: Performed By: #### V ITAD, PSASC, IRON #### [facility] [address] [address] [address] Smitha Petersen Bilirubin [Mass/Vol] 0.4 mg/dL Normal 0.2-1.0 [facility] [place] Comment on above: Performed By: #### V ITAD, PSASC, IRON #### [facility] [address] [place] [address] Dr. Smitha Petersen Calcium [Mass/Vol] 9.2 mg/dL Normal 8.5-10.1 [facility] Comment on above: Performed By: #### V ITAD, PSASC, IRON #### [facility] [address] [address] [address] Smitha Petersen Chloride [Moles/Vol] 101 mmol/L Normal 98-107 [facility] [place] Comment on above: Performed By: #### V ITAD, PSASC, IRON #### [facility] [address] [place] [address] Dr. Smitha Petersen CO2 [Moles/Vol] 24.8 mmol/L Normal 21.0-32.0 [facility] Comment on above: Performed By: #### V ITAD, PSASC, IRON #### [facility] [address] [place] [address] Dr. Smitha Petersen Creatinine [Mass/Vol] 0.96 mg/dL Normal 0.70-1.30 [facility] [place] Comment on above: Performed By: #### V ITAD, PSASC, IRON #### [facility] [address] [place] [address] Dr. Smitha Petersen EGFR-AF FINNISH >60 Normal >=60 [facility] Comment on above: Performed By: #### V ITAD, PSASC, IRON #### [facility] [address] [place] [address] Dr. Smitha Petersen EGFR-NON AF FINNISH >60 Normal >=60 [facility] [place] Comment on above: Performed By: #### V ITAD, PSASC, IRON #### [facility] [address] [place] [address] Dr. Smitha Petersen Globulin (S) [Mass/Vol] 3.4 g/dL Normal [facility] [place] Comment on above: Performed By: #### V ITAD, PSASC, IRON #### [facility] [address] [place] [address] Dr. Smitha Petersen Glucose [Mass/Vol] 146 mg/dL Critically high 74-106 [facility] Comment on above: Performed By: #### V ITAD, PSASC, IRON #### [facility] [address] [place] [address] Dr. Smitha Petersen Potassium [Moles/Vol] 4.1 mmol/L Normal 3.5-5.1 [facility] Comment on above: Performed By: #### V ITAD, PSASC, IRON #### [facility] [address] [address] [address] Smitha Petersen Protein [Mass/Vol] 7.4 g/dL Normal 6.4-8.2 [facility] Comment on above: Performed By: #### V ITAD, PSASC, IRON #### [facility] [address] [place] [address] Dr. Smitha Petersen Sodium [Moles/Vol] 137 mmol/L Normal 136-145 [facility] Comment on above: Performed By: #### V ITAD, PSASC, IRON #### [facility] [address] [place] [address] Dr. Smitha Petersen Urea nitrogen [Mass/Vol] 22.0 mg/dL Critically high 7.0-18.0 [facility] [place] Comment on above: Performed By: #### V ITAD, PSASC, IRON #### [facility] [address] [place] [address] Dr. Smitha Petersen Urea nitrogen/Creatinine [Mass ratio] 22.9 mg/mg Normal [facility] Comment on above: Performed By: #### V ITAD, PSASC, IRON #### [facility] [address] [place] [address] Dr. Smitha Petersen URINE MICROSCOPIC ONLYon BACTERIA TRACE Abnormal NONE SEEN [facility] Comment on above: Performed By: #### V ITAD, PSASC, IRON #### [facility] [address] [place] [address] Dr. Smitha Petersen Bacteria identified Cx Nom (U) INDICATED Normal [facility] Comment on above: Performed By: #### V ITAD, PSASC, IRON #### [facility] [address] [place] [address] Dr. Smitha Petersen CAST NONE SEEN Normal NONE SEEN [facility] Comment on above: Performed By: #### V ITAD, PSASC, IRON #### [facility] [address] [address] [address] Smitha Petersen Crystals LM Nom (Urine sed) NONE SEEN Normal NONE SEEN [facility] Comment on above: Performed By: #### V ITAD, PSASC, IRON #### [facility] [address] [place] [address] Dr. Smitha Petersen Epithelial cells LM Ql (Urine sed) NONE SEEN Normal NONE SEEN /RARE [facility] Comment on above: Performed By: #### V ITAD, PSASC, IRON #### [facility] [address] [place] [address] Dr. Smitha Petersen MUCOUS NONE SEEN Normal NONE SEEN [facility] Comment on above: Performed By: #### V ITAD, PSASC, IRON #### [facility] [address] [place] [address] Dr. Smitha Petersen RBC NONE SEEN Abnormal 0-2 [facility] Comment on above: Performed By: #### V ITAD, PSASC, IRON #### [facility] [address] [place] [address] Dr. Smitha Petersen WBC 5-10 Abnormal NONE SEEN [facility] Comment on above: Performed By: #### V ITAD, PSASC, IRON #### [facility] [address] [place] [address] Dr. Smitha Petersen US TRAV DOP LEG [...] PATRICIO LUTZ Date: 2022-01-23 11:39 Normal [facility] Operative Reporton Operative Report MR#: [id number] S [facility] Pt. Name: Mk Rosales Room #: 0C Discharge Date: Birthdate: 1970 OPERATIVE REPORT DATE OF SURGERY: 09/15/2020 SURGEON: Mk Min M.D. PREOPERATIVE DIAGNOSIS: Left knee medial meniscus tear, unstable. POSTOPERATIVE DIAGNOSIS: 1. Left knee medial meniscus tear, unstable. 2. Left knee chondral tear patella. SURGEON: Mk Min M.D. PERSONAL CONSULTANT: Nelson Leos MD ANESTHESIA: General. PROCEDURE PERFORMED: [...] Min M.D. Date Trans: 09/15/2020 09:36 A/zoey [id number] cc: Shanel Fernandez M.D. [address] [address] Normal [facility] POC GLUCOSE LABon 09-15-2020 Glucose [Mass/Vol] 101 mg/dL High 70-100 [facility] Comment on above: Performed By: #### [id number] #### [address] Vital Signs Date Time Vital Sign Value Performing Clinician Facility 11-05-2022 09:00-0500 Body height Berenice Blades Other [facility] Other 11-05-2022 09:00-0500 Body mass index (BMI) [Ratio] 38.24 kg/m2 [facility] Other [facility] Other 11-05-2022 09:00-0500 Body weight 117.48 kg Berenice Blades Other [facility] Other 11-05-2022 09:00-0500 Diastolic blood pressure 94 mm[Hg] Berenice Blades Other [facility] Other 11-05-2022 09:00-0500 Systolic blood pressure 156 mm[Hg] Berenice Blades Other [facility] Other 10-26-2022 08:00-0500 Body height Berenice Blades Other [facility] Other 10-26-2022 08:00-0500 Body mass index (BMI) [Ratio] 38.24 kg/m2 Berenice Blades Other [facility] Other 10-26-2022 08:00-0500 Body weight 117.48 kg Berenice Blades Other [facility] Other 10-26-2022 08:00-0500 Diastolic blood pressure 89 mm[Hg] Berenice Blades Other [facility] Other 10-26-2022 08:00-0500 Systolic blood pressure 130 mm[Hg] Berenice Blades Other [facility] Other Encounters Encounter Date Encounter Type Care Provider Facility Start: 02-18-2024 End: 02-18-2024 ambulatory ARLINE VALDES Not Available Start: 02-03-2024 End: 02-03-2024 [facility] Start: 02-26-2023 End: 02-26-2023 ambulatory HAL CHRISTENSEN [facility] Start: 01-01-2023 End: 01-02-2023 ambulatory TREVORMARY ANN LEONG . Facility:[facility] Start: 12-19-2022 ambulatory SHANEL HOY Facility:[facility] Start: 12-12-2022 ambulatory SHANEL HOY Facility:[facility] Start: 11-05-2022 End: 11-05-2022 ambulatory Berenice Blades Other [place] [facility] Other Start: 11-05-2022 Office outpatient vi sit 15 minutes Berenice Blades [facility] Start: 11-01-2022 End: 11-02-2022 ambulatory BERENICE BLADES Facility:[facility] Start: 10-26-2022 End: 10-26-2022 ambulatory Berenice Blades Other [place] [facility] Other Start: 10-26-2022 Office outpatient ne w 45 minutes Berenice Blades [facility] Start: 10-17-2022 End: 10-18-2022 ambulatory [...] Start: 09-15-2020 End: 09-16-2020 ambulatory SHANEL HOY Facility:[facility] Procedures Date Procedure Procedure Detail Performing Clinician Start: 10-17-2022 PSA screening SHANEL SIFUENTES Comment on above: Performed By: #### V ITAD, PSASC, IRON #### [facility] [address] [place] [address] Dr. Smitha Petersen Start: 09-15-2020 ANESTH KNEE JOINT SURGERY JAYSON CHEN Start: 09-15-2020 KNEE ARTHROSCOPY/SURGERY MK MIN Plan of Treatment Date Care Activity Detail Author Start: 01-23-2023 ambulatory Ambulatory Facility: 1 Payers Date Payer Category Payer Medicare [id number] 1970 Unknown [id number] 2.16.8 [id number] 1970 Unknown [id number] 2.16.84 [id number] 1970 Unknown [id number] 2.16.84 0.1.569189.3.579.2.593 1970 Unknown [id number] 2.16.84 0.1.930483.3.579.2.593 1970 Unknown [id number] 2.16.84 0.1.864008.3.579.2.593 1970 Unknown [id number] 2.16.84 0.1.064681.3.579.2.593 1970 Unknown [id number] 2.16.84 0.1.195484.3.579.2.593 1970 Unknown [id number] 2.16.84 0.1.873477.3.579.2.593 1970 Unknown [id number] 2.16.84 0.1.579614.3.579.2.593 1970 Unknown [id number] 2.16.84 0.1.117790.3.579.2.593 1971 Unknown [id number] 2.16.84 0.1.586121.3.579.2.593 1971 Unknown [id number] 2.16.84 0.1.517896.3.579.2.593 1971 Unknown [id number] 2.16.84 0.1.183151.3.579.2.593 1971 Unknown [id number] 2.16.84 0.1.229045.3.579.2.593 1971 Unknown [id number] 2.16.84 0.1.632109.3.579.2.593 1971 Unknown [id number] 2.16.84 0.1.702076.3.579.2.593 1971 Unknown [id number] 2.16.84 0.1.255322.3.579.2.593 1971 Unknown [id number] 2.16.84 0.1.697248.3.579.2.593 1970 Unknown [id number] 2.16.84 0.1.037311.3.579.2.1259 1958 Medicare [id number] 2.1 [id number] 1958 Self-pay [id number] 1958 Unknown [id number] Self-pay Self Pay [id number] Unknown Self Pay [id number] Social History Date Type Detail Facility Tobacco smoking status [facility] Unknown if ever smoked [facility] Work Phone: Start: 1970 Sex Assigned At Male F [facility] Sex Assigned At Sex Assigned At Bir th [facility] [employer] Other Progress note 02-03-2024 Note Date & Type Note Facility 02-03-2024 Note [facility] Note Chief Complaint: Patient here [...] history of COPD (chronic obstructive pulmonary disease) ([facility]), Coronary artery disease, Diabetes mellitus ([facility]), Hypertension, Seizures ([facility]), and Sleep apnea. Surgical History He has [...] by mouth at bedtime., Disp: , Rfl: [id number] 160-9-4.8 mcg/actuation HFA aerosol inhaler, Breztri Aerosphere [...] Echocardiogram 08/14/2022 Con (more content not included)... [facility] Progress note 02-26-2023 Note Date & Type Note Facility 02-26-2023 Note 10 min discussion ab out importance of smoking cessation- pt reports he does not smoke cigarrettes daily- only when stressed and buys a pack abouit every 1-2 weeks. He is not willing to completely quit smoking. [facility] Progress note 02-26-2023 Note Date & Type Note Facility 02-26-2023 Note Coronary artery dise ase is stable without any concerning cardiac symptoms Continue GDMT- ASA, lipitor, lopressor, plavix, metoprolol continue risk factor modifications- heart healthy diet, regular exercise as tolerated and continue all medications. [facility] Progress note 02-26-2023 Note Date & Type Note Facility 02-26-2023 Note Patient here for 1 y ear follow up CAD and hypertension. He had carotid us and routine labs a few months ago. Denies chest pain but has POSEY (COPD) and sees Dr. Leong. He was told by a neurosurgeon in [place] a few months ago that he had a minor stroke s/p MRI head. Review of Systems Cardiovascular: Positive for dyspnea on exertion. Musculoskeletal: Positive for arthritis, back pain and muscle weakness. All other systems reviewed and are negative. [facility] Progress note 02-26-2023 Note Date & Type Note Facility 02-26-2023 Note [facility] PROGR ESS NOTE HPI: Mk Rosales is a 52 y.o. male here for Patient here for 1 year follow up CAD and hypertension. He had carotid us and routine labs a few months ago. Denies chest pain but has POSYE (COPD) and sees Dr. Leong. He was told by a neurosurgeon in [place] a few months ago that he had [...] Take 80 mg by mouth at bedtime. [id number] 160-9-4.8 mcg/actuation HFA aerosol inhaler Breztri Aerosphere [...] is not willing to completely quit smoking. [facility] Evaluation note 11-05-2022 Note Date & Type Note Facility 11-05-2022 Evaluation note Encounter Date Diagnosis Assessment Notes Oct, Left leg pain (ICD-10 - M79.605) [facility] Other Evaluation note 10-26-2022 Note Date & Type Note Facility 10-26-2022 Evaluation note Encounter Date Diagnosis Assessment Notes Oct, Cerebral infarct (ICD-10 - I63.9) Oct, Encephalomalacia (ICD-10 - G93.89) [facility] Other Clinical Note 08-06-2022 Note Date & [...] and reported in a separate dictation. [facility] Evaluation note Note Date & Type Note Facility Evaluation note No assessment information [facility] Work Phone: History general Narrative - [...] Surgical History angioplasty Hospitalization History see above [facility] Other Summary Purpose Family History No Family [...] and content) DATE CREATED AUTHOR 08/18/2021 [facility] DATE CREATED AUTHOR AUTHOR'S ORGANIZ ATION 01/10/2023 [facility] DATE CREATED AUTHOR AUTHOR'S ORGANIZ ATION 02/03/2024 [facility] DATE CREATED AUTHOR AUTHOR'S ORGANIZ ATION 02/19/2024 [facility] EPIC Goals (unrecognized section and content) Goals may be documented in a n alternate sectionGoals may be documented in an alternate sectionNo InformationNo Information REASON FOR VISIT (unrecogniz ed section and content) Ref Dr Mallory, Left sided weakness; left leg painMRI, ultrasound results test done 11/01/22 @[facility] FOR RECORDS PERTAINING TO PATIENTS WHO [...] BE BASED ON THE PRIMARY CLINICAL RECORDS. [email or web address] provides no warranty or guarantee of the accuracy or completeness of information in this document.
[2024-06-16] MEDS: REGADENOSON 0.4 MG/5 ML SYRINGE IV (11:35)
--- NOTE | 2024-06-16 11:46 | PC.NURSE ---
Nursing Note Cardiac Stress Test Reviewed: Medication, allergies and patient history reviewed. Stress Test: [ x] Patient tolerated stress test well. [ ] Patient unable to tolerate walking on treadmill. Switched to Lexiscan stress test. [x ] No chest pain noted per patient [ ] Chest pain that resolved prior to leaving stress lab. [x ] No dyspnea noted. [ ] Dyspnea that resolved prior to leaving stress lab. [ x] Patient left stress lab asymptomatic and hemodynamically stable. [ ] Patient taken to the Emergency Room due to non-resolving symptoms following stress test. [ ] Patient achieved target heart rate. [ ] Patient unable to achieve target heart rate. [ ] Aminophylline administered as reversal agent to Lexiscan (Regadenoson). [ ] Nitro administered. Nursing Comments:Pt had Lexiscan test done. No issues noted. Pt tolerated well no complaints and left lab with no symptoms.
== END 2024-06-16 07:18 | disposition home or self-care (01) ==
LOC: CARD 07:18
PROVIDERS: PCP Family Medicine; Visit Provider Family Medicine
DX: I25.2 Old myocardial infarction (principal)
CPT/HCPCS: 93017; J2785

== ENCOUNTER 2024-07-22 08:46 | Outpatient (OUT) | payer MEDICARE, SELFPAY ==
--- NOTE | 2024-07-22 08:56 | CT_ITS ---
The [address] [address] Patient Name: MK ROSALES MRN: [id number] date: 1970 Sex: M Assigned Patient Location: CT Current Patient Location: Accession/Order Number: [id number] Exam Date: 07/22/2024 09:09 Report Date: 07/23/2024 04:46 At the request of: TREVOR LEONG Procedure: CT lung screening low-dose EXAMINATION: CT lung screening low-dose HISTORY: History of tobacco abuse COMPARISON: No relevant comparison available. TECHNIQUE: Axial, Coronal, and Sagittal images were created without the administration of IV contrast material. Dose reduction techniques were achieved by using automated exposure control and/or adjustment of mA and/or kV according to patient size and/or use of iterative reconstruction technique. FINDINGS: LUNGS: Scattered calcified granulomas. No suspicious nodules or acute infiltrates. PLEURA: No mass, effusion, or pneumothorax. VASCULATURE: No abnormality. ULYSSES: Calcified lymph nodes compatible with chronic granulomatous disease. MEDIASTINUM: Calcified lymph nodes. CARDIAC: No enlargement, pericardial thickening, or pericardial effusion. Coronary Artery calcifications: Coronary calcifications are heavy. AORTA: No aneurysm or dissection. CHEST WALL: No mass or axillary adenopathy BONES: No bone lesion or fracture. LIMITED ABDOMEN: No suspicious findings. Limited images of the upper abdomen. OTHER: Negative. CT/CT lung screening low-dose IMPRESSION: 1. Lung-RADS 2- Benign Appearance or Behavior. Nodules with a very low likelihood of becoming a clinically active cancer due to size or lack of growth. Follow-up CT Chest in 1 year. Electronically authenticated by: ALEXUS MCCLAIN Date: 07/23/2024 04:46
--- OUTSIDE RECORDS SUMMARY | 2024-07-22 09:02 | XMS_ITS | CCD ---
Author Organization [facility] CliniSymd Care Team Providers [employer] Consultant Name Role Phone SHANEL FERNANDEZ Referring Unavailable MK MIN H Admitting Unavailable MK MIN Attending Unavailable MK MIN Surgeon Unavailable [place] Procedure Practitioner Unavailab le HOY, SHANEL Primary Care Unavailable RADHA CHENH Surgeon Unavailable [place] Procedure Practitioner Unavailab le Blades, Berenice Unavailable [...] Primary Care Unavailable HOY, SHANEL Admitting Unavailable ARLINE VALDES Attending Unavailable CONNOR CHARLES Attending Unavailable MICHA POPE Attending Unavailable Allergies Allergy Classification Reported Allergen(s) Allergy Type Date of Onset Reaction(s) Facility (1 source) 97859,00; 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: [40329,00] Propensity to adverse reactions (disorder) 9 [facility] Repository Medications Current Medications Medication Drug Class(es) [...] PO Twice daily January 12, 2019 9:32am Cahxxpwd-Bih-Ouaxbae Fumarate (Multi Vitamin) 9 mg iron/15 mL Liquid (2 sources) Start: 01-12-2019 take 1 tablet by mouth once daily Kijvemzu-Idy-Ssnmy us Fumarate (Multi Vitamin) 9 mg iron/15 [...] take 1 puff(s) by inhalation once daily Jpurgdjbndh-Bblhwtzzj-Njbrxonz Active 1 PUFF INHALATION Daily January 12, [...] Chronic Chronic obstructive pulmonary disease and bronchiectasis (5 sources) Pulmonary emphysema; 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: [Emphysema, unspecified] Onset: 07-14-2022 01-12-2019 Chronic Congestive heart failure; nonhypertensive (1 source) Unspecified diastolic (congestive) heart failure; 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: [UNSPECIFIED DIASTOLIC HEART FAILURE] Onset: 10-22-2022 Chronic Coronary atherosclerosis and other heart disease (11 sources) 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; 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: [Atherosclerotic heart disease of lime coronary artery without angina pectoris] Onset: 04-05-2022 [...] 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: [Unspecified convulsions] 01-12-2019 Episodic Essential hypertension (5 sources) Hypertensive disorder; 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: [Essential (primary) hypertension] [...] Onset: 08-14-2022 Episodic Other aftercare (1 source) 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; 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] Onset: 03-26-2022 Episodic Other aftercare (1 source) Other senior care (current) drug therapy; 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: [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 CURRENT DRUG THERAPY] Onset: 03-26-2022 Episodic Residual [...] Value Interpretation Reference Range Facility Office Visiton 06-24-2024 Follow-up visit [id number] Ankush Rosales 1970 M Date Provider Department Center 06/24/2024 MICHA STAFFORD [facility] Family History Problem Relation Age of Onset Coronary artery disease Father Heart attack Father Family Status - Relation Status Age at Father Level of Service:57907 [place] OFFICE/OUTPATIENT ESTABLISHED MOD MDM 30 MIN Reason for Visit and Comments: Coronary Artery Disease [187] Hypertension [033038] Normal [facility] Office Visiton 02-03-2024 Follow-up visit [id number] Ankush Rosales 1970 M Provider Department Center 02/03/2024 CONNOR HINTON [facility] Family History Problem Relation Age of Onset Coronary artery disease Father Heart attack Father Family Status - Relation Status Age at Father Level of Service:78209 [place] OFFICE/OUTPATIENT ESTABLISHED MOD MDM 30 MIN Normal [facility] THEOPHYLLINEon 01-01-2023 THEOPHYLLINE 17.6 ug/mL Normal 10.0-20.0 [facility] Comment on above: Performed By: #### V ITAD, PSASC, IRON #### [facility] [address] [place] [address] Dr. Smitha Petersen MRI BRAIN WO CONon [...] by: MK SÁNCHEZ Date: 2022-11-01 16:[address] [facility] US CAROTID ART BILon 023 US [...] by: MK KOWALSKI Date: 2022-11-01 16:[address] [facility] BNPon 10-17-2022 Natriuretic peptide B (Bld) [Mass/Vol] 32.0 pg/mL Normal <=900.0 [facility] Comment on above: Performed By: #### C MP, BNP, TSH, URIC, T7, LIPID #### [facility] [address] [place] [address] Dr. Smitha Petersen CBC AUTO DIFFon 10-17-2022 BASO # 0.0 103/ul Normal 0.0-0.1 [facility] Comment on above: Performed By: #### V ITAD, PSASC, IRON #### [facility] [address] [place] [address] Dr. Smitha Petersen Basophils/100 WBC (Bld) 0.4 % Normal 0.2-2.0 [facility] Comment on above: Performed By: #### V ITAD, PSASC, IRON #### [facility] [address] [place] [address] Dr. Smitha Petersen EO # 0.2 103/ul Normal 0.0-0.7 [facility] Comment on above: Performed By: #### V ITAD, PSASC, IRON #### [facility] [address] [place] [address] Dr. Smitha Petersen Eosinophils/100 WBC (Bld) 2.4 % Normal 0.9-7.0 [facility] Comment on above: Performed By: #### V ITAD, PSASC, IRON #### [facility] [address] [place] [address] Dr. Smitha Petersen Erythrocyte distribution width (RBC) [Ratio] 13.8 % Normal 11.0-15.0 [facility] Comment on above: Performed By: #### V ITAD, PSASC, IRON #### [facility] [address] [place] [address] Dr. Smitha Petersen Hematocrit (Bld) [Volume fraction] 46.8 % Normal 42.0-54.0 [facility] Comment on above: Performed By: #### V ITAD, PSASC, IRON #### [facility] [address] [place] [address] Dr. Smitha Petersen Hemoglobin (Bld) [Mass/Vol] 15.7 g/dL Normal 14.0-18.0 [facility] Comment on above: Performed By: #### V ITAD, PSASC, IRON #### [facility] [address] [place] [address] Dr. Smitha Petersen IG # 0.04 10e3/ul Critically high 0.00-0.03 [facility] Comment on above: Performed By: #### V ITAD, PSASC, IRON #### [facility] [address] [place] [address] Dr. Smitha Petersen IG % 0.5 % Normal 0.0-0.[address] [facility] Comment on above: Performed By: #### V ITAD, PSASC, IRON #### [facility] [address] [place] [address] Dr. Smitha Petersen LYMPH # 1.7 103/ul Normal 1.2-3.[address] [facility] Comment on above: Performed By: #### V ITAD, PSASC, IRON #### [facility] [address] [place] [address] Dr. Smitha Petersen Lymphocytes/100 WBC (Bld) 20.1 % Critically low 20.5-60.[address] [facility] Comment on above: Performed By: #### V ITAD, PSASC, IRON #### [facility] [address] [place] [address] Dr. Smitha Petersen MANUAL DIFF REQ NO Normal [facility] Comment on above: Performed By: #### V ITAD, PSASC, IRON #### [facility] [address] [place] [address] Dr. Smitha Petersen MCH (RBC) [Entitic mass] 29.7 pg Normal 25.9-34.[address] [facility] Comment on above: Performed By: #### V ITAD, PSASC, IRON #### [facility] [address] [place] [address] Dr. Smitha Petersen MCHC (RBC) [Mass/Vol] 33.5 g/dL Normal 29.9-35.[address] [facility] Comment on above: Performed By: #### V ITAD, PSASC, IRON #### [facility] [address] [place] [address] Dr. Smitha Petersen MCV (RBC) [Entitic vol] 88.5 fL Normal 80.0-94.0 [facility] Comment on above: Performed By: #### V ITAD, PSASC, IRON #### [facility] [address] [place] [address] Dr. Smitha Petersen MONO # 0.6 103/ul Normal 0.3-0.8 [facility] Comment on above: Performed By: #### V ITAD, PSASC, IRON #### [facility] [address] [place] [address] Dr. Smitha Petersen Monocytes/100 WBC (Bld) 6.8 % Normal 1.7-12.0 [facility] Comment on above: Performed By: #### V ITAD, PSASC, IRON #### [facility] [address] [place] [address] Dr. Smitha Petersen NEUT # 6.0 103/ul Normal 1.4-6.5 [facility] Comment on above: Performed By: #### V ITAD, PSASC, IRON #### [facility] [address] [place] [address] Dr. Smitha Petersen Neutrophils/100 WBC (Bld) 69.8 % Normal 43.0-75.0 [facility] Comment on above: Performed By: #### V ITAD, PSASC, IRON #### [facility] [address] [place] [address] Dr. Smitha Petersen Platelet mean volume (Bld) [Entitic vol] 8.7 fL Critically low 9.5-13.5 [facility] Comment on above: Performed By: #### V ITAD, PSASC, IRON #### [facility] [address] [place] [address] Dr. Smitha Petersen PLT 222 103/ul Normal 150-450 [facility] Comment on above: Performed By: #### V ITAD, PSASC, IRON #### [facility] [address] [place] [address] Dr. Smitha Petersen RBC 5.29 106/ul Normal 4.70-6.10 [facility] Comment on above: Performed By: #### V ITAD, PSASC, IRON #### [facility] [address] [address] [address] Smitha Petersen WBC 8.5 103/ul Normal 4.0-11.[address] [facility] Comment on above: Performed By: #### V ITAD, PSASC, IRON #### [facility] [address] [address] [address] Smitha Petersen FREE THYROXINE INDEX T7on FTI 2.54 Normal 1.30-4.[address] [facility] Comment on above: Performed By: #### C MP, BNP, TSH, URIC, T7, LIPID #### [facility] [address] [address] [address] Smitha Petersen T3U 33.0 % Normal 33.0-40.0 [facility] Comment on above: Performed By: #### C MP, BNP, TSH, URIC, T7, LIPID #### [facility] [address] [address] [address] Smitha Petersen T4 [Mass/Vol] 7.70 ug/dL Normal 4.50-12.10 [facility] Comment on above: Performed By: #### C MP, BNP, TSH, URIC, T7, LIPID #### [facility] [address] [address] [address] Smitha Petersen GLYCOHEMOGLOBIN A1Con 2022 ADA RECOMMENDATION SEE BELOW Normal [facility] Comment on above: Result Comment: ADA RECOMMENDED LIMIT 4.0 - 6.0 ADA THERAPEUTIC TARGET < 7.0 ACTION SUGGESTED > 7.0 Performed By: #### V ITAD, PSASC, IRON #### [facility] [address] [address] [address] Smitha Petersen Glucose [Mass/Vol] 120 mg/dL Normal [facility] Comment on above: Performed By: #### V ITAD, PSASC, IRON #### [facility] [address] [address] [address] Smitha Petersen HbA1c (Bld) [Mass fraction] 5.8 % Normal 4.5-6.2 [facility] Comment on above: Performed By: #### V ITAD, PSASC, IRON #### [facility] [address] [address] [address] Smitha Petersen IRONon 10-17-2022 Iron [Mass/Vol] 66.0 ug/dL Normal 65.0-175.0 [facility] Comment on above: Performed By: #### V ITAD, PSASC, IRON #### [facility] [address] [place] [address] Dr. Smitha Petersen LIPID PROFILEon 10-17-2022 CHOL-HDL RATIO NORM SEE BELOW Normal [facility] Comment on above: Result Comment: 3.3 - 4.4 LOW RISK 4.4 - 7.1 AVERAGE RISK 7.1 - 11.0 MODERATE RISK >11.0 HIGH RISK Performed By: #### C MP, BNP, TSH, URIC, T7, LIPID #### [facility] [address] [place] [address] Dr. Smitha Petersen Cholesterol [Mass/Vol] 102 mg/dL Normal <=[address] [facility] Comment on above: Performed By: #### C MP, BNP, TSH, URIC, T7, LIPID #### [facility] [address] [place] [address] Dr. Smitha Petersen Cholesterol in HDL [Mass/Vol] 45 mg/dL Normal 40-[address] [facility] Comment on above: Performed By: #### C MP, BNP, TSH, URIC, T7, LIPID #### [facility] [address] [place] [address] Dr. Smitha Petersen Cholesterol in LDL [Mass/Vol] 35.2 mg/dL Normal [facility] Comment on above: Performed By: #### C MP, BNP, TSH, URIC, T7, LIPID #### [facility] [address] [place] [address] Dr. Smitha Petersen Cholesterol.total/Ch olesterol in HDL [Mass ratio] 2.3 {ratio} Normal [facility] Comment on above: Performed By: #### C MP, BNP, TSH, URIC, T7, LIPID #### [facility] [address] [address] [address] Smitha Petersen HDL NORMAL > or = 60 mg/dl - LO W CARDIOVASCULAR RISK <40 mg/dl - HIGH CARDIOVASCULAR RISK Normal [facility] Comment on above: Performed By: #### C MP, BNP, TSH, URIC, T7, LIPID #### [facility] [address] [address] [address] Smitha Petersen LDL CALC NORMAL SEE BELOW Normal [facility] Comment on above: Result Comment: <100 mg/dl OPTIMAL 100 - 129 mg/dl NEAR OR ABOVE OPTIMAL 130 - 159 mg/dl BORDERLINE HIGH 160 - 189 mg/dl HIGH >190 mg/dl VERY HIGH Performed By: #### C MP, BNP, TSH, URIC, T7, LIPID #### [facility] [address] [address] [address] Smitha Petersen Triglyceride [Mass/Vol] 109 mg/dL Normal <=[address] [facility] Comment on above: Performed By: #### C MP, BNP, TSH, URIC, T7, LIPID #### [facility] [address] [address] [address] Smitha Petersen VLDL CALC 21.8 mg/dL Normal [facility] Comment on above: Performed By: #### C MP, BNP, TSH, URIC, T7, LIPID #### [facility] [address] [place] [address] Dr. Smitha Petersen PROF 14(COMP METB)on 023 Albumin [Mass/Vol] 3.8 g/dL Normal 3.4-5.0 [facility] Comment on above: Performed By: #### C MP, BNP, TSH, URIC, T7, LIPID #### [facility] [address] [address] [address] Smitha Petersen Albumin/Globulin [Mass ratio] 1.2 {ratio} Normal [facility] Comment on above: Performed By: #### C MP, BNP, TSH, URIC, T7, LIPID #### [facility] [address] [place] [address] Dr. Smitha Petersen ALP [Catalytic activity/Vol] 113 U/L Normal 46-[address] [facility] Comment on above: Performed By: #### C MP, BNP, TSH, URIC, T7, LIPID #### [facility] [address] [address] [address] Smitha Petersen ALT [Catalytic activity/Vol] 66 U/L Critically high 16-[address] [facility] Comment on above: Performed By: #### C MP, BNP, TSH, URIC, T7, LIPID #### [facility] [address] [place] [address] Dr. Smitha Petersen Anion gap [Moles/Vol] 13.4 mmol/L Normal [facility] Comment on above: Performed By: #### C MP, BNP, TSH, URIC, T7, LIPID #### [facility] [address] [place] [address] Dr. Smitha Petersen AST [Catalytic activity/Vol] 29 U/L Normal 15-[address] [facility] Comment on above: Performed By: #### C MP, BNP, TSH, URIC, T7, LIPID #### [facility] [address] [place] [address] Dr. Smitha Petersen Bilirubin [Mass/Vol] 0.3 mg/dL Normal 0.2-1.[address] [facility] Comment on above: Performed By: #### C MP, BNP, TSH, URIC, T7, LIPID #### [facility] [address] [place] [address] Dr. Smitha Petersen Calcium [Mass/Vol] 8.9 mg/dL Normal 8.5-10.1 [facility] Comment on above: Performed By: #### C MP, BNP, TSH, URIC, T7, LIPID #### [facility] [address] [place] [address] Dr. Smitha Petersen Chloride [Moles/Vol] 101 mmol/L Normal 98-107 [facility] Comment on above: Performed By: #### C MP, BNP, TSH, URIC, T7, LIPID #### [facility] [address] [place] [address] Dr. Smitha Petersen CO2 [Moles/Vol] 28.8 mmol/L Normal 21.0-32.0 [facility] Comment on above: Performed By: #### C MP, BNP, TSH, URIC, T7, LIPID #### [facility] [address] [place] [address] Dr. Smitha Petersen Creatinine [Mass/Vol] 0.82 mg/dL Normal 0.70-1.[address] [facility] Comment on above: Performed By: #### C MP, BNP, TSH, URIC, T7, LIPID #### [facility] [address] [place] [address] Dr. Smitha Petersen EGFR-AF KOSOVAN >60 Normal >=60 [facility] Comment on above: Performed By: #### C MP, BNP, TSH, URIC, T7, LIPID #### [facility] [address] [place] [address] Dr. Smitha Petersen EGFR-NON AF KOSOVAN >60 Normal >=[address] [facility] Comment on above: Performed By: #### C MP, BNP, TSH, URIC, T7, LIPID #### [facility] [address] [place] [address] Dr. Smitha Petersen Globulin (S) [Mass/Vol] 3.3 g/dL Normal [facility] Comment on above: Performed By: #### C MP, BNP, TSH, URIC, T7, LIPID #### [facility] [address] [place] [address] Dr. Smitha Petersen Glucose [Mass/Vol] 100 mg/dL Normal 74-106 [facility] Comment on above: Performed By: #### C MP, BNP, TSH, URIC, T7, LIPID #### [facility] [address] [place] [address] Dr. Smitha Petersen Potassium [Moles/Vol] 4.2 mmol/L Normal 3.5-5.1 [facility] Comment on above: Performed By: #### C MP, BNP, TSH, URIC, T7, LIPID #### [facility] [address] [place] [address] Dr. Smitha Petersen Protein [Mass/Vol] 7.1 g/dL Normal 6.4-8.2 [facility] Comment on above: Performed By: #### C MP, BNP, TSH, URIC, T7, LIPID #### [facility] [address] [address] [address] Smitha Petersen Sodium [Moles/Vol] 139 mmol/L Normal 136-145 [facility] Comment on above: Performed By: #### C MP, BNP, TSH, URIC, T7, LIPID #### [facility] [address] [place] [address] Dr. Smitha Petersen Urea nitrogen [Mass/Vol] 14.0 mg/dL Normal 7.0-18.[address] [facility] Comment on above: Performed By: #### C MP, BNP, TSH, URIC, T7, LIPID #### [facility] [address] [address] [address] Smitha Petersen Urea nitrogen/Creatinine [Mass ratio] 17.1 mg/mg Normal [facility] Comment on above: Performed By: #### C MP, BNP, TSH, URIC, T7, LIPID #### [facility] [address] [place] [address] Dr. Smitha Petersen TSHon 10-17-2022 TSH 0.796 uIU/mL Normal 0.358-3.740 [facility] Comment on above: Performed By: #### C MP, BNP, TSH, URIC, T7, LIPID #### [facility] [address] [place] [address] Dr. Smitha Petersen URIC ACID SERUMon 10-17-2022 Urate [Mass/Vol] 6.4 mg/dL Normal 3.5-7.2 [facility] Comment on above: Performed By: #### C MP, BNP, TSH, URIC, T7, LIPID #### [facility] [address] [place] [address] Dr. Smitha Petersen VITAMIN D 25 OHon 10-17-2022 VIT D 25-OH 17.5 ng/mL Normal [facility] Comment on above: Performed By: #### V ITAD, PSASC, IRON #### [facility] [address] [place] [address] Dr. Smitha Petersen VIT D RANGES SEE BELOW Normal [facility] Comment on above: Result Comment: <20 ng/mL Vit D deficient 20 - <30 ng/mL Vit D insufficient 30 - 100 ng/mL Vit D sufficient >100 ng/mL Potential Toxicity Performed By: #### V ITAD, PSASC, IRON #### [facility] [address] [place], [place] [id number] Dr. Smitha Petersen ECHOCARDIO M/2D COMPLETEon 1 10-15-2021 ECHOCARDIO M/2D COMPLETE Patient: MK ROSALES Exam Date: 08/14/2022 : 1970 Gender:M Ordering : DR SHANEL FERNANDEZ . Admission #: [id number] Family : Order #: [id number] CLICK HERE TO VIEW EXAM ECHOCARDIOGRAM REPORT [...] Matta M.D. on 08/14/2022 at 18:[address] [facility] NM STRESS/REST MULTIon 07-23 NM STRESS/REST MULTI Patient: KATINA ROSALES Exam Date: 07/23/2022 : 1970 Gender:M Ordering : DR SHANEL FERNANDEZ . Admission #: [id number] Family : Order #: [id number] CLICK HERE TO VIEW EXAM RADIOLOGY REPORT [...] Kowalski MD on 08/06/2022 at 12:[address] [facility] CT LUNG CANCER SCREENINGon 1 09-12-2021 [...] PATRICIO LUTZ Date: 2022-07-13 08:59 Normal [facility] THEOPHYLLINEon 07-10-2022 THEOPHYLLINE 16.4 ug/mL Normal 10.0-20.0 [facility] Comment on above: Performed By: #### V ITAD, PSASC, IRON #### [facility] [address] [place] [address] Dr. 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 MRI KNEE LT WO CONon 022 [...] by: PATRICIO LUTZ Date: 2022-05-30 11:[address] [facility] LIPID PROFILEon 04-05-2022 CHOL-HDL RATIO NORM SEE BELOW Normal [facility] Comment on above: Result Comment: 3.3 - 4.4 LOW RISK 4.4 - 7.1 AVERAGE RISK 7.1 - 11.0 MODERATE RISK >11.0 HIGH RISK Performed By: #### V ITAD, PSASC, IRON #### [facility] [address] [address] [address] Smitha Petersen Cholesterol [Mass/Vol] 129 mg/dL Normal <=[address] [facility] Comment on above: Performed By: #### V ITAD, PSASC, IRON #### [facility] [address] [address] [address] Smitha Petersen Cholesterol in HDL [Mass/Vol] 40 mg/dL Normal 40-[address] [facility] Comment on above: Performed By: #### V ITAD, PSASC, IRON #### [facility] [address] [address] [address] Smitha Petersen Cholesterol in LDL [Mass/Vol] 57.2 mg/dL Normal [facility] Comment on above: Performed By: #### V ITAD, PSASC, IRON #### [facility] [address] [address] [address] Smitha Petersen Cholesterol.total/Ch olesterol in HDL [Mass ratio] 3.2 {ratio} Normal [facility] Comment on above: Performed By: #### V ITAD, PSASC, IRON #### [facility] [address] [address] [address] Smitha Petersen HDL NORMAL > or = 60 mg/dl - LO W CARDIOVASCULAR RISK <40 mg/dl - HIGH CARDIOVASCULAR RISK Normal [facility] Comment on above: Performed By: #### V ITAD, PSASC, IRON #### [facility] [address] [address] [address] Smitha Petersen LDL CALC NORMAL SEE BELOW Normal [facility] Comment on above: Result Comment: <100 mg/dl OPTIMAL 100 - 129 mg/dl NEAR OR ABOVE OPTIMAL 130 - 159 mg/dl BORDERLINE HIGH 160 - 189 mg/dl HIGH >190 mg/dl VERY HIGH Performed By: #### V ITAD, PSASC, IRON #### [facility] [address] [address] [address] Smitha Petersen Triglyceride [Mass/Vol] 159 mg/dL Critically high <=150 [facility] Comment on above: Performed By: #### V ITAD, PSASC, IRON #### [facility] [address] [place] [address] Dr. Smitha Petersen VLDL CALC 31.8 mg/dL Normal [facility] Comment on above: Performed By: #### V ITAD, PSASC, IRON #### [facility] [address] [place] [address] Dr. Smitha Petersen CBC AUTO DIFFon 03-22-2022 BASO # 0.1 103/ul Normal 0.0-0.[address] [facility] Comment on above: Performed By: #### V ITAD, PSASC, IRON #### [facility] [address] [place] [address] Dr. Smitha Petersen Basophils/100 WBC (Bld) 0.5 % Normal 0.2-2.[address] [facility] Comment on above: Performed By: #### V ITAD, PSASC, IRON #### [facility] [address] [place] [address] Dr. Smitha Petersen EO # 0.4 103/ul Normal 0.0-0.[address] [facility] Comment on above: Performed By: #### V ITAD, PSASC, IRON #### [facility] [address] [place] [address] Dr. Smitha Petersen Eosinophils/100 WBC (Bld) 3.5 % Normal 0.9-7.[address] [facility] Comment on above: Performed By: #### V ITAD, PSASC, IRON #### [facility] [address] [place] [address] Dr. Smitha Petersen Erythrocyte distribution width (RBC) [Ratio] 15.1 % Critically high 11.0-15.[address] [facility] Comment on above: Performed By: #### V ITAD, PSASC, IRON #### [facility] [address] [place] [address] Dr. Smitha Petersen Hematocrit (Bld) [Volume fraction] 46.8 % Normal 42.0-54.[address] [facility] Comment on above: Performed By: #### V ITAD, PSASC, IRON #### [facility] [address] [address] [address] Smitha Petersen Hemoglobin (Bld) [Mass/Vol] 15.5 g/dL Normal 14.0-18.0 [facility] Comment on above: Performed By: #### V ITAD, PSASC, IRON #### [facility] [address] [place] [address] Dr. Smitha Petersen IG # 0.03 10e3/ul Normal 0.00-0.03 [facility] Comment on above: Performed By: #### V ITAD, PSASC, IRON #### [facility] [address] [place] [address] Dr. Smitha Petersen IG % 0.3 % Normal 0.0-0.5 [facility] Comment on above: Performed By: #### V ITAD, PSASC, IRON #### [facility] [address] [place] [address] Dr. Smitha Petersen LYMPH # 2.6 103/ul Normal 1.2-3.8 [facility] Comment on above: Performed By: #### V ITAD, PSASC, IRON #### [facility] [address] [place] [address] Dr. Smitha Petersen Lymphocytes/100 WBC (Bld) 25.0 % Normal 20.5-60.0 [facility] Comment on above: Performed By: #### V ITAD, PSASC, IRON #### [facility] [address] [place] [address] Dr. Smitha Petersen MANUAL DIFF REQ NO Normal [facility] Comment on above: Performed By: #### V ITAD, PSASC, IRON #### [facility] [address] [place] [address] Dr. Smitha Petersen MCH (RBC) [Entitic mass] 29.6 pg Normal 25.9-34.0 [facility] Comment on above: Performed By: #### V ITAD, PSASC, IRON #### [facility] [address] [place] [address] Dr. Smitha Petersen MCHC (RBC) [Mass/Vol] 33.1 g/dL Normal 29.9-35.2 [facility] Comment on above: Performed By: #### V ITAD, PSASC, IRON #### [facility] [address] [address] [address] Smitha Petersen MCV (RBC) [Entitic vol] 89.5 fL Normal 80.0-94.[address] [facility] Comment on above: Performed By: #### V ITAD, PSASC, IRON #### [facility] [address] [place] [address] Dr. Smitha Petersen MONO # 0.7 103/ul Normal 0.3-0.8 [facility] Comment on above: Performed By: #### V ITAD, PSASC, IRON #### [facility] [address] [place] [address] Dr. Smitha Petersen Monocytes/100 WBC (Bld) 7.0 % Normal 1.7-12.0 [facility] Comment on above: Performed By: #### V ITAD, PSASC, IRON #### [facility] [address] [place] [address] Dr. Smitha Petersen NEUT # 6.7 103/ul Critically high 1.4-6.5 [facility] Comment on above: Performed By: #### V ITAD, PSASC, IRON #### [facility] [address] [place] [address] Dr. Smitha Petersen Neutrophils/100 WBC (Bld) 63.7 % Normal 43.0-75.0 [facility] Comment on above: Performed By: #### V ITAD, PSASC, IRON #### [facility] [address] [place] [address] Dr. Smitha Petersen Platelet mean volume (Bld) [Entitic vol] 8.9 fL Critically low 9.5-13.5 [facility] Comment on above: Performed By: #### V ITAD, PSASC, IRON #### [facility] [address] [place] [address] Dr. Smitha Petersen PLT 245 103/ul Normal 150-450 [facility] Comment on above: Performed By: #### V ITAD, PSASC, IRON #### [facility] [address] [place], [place] [address] Dr. Smitha Petersen RBC 5.23 106/ul Normal 4.70-6.[address] [facility] Comment on above: Performed By: #### V ITAD, PSASC, IRON #### [facility] [address] [place], [place] [address] Dr. Smitha Petersen WBC 10.5 103/ul Normal 4.0-11.[address] [facility] Comment on above: Performed By: #### V ITAD, PSASC, IRON #### [facility] [address] [place], [place] [address] ABD/PELVIS WO CONon [...] BLU GASPAR Date: 2022-03-22 21:12 Normal [facility] CULTURE URINEon 03-22-2022 CULTURE URINE Culture Observations : NO GROWTH. Normal [facility] Comment on above: Performed By: #### V ITAD, PSASC, IRON #### [facility] [address] [address] [address] Smitha Petersen ER URINE PROFILEon 2 Bilirubin Ql (U) Negative Normal NEGATIVE [facility] Comment on above: Performed By: #### V ITAD, PSASC, IRON #### [facility] [address] [place] [address] Dr. Smitha Petersen Clarity (U) CLEAR Normal CLEAR [facility] Comment on above: Performed By: #### V ITAD, PSASC, IRON #### [facility] [address] [place] [address] Dr. Smitha Petersen Color (U) LT. YELLOW Normal YELLOW [facility] Comment on above: Performed By: #### V ITAD, PSASC, IRON #### [facility] [address] [place] [address] Dr. Smitha EVANSFrankie A micrscopic examination will be performed if indicated. Normal [facility] Comment on above: Performed By: #### V ITAD, PSASC, IRON #### [facility] [address] [place] [address] Dr. Smitha Petersen Glucose Ql (U) Negative Normal NEGATIVE [facility] Comment on above: Performed By: #### V ITAD, PSASC, IRON #### [facility] [address] [address] [address] Smitha Petersen Hemoglobin Ql (U) TRACE-INTACT Abnormal NEGATIVE [facility] Comment on above: Performed By: #### V ITAD, PSASC, IRON #### [facility] [address] [address] [address] Smitha Petersen Ketones Ql (U) Negative Normal NEGATIVE [facility] Comment on above: Performed By: #### V ITAD, PSASC, IRON #### [facility] [address] [address] [address] Smitha Petersen LEUKOCYTES TRACE Abnormal NEGATIVE [facility] Comment on above: Performed By: #### V ITAD, PSASC, IRON #### [facility] [address] [address] [address] Smitha Petersen Nitrite Ql (U) Negative Normal NEGATIVE [facility] Comment on above: Performed By: #### V ITAD, PSASC, IRON #### [facility] [address] [address] [address] Smitha Petersen pH (U) 5.5 [pH] Normal 5-[address] [facility] Comment on above: Performed By: #### V ITAD, PSASC, IRON #### [facility] [address] [place] [address] Dr. Smitha Petersen SPEC GRAVITY 1.010 Normal 1.005-<=1.025 [facility] Comment on above: Performed By: #### V ITAD, PSASC, IRON #### [facility] [address] [address] [address] Smitha Petersen UA PROTEIN Negative Normal NEGATIVE/ TRACE [facility] Comment on above: Performed By: #### V ITAD, PSASC, IRON #### [facility] [address] [address] [address] Smitha Petersen UR MICRO IND INDICATED Normal [facility] Comment on above: Performed By: #### V ITAD, PSASC, IRON #### [facility] [address] [address] [address] Smitha Petersen Urobilinogen Qn (U) 0.2 {Zach'U}/dL Normal 0.2 - 1. [address] [facility] Comment on above: Performed By: #### V ITAD, PSASC, IRON #### [facility] [address] [place] [address] Dr. Smitha Petersen PROF 14(COMP METB)on 022 Albumin [Mass/Vol] 4.0 g/dL Normal 3.4-5.0 [facility] Comment on above: Performed By: #### V ITAD, PSASC, IRON #### [facility] [address] [address] [address] Smitha Petersen Albumin/Globulin [Mass ratio] 1.2 {ratio} Normal [facility] Comment on above: Performed By: #### V ITAD, PSASC, IRON #### [facility] [address] [address] [address] Smitha Petersen ALP [Catalytic activity/Vol] 113 U/L Normal 46-[address] [facility] Comment on above: Performed By: #### V ITAD, PSASC, IRON #### [facility] [address] [address] [address] Smitha Petersen ALT [Catalytic activity/Vol] 53 U/L Normal 16-[address] [facility] Comment on above: Performed By: #### V ITAD, PSASC, IRON #### [facility] [address] [address] [address] Smitha Petersen Anion gap [Moles/Vol] 15.3 mmol/L Normal [facility] Comment on above: Performed By: #### V ITAD, PSASC, IRON #### [facility] [address] [address] [address] Smitha Petersen AST [Catalytic activity/Vol] 18 U/L Normal 15-[address] [facility] Comment on above: Performed By: #### V ITAD, PSASC, IRON #### [facility] [address] [address] [address] Smitha Petersen Bilirubin [Mass/Vol] 0.4 mg/dL Normal 0.2-1.0 [facility] Comment on above: Performed By: #### V ITAD, PSASC, IRON #### [facility] [address] [address] [address] Smitha Petersen Calcium [Mass/Vol] 9.2 mg/dL Normal 8.5-10.1 [facility] Comment on above: Performed By: #### V ITAD, PSASC, IRON #### [facility] [address] [address] [address] Smitha Petersen Chloride [Moles/Vol] 101 mmol/L Normal 98-[address] [facility] Comment on above: Performed By: #### V ITAD, PSASC, IRON #### [facility] [address] [place] [address] Dr. Smitha Petersen CO2 [Moles/Vol] 24.8 mmol/L Normal 21.0-32.0 [facility] Comment on above: Performed By: #### V ITAD, PSASC, IRON #### [facility] [address] [place] [address] Dr. Smitha Petersen Creatinine [Mass/Vol] 0.96 mg/dL Normal 0.70-1.[address] [facility] Comment on above: Performed By: #### V ITAD, PSASC, IRON #### [facility] [address] [place] [address] Dr. Smitha Petersen EGFR-AF KOSOVAN >60 Normal >=60 [facility] Comment on above: Performed By: #### V ITAD, PSASC, IRON #### [facility] [address] [place] [address] Dr. Smitha Petersen EGFR-NON AF KOSOVAN >60 Normal >=[address] [facility] Comment on above: Performed By: #### V ITAD, PSASC, IRON #### [facility] [address] [place] [address] Dr. Smitha Petersen Globulin (S) [Mass/Vol] 3.4 g/dL Normal [facility] Comment on above: Performed By: #### V ITAD, PSASC, IRON #### [facility] [address] [place] [address] Dr. Smitha Petersen Glucose [Mass/Vol] 146 mg/dL Critically high 74-106 [facility] Comment on above: Performed By: #### V ITAD, PSASC, IRON #### [facility] [address] [place] [address] Dr. Smitha Petersen Potassium [Moles/Vol] 4.1 mmol/L Normal 3.5-5.1 [facility] Comment on above: Performed By: #### V ITAD, PSASC, IRON #### [facility] [address] [place] [address] Dr. Smitha Petersen Protein [Mass/Vol] 7.4 g/dL Normal 6.4-8.2 [facility] Comment on above: Performed By: #### V ITAD, PSASC, IRON #### [facility] [address] [place] [address] Dr. Smitha Petersen Sodium [Moles/Vol] 137 mmol/L Normal 136-145 [facility] Comment on above: Performed By: #### V ITAD, PSASC, IRON #### [facility] [address] [place] [address] Dr. Smitha Petersen Urea nitrogen [Mass/Vol] 22.0 mg/dL Critically high 7.0-18.[address] [facility] Comment on above: Performed By: #### V ITAD, PSASC, IRON #### [facility] [address] [place] [address] Dr. Smitha Petersen Urea nitrogen/Creatinine [Mass ratio] 22.9 mg/mg Normal [facility] Comment on above: Performed By: #### V ITAD, PSASC, IRON #### [facility] [address] [place] [address] Dr. Smitha Petersen URINE MICROSCOPIC ONLYon BACTERIA TRACE Abnormal NONE SEEN [facility] Comment on above: Performed By: #### V ITAD, PSASC, IRON #### [facility] [address] [place] [address] Dr. Smitha Petersen Bacteria identified Cx Nom (U) INDICATED Normal [facility] Comment on above: Performed By: #### V ITAD, PSASC, IRON #### [facility] [address] [place] [address] Dr. Smitha Petersen CAST NONE SEEN Normal NONE SEEN [facility] Comment on above: Performed By: #### V ITAD, PSASC, IRON #### [facility] [address] [place] [address] Dr. Smitha Petersen Crystals LM Nom (Urine sed) NONE SEEN Normal NONE SEEN [facility] Comment on above: Performed By: #### V ITAD, PSASC, IRON #### [facility] [address] [place] [address] Dr. Smitha Petersen Epithelial cells LM Ql (Urine sed) NONE SEEN Normal NONE SEEN /RARE [facility] Comment on above: Performed By: #### V ITAD, PSASC, IRON #### [facility] [address] [address] [address] Smitha Petersen MUCOUS NONE SEEN Normal NONE SEEN [facility] Comment on above: Performed By: #### V ITAD, PSASC, IRON #### [facility] [address] [place] [address] Dr. Smitha Petersen RBC NONE SEEN Abnormal 0-[address] [facility] Comment on above: Performed By: #### V ITAD, PSASC, IRON #### [facility] [address] [place] [address] Dr. Smitha Petersen WBC 5-10 Abnormal NONE SEEN [facility] Comment on above: Performed By: #### V ITAD, PSASC, IRON #### [facility] [address] [place] [address] Dr. Smitha Petersen US TRAV DOP LEG [...] PATRICIO LUTZ Date: 2022-01-23 11:39 Normal [facility] Operative Reporton Operative Report MR#: [id number] S [facility] Pt. Name: Mk Rosales Room #: 0C Discharge Date: Birthdate: 1970 OPERATIVE REPORT DATE OF SURGERY: 09/15/2020 SURGEON: Km H. Mechelle, M.D. PREOPERATIVE DIAGNOSIS: Left knee medial meniscus tear, unstable. POSTOPERATIVE DIAGNOSIS: 1. Left knee medial meniscus tear, unstable. 2. Left knee chondral tear patella. SURGEON: Mk Min M.D. FIRE PROTECTION SPECIALIST: Nelson Leos MD ANESTHESIA: General. PROCEDURE PERFORMED: [...] Min M.D. Date Trans: 09/15/2020 09:36 A/zoey [id number] cc: Shanel Fernandez M.D. [address] [address] Normal The [facility] POC GLUCOSE LABon 09-15-2020 Glucose [Mass/Vol] 101 mg/dL High 70-100 [facility] Comment on above: Performed By: #### 8 [id number] #### [address] Vital Signs Date Time Vital Sign Value Performing Clinician Facility 11-05-2022 09:00-0500 Body height Berenice Blades Other [facility] Other 11-05-2022 09:00-0500 Body mass index (BMI) [Ratio] 38.24 kg/m2 Berenice Blades Other [facility] Other 11-05-2022 09:00-0500 Body weight 117.48 kg Berenice Blades Other [facility] Other 11-05-2022 09:00-0500 Diastolic blood pressure 94 mm[Hg] Berenice Blades Other [facility] Other 11-05-2022 09:00-0500 Systolic blood pressure 156 mm[Hg] Berenice Blades Other [facility] Other 10-26-2022 08:00-0500 Body height Berenice Blades Other [facility] Other 10-26-2022 08:00-0500 Body mass index (BMI) [Ratio] 38.24 kg/m2 Berenice Blades Other [facility] Other 10-26-2022 08:00-0500 Body weight 117.48 kg Berenice Blades Other [facility] Other 10-26-2022 08:00-0500 Diastolic blood pressure 89 mm[Hg] Berenice Blades Other [facility] Other 10-26-2022 08:00-0500 Systolic blood pressure 130 mm[Hg] Berenice Blades Other [facility] Other Encounters Encounter Date Encounter Type Care Provider Facility Start: 06-24-2024 End: [facility]: 02-18-2024 End: 02-18-2024 ambulatory ARLINE VALDES Not Available Start: 02-03-2024 End: 02-03-2024 ambulatory [facility] Start: 01-01-2023 End: 01-02-2023 ambulatory TREVOR SAMSA . Facility:[facility] Start: 12-19-2022 ambulatory SHANEL HOY Facility:[facility] Start: 12-12-2022 ambulatory SHANEL HOY Facility:[facility] Start: 11-05-2022 End: 11-05-2022 ambulatory Berenice Blades Other [facility] Other Start: 11-05-2022 Office outpatient vi sit 15 minutes Berenice Blades [facility] Start: 11-01-2022 End: 11-02-2022 ambulatory BERENICE BLADES Facility:[facility] Start: 10-26-2022 End: 10-26-2022 ambulatory Berenice Blades Other [facility] Other Start: 10-26-2022 Office outpatient ne w 45 minutes Berenice Blades [facility] Start: 10-17-2022 End: 10-18-2022 ambulatory SHANEL HOY Facility:[facility] Start: 08-14-2022 End: 08-15-2022 ambulatory SHANEL HOY Facility:[facility] Start: 08-06-2022 End: 08-07-2022 ambulatory SHANEL HOY Facility:[facility] Start: 07-23-2022 End: 07-24-2022 ambulatory SHANEL HOY Facility:[facility] Start: 07-13-2022 End: 07-14-2022 ambulatory TREVOR SAMSA . Facility:[facility] Start: 07-10-2022 End: 07-11-2022 ambulatory TREVOR SAMSA . Facility:[facility] Start: 06-20-2022 End: 06-21-2022 ambulatory SHANEL HOY Facility:[facility] Start: 05-30-2022 End: 05-31-2022 ambulatory SHANEL HOY Facility:[facility] Start: 04-05-2022 End: 04-06-2022 ambulatory HAL FERMIN Facility:[facility] Start: 03-22-2022 End: 03-22-2022 ambulatory SHANEL HOY Facility:[facility] Start: 01-23-2022 End: 01-24-2022 ambulatory SHANEL HOY Facility:[facility] Start: 09-15-2020 End: 09-16-2020 ambulatory SHANEL HOY Facility:[facility] Procedures Date Procedure Procedure Detail Performing Clinician Start: 10-17-2022 PSA screening SHANEL H BEAR Comment on above: Performed By: #### V ITAD, PSASC, IRON #### [facility] [address] [place] [address] Dr. Smitha Petersen Start: 09-15-2020 ANESTH KNEE JOINT SURGERY JAYSON CHEN Start: 09-15-2020 KNEE ARTHROSCOPY/SURGERY MK MIN Plan of Treatment Date Care Activity Detail Author Start: 01-23-2023 ambulatory Ambulatory Facility:[facility] Payers Date Payer Category Payer Medicare [id number] 1970 Unknown [id number] 2.16.8 [id number] 1970 Unknown [id number] 2.16.84 [id number] 1970 Unknown [id number] 2.16.84 0.1.023565.3.579.2.593 1970 Unknown [id number] 2.16.84 0.1.721924.3.579.2.593 1970 Unknown [id number] 2.16.84 0.1.300596.3.579.2.593 1970 Unknown [id number] 2.16.84 0.1.178836.3.579.2.593 1970 Unknown [id number] 2.16.84 0.1.134552.3.579.2.593 1970 Unknown [id number] 2.16.84 0.1.969257.3.579.2.593 1971 Unknown [id number] 2.16.84 0.1.025517.3.579.2.593 1971 Unknown [id number] 2.16.84 0.1.952263.3.579.2.593 1971 Unknown [id number] 2.16.84 0.1.295983.3.579.2.593 1970 Unknown [id number] 2.16.84 0.1.290968.3.579.2.593 1971 Unknown [id number] 2.16.84 0.1.192055.3.579.2.593 1970 Unknown [id number] 2.16.84 0.1.118049.3.579.2.593 1970 Unknown [id number] 2.16.84 0.1.042366.3.579.2.593 1971 Unknown [id number] 2.16.84 0.1.615656.3.579.2.593 1970 Unknown [id number] 2.16.84 0.1.685161.3.579.2.593 1971 Unknown [id number] 2.16.84 0.1.607158.3.579.2.593 1970 Unknown [id number] 2.16.84 0.1.064683.3.579.2.1259 1958 Medicare [id number] 2.1 [id number] 1958 Self-pay [id number] 1958 Unknown [id number] Self-pay Self Pay [id number] Unknown Self Pay [id number] Social History Date Type Detail Facility Tobacco smoking status WYIS Unknown if ever smoked [facility] Work Phone: Start: 1970 Sex Assigned At Male [facility] Sex Assigned At Sex Assigned At [facility] th [facility] [employer] Other Progress note 06-24-2024 Note Date & Type Note Facility 06-24-2024 Note Patient here for fol low up stress test per Dr. Fernandez. He states Dr. Fernandez ordered test for 2 episodes of diaphoresis while he was in [place]. He denies chest pain and increased POSEY. Review of Systems Constitutional: Positive for diaphoresis (2 episodes). Cardiovascular: Positive for dyspnea on exertion. Respiratory: Positive for wheezing. Musculoskeletal: Positive for arthritis, back pain, joint pain and muscle weakness. Neurological: Positive for weakness. All other systems reviewed and are negative. [facility] Progress note 06-24-2024 Note Date & Type Note Facility 06-24-2024 Note Cardiovascular [facility] SUBJECTIVE Chief Complaint Patient presents with Coronary Artery Disease Hypertension Mk Rosales is a 54 y.o. male here for follow-up. HPI PMHx: CAD with hx of multiple stents (last cath 2018 showed stable CAD), HTN, HLD, DM type II He was recently traveling to see his fiances family and she noticed that he had broke out in sweat on a couple occasions. He was just sitting when this occurred. He was unsure what his blood sugar was during these times. He states he felt well during these times. He denies any worsened SOB. Denies any c/o chest pain. He states with his previous stents he had complaints of chest pain. Denies c/o orthopnea, PND, dizziness/LH, palpitations, syncope. Patient Active Problem List Diagnosis Cardiovascular stress test abnormal Chronic back pain Chronic obstructive lung disease (CMS/HCC) Coronary arteriosclerosis Diabetes mellitus (CMS/HCC) Neuropathy Pain in lower limb Seizure (CMS/HCC) Tobacco user Body mass index (BMI) 38.0-38.9, adult Body mass index (BMI) 37.0-37.9, adult CAD S/P percutaneous coronary angioplasty History of traumatic brain injury HTN (hypertension) Hyperlipidemia Type 2 diabetes mellitus with diabetic neuropathy (CMS/HCC) Altered mental status Depression with anxiety Dysmetria Ischemic stroke (CMS/HCC) Left leg weakness Lumbosacral radiculopathy Memory impairment 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 Cardiovascular: Positive for dyspnea on exertion. Respiratory: Positive for wheezing. Musculoskeletal: Positive for arthritis, back pain, joint pain and muscle weakness. Neurological: Positive for weakness. All other systems reviewed and are negative. OBJECTIVE Visit Vitals BP 130/80 (BP Location: Right arm, Patient Position: Sitting) Pulse 82 Ht 1.702 m (5' 7 ) Wt 111 kg (245 lb) SpO2 98% BMI 38.37 kg/m??? Smoking Status Every Day BSA 2.29 m??? Medications: Current Outpatient Medications: albuterol 90 mcg/actuation inhaler, INHALE 2 PUFFS BY MOUTH EVERY 4 HOURS NEEDED FOR SHORTNESS OF BREATH, Disp: , Rfl: amitriptyline (Elavil) 150 mg tablet, Take 150 mg by mouth at bedtime., Disp: , Rfl: aspirin 81 mg EC tablet, in the morning., Disp: , Rfl: atorvastatin (Lipitor) 80 mg tablet, Take 1 tablet (80 mg) by mouth at bedtime., Disp: 90 tablet, Rfl: 3 uijmdbijnn-caapdzpl-ulbcttdpgb 160-9-4.8 mcg/actuation HFA aerosol inhaler, Breztri Aerosphere 160 mcg-9mcg-4.8mcg/actuation HFA aerosol inhaler, Disp: , Rfl: clopidogrel (Plavix) 75 mg tablet, Take 1 tablet (75 mg) by mouth in the morning., Disp: 90 tablet, Rfl: 3 diclofenac (Voltaren) 75 mg EC tablet, diclofenac sodium 75 mg tablet,delayed release TAKE 1 TABLET BY MOUTH TWICE DAILY, Disp: , Rfl: ergocalciferol (Vitamin D-2) 200 mcg/mL (8,000 unit/mL) drops, Take 100 mcg by mouth in the morning., Disp: , Rfl: indomethacin (Indocin) 50 mg capsule, Take 50 mg by mouth., Disp: , Rfl: levETIRAcetam (Keppra) 500 mg tablet, levetiracetam 500 mg tablet TAKE 3 TABLETS BY MOUTH IN THE MORNING AND 2 IN THE EVENING 12 HOURS APART, Disp: , Rfl: lisinopril 2.5 mg tablet, Take 1 tablet (2.5 mg) by mouth once daily as directed., Disp: 90 tablet, Rfl: 3 Lyrica 300 mg capsule, 1 capsule., Disp: , Rfl: metFORMIN (Glucophage) 500 mg tablet, metformin 500 mg tablet TAKE 1 TABLET BY MOUTH TWICE DAILY, Disp: , Rfl: metoprolol tartrate (Lopressor) 25 mg tablet, Take 1 tablet (25 mg) by mouth with breakfast and with evening meal., Disp: 180 tablet, Rfl: 3 nitroglycerin (Nitrostat) 0.4 mg SL tablet, nitroglycerin 0.4 mg sublingual tablet, Disp: , Rfl: oxaprozin (Daypro) 600 mg tablet, , Disp: , Rfl: Ozempic 2 mg/dose (8 mg/3 mL) pen injector, INJECT 2 MG SUBCUTANEOUSLY ONCE A WEEK, Disp: , Rfl: sildenafil (Viagra) 100 mg tablet, TAKE 1 TABLET BY MOUTH ONCE DAILY 30 MINUTES BEFORE INTERCOURSE, Disp: , Rfl: theophylline ER (Uniphyl) 400 mg 24 hr tablet, theophylline ER 400 mg tablet,extended release 24 hr TAKE 3 TABLETS BY MOUTH TWICE DAILY, Disp: , Rfl: tiZANidine (Zanaflex) 4 mg tablet, TAKE 2 TABLETS BY MOUTH AT BEDTIME FOR 30 DAYS, Disp: , Rfl: Physical Exam Constitutional: Appearance: Normal appearance. He is obese. HENT: Head: Normocephalic and atraumatic. Right Ear: Exter (more content not included)... [facility] Progress note 02-03-2024 Note Date & Type Note Facility 02-03-2024 Note [facility] Clinic Note Chief Complaint: [...] history of COPD (chronic obstructive pulmonary disease) (CMS/HCC), Coronary artery disease, Diabetes mellitus (CMS/HCC), Hypertension, Seizures (CMS/HCC), and Sleep apnea. Surgical History He has [...] by mouth at bedtime., Disp: , Rfl: amhuotritx-etrtdoci-bscwaoyqth 160-9-4.8 mcg/actuation HFA aerosol inhaler, Breztri Aerosphere [...] Echocardiogram 08/14/2022 Con (more content not included)... [facility] Evaluation note 11-05-2022 Note Date & Type Note Facility 11-05-2022 Evaluation note Encounter Date Diagnosis Assessment Notes Oct, Left leg pain (ICD-10 - M79.605) [facility] Other Evaluation note 10-26-2022 Note Date & Type Note Facility 10-26-2022 Evaluation note Encounter Date Diagnosis Assessment Notes Oct, Cerebral infarct (ICD-10 - I63.9) Oct, Encephalomalacia (ICD-10 - G93.89) [facility] Other Clinical Note 08-06-2022 Note Date & [...] and reported in a separate dictation. [facility] Evaluation note Note Date & Type Note Facility Evaluation note No assessment information availa [facility] Work Phone: History general Narrative [...] Surgical History angioplasty Hospitalization History see above [facility] Other Summary Purpose Family History No Family [...] DATE CREATED AUTHOR 08/18/2021 [facility] DATE CREATED AUTHOR AUTHOR'S ORGANIZ ATION [facility]/10[facility]2023 [facility] DATE CREATED AUTHOR AUTHOR'S ORGANIZ ATION 02/19/2024 [facility] EPIC DATE CREATED AUTHOR AUTHOR'S ORGANIZ ATION 06/26/2024 [facility] Goals (unrecognized section and content) Goals may be documented in a n alternate sectionGoals may be documented in an alternate sectionNo InformationNo Information REASON FOR VISIT (unrecogniz ed section and content) Ref Dr Mallory, Left sided weakness; left leg painMRI, ultrasound results test done 11/01/22 @[facility] FOR RECORDS PERTAINING TO PATIENTS WHO [...] BE BASED ON THE PRIMARY CLINICAL RECORDS. [facility] [facility] provides no warranty or guarantee of the accuracy or completeness of information in this document.
== END 2024-07-22 08:47 | disposition home or self-care (01) ==
LOC: CT 08:46
PROVIDERS: PCP Family Medicine; Visit Provider Internal Medicine
DX: R91.8 Other nonspecific abnormal finding of lung field (principal); Z12.2 Encounter for screening for malignant neoplasm of respiratory organs; Z87.891 Personal history of nicotine dependence
CPT/HCPCS: 71271

== ENCOUNTER 2024-10-16 06:57 | Outpatient (OUT) | payer MEDICARE, SELFPAY ==
--- OUTSIDE RECORDS SUMMARY | 2024-10-16 07:03 | XMS_ITS | CCD ---
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 Role Phone SHANEL FERNANDEZ Referring Unavailable MK MIN H Admitting Unavailable MK MIN Attending Unavailable MK MIN Surgeon Unavailable MA Procedure Practitioner Unavailab le HOY, SHANEL Primary Care Unavailable CUBA CHENKESH Surgeon Unavailable MA Procedure Practitioner Unavailab le Blades, Berenice Unavailable [...] Unavailable BLADES, BERENICE Consulting Unavailable SAMSA ., TREVRO Attending Unavailable SAMSA ., TREVOR Admitting Unavailable [...] Unavailable SAMSA ., TREVOR Consulting Unavailable HOY, SHAENL Consulting Unavailable HOY, SHANEL Attending Unavailable HOY, [...] Date of Onset Reaction(s) Facility (1 source) 02141,00; 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: [67703,00] Propensity to adverse reactions (disorder) 9 [facility] Repository Medications Current Medications Medication Drug [...] PO Twice daily January 12, 2019 9:32am Selwzgxw-Nkg-Vmayptf Fumarate (Multi Vitamin) 9 mg iron/15 mL Liquid (2 sources) Start: 01-12-2019 take 1 tablet by mouth once daily Oxtcgzoy-Qeo-Xqqmb us Fumarate (Multi Vitamin) 9 mg iron/15 [...] take 1 puff(s) by inhalation once daily Azhyckmxtcf-Yqcrofnyk-Efkgnyvp Active 1 PUFF INHALATION Daily January 12, [...] coronary angioplasty; 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: [Atherosclerotic heart disease of [place] coronary artery without angina pectoris] Onset: 04-05-2022 [...] Onset: 08-14-2022 Episodic Other aftercare (1 source) 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) use of aspirin; 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: [RESIDENTIAL SALES CURRENT USE OF ASPIRIN] Onset: 03-26-2022 Episodic Other aftercare (1 source) Other residential (current) drug therapy; 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: [OTH RESIDENTIAL SALES CURRENT DRUG THERAPY] Onset: 03-26-2022 Episodic Residual [...] Range Facility Office Visiton 06-24-2024 Follow-up visit [id number] Ankush Rosales 1970 M Date Provider Department Center 06/24/2024 MICHA STAFFORD [facility] Family History Problem Relation Age of Onset Coronary artery disease Father Heart attack Father Family Status - Relation Status Age at Father Level of Service:16657 MA OFFICE/OUTPATIENT ESTABLISHED MOD MDM 30 MIN Reason for Visit and Comments: Coronary Artery Disease [187] Hypertension [836797] Normal [facility] Office Visiton 02-03-2024 Follow-up visit [id number] Ankush Rosales 1970 M Provider Department Center 02/03/2024 CONNOR HINTON [facility] Family History Problem Relation Age of Onset Coronary artery disease Father Heart attack Father Family Status - Relation Status Age at Father Level of Service:00852 MA OFFICE/OUTPATIENT ESTABLISHED MOD MDM 30 MIN Normal [facility] THEOPHYLLINEon 01-01-2023 THEOPHYLLINE 17.6 ug/mL Normal 10.0-20.0 [facility] Comment on above: Performed By: #### V ITAD, PSASC, IRON #### [facility] [address] [place] [address] Dr. Smitha Petersen MRI BRAIN WO CONon [...] by: MK SÁNCHEZ Date: 2022-11-01 16:53 Normal [facility] US CAROTID ART BILon 023 US [...] by: MK KOWALSKI Date: 2022-11-01 16:16 Normal [facility] BNPon 10-17-2022 Natriuretic peptide B (Bld) [Mass/Vol] 32.0 pg/mL Normal <=900.0 [facility] Comment on above: Performed By: #### C MP, BNP, TSH, URIC, T7, LIPID #### [facility] [address] [place] [address] Dr. Smitha Petersen CBC AUTO DIFFon 10-17-2022 BASO # 0.0 103/ul Normal 0.0-0.1 [facility] Comment on above: Performed By: #### V ITAD, PSASC, IRON #### [facility] [address] [place] [address] Dr. Smitha Petersen Basophils/100 WBC (Bld) 0.4 % Normal 0.2-2.0 [facility] Comment on above: Performed By: #### V ITAD, PSASC, IRON #### [facility] [address] [place] [address] Dr. Smitha Petersen EO # 0.2 103/ul Normal 0.0-0.7 [facility] Comment on above: Performed By: #### V ITAD, PSASC, IRON #### [facility] [address] [place] [address] Dr. Smitha Petersen Eosinophils/100 WBC (Bld) 2.4 % Normal 0.9-7.0 [facility] Comment on above: Performed By: #### V ITAD, PSASC, IRON #### [facility] [address] [place] [address] Dr. Smitha Petersen Erythrocyte distribution width (RBC) [Ratio] 13.8 % Normal 11.0-15.0 [facility] Comment on above: Performed By: #### V ITAD, PSASC, IRON #### [facility] [address] [place] [address] Dr. Smitha Petersen Hematocrit (Bld) [Volume fraction] 46.8 % Normal 42.0-54.0 [facility] Comment on above: Performed By: #### V ITAD, PSASC, IRON #### [facility] [address] [place] [address] Dr. Smitha Petersen Hemoglobin (Bld) [Mass/Vol] 15.7 g/dL Normal 14.0-18.0 [facility] Comment on above: Performed By: #### V ITAD, PSASC, IRON #### [facility] [address] [place] [address] Dr. Smitha Petersen IG # 0.04 10e3/ul Critically high 0.00-0.03 [facility] Comment on above: Performed By: #### V ITAD, PSASC, IRON #### [facility] [address] [place] [address] Dr. Smitha Petersen IG % 0.5 % Normal 0.0-0.5 [facility] Comment on above: Performed By: #### V ITAD, PSASC, IRON #### [facility] [address] [place] [address] Dr. Smitha Petersen LYMPH # 1.7 103/ul Normal 1.2-3.8 [facility] Comment on above: Performed By: #### V ITAD, PSASC, IRON #### [facility] [address] [place] [address] Dr. Smitha Petersen Lymphocytes/100 WBC (Bld) 20.1 % Critically low 20.5-60.0 [facility] Comment on above: Performed By: #### V ITAD, PSASC, IRON #### [facility] [address] [place] [address] Dr. Smitha Petersen MANUAL DIFF REQ NO Normal [facility] Comment on above: Performed By: #### V ITAD, PSASC, IRON #### [facility] [address] [place] [address] Dr. Smitha Petersen MCH (RBC) [Entitic mass] 29.7 pg Normal 25.9-34.0 [facility] Comment on above: Performed By: #### V ITAD, PSASC, IRON #### [facility] [address] [place] [address] Dr. Smitha Petersen MCHC (RBC) [Mass/Vol] 33.5 g/dL Normal 29.9-35.2 [facility] Comment on above: Performed By: #### V ITAD, PSASC, IRON #### [facility] [address] [place] [address] Dr. Smitha Petersen MCV (RBC) [Entitic vol] 88.5 fL Normal 80.0-94.0 [facility] Comment on above: Performed By: #### V ITAD, PSASC, IRON #### [facility] [address] [place] [address] Dr. Smitha Petersen MONO # 0.6 103/ul Normal 0.3-0.8 [facility] Comment on above: Performed By: #### V ITAD, PSASC, IRON #### [facility] [address] [place] [address] Dr. Smitha Petersen Monocytes/100 WBC (Bld) 6.8 % Normal 1.7-12.0 [facility] Comment on above: Performed By: #### V ITAD, PSASC, IRON #### [facility] [address] [place] [address] Dr. Smitha Petersen NEUT # 6.0 103/ul Normal 1.4-6.5 [facility] Comment on above: Performed By: #### V ITAD, PSASC, IRON #### [facility] [address] [place] [address] Dr. Smitha Petersen Neutrophils/100 WBC (Bld) 69.8 % Normal 43.0-75.0 [facility] Comment on above: Performed By: #### V ITAD, PSASC, IRON #### [facility] [address] [place] [address] Dr. Smitha Petersen Platelet mean volume (Bld) [Entitic vol] 8.7 fL Critically low 9.5-13.5 [facility] Comment on above: Performed By: #### V ITAD, PSASC, IRON #### [facility] [address] [place] [address] Dr. Smitha Petersen PLT 222 103/ul Normal 150-450 [facility] Comment on above: Performed By: #### V ITAD, PSASC, IRON #### [facility] [address] [place] [address] Dr. Smitha Petersen RBC 5.29 106/ul Normal 4.70-6.10 [facility] Comment on above: Performed By: #### V ITAD, PSASC, IRON #### [facility] [address] [address] [address] Smitha Petersen WBC 8.5 103/ul Normal 4.0-11.0 [facility] Comment on above: Performed By: #### V ITAD, PSASC, IRON #### [facility] [address] [address] [address] Smitha Petersen FREE THYROXINE INDEX T7on FTI 2.54 Normal 1.30-4.50 [facility] Comment on above: Performed By: #### C MP, BNP, TSH, URIC, T7, LIPID #### [facility] [address] [address] [address] Smitha Petersen T3U 33.0 % Normal 33.0-40.0 [facility] Comment on above: Performed By: #### C MP, BNP, TSH, URIC, T7, LIPID #### [facility] [address] [address] [address] Smitha Petersen T4 [Mass/Vol] 7.70 ug/dL Normal 4.50-12.[address] [facility] Comment on above: Performed By: #### C MP, BNP, TSH, URIC, T7, LIPID #### [facility] [address] [address] [address] Smitha Petersen GLYCOHEMOGLOBIN A1Con 2022 ADA RECOMMENDATION SEE BELOW Normal [facility] Comment on above: Result Comment: ADA RECOMMENDED LIMIT 4.0 - 6.0 ADA THERAPEUTIC TARGET < 7.0 ACTION SUGGESTED > 7.0 Performed By: #### V ITAD, PSASC, IRON #### [facility] [address] [address] [address] Smitha Petersen Glucose [Mass/Vol] 120 mg/dL Normal [facility] Comment on above: Performed By: #### V ITAD, PSASC, IRON #### [facility] [address] [address] [address] Smitha Petersen HbA1c (Bld) [Mass fraction] 5.8 % Normal 4.5-6.2 [facility] Comment on above: Performed By: #### V ITAD, PSASC, IRON #### [facility] [address] [address] [address] Smitha Petersen IRONon 10-17-2022 Iron [Mass/Vol] 66.0 ug/dL Normal 65.0-175.0 [facility] Comment on above: Performed By: #### V ITAD, PSASC, IRON #### [facility] [address] [place] [address] Dr. Smitha Petersen LIPID PROFILEon 10-17-2022 CHOL-HDL RATIO NORM SEE BELOW Normal [facility] Comment on above: Result Comment: 3.3 - 4.4 LOW RISK 4.4 - 7.1 AVERAGE RISK 7.1 - 11.0 MODERATE RISK >11.0 HIGH RISK Performed By: #### C MP, BNP, TSH, URIC, T7, LIPID #### [facility] [address] [place] [address] Dr. Smitha Petersen Cholesterol [Mass/Vol] 102 mg/dL Normal <=200 [facility] Comment on above: Performed By: #### C MP, BNP, TSH, URIC, T7, LIPID #### [facility] [address] [place] [address] Dr. Smitha Petersen Cholesterol in HDL [Mass/Vol] 45 mg/dL Normal 40-60 [facility] Comment on above: Performed By: #### C MP, BNP, TSH, URIC, T7, LIPID #### [facility] [address] [place] [address] Dr. Smitha Petersen Cholesterol in LDL [Mass/Vol] 35.2 mg/dL Normal [facility] Comment on above: Performed By: #### C MP, BNP, TSH, URIC, T7, LIPID #### [facility] [address] [place] [address] Dr. Smitha Petersen Cholesterol.total/Ch olesterol in HDL [Mass ratio] 2.3 {ratio} Normal [facility] Comment on above: Performed By: #### C MP, BNP, TSH, URIC, T7, LIPID #### [facility] [address] [address] [address] Smitha Petersen HDL NORMAL > or = 60 mg/dl - LO W CARDIOVASCULAR RISK <40 mg/dl - HIGH CARDIOVASCULAR RISK Normal [facility] Comment on above: Performed By: #### C MP, BNP, TSH, URIC, T7, LIPID #### [facility] [address] [address] [address] Smitha Petersen LDL CALC NORMAL SEE BELOW Normal [facility] Comment on above: Result Comment: <100 mg/dl OPTIMAL 100 - 129 mg/dl NEAR OR ABOVE OPTIMAL 130 - 159 mg/dl BORDERLINE HIGH 160 - 189 mg/dl HIGH >190 mg/dl VERY HIGH Performed By: #### C MP, BNP, TSH, URIC, T7, LIPID #### [facility] [address] [address] [address] Smitha Petersen Triglyceride [Mass/Vol] 109 mg/dL Normal <=150 [facility] Comment on above: Performed By: #### C MP, BNP, TSH, URIC, T7, LIPID #### [facility] [address] [address] [address] Smitha Petersen VLDL CALC 21.8 mg/dL Normal [facility] Comment on above: Performed By: #### C MP, BNP, TSH, URIC, T7, LIPID #### [facility] [address] [place] [address] Dr. Smitha Petersen PROF 14(COMP METB)on 023 Albumin [Mass/Vol] 3.8 g/dL Normal 3.4-5.0 [facility] Comment on above: Performed By: #### C MP, BNP, TSH, URIC, T7, LIPID #### [facility] [address] [address] [address] Smitha Petersen Albumin/Globulin [Mass ratio] 1.2 {ratio} Normal [facility] Comment on above: Performed By: #### C MP, BNP, TSH, URIC, T7, LIPID #### [facility] [address] [place] [address] Dr. Smitha Petersen ALP [Catalytic activity/Vol] 113 U/L Normal 46-116 [facility] Comment on above: Performed By: #### C MP, BNP, TSH, URIC, T7, LIPID #### [facility] [address] [address] [address] Smitha Petersen ALT [Catalytic activity/Vol] 66 U/L Critically high 16-63 [facility] Comment on above: Performed By: #### C MP, BNP, TSH, URIC, T7, LIPID #### [facility] [address] [place] [address] Dr. Smitha Petersen Anion gap [Moles/Vol] 13.4 mmol/L Normal [facility] Comment on above: Performed By: #### C MP, BNP, TSH, URIC, T7, LIPID #### [facility] [address] [place] [address] Dr. Smitha Petersen AST [Catalytic activity/Vol] 29 U/L Normal 15-37 [facility] Comment on above: Performed By: #### C MP, BNP, TSH, URIC, T7, LIPID #### [facility] [address] [place] [address] Dr. Smitha Petersen Bilirubin [Mass/Vol] 0.3 mg/dL Normal 0.2-1.0 [facility] Comment on above: Performed By: #### C MP, BNP, TSH, URIC, T7, LIPID #### [facility] [address] [place] [address] Dr. Smitha Petersen Calcium [Mass/Vol] 8.9 mg/dL Normal 8.5-10.1 [facility] Comment on above: Performed By: #### C MP, BNP, TSH, URIC, T7, LIPID #### [facility] [address] [place] [address] Dr. Smitha Petersen Chloride [Moles/Vol] 101 mmol/L Normal 98-107 [facility] Comment on above: Performed By: #### C MP, BNP, TSH, URIC, T7, LIPID #### [facility] [address] [place] [address] Dr. Smitha Petersen CO2 [Moles/Vol] 28.8 mmol/L Normal 21.0-32.0 [facility] Comment on above: Performed By: #### C MP, BNP, TSH, URIC, T7, LIPID #### [facility] [address] [place] [address] Dr. Smitha Petersen Creatinine [Mass/Vol] 0.82 mg/dL Normal 0.70-1.30 [facility] Comment on above: Performed By: #### C MP, BNP, TSH, URIC, T7, LIPID #### [facility] [address] [place] [address] Dr. Smitha Petersen EGFR-AF AFGHAN >60 Normal >=60 [facility] Comment on above: Performed By: #### C MP, BNP, TSH, URIC, T7, LIPID #### [facility] [address] [place] [address] Dr. Smitha Petersen EGFR-NON AF AFGHAN >60 Normal >=60 [facility] Comment on above: Performed By: #### C MP, BNP, TSH, URIC, T7, LIPID #### [facility] [address] [place] [address] Dr. Smitha Petersen Globulin (S) [Mass/Vol] 3.3 g/dL Normal [facility] Comment on above: Performed By: #### C MP, BNP, TSH, URIC, T7, LIPID #### [facility] [address] [place] [address] Dr. Smitha Petersen Glucose [Mass/Vol] 100 mg/dL Normal 74-106 [facility] Comment on above: Performed By: #### C MP, BNP, TSH, URIC, T7, LIPID #### [facility] [address] [place] [address] Dr. Smitha Petersen Potassium [Moles/Vol] 4.2 mmol/L Normal 3.5-5.1 [facility] Comment on above: Performed By: #### C MP, BNP, TSH, URIC, T7, LIPID #### [facility] [address] [place] [address] Dr. Smitha Petersen Protein [Mass/Vol] 7.1 g/dL Normal 6.4-8.2 [facility] Comment on above: Performed By: #### C MP, BNP, TSH, URIC, T7, LIPID #### [facility] [address] [address] [address] Smitha Petersen Sodium [Moles/Vol] 139 mmol/L Normal 136-145 [facility] Comment on above: Performed By: #### C MP, BNP, TSH, URIC, T7, LIPID #### [facility] [address] [place] [address] Dr. Smitha Petersen Urea nitrogen [Mass/Vol] 14.0 mg/dL Normal 7.0-18.0 [facility] Comment on above: Performed By: #### C MP, BNP, TSH, URIC, T7, LIPID #### [facility] [address] [address] [address] Smitha Petersen Urea nitrogen/Creatinine [Mass ratio] 17.1 mg/mg Normal [facility] Comment on above: Performed By: #### C MP, BNP, TSH, URIC, T7, LIPID #### [facility] [address] [place] [address] Dr. Smitha Petersen TSHon 10-17-2022 TSH 0.796 uIU/mL Normal 0.358-3.740 [facility] Comment on above: Performed By: #### C MP, BNP, TSH, URIC, T7, LIPID #### [facility] [address] [place] [address] Dr. Smitha Petersen URIC ACID SERUMon 10-17-2022 Urate [Mass/Vol] 6.4 mg/dL Normal 3.5-7.2 [facility] Comment on above: Performed By: #### C MP, BNP, TSH, URIC, T7, LIPID #### [facility] [address] [place] [address] Dr. Smitha Petersen VITAMIN D 25 OHon 10-17-2022 VIT D 25-OH 17.5 ng/mL Normal [facility] Comment on above: Performed By: #### V ITAD, PSASC, IRON #### [facility] [address] [place] [address] Dr. Smitha Petersen VIT D RANGES SEE BELOW Normal [facility] Comment on above: Result Comment: <20 ng/mL Vit D deficient 20 - <30 ng/mL Vit D insufficient 30 - 100 ng/mL Vit D sufficient >100 ng/mL Potential Toxicity Performed By: #### V ITAD, PSASC, IRON #### [facility] [address] [place], [place] [id number] Dr. Smitha Petersen ECHOCARDIO M/2D COMPLETEon 1 10-15-2021 ECHOCARDIO M/2D COMPLETE Patient: MK ROSALES Exam Date: 08/14/2022 : 1970 Gender:M Ordering : DR SHANEL FERNANDEZ . Admission #: [id number] Family : Order #: [id number] CLICK HERE TO VIEW EXAM ECHOCARDIOGRAM REPORT [...] Matta M.D. on 08/14/2022 at 18:35 Normal [facility] NM STRESS/REST MULTIon 07-23 NM STRESS/REST MULTI Patient: KATINA ROSALES Exam Date: 07/23/2022 : 1970 Gender:M Ordering : DR SHANEL FERNANDEZ . Admission #: [id number] Family : Order #: [id number] CLICK HERE TO VIEW EXAM RADIOLOGY REPORT [...] Kowalski MD on 08/06/2022 at 12:45 Normal [facility] CT LUNG CANCER SCREENINGon 1 09-12-2021 [...] PATRICIO LUTZ Date: 2022-07-13 08:59 Normal [facility] THEOPHYLLINEon 07-10-2022 THEOPHYLLINE 16.4 ug/mL Normal 10.0-20.0 [facility] Comment on above: Performed By: #### V ITAD, PSASC, IRON #### [facility] [address] [place] [address] Dr. 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 Comment on above: Result Comment: 3.3 - 4.4 LOW RISK 4.4 - 7.1 AVERAGE RISK 7.1 - 11.0 MODERATE RISK >11.0 HIGH RISK Performed By: #### V ITAD, PSASC, IRON #### [facility] [address] [address] [address] Smitha Petersen Cholesterol [Mass/Vol] 129 mg/dL Normal <=200 [facility] Comment on above: Performed By: #### V ITAD, PSASC, IRON #### [facility] [address] [address] [address] Smitha Petersen Cholesterol in HDL [Mass/Vol] 40 mg/dL Normal 40-60 [facility] Comment on above: Performed By: #### V ITAD, PSASC, IRON #### [facility] [address] [address] [address] Smitha Petersen Cholesterol in LDL [Mass/Vol] 57.2 mg/dL Normal [facility] Comment on above: Performed By: #### V ITAD, PSASC, IRON #### [facility] [address] [address] [address] Smitha Petersen Cholesterol.total/Ch olesterol in HDL [Mass ratio] 3.2 {ratio} Normal [facility] Comment on above: Performed By: #### V ITAD, PSASC, IRON #### [facility] [address] [address] [address] Smitha Petersen HDL NORMAL > or = 60 mg/dl - LO W CARDIOVASCULAR RISK <40 mg/dl - HIGH CARDIOVASCULAR RISK Normal [facility] Comment on above: Performed By: #### V ITAD, PSASC, IRON #### [facility] [address] [address] [address] Smitha Petersen LDL CALC NORMAL SEE BELOW Normal [facility] Comment on above: Result Comment: <100 mg/dl OPTIMAL 100 - 129 mg/dl NEAR OR ABOVE OPTIMAL 130 - 159 mg/dl BORDERLINE HIGH 160 - 189 mg/dl HIGH >190 mg/dl VERY HIGH Performed By: #### V ITAD, PSASC, IRON #### [facility] [address] [address] [address] Smitha Petersen Triglyceride [Mass/Vol] 159 mg/dL Critically high <=150 [facility] Comment on above: Performed By: #### V ITAD, PSASC, IRON #### [facility] [address] [place] [address] Dr. Smitha Petersen VLDL CALC 31.8 mg/dL Normal [facility] Comment on above: Performed By: #### V ITAD, PSASC, IRON #### [facility] [address] [place] [address] Dr. Smitha Petersen CBC AUTO DIFFon 03-22-2022 BASO # 0.1 103/ul Normal 0.0-0.1 [facility] Comment on above: Performed By: #### V ITAD, PSASC, IRON #### [facility] [address] [place] [address] Dr. Smitha Petersen Basophils/100 WBC (Bld) 0.5 % Normal 0.2-2.0 [facility] Comment on above: Performed By: #### V ITAD, PSASC, IRON #### [facility] [address] [place] [address] Dr. Smitha Petersen EO # 0.4 103/ul Normal 0.0-0.7 [facility] Comment on above: Performed By: #### V ITAD, PSASC, IRON #### [facility] [address] [place] [address] Dr. Smitha Petersen Eosinophils/100 WBC (Bld) 3.5 % Normal 0.9-7.0 [facility] Comment on above: Performed By: #### V ITAD, PSASC, IRON #### [facility] [address] [place] [address] Dr. Smitha Petersen Erythrocyte distribution width (RBC) [Ratio] 15.1 % Critically high 11.0-15.0 [facility] Comment on above: Performed By: #### V ITAD, PSASC, IRON #### [facility] [address] [place] [address] Dr. Smitha Petersen Hematocrit (Bld) [Volume fraction] 46.8 % Normal 42.0-54.0 [facility] Comment on above: Performed By: #### V ITAD, PSASC, IRON #### [facility] [address] [address] [address] Smitha Petersen Hemoglobin (Bld) [Mass/Vol] 15.5 g/dL Normal 14.0-18.0 [facility] Comment on above: Performed By: #### V ITAD, PSASC, IRON #### [facility] [address] [place] [address] Dr. Smitha Petersen IG # 0.03 10e3/ul Normal 0.00-0.03 [facility] Comment on above: Performed By: #### V ITAD, PSASC, IRON #### [facility] [address] [place] [address] Dr. Smitha Petersen IG % 0.3 % Normal 0.0-0.5 [facility] Comment on above: Performed By: #### V ITAD, PSASC, IRON #### [facility] [address] [place] [address] Dr. Smitha Petersen LYMPH # 2.6 103/ul Normal 1.2-3.8 [facility] Comment on above: Performed By: #### V ITAD, PSASC, IRON #### [facility] [address] [place] [address] Dr. Smitha Petersen Lymphocytes/100 WBC (Bld) 25.0 % Normal 20.5-60.0 [facility] Comment on above: Performed By: #### V ITAD, PSASC, IRON #### [facility] [address] [place] [address] Dr. Smitha Petersen MANUAL DIFF REQ NO Normal The [facility] Comment on above: Performed By: #### V ITAD, PSASC, IRON #### [facility] [address] [place] [address] Dr. Smitha Petersen MCH (RBC) [Entitic mass] 29.6 pg Normal 25.9-34.0 [facility] Comment on above: Performed By: #### V ITAD, PSASC, IRON #### [facility] [address] [place] [address] Dr. Smitha Petersen MCHC (RBC) [Mass/Vol] 33.1 g/dL Normal 29.9-35.2 [facility] Comment on above: Performed By: #### V ITAD, PSASC, IRON #### [facility] [address] [address] [address] Smitha Petersen MCV (RBC) [Entitic vol] 89.5 fL Normal 80.0-94.0 [facility] Comment on above: Performed By: #### V ITAD, PSASC, IRON #### [facility] [address] [place] [address] Dr. Smitha Petersen MONO # 0.7 103/ul Normal 0.3-0.8 [facility] Comment on above: Performed By: #### V ITAD, PSASC, IRON #### [facility] [address] [place] [address] Dr. Smitha Petersen Monocytes/100 WBC (Bld) 7.0 % Normal 1.7-12.0 [facility] Comment on above: Performed By: #### V ITAD, PSASC, IRON #### [facility] [address] [place] [address] Dr. Smitha Petersen NEUT # 6.7 103/ul Critically high 1.4-6.[address] [facility] Comment on above: Performed By: #### V ITAD, PSASC, IRON #### [facility] [address] [place] [address] Dr. Smitha Petersen Neutrophils/100 WBC (Bld) 63.7 % Normal 43.0-75.0 [facility] Comment on above: Performed By: #### V ITAD, PSASC, IRON #### [facility] [address] [place] [address] Dr. Smitha Petersen Platelet mean volume (Bld) [Entitic vol] 8.9 fL Critically low 9.5-13.5 [facility] Comment on above: Performed By: #### V ITAD, PSASC, IRON #### [facility] [address] [place] [address] Dr. Smitha Petersen PLT 245 103/ul Normal 150-450 [facility] Comment on above: Performed By: #### V ITAD, PSASC, IRON #### [facility] [address], [place] [address] Dr. Smitha Petersen RBC 5.23 106/ul Normal 4.70-6.10 [facility] Comment on above: Performed By: #### V ITAD, PSASC, IRON #### [facility] [address], [place] [address] Dr. Smitha Petersen WBC 10.5 103/ul Normal 4.0-11.0 [facility] Comment on above: Performed By: #### V ITAD, PSASC, IRON #### [facility] [address] [place], [place] [address] ABD/PELVIS WO CONon [...] BLU GASPAR Date: 2022-03-22 21:12 Normal [facility] CULTURE URINEon 03-22-2022 CULTURE URINE Culture Observations : NO GROWTH. Normal [facility] Comment on above: Performed By: #### V ITAD, PSASC, IRON #### [facility] [address] [address] [address] Smitha Petersen ER URINE PROFILEon 2 Bilirubin Ql (U) Negative Normal NEGATIVE [facility] Comment on above: Performed By: #### V ITAD, PSASC, IRON #### [facility] [address] [place] [address] Dr. Smitha Petersen Clarity (U) CLEAR Normal CLEAR [facility] Comment on above: Performed By: #### V ITAD, PSASC, IRON #### [facility] [address] [place] [address] Dr. Smitha Petersen Color (U) LT. YELLOW Normal YELLOW [facility] Comment on above: Performed By: #### V ITAD, PSASC, IRON #### [facility] [address] [place] [address] Dr. Smitha EVANSFrankie A micrscopic examination will be performed if indicated. Normal [facility] Comment on above: Performed By: #### V ITAD, PSASC, IRON #### [facility] [address] [place] [address] Dr. Smitha Petersen Glucose Ql (U) Negative Normal NEGATIVE [facility] Comment on above: Performed By: #### V ITAD, PSASC, IRON #### [facility] [address] [address] [address] Smitha Petersen Hemoglobin Ql (U) TRACE-INTACT Abnormal NEGATIVE [facility] Comment on above: Performed By: #### V ITAD, PSASC, IRON #### [facility] [address] [address] [address] Smitha Petersen Ketones Ql (U) Negative Normal NEGATIVE [facility] Comment on above: Performed By: #### V ITAD, PSASC, IRON #### [facility] [address] [address] [address] Smitha Petersen LEUKOCYTES TRACE Abnormal NEGATIVE [facility] Comment on above: Performed By: #### V ITAD, PSASC, IRON #### [facility] [address] [address] [address] Smitha Petersen Nitrite Ql (U) Negative Normal NEGATIVE [facility] Comment on above: Performed By: #### V ITAD, PSASC, IRON #### [facility] [address] [address] [address] Smitha Peetrsen pH (U) 5.5 [pH] Normal 5-9 [facility] Comment on above: Performed By: #### V ITAD, PSASC, IRON #### [facility] [address] [place] [address] Dr. Smitha Petersen SPEC GRAVITY 1.010 Normal 1.005-<=1.025 [facility] Comment on above: Performed By: #### V ITAD, PSASC, IRON #### [facility] [address] [address] [address] Smitha Petersen UA PROTEIN Negative Normal NEGATIVE/ TRACE [facility] Comment on above: Performed By: #### V ITAD, PSASC, IRON #### [facility] [address] [address] [address] Smitha Petersen UR MICRO IND INDICATED Normal [facility] Comment on above: Performed By: #### V ITAD, PSASC, IRON #### [facility] [address] [address] [address] Smitha Petersen Urobilinogen Qn (U) 0.2 {Zach'U}/dL Normal 0.2 - 1. 0 [facility] Comment on above: Performed By: #### V ITAD, PSASC, IRON #### [facility] [address] [place] [address] Dr. Smitha Petersen PROF 14(COMP METB)on 022 Albumin [Mass/Vol] 4.0 g/dL Normal 3.4-5.0 [facility] Comment on above: Performed By: #### V ITAD, PSASC, IRON #### [facility] [address] [address] [address] Smitha Petersen Albumin/Globulin [Mass ratio] 1.2 {ratio} Normal [facility] Comment on above: Performed By: #### V ITAD, PSASC, IRON #### [facility] [address] [address] [address] Smitha Petersen ALP [Catalytic activity/Vol] 113 U/L Normal 46-116 [facility] Comment on above: Performed By: #### V ITAD, PSASC, IRON #### [facility] [address] [address] [address] Smitha Petersen ALT [Catalytic activity/Vol] 53 U/L Normal 16-63 [facility] Comment on above: Performed By: #### V ITAD, PSASC, IRON #### [facility] [address] [address] [address] Smitha Petersen Anion gap [Moles/Vol] 15.3 mmol/L Normal [facility] Comment on above: Performed By: #### V ITAD, PSASC, IRON #### [facility] [address] [address] [address] Smitha Petersen AST [Catalytic activity/Vol] 18 U/L Normal 15-37 [facility] Comment on above: Performed By: #### V ITAD, PSASC, IRON #### [facility] [address] [address] [address] Smitha Petersen Bilirubin [Mass/Vol] 0.4 mg/dL Normal 0.2-1.0 [facility] Comment on above: Performed By: #### V ITAD, PSASC, IRON #### [facility] [address] [address] [address] Smitha Petersen Calcium [Mass/Vol] 9.2 mg/dL Normal 8.5-10.1 [facility] Comment on above: Performed By: #### V ITAD, PSASC, IRON #### [facility] [address] [address] [address] Smitha Petersen Chloride [Moles/Vol] 101 mmol/L Normal 98-107 [facility] Comment on above: Performed By: #### V ITAD, PSASC, IRON #### [facility] [address] [place] [address] Dr. Smitha Petersen CO2 [Moles/Vol] 24.8 mmol/L Normal 21.0-32.0 [facility] Comment on above: Performed By: #### V ITAD, PSASC, IRON #### [facility] [address] [place] [address] Dr. Smitha Petersen Creatinine [Mass/Vol] 0.96 mg/dL Normal 0.70-1.30 [facility] Comment on above: Performed By: #### V ITAD, PSASC, IRON #### [facility] [address] [place] [address] Dr. Smitha Petersen EGFR-AF AFGHAN >60 Normal >=60 [facility] Comment on above: Performed By: #### V ITAD, PSASC, IRON #### [facility] [address] [place] [address] Dr. Smitha Petersen EGFR-NON AF AFGHAN >60 Normal >=60 [facility] Comment on above: Performed By: #### V ITAD, PSASC, IRON #### [facility] [address] [place] [address] Dr. Smitha Petersen Globulin (S) [Mass/Vol] 3.4 g/dL Normal [facility] Comment on above: Performed By: #### V ITAD, PSASC, IRON #### [facility] [address] [place] [address] Dr. Smitha Petersen Glucose [Mass/Vol] 146 mg/dL Critically high 74-106 [facility] Comment on above: Performed By: #### V ITAD, PSASC, IRON #### [facility] [address] [place] [address] Dr. Smitha Petersen Potassium [Moles/Vol] 4.1 mmol/L Normal 3.5-5.1 [facility] Comment on above: Performed By: #### V ITAD, PSASC, IRON #### [facility] [address] [place] [address] Dr. Smitha Petersen Protein [Mass/Vol] 7.4 g/dL Normal 6.4-8.2 [facility] Comment on above: Performed By: #### V ITAD, PSASC, IRON #### [facility] [address] [place] [address] Dr. Smitha Petersen Sodium [Moles/Vol] 137 mmol/L Normal 136-145 [facility] Comment on above: Performed By: #### V ITAD, PSASC, IRON #### [facility] [address] [place] [address] Dr. Smitha Petersen Urea nitrogen [Mass/Vol] 22.0 mg/dL Critically high 7.0-18.0 [facility] Comment on above: Performed By: #### V ITAD, PSASC, IRON #### [facility] [address] [place] [address] Dr. Smitha Petersen Urea nitrogen/Creatinine [Mass ratio] 22.9 mg/mg Normal [facility] Comment on above: Performed By: #### V ITAD, PSASC, IRON #### [facility] [address] [place] [address] Dr. Smitha Petersen URINE MICROSCOPIC ONLYon BACTERIA TRACE Abnormal NONE SEEN [facility] Comment on above: Performed By: #### V ITAD, PSASC, IRON #### [facility] [address] [place] [address] Dr. Smitha Petersen Bacteria identified Cx Nom (U) INDICATED Normal [facility] Comment on above: Performed By: #### V ITAD, PSASC, IRON #### [facility] [address] [place] [address] Dr. Smitha Petersen CAST NONE SEEN Normal NONE SEEN [facility] Comment on above: Performed By: #### V ITAD, PSASC, IRON #### [facility] [address] [place] [address] Dr. Smitha Petersen Crystals LM Nom (Urine sed) NONE SEEN Normal NONE SEEN [facility] Comment on above: Performed By: #### V ITAD, PSASC, IRON #### [facility] [address] [place] [address] Dr. Smitha Petersen Epithelial cells LM Ql (Urine sed) NONE SEEN Normal NONE SEEN /RARE [facility] Comment on above: Performed By: #### V ITAD, PSASC, IRON #### [facility] [address] [address] [address] Smitha Petersen MUCOUS NONE SEEN Normal NONE SEEN [facility] Comment on above: Performed By: #### V ITAD, PSASC, IRON #### [facility] [address] [place] [address] Dr. Smitha Petersen RBC NONE SEEN Abnormal 0-2 [facility] Comment on above: Performed By: #### V ITAD, PSASC, IRON #### [facility] [address] [place] [address] Dr. Smitha Petersen WBC 5-10 Abnormal NONE SEEN [facility] Comment on above: Performed By: #### V ITAD, PSASC, IRON #### [facility] [address] [place] [address] Dr. Smitha Petersen US TRAV DOP LEG [...] PATRICIO LUTZ Date: 2022-01-23 11:39 Normal [facility] Operative Reporton Operative Report MR#: [id number] [facility] Pt. Name: Mk Rosales Room #: 0C Discharge Date: Birthdate: 1970 OPERATIVE REPORT DATE OF SURGERY: 09/15/2020 SURGEON: Mk H. Mechelle, M.D. PREOPERATIVE DIAGNOSIS: Left knee medial meniscus tear, unstable. POSTOPERATIVE DIAGNOSIS: 1. Left knee medial meniscus tear, unstable. 2. Left knee chondral tear patella. SURGEON: Mk Min M.D. TOOL SALVAGE WORKER: Nelson Leos MD ANESTHESIA: General. PROCEDURE PERFORMED: [...] Min M.D. Date Trans: 09/15/2020 09:36 A/zoey [id number] cc: Shanel Fernandez M.D. [address] [address] Normal [facility] POC GLUCOSE LABon 09-15-2020 Glucose [Mass/Vol] 101 mg/dL High 70-100 [facility] Comment on above: Performed By: #### [id number] #### [address] Vital Signs Date Time Vital Sign Value Performing Clinician Facility 11-05-2022 09:00-0500 Body height Berenice Blades Other [facility] Other 11-05-2022 09:00-0500 Body mass index (BMI) [Ratio] 38.24 kg/m2 Berenice Blades Other [facility] Other 11-05-2022 09:00-0500 Body weight 117.48 kg Berenice Blades Other [facility] Other 11-05-2022 09:00-0500 Diastolic blood pressure 94 mm[Hg] Berenice Blades Other [facility] Other 11-05-2022 09:00-0500 Systolic blood pressure 156 mm[Hg] Berenice Blades Other [facility] Other 10-26-2022 08:00-0500 Body height Berenice Blades Other [facility] Other 10-26-2022 08:00-0500 Body mass index (BMI) [Ratio] 38.24 kg/m2 Berenice Blades Other [facility] Other 10-26-2022 08:00-0500 Body weight 117.48 kg Berenice Blades Other [facility] Other 10-26-2022 08:00-0500 Diastolic blood pressure 89 mm[Hg] Berenice Blades Other [facility] Other 10-26-2022 08:00-0500 Systolic blood pressure 130 mm[Hg] Berenice Blades Other [facility] Other Encounters Encounter Date Encounter Type Care Provider Facility Start: 06-24-2024 End: [facility] Start: 02-18-2024 End: 02-18-2024 ambulatory ARLINE VALDES Not Available Start: 02-03-2024 End: 02-03-2024 ambulatory EHAB [facility] Start: 01-01-2023 End: 01-02-2023 ambulatory TREVOR SAMSA . Facility:[facility] Start: 12-19-2022 ambulatory SHANEL HOY Facility:[facility] Start: 12-12-2022 ambulatory SHANEL HOY Facility:[facility] Start: 11-05-2022 End: 11-05-2022 ambulatory Berenice Blades Other [facility] Other Start: 11-05-2022 Office outpatient vi sit 15 minutes Berenice Blades [facility] Start: 11-01-2022 End: 11-02-2022 ambulatory BERENICE BLADES Facility:[facility] Start: 10-26-2022 End: 10-26-2022 ambulatory Berenice Blades Other [facility] Other Start: 10-26-2022 Office outpatient ne w 45 minutes Berenice Blades [facility] Start: 10-17-2022 End: 10-18-2022 ambulatory [...] 09-16-2020 ambulatory SHANEL HOY Facility:[facility] Procedures Date Procedure Procedure Detail Performing Clinician Start: 10-17-2022 PSA screening SHANEL H BEAR Comment on above: Performed By: #### V ITAD, PSASC, IRON #### [facility] [address] [place] [address] Dr. Smitha Petersen Start: 09-15-2020 ANESTH KNEE JOINT SURGERY JAYSON CHEN Start: 09-15-2020 KNEE ARTHROSCOPY/SURGERY MK MIN Plan of Treatment Date Care Activity Detail Author Start: 01-23-2023 ambulatory Ambulatory Facility:[facility] Payers Date Payer Category Payer Medicare [id number] 1970 Unknown [id number] 2.16.8 [id number] 1970 Unknown [id number] 2.16.84 0.1.351405.3.579.2.593 1970 Unknown [id number] 2.16.84 0.1.757130.3.579.2.593 1970 Unknown [id number] 2.16.84 0.1.447984.3.579.2.593 1970 Unknown [id number] 2.16.84 0.1.793694.3.579.2.593 1970 Unknown [id number] 2.16.84 0.1.675092.3.579.2.593 1970 Unknown [id number] 2.16.84 0.1.953477.3.579.2.593 1971 Unknown [id number] 2.16.84 0.1.463400.3.579.2.593 1971 Unknown [id number] 2.16.84 0.1.807098.3.579.2.593 1971 Unknown [id number] 2.16.84 0.1.606059.3.579.2.593 1971 Unknown [id number] 2.16.84 0.1.871142.3.579.2.593 1971 Unknown [id number] 2.16.84 0.1.370072.3.579.2.593 1971 Unknown [id number] 2.16.84 0.1.930518.3.579.2.593 1971 Unknown [id number] 2.16.84 0.1.936609.3.579.2.593 1971 Unknown [id number] 2.16.84 0.1.034624.3.579.2.593 1971 Unknown [id number] 2.16.84 0.1.214458.3.579.2.593 1971 Unknown [id number] 2.16.84 0.1.765236.3.579.2.593 1971 Unknown [id number] 2.16.84 0.1.738628.3.579.2.593 1971 Unknown [id number] 2.16.84 0.1.137413.3.579.2.1259 1958 Medicare [id number] 2.1 [id number] 1958 Self-pay [id number] 1958 Unknown [id number] Self-pay Self Pay [id number] Self Pay [id number] Social History Date Type Detail Facility Tobacco smoking status IDIS Unknown if ever smoked [facility] Work Phone: Start: 1970 Sex Assigned At Male F [facility] Sex Assigned At Sex Assigned At [facility] th [facility] [employer] Other Progress note 06-24-2024 Note Date & Type Note Facility 06-24-2024 Note Patient here for fol low up stress test per Dr. Fernandez. He states Dr. Fernandez ordered test for 2 episodes of diaphoresis while he was in [place]. He denies chest pain and increased POSEY. Review of Systems Constitutional: Positive for diaphoresis (2 episodes). Cardiovascular: Positive for dyspnea on exertion. Respiratory: Positive for wheezing. Musculoskeletal: Positive for arthritis, back pain, joint pain and muscle weakness. Neurological: Positive for weakness. All other systems reviewed and are negative. [facility] Progress note 06-24-2024 Note Date & Type Note Facility 06-24-2024 Note Cardiovascular [facility] SUBJECTIVE Chief Complaint Patient presents with [...] at bedtime., Disp: 90 tablet, Rfl: 3 ocovhvjuyz-oijgjopw-wtrorjuhsb 160-9-4.8 mcg/actuation HFA aerosol inhaler, Breztri Aerosphere [...] Right Ear: Exter (more content not included)... [facility] Progress note 02-03-2024 Note Date & Type Note Facility 02-03-2024 Note [facility] Clinic Note Chief Complaint: Patient [...] by mouth at bedtime., Disp: , Rfl: jaoacniycg-banjouzi-tyapkiakll 160-9-4.8 mcg/actuation HFA aerosol inhaler, Breztri Aerosphere [...] Echocardiogram 08/14/2022 Con (more content not included)... [facility] Evaluation note 11-05-2022 Note Date & Type Note Facility 11-05-2022 Evaluation note Encounter Date Diagnosis Assessment Notes Oct, Left leg pain (ICD-10 - M79.605) [facility] Other Evaluation note 10-26-2022 Note Date & Type Note Facility 10-26-2022 Evaluation note Encounter Date Diagnosis Assessment Notes Oct, Cerebral infarct (ICD-10 - I63.9) Oct, Encephalomalacia (ICD-10 - G93.89) [facility] Other Clinical Note 08-06-2022 Note Date & [...] and reported in a separate dictation. [facility] Evaluation note Note Date & Type Note Facility Evaluation note No assessment information availa [facility] Work Phone: History general Narrative [...] Surgical History angioplasty Hospitalization History see above [facility] Other Summary Purpose Family History No Family [...] and content) DATE CREATED AUTHOR 08/18/2021 [facility] DATE CREATED AUTHOR AUTHOR'S ORGANIZ ATION [facility]/10/2023 [facility] DATE CREATED AUTHOR AUTHOR'S ORGANIZ ATION 02/19/2024 [facility] EPIC DATE CREATED AUTHOR AUTHOR'S ORGANIZ ATION 06/26/[address] [facility] Goals (unrecognized section and content) Goals may be documented in a n alternate sectionGoals may be documented in an alternate sectionNo InformationNo Information REASON FOR VISIT (unrecogniz ed section and content) Ref Dr Mallory, Left sided weakness; left leg painMRI, ultrasound results test done 11/01/22 @[facility] FOR RECORDS PERTAINING TO PATIENTS WHO [...] BE BASED ON THE PRIMARY CLINICAL RECORDS. [employer] [facility]. provides no warranty or guarantee of the accuracy or completeness of information in this document.
[2024-10-16 07:22] LABS: Basophils Percent Auto 0.3 % (0.2-2.0); Eosinophils Absolute Auto 0.2 10^3/uL (0.0-0.7); Eosinophils Percent Auto 2.3 % (0.9-7.0); Hematocrit 48.3 % (42.0-54.0); Hemoglobin 15.5 g/dL (14.0-18.0); Immature Granulocytes Abs Auto 0.03 10^3/uL (0.00-0.03); Immature Granulocytes Pct Auto 0.4 % (0.0-0.5); Lymphocytes Absolute Auto 1.5 10^3/uL (1.2-3.8); Mean Corpuscular HGB Conc 32.1 g/dL (29.9-35.2); Mean Corpuscular Hemoglobin 28.7 pg (25.9-34.0); Mean Corpuscular Volume 89.3 fL (80.0-94.0); Monocytes Absolute Auto 0.6 10^3/uL (0.3-0.8); Monocytes Percent Auto 7.4 % (1.7-12.0); Neutrophils Absolute Auto 5.6 10^3/uL (1.4-6.5); Neutrophils Percent Auto 70.6 % (43.0-75.0); Platelet Count 209 10^3/uL (150-450); Red Blood Count 5.41 10^6/uL (4.70-6.10); Red Cell Distribution Width 14.8 % (11.0-15.0)
[2024-10-16 08:12] LABS: Estimated Average Glucose 114 mg/dL; Glycohemoglobin A1C 5.6 % (4.5-6.2)
[2024-10-16 08:24] LABS: Alanine Aminotransferase 30 U/L (16-63); Albumin Globulin Ratio 1.1; Albumin Level 3.7 g/dL (3.4-5.0); Alkaline Phosphatase 106 U/L (46-116); Anion Gap 14.8; Aspartate Amino Transferase 16 U/L (15-37); BUN Creatinine Ratio 17.3; Bilirubin Total 0.3 mg/dL (0.2-1.0); Calcium 9.1 mg/dL (8.5-10.1); Carbon Dioxide 24.6 mmol/L (21.0-32.0); Chloride 106 mmol/L (98-107); Chol HDL Ratio 2.6; Cholesterol 152 mg/dL (<=200); Estimated GFR (African America >60 (>=60 mL/min/1.73m^2); Estimated GFR (Non-African Ame >60 (>=60 mL/min/1.73m^2); Free T3 2.84 pg/mL (2.18-3.98); Globulin 3.4 g/dL; Glucose 91 mg/dL (74-106); HDL Cholesterol 59 mg/dL (40-60); LDL Cholesterol Calculated 63.4 mg/dL; Potassium 4.4 mmol/L (3.5-5.1); Sodium 141 mmol/L (136-145); Thyroid Stimulating Hormone 0.568 uIU/mL (0.358-3.740); Total Protein 7.1 g/dL (6.4-8.2); Triglycerides 148 mg/dL (<=150); VLDL CHOLESTEROL 29.6 mg/dL
[2024-10-16 09:17] LABS: Prostate Specific Antigen Scrn 0.23 ng/mL (<=4.00)
--- OUTSIDE RECORDS SUMMARY | 2024-10-21 07:29 | XMS_ITS | CCD ---
Author Organization [facility] Care Team Providers Care Bag Bundler Name Role Phone SHANEL FERNANDEZ Referring Unavailable MK MIN H Admitting Unavailable MK MIN Attending Unavailable MK MIN Surgeon Unavailable [place] Procedure Practitioner Unavailab le HOY, SHANEL Primary Care Unavailable CUBA CHENKESH Surgeon Unavailable NE Procedure Practitioner Unavailab le Blades, Berenice Unavailable [...] Date of Onset Reaction(s) Facility (1 source) 68941,00; 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: [71871,00] Propensity to adverse reactions (disorder) 9 [facility] Medications Current Medications Medication Drug Class(es) [...] PO Twice daily January 12, 2019 9:32am Npddrebj-Eam-Xkfvhxr Fumarate (Multi Vitamin) 9 mg iron/15 mL Liquid (2 sources) Start: 01-12-2019 take 1 tablet by mouth once daily Kbhmapjn-Rwv-Icezr us Fumarate (Multi Vitamin) 9 mg iron/15 [...] take 1 puff(s) by inhalation once daily Owagdsmggrd-Rgcpzgmys-Qyhaecnm Active 1 PUFF INHALATION Daily January 12, [...] coronary angioplasty; 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: [Atherosclerotic heart disease of [place] coronary artery without angina pectoris] Onset: 04-05-2022 [...] 08-14-2022 Episodic Other aftercare (1 source) 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; 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: [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 ASPIRIN] Onset: 03-26-2022 Episodic Other aftercare (1 source) Other longterm (current) drug therapy; 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: [OTH REGIONAL PROJECT MANAGER CURRENT DRUG THERAPY] Onset: 03-26-2022 Episodic [...] Range Facility Office Visiton 06-24-2024 Follow-up visit [id number] Ankush Rosales 1970 M Date Provider Department Center 06/24/2024 MICHA STAFFORD [facility] Family History Problem Relation Age of Onset Coronary artery disease Father Heart attack Father Family Status - Relation Status Age at Father Level of Service:37720 NE OFFICE/OUTPATIENT ESTABLISHED MOD MDM 30 MIN Reason for Visit and Comments: Coronary Artery Disease [187] Hypertension [626106] Normal [facility] Office Visiton 02-03-2024 Follow-up visit [id number] Ankush Rosales 1970 M Provider Department Center 02/03/2024 CONNOR HINTON [facility] Family History Problem Relation Age of Onset Coronary artery disease Father Heart attack Father Family Status - Relation Status Age at Father Level of Service:61240 NE OFFICE/OUTPATIENT ESTABLISHED MOD MDM 30 MIN Normal [facility] THEOPHYLLINEon 01-01-2023 THEOPHYLLINE 17.6 ug/mL Normal 10.0-20.0 [facility] Comment on above: Performed By: #### V ITAD, PSASC, IRON #### [facility] Laboratory [address] [place] [address] Dr. Smitha Petersen MRI BRAIN WO CONon [...] by: MK SÁNCHEZ Date: 2022-11-01 16:53 Normal [facility] US CAROTID ART BILon 023 US [...] by: MK KOWALSKI Date: 2022-11-01 16:16 Normal [facility] BNPon 10-17-2022 Natriuretic peptide B (Bld) [Mass/Vol] 32.0 pg/mL Normal <=900.0 [facility] Comment on above: Performed By: #### C MP, BNP, TSH, URIC, T7, LIPID #### [facility] Laboratory [address] [place] [address] Dr. Smitha Petersen CBC AUTO DIFFon 10-17-2022 BASO # 0.0 103/ul Normal 0.0-0.1 [facility] Comment on above: Performed By: #### V ITAD, PSASC, IRON #### [facility] Laboratory [address] [place] [address] Dr. Smitha Petersen Basophils/100 WBC (Bld) 0.4 % Normal 0.2-2.0 [facility] Comment on above: Performed By: #### V ITAD, PSASC, IRON #### [facility] [address] [place] [address] Dr. Smitha Petersen EO # 0.2 103/ul Normal 0.0-0.7 [facility] Comment on above: Performed By: #### V ITAD, PSASC, IRON #### [facility] [address] [place] [address] Dr. Smitha Petersen Eosinophils/100 WBC (Bld) 2.4 % Normal 0.9-7.0 [facility] Comment on above: Performed By: #### V ITAD, PSASC, IRON #### [facility] [address] [place] [address] Dr. Smitha Petersen Erythrocyte distribution width (RBC) [Ratio] 13.8 % Normal 11.0-15.0 [facility] Comment on above: Performed By: #### V ITAD, PSASC, IRON #### [facility] [address] [place] [address] Dr. Smitha Petersen Hematocrit (Bld) [Volume fraction] 46.8 % Normal 42.0-54.0 [facility] Comment on above: Performed By: #### V ITAD, PSASC, IRON #### [facility] [address] [place] [address] Dr. Smitha Petersen Hemoglobin (Bld) [Mass/Vol] 15.7 g/dL Normal 14.0-18.0 [facility] Comment on above: Performed By: #### V ITAD, PSASC, IRON #### [facility] [address] [place] [address] Dr. Smitha Petersen IG # 0.04 10e3/ul Critically high 0.00-0.03 [facility] Comment on above: Performed By: #### V ITAD, PSASC, IRON #### [facility] [address] [place] [address] Dr. Smitha Petersen IG % 0.5 % Normal 0.0-0.5 [facility] Comment on above: Performed By: #### V ITAD, PSASC, IRON #### [facility] [address] [place] [address] Dr. Smitha Petersen LYMPH # 1.7 103/ul Normal 1.2-3.8 [facility] Comment on above: Performed By: #### V ITAD, PSASC, IRON #### [facility] [address] [place] [address] Dr. Smitha Petersen Lymphocytes/100 WBC (Bld) 20.1 % Critically low 20.5-60.0 [facility] Comment on above: Performed By: #### V ITAD, PSASC, IRON #### [facility] [address] [place] [address] Dr. Smitha Petersen MANUAL DIFF REQ NO Normal [facility] Comment on above: Performed By: #### V ITAD, PSASC, IRON #### [facility] [address] [place] [address] Dr. Smitha Petersen MCH (RBC) [Entitic mass] 29.7 pg Normal 25.9-34.0 [facility] Comment on above: Performed By: #### V ITAD, PSASC, IRON #### [facility] [address] [place] [address] Dr. Smitha Petersen MCHC (RBC) [Mass/Vol] 33.5 g/dL Normal 29.9-35.2 [facility] Comment on above: Performed By: #### V ITAD, PSASC, IRON #### [facility] [address] [place] [address] Dr. Smitha Petersen MCV (RBC) [Entitic vol] 88.5 fL Normal 80.0-94.0 [facility] Comment on above: Performed By: #### V ITAD, PSASC, IRON #### [facility] [address] [place] [address] Dr. Smitha Petersen MONO # 0.6 103/ul Normal 0.3-0.8 [facility] Comment on above: Performed By: #### V ITAD, PSASC, IRON #### [facility] [address] [place] [address] Dr. Smitha Petersen Monocytes/100 WBC (Bld) 6.8 % Normal 1.7-12.0 [facility] Comment on above: Performed By: #### V ITAD, PSASC, IRON #### [facility] [address] [place] [address] Dr. Smitha Petersen NEUT # 6.0 103/ul Normal 1.4-6.5 [facility] Comment on above: Performed By: #### V ITAD, PSASC, IRON #### [facility] [address] [place] [address] Dr. Smitha Petersen Neutrophils/100 WBC (Bld) 69.8 % Normal 43.0-75.0 [facility] Comment on above: Performed By: #### V ITAD, PSASC, IRON #### [facility] [address] [place] [address] Dr. Smitha Petersen Platelet mean volume (Bld) [Entitic vol] 8.7 fL Critically low 9.5-13.5 [facility] Comment on above: Performed By: #### V ITAD, PSASC, IRON #### [facility] [address] [place] [address] Dr. Smitha Petersen PLT 222 103/ul Normal 150-450 [facility] Comment on above: Performed By: #### V ITAD, PSASC, IRON #### [facility] [address] [place] [address] Dr. Smitha Petersen RBC 5.29 106/ul Normal 4.70-6.10 [facility] Comment on above: Performed By: #### V ITAD, PSASC, IRON #### [facility] [address] [address] [address] Smitha Petersen WBC 8.5 103/ul Normal 4.0-11.0 [facility] Comment on above: Performed By: #### V ITAD, PSASC, IRON #### [facility] [address] [address] [address] Smitha Petersen FREE THYROXINE INDEX T7on FTI 2.54 Normal 1.30-4.50 [facility] Comment on above: Performed By: #### C MP, BNP, TSH, URIC, T7, LIPID #### [facility] [address] [address] [address] Smitha Petersen T3U 33.0 % Normal 33.0-40.0 [facility] Comment on above: Performed By: #### C MP, BNP, TSH, URIC, T7, LIPID #### [facility] [address] [address] [address] Smitha Petersen T4 [Mass/Vol] 7.70 ug/dL Normal 4.50-12.10 [facility] Comment on above: Performed By: #### C MP, BNP, TSH, URIC, T7, LIPID #### [facility] [address] [address] [address] Smitha Petersen GLYCOHEMOGLOBIN A1Con 2022 ADA RECOMMENDATION SEE BELOW Normal [facility] Comment on above: Result Comment: ADA RECOMMENDED LIMIT 4.0 - 6.0 ADA THERAPEUTIC TARGET < 7.0 ACTION SUGGESTED > 7.0 Performed By: #### V ITAD, PSASC, IRON #### [facility] [address] [address] [address] Smitha Petersen Glucose [Mass/Vol] 120 mg/dL Normal [facility] Comment on above: Performed By: #### V ITAD, PSASC, IRON #### [facility] [address] [address] [address] Smitha Petersen HbA1c (Bld) [Mass fraction] 5.8 % Normal 4.5-6.2 [facility] Comment on above: Performed By: #### V ITAD, PSASC, IRON #### [facility] [address] [address] [address] Smitha Petersen IRONon 10-17-2022 Iron [Mass/Vol] 66.0 ug/dL Normal 65.0-175.0 [facility] Comment on above: Performed By: #### V ITAD, PSASC, IRON #### [facility] [address] [place] [address] Dr. Smitha Petersen LIPID PROFILEon 10-17-2022 CHOL-HDL RATIO NORM SEE BELOW Normal [facility] Comment on above: Result Comment: 3.3 - 4.4 LOW RISK 4.4 - 7.1 AVERAGE RISK 7.1 - 11.0 MODERATE RISK >11.0 HIGH RISK Performed By: #### C MP, BNP, TSH, URIC, T7, LIPID #### [facility] [address] [place] [address] Dr. Smitha Petersen Cholesterol [Mass/Vol] 102 mg/dL Normal <=200 [facility] Comment on above: Performed By: #### C MP, BNP, TSH, URIC, T7, LIPID #### [facility] [address] [place] [address] Dr. Smitha Petersen Cholesterol in HDL [Mass/Vol] 45 mg/dL Normal 40-60 [facility] Comment on above: Performed By: #### C MP, BNP, TSH, URIC, T7, LIPID #### [facility] [address] [place] [address] Dr. Smitha Petersen Cholesterol in LDL [Mass/Vol] 35.2 mg/dL Normal [facility] Comment on above: Performed By: #### C MP, BNP, TSH, URIC, T7, LIPID #### [facility] [address] [place] [address] Dr. Smitha Petersen Cholesterol.total/Ch olesterol in HDL [Mass ratio] 2.3 {ratio} Normal [facility] Comment on above: Performed By: #### C MP, BNP, TSH, URIC, T7, LIPID #### [facility] [address] [address] [address] Smitha Petersen HDL NORMAL > or = 60 mg/dl - LO W CARDIOVASCULAR RISK <40 mg/dl - HIGH CARDIOVASCULAR RISK Normal [facility] Comment on above: Performed By: #### C MP, BNP, TSH, URIC, T7, LIPID #### [facility] [address] [address] [address] Smitha Petersen LDL CALC NORMAL SEE BELOW Normal [facility] Comment on above: Result Comment: <100 mg/dl OPTIMAL 100 - 129 mg/dl NEAR OR ABOVE OPTIMAL 130 - 159 mg/dl BORDERLINE HIGH 160 - 189 mg/dl HIGH >190 mg/dl VERY HIGH Performed By: #### C MP, BNP, TSH, URIC, T7, LIPID #### [facility] [address] [address] [address] Smitha Petersen Triglyceride [Mass/Vol] 109 mg/dL Normal <=150 [facility] Comment on above: Performed By: #### C MP, BNP, TSH, URIC, T7, LIPID #### [facility] [address] [address] [address] Smitha Petersen VLDL CALC 21.8 mg/dL Normal [facility] Comment on above: Performed By: #### C MP, BNP, TSH, URIC, T7, LIPID #### [facility] [address] [place] [address] Dr. Smitha Petersen PROF 14(COMP METB)on 023 Albumin [Mass/Vol] 3.8 g/dL Normal 3.4-5.0 [facility] Comment on above: Performed By: #### C MP, BNP, TSH, URIC, T7, LIPID #### [facility] [address] [address] [address] Smitha Petersen Albumin/Globulin [Mass ratio] 1.2 {ratio} Normal [facility] Comment on above: Performed By: #### C MP, BNP, TSH, URIC, T7, LIPID #### [facility] [address] [place] [address] Dr. Smitha Petersen ALP [Catalytic activity/Vol] 113 U/L Normal 46-116 [facility] Comment on above: Performed By: #### C MP, BNP, TSH, URIC, T7, LIPID #### [facility] [address] [address] [address] Smitha Petersen ALT [Catalytic activity/Vol] 66 U/L Critically high 16-63 [facility] Comment on above: Performed By: #### C MP, BNP, TSH, URIC, T7, LIPID #### [facility] [address] [place] [address] Dr. Smitha Petersen Anion gap [Moles/Vol] 13.4 mmol/L Normal [facility] Comment on above: Performed By: #### C MP, BNP, TSH, URIC, T7, LIPID #### [facility] [address] [place] [address] Dr. Smitha Petersen AST [Catalytic activity/Vol] 29 U/L Normal 15-37 [facility] Comment on above: Performed By: #### C MP, BNP, TSH, URIC, T7, LIPID #### [facility] [address] [place] [address] Dr. Smitha Petersen Bilirubin [Mass/Vol] 0.3 mg/dL Normal 0.2-1.0 [facility] Comment on above: Performed By: #### C MP, BNP, TSH, URIC, T7, LIPID #### [facility] [address] [place] [address] Dr. Smitha Petersen Calcium [Mass/Vol] 8.9 mg/dL Normal 8.5-10.1 [facility] Comment on above: Performed By: #### C MP, BNP, TSH, URIC, T7, LIPID #### [facility] [address] [place] [address] Dr. Smitha Petersen Chloride [Moles/Vol] 101 mmol/L Normal 98-107 [facility] Comment on above: Performed By: #### C MP, BNP, TSH, URIC, T7, LIPID #### [facility] [address] [place] [address] Dr. Smitha Petersen CO2 [Moles/Vol] 28.8 mmol/L Normal 21.0-32.0 [facility] Comment on above: Performed By: #### C MP, BNP, TSH, URIC, T7, LIPID #### [facility] [address] [place] [address] Dr. Smitha Petersen Creatinine [Mass/Vol] 0.82 mg/dL Normal 0.70-1.30 [facility] Comment on above: Performed By: #### C MP, BNP, TSH, URIC, T7, LIPID #### [facility] [address] [place] [address] Dr. Smitha Petersen EGFR-AF ERITREAN >60 Normal >=60 [facility] Comment on above: Performed By: #### C MP, BNP, TSH, URIC, T7, LIPID #### [facility] [address] [place] [address] Dr. Smitha Petersen EGFR-NON AF ERITREAN >60 Normal >=60 [facility] Comment on above: Performed By: #### C MP, BNP, TSH, URIC, T7, LIPID #### [facility] [address] [place] [address] Dr. Smitha Petesren Globulin (S) [Mass/Vol] 3.3 g/dL Normal [facility] Comment on above: Performed By: #### C MP, BNP, TSH, URIC, T7, LIPID #### [facility] [address] [place] [address] Dr. Smitha Petersen Glucose [Mass/Vol] 100 mg/dL Normal 74-106 [facility] Comment on above: Performed By: #### C MP, BNP, TSH, URIC, T7, LIPID #### [facility] [address] [place] [address] Dr. Smitha Petersen Potassium [Moles/Vol] 4.2 mmol/L Normal 3.5-5.1 [facility] Comment on above: Performed By: #### C MP, BNP, TSH, URIC, T7, LIPID #### [facility] [address] [place] [address] Dr. Smitha Petersen Protein [Mass/Vol] 7.1 g/dL Normal 6.4-8.2 [facility] Comment on above: Performed By: #### C MP, BNP, TSH, URIC, T7, LIPID #### [facility] [address] [address] [address] Smitha Petersen Sodium [Moles/Vol] 139 mmol/L Normal 136-145 [facility] Comment on above: Performed By: #### C MP, BNP, TSH, URIC, T7, LIPID #### [facility] [address] [place] [address] Dr. Smitha Petersen Urea nitrogen [Mass/Vol] 14.0 mg/dL Normal 7.0-18.0 [facility] Comment on above: Performed By: #### C MP, BNP, TSH, URIC, T7, LIPID #### [facility] [address] [address] [address] Smitha Petersen Urea nitrogen/Creatinine [Mass ratio] 17.1 mg/mg Normal [facility] Comment on above: Performed By: #### C MP, BNP, TSH, URIC, T7, LIPID #### [facility] [address] [place] [address] Dr. Smitha Petersen TSHon 10-17-2022 TSH 0.796 uIU/mL Normal 0.358-3.740 [facility] Comment on above: Performed By: #### C MP, BNP, TSH, URIC, T7, LIPID #### [facility] [address] [place] [address] Dr. Smitha Petersen URIC ACID SERUMon 10-17-2022 Urate [Mass/Vol] 6.4 mg/dL Normal 3.5-7.2 [facility] Comment on above: Performed By: #### C MP, BNP, TSH, URIC, T7, LIPID #### [facility] [address] [place] [address] Dr. Smitha Petersen VITAMIN D 25 OHon 10-17-2022 VIT D 25-OH 17.5 ng/mL Normal [facility] Comment on above: Performed By: #### V ITAD, PSASC, IRON #### [facility] [address] [place] [address] Dr. Smitha Petersen VIT D RANGES SEE BELOW Normal [facility] Comment on above: Result Comment: <20 ng/mL Vit D deficient 20 - <30 ng/mL Vit D insufficient 30 - 100 ng/mL Vit D sufficient >100 ng/mL Potential Toxicity Performed By: #### V ITAD, PSASC, IRON #### [facility] [address] [place], [place] [id number] Dr. Smitha Petersen ECHOCARDIO M/2D COMPLETEon 1 10-15-2021 ECHOCARDIO M/2D COMPLETE Patient: MK ROSALES Exam Date: 08/14/2022 : 1970 Gender:M Ordering : DR SHANEL FERNANDEZ . Admission #: [id number] Family : Order #: [id number] CLICK HERE TO VIEW EXAM ECHOCARDIOGRAM REPORT [...] Matta M.D. on 08/14/2022 at 18:35 Normal [facility] NM STRESS/REST MULTIon 07-23 NM STRESS/REST MULTI Patient: KATINA ROSALES Exam Date: 07/23/2022 : 1970 Gender:M Ordering : DR SHANEL FERNANDEZ . Admission #: [id number] Family : Order #: [id number] CLICK HERE TO VIEW EXAM RADIOLOGY REPORT [...] Kowalski MD on 08/06/2022 at 12:[address] [facility] [address] LUNG CANCER SCREENINGon 1 09-12-2021 [...] PATRICIO LUTZ Date: 2022-07-13 08:59 Normal [facility] THEOPHYLLINEon 07-10-2022 THEOPHYLLINE 16.4 ug/mL Normal 10.0-20.0 [facility] Comment on above: Performed By: #### V ITAD, PSASC, IRON #### [facility] [address] [place] [address] Dr. 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 Smitha Petersen Cholesterol [Mass/Vol] 129 mg/dL Normal <=200 [facility] Comment on above: Performed By: #### V ITAD, PSASC, IRON #### [facility] [address] [address] [address] Smitha Petersen Cholesterol in HDL [Mass/Vol] 40 mg/dL Normal 40-60 [facility] Comment on above: Performed By: #### V ITAD, PSASC, IRON #### [facility] [address] [address] [address] Smitha Petersen Cholesterol in LDL [Mass/Vol] 57.2 mg/dL Normal [facility] Comment on above: Performed By: #### V ITAD, PSASC, IRON #### [facility] [address] [address] [address] Smitha Petersen Cholesterol.total/Ch olesterol in HDL [Mass ratio] 3.2 {ratio} Normal [facility] Comment on above: Performed By: #### V ITAD, PSASC, IRON #### [facility] [address] [address] [address] Smitha Petersen HDL NORMAL > or = 60 mg/dl - LO W CARDIOVASCULAR RISK <40 mg/dl - HIGH CARDIOVASCULAR RISK Normal [facility] Comment on above: Performed By: #### V ITAD, PSASC, IRON #### [facility] [address] [address] [address] Smitha Petersen LDL CALC NORMAL SEE BELOW Normal [facility] Comment on above: Result Comment: <100 mg/dl OPTIMAL 100 - 129 mg/dl NEAR OR ABOVE OPTIMAL 130 - 159 mg/dl BORDERLINE HIGH 160 - 189 mg/dl HIGH >190 mg/dl VERY HIGH Performed By: #### V ITAD, PSASC, IRON #### [facility] [address] [address] [address] Smitha Petersen Triglyceride [Mass/Vol] 159 mg/dL Critically high <=150 [facility] Comment on above: Performed By: #### V ITAD, PSASC, IRON #### [facility] [address] [place] [address] Dr. Smitha Petersen VLDL CALC 31.8 mg/dL Normal [facility] Comment on above: Performed By: #### V ITAD, PSASC, IRON #### [facility] [address] [place] [address] Dr. Smitha Petersen CBC AUTO DIFFon 03-22-2022 BASO # 0.1 103/ul Normal 0.0-0.1 [facility] Comment on above: Performed By: #### V ITAD, PSASC, IRON #### [facility] [address] [place] [address] Dr. Smitha Petersen Basophils/100 WBC (Bld) 0.5 % Normal 0.2-2.0 [facility] Comment on above: Performed By: #### V ITAD, PSASC, IRON #### [facility] [address] [place] [address] Dr. Smitha Petersen EO # 0.4 103/ul Normal 0.0-0.7 [facility] Comment on above: Performed By: #### V ITAD, PSASC, IRON #### [facility] [address] [place] [address] Dr. Smitha Petersen Eosinophils/100 WBC (Bld) 3.5 % Normal 0.9-7.0 [facility] Comment on above: Performed By: #### V ITAD, PSASC, IRON #### [facility] [address] [place] [address] Dr. Smitha Petersen Erythrocyte distribution width (RBC) [Ratio] 15.1 % Critically high 11.0-15.0 [facility] Comment on above: Performed By: #### V ITAD, PSASC, IRON #### [facility] [address] [place] [address] Dr. Smitha Petersen Hematocrit (Bld) [Volume fraction] 46.8 % Normal 42.0-54.0 [facility] Comment on above: Performed By: #### V ITAD, PSASC, IRON #### [facility] [address] [address] [address] Smitha Petersen Hemoglobin (Bld) [Mass/Vol] 15.5 g/dL Normal 14.0-18.0 [facility] Comment on above: Performed By: #### V ITAD, PSASC, IRON #### [facility] [address] [place] [address] Dr. Smitha Petersen IG # 0.03 10e3/ul Normal 0.00-0.03 [facility] Comment on above: Performed By: #### V ITAD, PSASC, IRON #### [facility] [address] [place] [address] Dr. Smitha Petersen IG % 0.3 % Normal 0.0-0.5 [facility] Comment on above: Performed By: #### V ITAD, PSASC, IRON #### [facility] [address] [place] [address] Dr. Smitha Petersen LYMPH # 2.6 103/ul Normal 1.2-3.8 [facility] Comment on above: Performed By: #### V ITAD, PSASC, IRON #### [facility] [address] [place] [address] Dr. Smitha Petersen Lymphocytes/100 WBC (Bld) 25.0 % Normal 20.5-60.0 [facility] Comment on above: Performed By: #### V ITAD, PSASC, IRON #### [facility] [address] [place] [address] Dr. Smitha Petersen MANUAL DIFF REQ NO Normal [facility] Comment on above: Performed By: #### V ITAD, PSASC, IRON #### [facility] [address] [place] [address] Dr. Smitha Petersen MCH (RBC) [Entitic mass] 29.6 pg Normal 25.9-34.0 [facility] Comment on above: Performed By: #### V ITAD, PSASC, IRON #### [facility] [address] [place] [address] Dr. Smitha Petersen MCHC (RBC) [Mass/Vol] 33.1 g/dL Normal 29.9-35.2 [facility] Comment on above: Performed By: #### V ITAD, PSASC, IRON #### [facility] [address] [address] [address] Smitha Petersen MCV (RBC) [Entitic vol] 89.5 fL Normal 80.0-94.0 [facility] Comment on above: Performed By: #### V ITAD, PSASC, IRON #### [facility] [address] [place] [address] Dr. Smitha Petersen MONO # 0.7 103/ul Normal 0.3-0.8 [facility] Comment on above: Performed By: #### V ITAD, PSASC, IRON #### [facility] [address] [place] [address] Dr. Smitha Petersen Monocytes/100 WBC (Bld) 7.0 % Normal 1.7-12.0 [facility] Comment on above: Performed By: #### V ITAD, PSASC, IRON #### [facility] [address] [place] [address] Dr. Smitha Petersen NEUT # 6.7 103/ul Critically high 1.4-6.5 [facility] Comment on above: Performed By: #### V ITAD, PSASC, IRON #### [facility] [address] [place] [address] Dr. Smitha Petersen Neutrophils/100 WBC (Bld) 63.7 % Normal 43.0-75.0 [facility] Comment on above: Performed By: #### V ITAD, PSASC, IRON #### [facility] [address] [place] [address] Dr. Smitha Petersen Platelet mean volume (Bld) [Entitic vol] 8.9 fL Critically low 9.5-13.5 [facility] Comment on above: Performed By: #### V ITAD, PSASC, IRON #### [facility] [address] [place] [address] Dr. Smitha Petersen PLT 245 103/ul Normal 150-450 [facility] Comment on above: Performed By: #### V ITAD, PSASC, IRON #### [facility] [address] [place], [place] [address] Dr. Smitha Petersen RBC 5.23 106/ul Normal 4.70-6.10 [facility] Comment on above: Performed By: #### V ITAD, PSASC, IRON #### [facility] [address] [place], [place] [address] Dr. Smitha Petersen WBC 10.5 103/ul Normal 4.0-11.0 [facility] Comment on above: Performed By: #### V ITAD, PSASC, IRON #### [facility] [address] [place], [place] [address] ABD/PELVIS WO CONon [...] BLU GASPAR Date: 2022-03-22 21:12 Normal [facility] CULTURE URINEon 03-22-2022 CULTURE URINE Culture Observations : NO GROWTH. Normal [facility] Comment on above: Performed By: #### V ITAD, PSASC, IRON #### [facility] [address] [address] [address] Smitha Petersen ER URINE PROFILEon 2 Bilirubin Ql (U) Negative Normal NEGATIVE [facility] Comment on above: Performed By: #### V ITAD, PSASC, IRON #### [facility] [address] [place] [address] Dr. Smitha Petersen Clarity (U) CLEAR Normal CLEAR [facility] Comment on above: Performed By: #### V ITAD, PSASC, IRON #### [facility] [address] [place] [address] Dr. Smitha Petersen Color (U) LT. YELLOW Normal YELLOW [facility] Comment on above: Performed By: #### V ITAD, PSASC, IRON #### [facility] [address] [place] [address] Dr. Smitha EVANSFrankie A micrscopic examination will be performed if indicated. Normal [facility] Comment on above: Performed By: #### V ITAD, PSASC, IRON #### [facility] [address] [place] [address] Dr. Smitha Petersen Glucose Ql (U) Negative Normal NEGATIVE [facility] Comment on above: Performed By: #### V ITAD, PSASC, IRON #### [facility] [address] [address] [address] Smitha Petersen Hemoglobin Ql (U) TRACE-INTACT Abnormal NEGATIVE [facility] Comment on above: Performed By: #### V ITAD, PSASC, IRON #### [facility] [address] [address] [address] Smitha Petersen Ketones Ql (U) Negative Normal NEGATIVE [facility] Comment on above: Performed By: #### V ITAD, PSASC, IRON #### [facility] [address] [address] [address] Smitha Petersen LEUKOCYTES TRACE Abnormal NEGATIVE [facility] Comment on above: Performed By: #### V ITAD, PSASC, IRON #### [facility] [address] [address] [address] Smitha Petersen Nitrite Ql (U) Negative Normal NEGATIVE [facility] Comment on above: Performed By: #### V ITAD, PSASC, IRON #### [facility] [address] [address] [address] Smitha Petersen pH (U) 5.5 [pH] Normal 5-9 [facility] Comment on above: Performed By: #### V ITAD, PSASC, IRON #### [facility] [address] [place] [address] Dr. Smitha Petersen SPEC GRAVITY 1.010 Normal 1.005-<=1.025 [facility] Comment on above: Performed By: #### V ITAD, PSASC, IRON #### [facility] [address] [address] [address] Smitha Petersen UA PROTEIN Negative Normal NEGATIVE/ TRACE [facility] Comment on above: Performed By: #### V ITAD, PSASC, IRON #### [facility] [address] [address] [address] Smitha Petersen UR MICRO IND INDICATED Normal [facility] Comment on above: Performed By: #### V ITAD, PSASC, IRON #### [facility] [address] [address] [address] Smitha Petersen Urobilinogen Qn (U) 0.2 {Zach'U}/dL Normal 0.2 - 1. 0 [facility] Comment on above: Performed By: #### V ITAD, PSASC, IRON #### [facility] [address] [place] [address] Dr. Smitha Petersen PROF 14(COMP METB)on 022 Albumin [Mass/Vol] 4.0 g/dL Normal 3.4-5.0 [facility] Comment on above: Performed By: #### V ITAD, PSASC, IRON #### [facility] [address] [address] [address] Smitha Petersen Albumin/Globulin [Mass ratio] 1.2 {ratio} Normal [facility] Comment on above: Performed By: #### V ITAD, PSASC, IRON #### [facility] [address] [address] [address] Smitha Petersen ALP [Catalytic activity/Vol] 113 U/L Normal 46-116 [facility] Comment on above: Performed By: #### V ITAD, PSASC, IRON #### [facility] [address] [address] [address] Smitha Petersen ALT [Catalytic activity/Vol] 53 U/L Normal 16-63 [facility] Comment on above: Performed By: #### V ITAD, PSASC, IRON #### [facility] [address] [address] [address] Smitha Petersen Anion gap [Moles/Vol] 15.3 mmol/L Normal [facility] Comment on above: Performed By: #### V ITAD, PSASC, IRON #### [facility] [address] [address] [address] Smitha Petersen AST [Catalytic activity/Vol] 18 U/L Normal 15-37 [facility] Comment on above: Performed By: #### V ITAD, PSASC, IRON #### [facility] [address] [address] [address] Smitha Petersen Bilirubin [Mass/Vol] 0.4 mg/dL Normal 0.2-1.0 [facility] Comment on above: Performed By: #### V ITAD, PSASC, IRON #### [facility] [address] [address] [address] Smitha Petersen Calcium [Mass/Vol] 9.2 mg/dL Normal 8.5-10.1 [facility] Comment on above: Performed By: #### V ITAD, PSASC, IRON #### [facility] [address] [address] [address] Smitha Petersen Chloride [Moles/Vol] 101 mmol/L Normal 98-107 [facility] Comment on above: Performed By: #### V ITAD, PSASC, IRON #### [facility] [address] [place] [address] Dr. Smitha Petersen CO2 [Moles/Vol] 24.8 mmol/L Normal 21.0-32.0 [facility] Comment on above: Performed By: #### V ITAD, PSASC, IRON #### [facility] [address] [place] [address] Dr. Smitha Petersen Creatinine [Mass/Vol] 0.96 mg/dL Normal 0.70-1.30 [facility] Comment on above: Performed By: #### V ITAD, PSASC, IRON #### [facility] [address] [place] [address] Dr. Smitha Petersen EGFR-AF ERITREAN >60 Normal >=60 [facility] Comment on above: Performed By: #### V ITAD, PSASC, IRON #### [facility] [address] [place] [address] Dr. Smitha Petersen EGFR-NON AF ERITREAN >60 Normal >=60 [facility] Comment on above: Performed By: #### V ITAD, PSASC, IRON #### [facility] [address] [place] [address] Dr. Smitha Petersen Globulin (S) [Mass/Vol] 3.4 g/dL Normal [facility] Comment on above: Performed By: #### V ITAD, PSASC, IRON #### [facility] [address] [place] [address] Dr. Smitha Petersen Glucose [Mass/Vol] 146 mg/dL Critically high 74-106 [facility] Comment on above: Performed By: #### V ITAD, PSASC, IRON #### [facility] [address] [place] [address] Dr. Smitha Petersen Potassium [Moles/Vol] 4.1 mmol/L Normal 3.5-5.1 [facility] Comment on above: Performed By: #### V ITAD, PSASC, IRON #### [facility] [address] [place] [address] Dr. Smitha Petersen Protein [Mass/Vol] 7.4 g/dL Normal 6.4-8.2 [facility] Comment on above: Performed By: #### V ITAD, PSASC, IRON #### [facility] [address] [place] [address] Dr. Smitha Petersen Sodium [Moles/Vol] 137 mmol/L Normal 136-145 [facility] Comment on above: Performed By: #### V ITAD, PSASC, IRON #### [facility] [address] [place] [address] Dr. Smitha Petersen Urea nitrogen [Mass/Vol] 22.0 mg/dL Critically high 7.0-18.0 [facility] Comment on above: Performed By: #### V ITAD, PSASC, IRON #### [facility] [address] [place] [address] Dr. Smitha Petersen Urea nitrogen/Creatinine [Mass ratio] 22.9 mg/mg Normal [facility] Comment on above: Performed By: #### V ITAD, PSASC, IRON #### [facility] [address] [place] [address] Dr. Smitha Petersen URINE MICROSCOPIC ONLYon BACTERIA TRACE Abnormal NONE SEEN [facility] Comment on above: Performed By: #### V ITAD, PSASC, IRON #### [facility] [address] [place] [address] Dr. Smitha Petersen Bacteria identified Cx Nom (U) INDICATED Normal [facility] Comment on above: Performed By: #### V ITAD, PSASC, IRON #### [facility] [address] [place] [address] Dr. Smitha Petersen CAST NONE SEEN Normal NONE SEEN [facility] Comment on above: Performed By: #### V ITAD, PSASC, IRON #### [facility] [address] [place] [address] Dr. Smitha Petersen Crystals LM Nom (Urine sed) NONE SEEN Normal NONE SEEN [facility] Comment on above: Performed By: #### V ITAD, PSASC, IRON #### [facility] [address] [place] [address] Dr. Smitha Petersen Epithelial cells LM Ql (Urine sed) NONE SEEN Normal NONE SEEN /RARE [facility] Comment on above: Performed By: #### V ITAD, PSASC, IRON #### [facility] [address] [address] [address] Smitha Petersen MUCOUS NONE SEEN Normal NONE SEEN [facility] Comment on above: Performed By: #### V ITAD, PSASC, IRON #### [facility] [address] [place] [address] Dr. Smitha Petersen RBC NONE SEEN Abnormal 0-2 [facility] Comment on above: Performed By: #### V ITAD, PSASC, IRON #### [facility] [address] [place] [address] Dr. Smitha Petersen WBC 5-10 Abnormal NONE SEEN [facility] Comment on above: Performed By: #### V ITAD, PSASC, IRON #### [facility] [address] [place] [address] Dr. Smitha Petersen US TRAV DOP LEG [...] PATRICIO LUTZ Date: 2022-01-23 11:39 Normal [facility] Operative Reporton Operative Report MR#: [id number] [facility] Pt. Name: Mk Rosales Room #: 0C Discharge Date: Birthdate: 1970 OPERATIVE REPORT DATE OF SURGERY: 09/15/2020 SURGEON: Mk H. Mechelle, M.D. PREOPERATIVE DIAGNOSIS: Left knee medial meniscus tear, unstable. POSTOPERATIVE DIAGNOSIS: 1. Left knee medial meniscus tear, unstable. 2. Left knee chondral tear patella. SURGEON: Mk Min M.D. DIRECT MARKETING MANAGER: Nelson Leos MD ANESTHESIA: General. PROCEDURE PERFORMED: [...] Min M.D. Date Trans: 09/15/2020 09:36 A/zoey [id number] cc: Shanel Fernandez M.D. [address] [address] Normal [facility] POC GLUCOSE LABon 09-15-2020 Glucose [Mass/Vol] 101 mg/dL High 70-100 [facility] Comment on above: Performed By: #### [id number] #### [address] Vital Signs Date Time Vital Sign Value Performing Clinician Facility 11-05-2022 09:00-0500 Body height Berenice Blades [facility] Other 11-05-2022 09:00-0500 Body mass index (BMI) [Ratio] 38.24 kg/m2 Berenice Blades [facility] Other 11-05-2022 09:00-0500 Body weight 117.48 kg Berenice Blades [facility] Other 11-05-2022 09:00-0500 Diastolic blood pressure 94 mm[Hg] Berenice Blades [facility] Other 11-05-2022 09:00-0500 Systolic blood pressure 156 mm[Hg] Berenice Blades [facility] Other 10-26-2022 08:00-0500 Body height Berenice Blades [facility] Other 10-26-2022 08:00-0500 Body mass index (BMI) [Ratio] 38.24 kg/m2 Berenice Blades [facility] Other 10-26-2022 08:00-0500 Body weight 117.48 kg Berenice Blades [facility] Other 10-26-2022 08:00-0500 Diastolic blood pressure 89 mm[Hg] Berenice Blades [facility] Other 10-26-2022 08:00-0500 Systolic blood pressure 130 mm[Hg] Beernice Blades [facility] Other Encounters Encounter Date Encounter Type Care Provider Facility Start: 06-24-2024 End: [facility]: 02-18-2024 End: 02-18-2024 ambulatory ARLINE VALDES Not Available Start: 02-03-2024 End: 02-03-2024 ambulatory [facility] Start: 01-01-2023 End: 01-02-2023 ambulatory TREVOR SAMSA . Facility:[facility] Start: 12-19-2022 ambulatory SHANEL HOY Facility:[facility] Start: 12-12-2022 ambulatory SHANEL HOY Facility:[facility] Start: 11-05-2022 End: 11-05-2022 ambulatory Berenice Blades [facility] Start: 11-05-2022 Office outpatient vi sit 15 minutes Berenice Blades [facility] Start: 11-01-2022 End: 11-02-2022 ambulatory BERENICE BLADES Facility:[facility] Start: 10-26-2022 End: 10-26-2022 ambulatory Berenice Blades [facility] Start: 10-26-2022 Office outpatient ne w 45 minutes Berenice Blades [facility] Start: 10-17-2022 End: 10-18-2022 ambulatory SHANEL [...] Start: 09-15-2020 End: 09-16-2020 ambulatory SHANEL HOY Facility:[facility] Procedures Date Procedure Procedure Detail Performing Clinician Start: 10-17-2022 PSA screening SHANEL H BEAR Comment on above: Performed By: #### V ITAD, PSASC, IRON #### [facility] [address] [place] [address] Dr. Smitha Petersen Start: 09-15-2020 ANESTH KNEE JOINT SURGERY JAYSON CHEN Start: 09-15-2020 KNEE ARTHROSCOPY/SURGERY MK MIN Plan of Treatment Date Care Activity Detail Author Start: 01-23-2023 ambulatory Ambulatory Facility:[facility] Payers Date Payer Category Payer Medicare [id number] 1970 Unknown [id number] 2.16.8 [id number] 1970 Unknown [id number] 2.16.84 [id number] 1970 Unknown [id number] 2.16.84 0.1.702009.3.579.2.593 1970 Unknown [id number] 2.16.84 0.1.068138.3.579.2.593 1970 Unknown [id number] 2.16.84 0.1.999611.3.579.2.593 1970 Unknown [id number] 2.16.84 0.1.434451.3.579.2.593 1970 Unknown [id number] 2.16.84 0.1.546811.3.579.2.593 1970 Unknown [id number] 2.16.84 0.1.637310.3.579.2.593 1971 Unknown [id number] 2.16.84 0.1.832127.3.579.2.593 1971 Unknown [id number] 2.16.84 0.1.130082.3.579.2.593 1971 Unknown [id number] 2.16.84 0.1.091869.3.579.2.593 1971 Unknown [id number] 2.16.84 0.1.857967.3.579.2.593 1971 Unknown [id number] 2.16.84 0.1.873443.3.579.2.593 1971 Unknown [id number] 2.16.84 0.1.026765.3.579.2.593 1971 Unknown [id number] 2.16.84 0.1.007640.3.579.2.593 1971 Unknown [id number] 2.16.84 0.1.425094.3.579.2.593 1971 Unknown [id number] 2.16.84 0.1.094802.3.579.2.593 1971 Unknown [id number] 2.16.84 0.1.679436.3.579.2.593 1971 Unknown [id number] 2.16.84 0.1.443777.3.579.2.1259 1958 Medicare [id number] 2.1 [id number] 1958 Self-pay [id number] 1958 Unknown [id number] Self-pay Self Pay [id number] Unknown Self Pay [id number] Social History Date Type Detail Facility Tobacco smoking status NJIS Unknown if ever smoked [facility] Work Phone: Start: 1970 Sex Assigned At Male F [facility] Sex Assigned At Sex Assigned At [facility] Other Progress note 06-24-2024 Note Date & Type Note Facility 06-24-2024 Note Patient here for fol low up stress test per Dr. Fernandez. He states Dr. Fernandez ordered test for 2 episodes of diaphoresis while he was in [place]. He denies chest pain and increased POSEY. Review of Systems Constitutional: Positive for diaphoresis (2 episodes). Cardiovascular: Positive for dyspnea on exertion. Respiratory: Positive for wheezing. Musculoskeletal: Positive for arthritis, back pain, joint pain and muscle weakness. Neurological: Positive for weakness. All other systems reviewed and are negative. [facility] Progress note 06-24-2024 Note Date & Type Note Facility 06-24-2024 Note Cardiovascular Medic [facility] SUBJECTIVE Chief Complaint Patient presents [...] at bedtime., Disp: 90 tablet, Rfl: 3 [id number]-zmfqcjse-zocxlpnrju 160-9-4.8 mcg/actuation HFA aerosol inhaler, Breztri Aerosphere [...] Right Ear: Exter (more content not included)... [facility] Progress note 02-03-2024 Note Date & Type Note Facility 02-03-2024 Note [facility] Cardiology Clinic Note Chief Complaint: Patient [...] by mouth at bedtime., Disp: , Rfl: gqlpsgiscw-fzwmetpb-iazoopgzjh 160-9-4.8 mcg/actuation HFA aerosol inhaler, Breztri Aerosphere [...] Echocardiogram 08/14/2022 Con (more content not included)... [facility] Evaluation note 11-05-2022 Note Date & Type Note Facility 11-05-2022 Evaluation note Encounter Date Diagnosis Assessment Notes Oct, Left leg pain (ICD-10 - M79.605) [facility] Other Evaluation note 10-26-2022 Note Date & Type Note Facility 10-26-2022 Evaluation note Encounter Date Diagnosis Assessment Notes Oct, Cerebral infarct (ICD-10 - I63.9) Oct, Encephalomalacia (ICD-10 - G93.89) [facility] Other Clinical Note 08-06-2022 Note Date & [...] and reported in a separate dictation. [facility] Evaluation note Note Date & Type Note Facility Evaluation note No assessment information availa [facility] Work Phone: History general Narrative [...] Surgical History angioplasty Hospitalization History see above People and Pages Other Summary Purpose Family History No Family [...] and content) DATE CREATED AUTHOR 08/18/2021 [facility] DATE CREATED AUTHOR AUTHOR'S ORGANIZ ATION 01/10/2023 [facility] DATE CREATED AUTHOR AUTHOR'S ORGANIZ ATION 02/19/2024 [facility] EPIC DATE CREATED AUTHOR AUTHOR'S ORGANIZ ATION 06/26/2024 [facility] Goals (unrecognized section and content) Goals may be documented in a n alternate sectionGoals may be documented in an alternate sectionNo InformationNo Information REASON FOR VISIT (unrecogniz ed section and content) Ref Dr Mallory, Left sided weakness; left leg painMRI, ultrasound results test done 11/01/22 @[facility] FOR RECORDS PERTAINING TO PATIENTS WHO ARE [...] BE BASED ON THE PRIMARY CLINICAL RECORDS. [employer] [facility] provides no warranty or guarantee of the accuracy or completeness of information in this document.
== END 2024-10-16 06:58 | disposition home or self-care (01) ==
LOC: LAB 10-21 07:26
PROVIDERS: PCP Family Medicine; Visit Provider Family Medicine
DX: J44.9 Chronic obstructive pulmonary disease, unspecified (principal); I48.91 Unspecified atrial fibrillation; E11.40 Type 2 diabetes mellitus with diabetic neuropathy, unspecified; G40.909 Epilepsy, unspecified, not intractable, without status epilepticus; E78.5 Hyperlipidemia, unspecified; E03.9 Hypothyroidism, unspecified; Z12.5 Encounter for screening for malignant neoplasm of prostate
CPT/HCPCS: 36415; 80053; 80061; 83036; 84436; 84443; 84481; 85025; G0103